=== PATIENT | female | born 1950 | race Caucasian/White ===

== ENCOUNTER 2018-12-22 15:13 | Inpatient (IN) | payer MEDICARE, SELFPAY ==
[2018-12-22] VITALS (8 sets, daily range): BP systolic 103–135; BP diastolic 40–96; PULSE 83–89; RESP 12–18; TEMP 34.6–37.1; O2SAT 95–100; BMI 24.8; BMI 24.0; BMI 24.1
--- NOTE | 2018-12-22 15:31 | EKG12_ITS ---
Test Reason : FALL Blood Pressure : / mmHG Vent. Rate : 090 BPM Atrial Rate : 104 BPM P-R Int : 000 ms QRS Dur : 152 ms QT Int : 384 ms P-R-T Axes : 000 047 113 degrees QTc Int : 469 ms Normal sinus rhythm Left bundle branch block Abnormal ECG Confirmed by PEDRO PABLO WRIGHT, AZEB ([id number]), legal editor CONNIE MENON ([id number] on 12/26/2018 8:53:29 AM Referred By: DONNY Confirmed By:AZEB CHAMORRO MD
--- NOTE | 2018-12-22 15:31 | RAD_ITS ---
STUDY: X-RAY CHEST REASON FOR EXAM: Female, 68 years old. Status post fall TECHNIQUE: Single AP portable view of the chest. COMPARISON: Prior comparison studies are not made available for review at this time. FINDINGS: Is a right-sided central line and the tip is in superior vena cava. The lungs are clear and expanded. There is no demonstrated pleural abnormality. There is mild cardiac enlargement. Normal mediastinum and clinton. Normal visualized pulmonary arteries. Normal visualized aortic arch and descending thoracic aorta. Normal visualized thoracic spine. Normal visualized ribs, clavicles, and shoulders. Postoperative changes in the right axilla. This postoperative change in the left axilla. RAD/Chest 1 View (Portable) IMPRESSION: Right internal jugular venous line. No evidence of acute focal infiltrate. No visualized fracture. Electronically Signed: Caren Noonan MD at 18:26 EST Tel , Service support ,
--- NOTE | 2018-12-22 15:32 | RAD_ITS ---
STUDY: X-RAY - RIGHT HIP and AP pelvis. REASON FOR EXAM: Female, 68 years old. Pain TECHNIQUE: 2 views of the hip. And one AP view of the pelvis. COMPARISON: None. FINDINGS: Normal bilateral femoral head, neck, intertrochanteric region and visualized proximal femur. Normal acetabulum. Normal hip joint. Normal visualized superior and inferior pubic rami and ischial tuberosities. Postoperative changes overlying the right hip joint. RAD/HIP, UNI W/ Pelvis 2-3 Views IMPRESSION: Normal x-ray examination of the pelvis and right hip. Electronically Signed: Caren Noonan MD at 18:24 EST Tel , Service support ,
--- NOTE | 2018-12-22 15:35 | ED.VISSUMM ---
- ER Visit Summary Date of Service: 12/22/18 Chief Complaint: Fall, right hip pain History of Present Illness: The patient is a 68 F patient with mechanical fall at 1210 PM today outside her driveway. Walking to get mail when she slipped. Fell directly on her hip. No head injuries. No loss of conscious. No neck or back pain. Was unable to get up, reports was laying in the driveway for 2 and half hours until neighbor drove I saw her and stopped. States she was cold however however she did have a good coat and gloves. History of right lower leg fracture with a stella placed in 2007 at [facility] by Dr. Palmer. He is since retired. History of breast cancer recurrent bilateral mastectomy currently on treatment followed by Dr. Booker. She is on warfarin for history of right DVT in 2017 requiring a thrombectomy. Physical Examination: General: Alert and oriented ?3, no acute distress HEENT: Normocephalic, atraumatic. Moist mucosa membranes Neck: supple, nontender. Cardiovascular: Regular rate and rhythm, no murmurs Respiratory: Normal breath sounds, symmetric, no distress Abdomen: Soft, nontender, nondistended Extremities: Right lower extremity: No shortening or rotation, however pain with logroll. No thigh, knee, leg ankle or foot pain. Neurovascular intact distally. Neuro: no focal neurological deficits. Skin: Cold to palpation. Test Results: White count 1.4 hemoglobin 11.7 platelets 117, creatinine 1.4 INR 3.6. Chest x-ray no acute process, central line in place. Right hip x-ray read by radiologist negative, had lucency at the greater trochanter my review. MRI right hip nondisplaced intertrochanteric fracture. Emergency Department Course and Treatment: Patient hypothermic on arrival she was outside for 2 half hours on the ground bear hugger was placed warm saline. Temperature improved. Bear hugger removed. Labs were ordered for evaluation, however with her bilateral mastectomies for cancer nursing has difficulties with distal IV placement. Consent obtained from patient for central line placement right IJ with no difficulties. Chest x-ray confirms placement no pneumothorax. Patient given morphine for pain control. X-ray obtained of the hip had radiolucency on my review of the greater trochanter read negative by radiology. Reevaluate the patient she had some pain mid femur x-ray of that was obtained shows no acute process. Patient's labs noted slight pancytopenia she is on chemotherapy for breast cancer. INR with slightly supratherapeutic at 3.6. Patient still had pain in the greater trochanteric area, she denied any groin pain. With her comorbidities with breast cancer and being on warfarin with coagulopathy, I did feel definitive imaging is required for surgical planning of the hip. MRI was obtained confirms a nondisplaced inotrope fracture. Family updated. I discussed with hospitalist Dr. Castro for admission. Discussed with orthopedist Dr. Burt reports planned surgery either Tuesday or Tuesday when cleared. Treatment Plan: [] Disposition: Admission Impression: 1. Right hip fracture 2. Coagulopathy 3. Transient hypothermia 4. Central line placement This note was generated with [employer] dictation software. It may contain incorrect words, spelling, and punctuation that were not noted in review of the chart prior to signing ED Disposition - Plan for ED Patient: Disposition: Acute Care [facility] Diagnosis: Closed right hip fracture, Transient hypothermia, Coagulopathy
--- NOTE | 2018-12-22 15:40 | ED.DCSUM_ITS ---
- ER Visit Summary Date of Service: 12/22/18 Chief Complaint: Fall, right hip pain History of Present Illness: The patient is a 68 F patient with mechanical fall at 1210 PM today outside her driveway. Walking to get mail when she slipped. Fell directly on her hip. No head injuries. No loss of conscious. No neck or back pain. Was unable to get up, reports was laying in the driveway for 2 and half hours until neighbor drove I saw her and stopped. States she was cold however however she did have a good coat and gloves. History of right lower leg fracture with a stella placed in 2007 at [facility] by Dr. Palmer. He is since retired. History of breast cancer recurrent bilateral mastectomy c urrently on treatment followed by Dr. Booker. She is on warfarin for history of right DVT in 2017 requiring a thrombectomy. Physical Examination: General: Alert and oriented ?3, no acute distress HEENT: Normocephalic, atraumatic. Moist mucosa membranes Neck: supple, nontender. Cardiovascular: Regular rate and rhythm, no murmurs Respiratory: Normal breath sounds, symmetric, no distress Abdomen: Soft, nontender, nondistended Extremities: Right lower extremity: No shortening or rotation, however pain with logroll. No thigh, knee, leg ankle or foot pain. Neurovascular intact distally. Neuro: no focal neurological deficits. Skin: Cold to palpation. Test Results: White count 1.4 hemoglobin 11.7 platelets 117, creatinine 1.4 INR 3.6. Chest x-ray no acute process, central line in place. Right hip x-ray read by radiologist negative, had lucency at the greater trochanter my review. MRI right hip nondisplaced intertrochanteric fracture. Emergency Department Course and Treatment: Patient hypothermic on arrival she was outside for 2 half hours on the ground bear hugger was placed warm saline. Temperature improved. Bear hugger removed. Labs were ordered for evaluation, however with her bilateral mastectomies for cancer nursing has difficulties with distal IV placement. Consent obtained from patient for central line placement right IJ with no difficulties. Chest x-ray confirms placement no pneumothorax. Patient given morphine for pain control. X-ray obtained of the hip had radiolucency on my review of the greater trochanter read negative by radiology. Reevaluate the patient she had some pain mid femur x-ray of that was obtained shows no acute process. Patient's labs noted slight pancytopenia she is on chemotherapy for breast cancer. INR with slightly supratherapeutic at 3.6. Patient still had pain in the greater trochanteric area, she denied any groin pain. With her comorbidities with breast cancer and being on warfarin with coagulopathy, I did feel definitive imaging is required for surgical planning of the hip. MRI was obtained confirms a nondisplaced inotrope fracture. Family updated. I discussed with hospitalist Dr. Castro for admission. Discussed with orthopedist Dr. Burt reports planned surgery either Tuesday or Tuesday when cleared. Treatment Plan: [] Disposition: Admission Impression: 1. Right hip fracture 2. Coagulopathy 3. Transient hypothermia 4. Central line placement This note was generated with [employer] dictation software. It may contain incorrect words, spelling, and punctuation that were not noted in review of the chart prior to signing ED Disposition - Plan for ED Patient: Disposition: Acute Care Hospital [facility] Diagnosis: Closed right hip fracture, Transient hypothermia, Coagulopathy
[2018-12-22] MEDS: Morphine 4 MG/ML Syringe IV (17:07)
[2018-12-22] MEDS: 0.9% Normal Saline 1,000 ML 100 ML IV (17:08)
[2018-12-22 17:25] LABS: Absolute Lymphocyte Count 0.37 X10^3/ul (0.83-4.51); Absolute Neutrophil Count 0.7 X10^3/uL (2.0-7.7); Basophil# 0.03 X10^3/uL; Basophil% 2.1 % (0-1); Hematocrit 34.8 % (37-47); Hemoglobin 11.7 g/dl (12.0-15.0); Lymphocyte # 0.37 X10^3/ul (4.0); Lymphocyte % 26.4 % (19-41); Mean Corp Hgb Conc 33.6 g/gl (32-36); Mean Corpuscular Hgb 31.2 pg (27.0-32.0); Mean Corpuscular Volume 92.8 fL (81-99); Monocyte# 0.32 X10^3/uL; Monocyte% 22.9 % (0-10); Neutrophil # 0.68 X10^3/uL (2.7-7.7); Neutrophil % 48.6 % (47-70); Platelet Count 117 K/mm3 (150-450); RBC Distribution Width CV 15.1 % (11.6-14.6); RBC Distribution Width SD 44.3 fl (35.1-43.9); Red Blood Count 3.75 M/mm3 (4.2-5.4)
[2018-12-22 17:26] LABS: Anion Gap 15 (5-15); BUN 19 mg/dL (7-18); BUN/Creat Ratio 13.6 RATIO (10-20); Calcium,Total 9.3 mg/dL (8.5-10.1); Chloride 97 mmol/L (98-107); EST Glomerular Filtration Rate 40 mL/min (>60); Est Glom Filt Rate - Afr Amer 48 mL/min (>60); Estimated Creatinine Clearance 34.81 ml/min; Glucose 114 mg/dL (74-106); Potassium 3.7 mmol/L (3.5-5.1); Sodium Level 134 mmol/L (136-145)
[2018-12-22 17:29] LABS: Differential Indicated SCAN CRITERIA MET; POSITIVE COUNT YES; POSITIVE DIFFERENTIAL YES; POSITIVE MORPHOLOGY NO
[2018-12-22 17:33] LABS: White Blood Count 1.4 K/mm3 (4.4-11.0)
[2018-12-22 17:34] LABS: Prothrombin Time (Protime)PT. 35.9 SECONDS (11.7-14.9)
--- NOTE | 2018-12-22 17:34 | ED.RN ---
LAB CALLED CRITICAL RESULT ON THIS PT, WBC 1.4, DR NOTIFIED NFO'S
[2018-12-22 17:35] LABS: Partial Thromboplast Time 43.1 Seconds (24.1-36.2)
[2018-12-22 17:42] LABS: International Normalized Ratio 3.6
--- NOTE | 2018-12-22 17:50 | ED.RN ---
notified Dr. Mendez of WBC and INR
--- NOTE | 2018-12-22 17:51 | RAD_ITS ---
STUDY: X-RAY - RIGHT FEMUR REASON FOR STUDY: Female, 68 years old. Fall. Injury. TECHNIQUE: 4 view(s) of the femur. COMPARISON: Pelvis and right hip, December 22, 2018. FINDINGS: Normal visualized femur. There is no acute fracture or dislocation. There are degenerative changes of the knee and hip. There is evidence of a medullary stella within the proximal tibia with old healed fracture of the proximal fibula. Normal visualized soft tissue structure. RAD/Femur Min 2 Views IMPRESSION: Degenerative changes of the hip and knee. There is no visualized fracture or dislocation. Electronically Signed: Michael Tam DO at 19:15 EST Tel [phone], Service support ,
[2018-12-22 17:58] LABS: Differential Comment SCANNED
[2018-12-22] MEDS: fentaNYL 100 MCG/2 ML Ampul 25 MCG IV (19:27)
--- NOTE | 2018-12-22 19:30 | MRI_ITS ---
STUDY: MR PELVIS WITHOUT CONTRAST REASON FOR EXAM: Female, 68 years old. Fall. Pain. History of breast cancer. TECHNIQUE: Standardized fat and water weighted pulse sequences were obtained in all 3 orthogonal planes. COMPARISON: Pelvis and right hip, December 22, 2018. FINDINGS: Normal urinary bladder. Normal visualized small intestine. Normal visualized colon. The uterus is anteverted and tilted to the right uterus appears atrophic. The right ovary appears grossly normal. The left ovary is not visualized. There is no pelvic fluid. There is no pelvic mass lesion or lymphadenopathy. Normal visualized pelvic arteries. Normal The visualized pelvis is unremarkable. There is marked abnormality involving the right hip suggesting nondisplaced intertrochanteric fracture with marked edematous changes of the surrounding musculature and soft tissue. Left hip is unremarkable. MRI/Pelvis (Routine) IMPRESSION: 1. Nondisplaced intratrochanteric fracture of the right hip was marked inflammatory changes in the surrounding musculature and soft tissue. 2. No other evidence of pelvic abnormality. Electronically Signed: Michael Tam DO at 21:34 EST Tel [phone], Service support ,
--- NOTE | 2018-12-22 22:10 | PCM.HP.STD ---
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 The patient is a 68 year old F with past medical history as mentioned above presented to the emergency room because of fall and right hip pain. Today, patient had mechanical fall after she went out on her driveway to get her mail, slipped on the ice and she fell on her right side. Immediately, she started having right hip pain, severe throbbing pain, 8 out of 10 in severity, not radiating, aggravated by any movement of the right leg and without relieving factors. She stated that she stayed on the ground for more than 2 hours before she got help. She denied head injury. She denied any preceding symptoms such as dizziness, lightheadedness, chest pain, shortness of breath, syncope or presyncope. Upon arrival to ER, she was hypothermic, temperature was 94.2 Fahrenheit, other vital signs were stable. Later, his temperature improved and went back to normal. Her routine blood work was remarkable for leukopenia, anemia, thrombocytopenia and neutropenia, sodium of 134 and creatinine of 1.40. Her INR was 3.6. EKG revealed sinus rhythm with left bundle branch block and that is chronic compared to EKG from July,. Chest x-ray showed no acute findings. X-ray of the hip and right pelvis showed no acute fractures. X-ray of the right femur revealed no acute fractures or dislocation. MRI of the pelvis revealed nondisplaced intertrochanteric fracture of the right hip. She is being admitted for acute traumatic nondisplaced intertrochanteric fracture of the right hip, also found to have pancytopenia attributed to both Faslodex and Ibrance. Past Medical History Past Medical History (Chronic Problems): Chronic Problems History of atrial fibrillation (Chronic) Recurrent breast cancer (Chronic) Congenital single kidney (Chronic) History of DVT (deep vein thrombosis) (Chronic) Breast cancer (Chronic) s/p bilat rad mastect on chemo Alcoholic cirrhosis of liver with ascites (Chronic) Allergies carvedilol Adverse Reaction (Verified 12/22/18 15:18) Other Home Medications: Ambulatory Orders Medication Instructions Recorded Metoprolol Tartrate [Lopressor 25 mg PO BID 08/16/17 (Beta Marizol)] Cholecalciferol (Vitamin D3) 2,000 unit PO DAILY 12/22/18 [Vitamin D3] Fulvestrant [Faslodex] 500 mg IM QMONTH 12/22/18 Furosemide [Lasix] 20 mg PO DAILY 12/22/18 Multivitamin with Minerals 1 each PO DAILY 12/22/18 [Multiple Vitamin] Palbociclib [Ibrance] 125 mg PO DAILY 12/22/18 Spironolactone [Aldactone] 50 mg PO BID 12/22/18 Warfarin Sodium 1 mg PO FR 12/22/18 Warfarin Sodium 2 mg PO SUMOTUWETHSA 12/22/18 Surgical History: - - Bilateral radical mastectomy. Psychiatric History: No pertinent psych hx PUBLIC HEALTH STAFF NURSE History: No pertinent PUBLIC HEALTH STAFF NURSE history Lives: Spouse/ Significant Other Smoking Status: Never smoker Alcohol: None Drugs: None - *Family History Maternal History Items: No pertinent history Paternal History Items: No pertinent history Review of Systems Constitutional: Denies: Anorexia, Chills, Fever, Weakness Eyes: Denies: Blurred vision, Double vision, Drainage, Redness HEENT: Denies: Difficulty Hearing, Ear Pain, Eye Pain, Nasal Congestion, Sore Throat Cardiovascular: Denies: Chest Pain, Chest Pressure, Edema, Light Headedness, Palpitations, Syncope Respiratory: Denies: Cough, Pleuritic Pain, Shortness of Breath, Sputum production, Wheezing Gastrointestinal: Denies: Abdominal Pain, Constipation, Diarrhea, Nausea, Vomiting Genitourinary: Denies: Dysuria, Frequency, Hematuria Musculoskeletal: Reports: Joint Pain. Denies: Arm Pain, Back Pain, Foot Pain Skin: Denies: Dryness, Rash Neurological: Denies: Balance problems, Double vision, Change in Speech, Slurred speech, Confusion, Headaches, Incoordination, Numbness, Tingling Psychiatric: Denies: Anxiety, Depression Endocrine: Denies: Change in Body Habitus, Polydipsia VTE Information - Inpt Only VTE Present on Admission: No VTE Mechan Device Prophylaxis: SCD's, None VTE Pharm Prophylaxis ordered?: No Patient Problems: Active and Suspected Problems Nondisplaced intertrochanteric right hip (Acute) Pancytopenia (Acute) - Physical Exam General: Alert, Oriented x3, Cooperative, No apparent distress HEENT: Atraumatic, PERRLA, EOMI, Normocephalic Oral: Moist Mucosa, No Gingival or Mucosal Lesions/ Ulcerations Neck: Supple, No JVD, Negative Carotid Bruits, Trachea Midline, Thyroid Normal Size and Texture Lungs: Clear to auscultation, No rhonchi, No wheeze, No rales, Diminished Cardiovascular: Regular rate, Regular Rhythm, Normal S1, Normal S2, PMI Normal, Murmur - Systolic murmur. Abdomen: Bowel Sounds Present, Soft, Non Tender, Non-Distended, No Hepato-splenomegaly Extremities: No clubbing, No cyanosis, No edema Skin: No rashes, No breakdown Lymphatic: No Cervical, Supraclavicular, or Inguinal Adenopathy Neurological: Cranial nerves II-XII grossly intact, Motor Exam 5/5 strength throughout Psych/Mental Status: Normal Affect, Appropriate, Alert and oriented to time, place, person, mood and affect Vital Signs Temp Pulse Resp BP Pulse Ox 98.3 F 83 18 135/76 H 97 12/22/18 21:00 12/22/18 21:00 12/22/18 21:00 12/22/18 21:00 12/22/18 21:00 Oxygen Delivery Method Room Air Weight: 123 lb Body Mass Index (BMI) 24.8 Laboratory Tests Past 24 Hrs 12/22/18 12/22/18 12/22/18 17:00 17:00 17:00 WBC 1.4 L* RBC 3.75 L Hgb 11.7 L Hct 34.8 L MCV 92.8 MCH 31.2 MCHC 33.6 RDW 15.1 H RDW Differential 44.3 H Plt Count 117 L MPV 11.0 Immature Gran % (Auto) 0.000 Neut % (Auto) 48.6 Lymph % (Auto) 26.4 [place] % (Auto) 22.9 H Eos % (Auto) 0.0 Baso % (Auto) 2.1 H Absolute Neuts (auto) 0.7 L Absolute Lymphs (auto) 0.37 L Total Counted Not Reportable Differential Comment SCANNED Diff Path Review May foll PT 35.9 H INR 3.6 H* APTT 43.1 H Sodium 134 L Potassium 3.7 Chloride 97 L Carbon Dioxide 22.0 Anion Gap 15 BUN 19 H Creatinine 1.40 H Estim Creat Clear Calc 34.81 Est GFR (MDRD) Af Amer 48 L Est GFR (MDRD) Non-Af 40 L BUN/Creatinine Ratio 13.6 Glucose 114 H Calcium 9.3 Clinical Impression(s) from Imaging Studies Chest X-Ray 12/22/18 15:31 IMPRESSION: Right internal jugular venous line. No evidence of acute focal infiltrate. No visualized fracture. Electronically Signed: Caren Noonan MD at 18:26 EST Tel , Service support , Hip/Pelvis X-Ray 12/22/18 15:32 IMPRESSION: Normal x-ray examination of the pelvis and right hip. Electronically Signed: Caren Noonan MD at 18:24 EST Tel , Service support , Femur X-Ray 12/22/18 17:51 IMPRESSION: Degenerative changes of the hip and knee. There is no visualized fracture or dislocation. Electronically Signed: Michael Tam DO at 19:15 EST Tel [phone], Service support , Pelvis MRI 12/22/18 19:30 IMPRESSION: 1. Nondisplaced intratrochanteric fracture of the right hip was marked inflammatory changes in the surrounding musculature and soft tissue. 2. No other evidence of pelvic abnormality. Electronically Signed: Michael Tam DO at 21:34 EST Tel [phone], Service support , Assessment/Plan All Active Problems Nondisplaced intertrochanteric right hip (Acute) Pancytopenia (Acute) This is a 68 years old female patient presented to the ED because of fall on the right hip pain and she was found to have acute traumatic nondisplaced intertrochanteric fracture of the right hip and also found to have pancytopenia and Coumadin induced coagulopathy. #1 mechanical fall/acute traumatic nondisplaced intertrochanteric fracture of the right hip: X-ray of the hip and pelvis reviewed as well as MRI of the pelvis. No evidence of significant head trauma. At this time, her vital signs are stable. Plan: Admit to [facility] floor, telemetry, complete bedrest, IV fluids, IV morphine as needed, OxyIR as needed for pain, laxatives as needed, repeat CBC, CMP and INR tomorrow morning, orthopedic surgery consult, PT OT evaluation and treatment when appropriate. #2 preoperative evaluation: Patient with past history of recurrent breast cancer, alcoholic liver cirrhosis, history of A. fib status post cardioversion and history of DVTs. She lives at home, active, doing her basic daily activities without limitations. Chest x-ray showed no acute findings. EKG reviewed as above, revealed left bundle branch block which is chronic. Based on her age, functional status, serum creatinine and type of surgery she is going for, her estimated risk for perioperative myocardial infarction or cardiac arrest is 0.62%. Because of her history of atrial fibrillation and LBBB on EKG and also because she had a systolic murmur, will do 2D echocardiogram. At this time, patient is at least at moderate risk for surgery and we can proceed with surgery after the 2D echocardiogram. #3 pancytopenia/neutropenia without fever: It is secondary to Faslodex and Ibrance. She is afebrile. Absolute neutrophil count of 700. Plan: Neutropenic precautions, repeat CBC tomorrow morning. #4 Coumadin induced coagulopathy: Patient has been on Coumadin for more than a year for history of DVT. INR is 2.6. Her platelet count is 117,000. No evidence of active bleeding. Plan: Vitamin K 10 mg subcu x1, repeat INR tomorrow morning. #5 congenital single kidney/probable chronic kidney disease: Serum creatinine on July, was 1.39, admission creatinine is 1.40, very close to baseline. For that, serum creatinine is normal. Patient states that she has a single kidney and she states that it is probably congenital. #6 history of recurrent breast cancer: Status post bilateral radical mastectomy, status post chemotherapy back in 2012. Recurrence of breast cancer on 2017, currently on hormonal therapy with Faslodex and Ibrance, follows up with Dr. Booker as outpatient. Plan to hold Faslodex and continue Ibrance #7 history of DVT: INR is 2.6. We will give vitamin K as above, SCDs, repeat INR tomorrow morning. #8 history of atrial fibrillation, status post cardioversion: EKG reviewed, revealed sinus rhythm with LBBB. Plan to continue metoprolol for rate control, 2D echocardiogram. #9 chronic alcoholic liver cirrhosis: Compensated, no evidence of hepatic encephalopathy, minimal ascites. Plan to do LFT tomorrow morning. #10 DVT prophylaxis: SCDs, INR is 3.6. This note was generated with [employer] dictation software. It may contain incorrect words, spelling, and punctuation that were not noted in checking the note before signing. Code Visit Inpatient E&M: 21709 Init Hosp L3
--- NOTE | 2018-12-22 22:16 | HP.PCM_ITS ---
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 The patient is a 68 year old F with past medical history as mentioned above presented to the emergency room because of fall and right hip pain. Today, patient had mechanical fall after she went out on her driveway to get her mail, slipped on the ice and she fell on her right side. Immediately, she started having right hip pain, severe throbbing pain, 8 out of 10 in severity, not radiating, aggravated by any movement of the right leg and without relieving factors. She stated that she stayed on the ground for more than 2 hours before she got help. She denied head injury. She denied any preceding symptoms such as dizziness, lightheadedness, chest pain, shortness of breath, syncope or presyncope. Upon arrival to ER, she was hypothermic, temperature was 94.2 Fahrenheit, other vital signs were stable. Later, his temperature improved and went back to normal. Her routine blood work was remarkable for leukopenia, anemia, thrombocytopenia and neutropenia, sodium of 134 and creatinine of 1.40. Her INR was 3.6. EKG revealed sinus rhythm with left bundle branch block and that is chronic compared to EKG from July,. Chest x-ray showed no acute findings. X-ray of the hip and right pelvis showed no acute fractures. X-ray of the right femur revealed no acute fractures or dislocation. MRI of the pelvis revealed nondisplaced intertrochanteric fracture of the right hip. She is being admitted for acute traumatic nondisplaced intertrochanteric fracture of the right hip, also found to have pancytopenia attributed to both Faslodex and Ibrance. Past Medical History Past Medical History (Chronic Problems): Chronic Problems History of atrial fibrillation (Chronic) Recurrent breast cancer (Chronic) Congenital single kidney (Chronic) History of DVT (deep vein thrombosis) (Chronic) Breast cancer (Chronic) s/p bilat rad mastect on chemo Alcoholic cirrhosis of liver with ascites (Chronic) Allergies carvedilol Adverse Reaction (Verified 12/22/18 15:18) Other Home Medications: Ambulatory Orders Medication Instructions Recorded Metoprolol Tartrate [Lopressor 25 mg PO BID 08/16/17 (Beta Marizol)] Cholecalciferol (Vitamin D3) 2,000 unit PO DAILY 12/22/18 [Vitamin D3] Fulvestrant [Faslodex] 500 mg IM QMONTH 12/22/18 Furosemide [Lasix] 20 mg PO DAILY 12/22/18 Multivitamin with Minerals 1 each PO DAILY 12/22/18 [Multiple Vitamin] Palbociclib [Ibrance] 125 mg PO DAILY 12/22/18 Spironolactone [Aldactone] 50 mg PO BID 12/22/18 Warfarin Sodium 1 mg PO FR 12/22/18 Warfarin Sodium 2 mg PO SUMOTUWETHSA 12/22/18 Surgical History: - - Bilateral radical mastectomy. 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 Lives: Spouse/ Significant Other Smoking Status: Never smoker Alcohol: None Drugs: None - *Family History Maternal History Items: No pertinent history Paternal History Items: No pertinent history Review of Systems Constitutional: Denies: Anorexia, Chills, Fever, Weakness Eyes: Denies: Blurred vision, Double vision, Drainage, Redness HEENT: Denies: Difficulty Hearing, Ear Pain, Eye Pain, Nasal Congestion, Sore Throat Cardiovascular: Denies: Chest Pain, Chest Pressure, Edema, Light Headedness, Palpitations, Syncope Respiratory: Denies: Cough, Pleuritic Pain, Shortness of Breath, Sputum production, Wheezing Gastrointestinal: Denies: Abdominal Pain, Constipation, Diarrhea, Nausea, Vomiting Genitourinary: Denies: Dysuria, Frequency, Hematuria Musculoskeletal: Reports: Joint Pain. Denies: Arm Pain, Back Pain, Foot Pain Skin: Denies: Dryness, Rash Neurological: Denies: Balance problems, Double vision, Change in Speech, Slurred speech, Confusion, Headaches, Incoordination, Numbness, Tingling Psychiatric: Denies: Anxiety, Depression Endocrine: Denies: Change in Body Habitus, Polydipsia VTE Information - Inpt Only VTE Present on Admission: No VTE Mechan Device Prophylaxis: SCD's, None VTE Pharm Prophylaxis ordered?: No Patient Problems: Active and Suspected Problems Nondisplaced intertrochanteric right hip (Acute) Pancytopenia (Acute) - Physical Exam General: Alert, Oriented x3, Cooperative, No apparent distress HEENT: Atraumatic, PERRLA, EOMI, Normocephalic Oral: Moist Mucosa, No Gingival or Mucosal Lesions/ Ulcerations Neck: Supple, No JVD, Negative Carotid Bruits, Trachea Midline, Thyroid Normal Size and Texture Lungs: Clear to auscultation, No rhonchi, No wheeze, No rales, Diminished Cardiovascular: Regular rate, Regular Rhythm, Normal S1, Normal S2, PMI Normal, Murmur - Systolic murmur. Abdomen: Bowel Sounds Present, Soft, Non Tender, Non-Distended, No Hepato-splenomegaly Extremities: No clubbing, No cyanosis, No edema Skin: No rashes, No breakdown Lymphatic: No Cervical, Supraclavicular, or Inguinal Adenopathy Neurological: Cranial nerves II-XII grossly intact, Motor Exam 5/5 strength throughout Psych/Mental Status: Normal Affect, Appropriate, Alert and oriented to time, place, person, mood and affect Vital Signs Temp Pulse Resp BP Pulse Ox 98.3 F 83 18 135/76 H 97 12/22/18 21:00 12/22/18 21:00 12/22/18 21:00 12/22/18 21:00 12/22/18 21:00 Oxygen Delivery Method Room Air Weight: 123 lb Body Mass Index (BMI) 24.8 Laboratory Tests Past 24 Hrs 12/22/18 12/22/18 12/22/18 17:00 17:00 17:00 WBC 1.4 L* RBC 3.75 L Hgb 11.7 L Hct 34.8 L MCV 92.8 MCH 31.2 MCHC 33.6 RDW 15.1 H RDW Differential 44.3 H Plt Count 117 L MPV 11.0 Immature Gran % (Auto) 0.000 Neut % (Auto) 48.6 Lymph % (Auto) 26.4 [place] % (Auto) 22.9 H Eos % (Auto) 0.0 Baso % (Auto) 2.1 H Absolute Neuts (auto) 0.7 L Absolute Lymphs (auto) 0.37 L Total Counted Not Reportable Differential Comment SCANNED Diff Path Review May foll PT 35.9 H INR 3.6 H* APTT 43.1 H Sodium 134 L Potassium 3.7 Chloride 97 L Carbon Dioxide 22.0 Anion Gap 15 BUN 19 H Creatinine 1.40 H Estim Creat Clear Calc 34.81 Est GFR (MDRD) Af Amer 48 L Est GFR (MDRD) Non-Af 40 L BUN/Creatinine Ratio 13.6 Glucose 114 H Calcium 9.3 Clinical Impression(s) from Imaging Studies Chest X-Ray 12/22/18 15:31 IMPRESSION: Right internal jugular venous line. No evidence of acute focal infiltrate. No visualized fracture. Electronically Signed: Caren Noonan MD at 18:26 EST Tel , Service support , Hip/Pelvis X-Ray 12/22/18 15:32 IMPRESSION: Normal x-ray examination of the pelvis and right hip. Electronically Signed: Caren Noonan MD at 18:24 EST Tel , Service support , Femur X-Ray 12/22/18 17:51 IMPRESSION: Degenerative changes of the hip and knee. There is no visualized fracture or dislocation. Electronically Signed: Michael Tam DO at 19:15 EST Tel [phone], Service support , Pelvis MRI 12/22/18 19:30 IMPRESSION: 1. Nondisplaced intratrochanteric fracture of the right hip was marked inflammatory changes in the surrounding musculature and soft tissue. 2. No other evidence of pelvic abnormality. Electronically Signed: Michael Tam DO at 21:34 EST Tel [phone], Service support , Assessment/Plan All Active Problems Nondisplaced intertrochanteric right hip (Acute) Pancytopenia (Acute) This is a 68 years old female patient presented to the ED because of fall on the right hip pain and she was found to have acute traumatic nondisplaced intertrochanteric fracture of the right hip and also found to have pancytopenia and Coumadin induced coagulopathy. #1 mechanical fall/acute traumatic nondisplaced intertrochanteric fracture of the right hip: X-ray of the hip and pelvis reviewed as well as MRI of the pelvis. No evidence of significant head trauma. At this time, her vital signs are stable. Plan: Admit to [facility] floor, telemetry, complete bedrest, IV fluids, IV morphine as needed, OxyIR as needed for pain, laxatives as needed, repeat CBC, CMP and INR tomorrow morning, orthopedic surgery consult, PT OT evaluation and treatment when appropriate. #2 preoperative evaluation: Patient with past history of recurrent breast cancer, alcoholic liver cirrhosis, history of A. fib status post cardioversion and history of DVTs. She lives at home, active, doing her basic daily activities without limitations. Chest x-ray showed no acute findings. EKG reviewed as above, revealed left bundle branch block which is chronic. Based on her age, functional status, serum creatinine and type of surgery she is going for, her estimated risk for perioperative myocardial infarction or cardiac arrest is 0.62%. Because of her history of atrial fibrillation and LBBB on EKG and also because she had a systolic murmur, will do 2D echocardiogram. At this time, patient is at least at moderate risk for surgery and we can proceed with surgery after the 2D echocardiogram. #3 pancytopenia/neutropenia without fever: It is secondary to Faslodex and Ibrance. She is afebrile. Absolute neutrophil count of 700. Plan: Neutropenic precautions, repeat CBC tomorrow morning. #4 Coumadin induced coagulopathy: Patient has been on Coumadin for more than a year for history of DVT. INR is 2.6. Her platelet count is 117,000. No evidence of active bleeding. Plan: Vitamin K 10 mg subcu x1, repeat INR tomorrow morning. #5 congenital single kidney/probable chronic kidney disease: Serum creatinine on July, was 1.39, admission creatinine is 1.40, very close to baseline. For that, serum creatinine is normal. Patient states that she has a single kidney and she states that it is probably congenital. #6 history of recurrent breast cancer: Status post bilateral radical mastectomy, status post chemotherapy back in 2012. Recurrence of breast cancer on 2017, currently on hormonal therapy with Faslodex and Ibrance, follows up with Dr. Booker as outpatient. Plan to hold Faslodex and continue Ibrance #7 history of DVT: INR is 2.6. We will give vitamin K as above, SCDs, repeat INR tomorrow morning. #8 history of atrial fibrillation, status post cardioversion: EKG reviewed, revealed sinus rhythm with LBBB. Plan to continue metoprolol for rate control, 2D echocardiogram. #9 chronic alcoholic liver cirrhosis: Compensated, no evidence of hepatic encephalopathy, minimal ascites. Plan to do LFT tomorrow morning. #10 DVT prophylaxis: SCDs, INR is 3.6. This note was generated with engage[employer] dictation software. It may contain incorrect words, spelling, and punctuation that were not noted in checking the note before signing. Code Visit Inpatient E&M: 22271 Init Hosp L3
--- NOTE | 2018-12-22 23:19 | ECHOD_ITS ---
Version 2 Reason For Study: Preop Procedure This was a 2D Doppler, Color Flow transthoracic echocardiogram. Myocardial strain analysis was performed in this exam to aid in the assessment of cardiac function. Exam performed portable in patient room. Left Ventricle Normal LV size. Left ventricular systolic function is normal. The estimated ejection fraction is 60 %. Stage 1 diastolic dysfunction. No regional wall motion abnormalities noted. Right Ventricle Normal RV size. Normal systolic function. Atria Normal left atrium. Normal right atrium. Patent foramen ovale. Mitral Valve Normal mitral valve. Tricuspid Valve Normal tricuspid valve. Mild (1+) tricuspid valve insufficiency. Pulmonary artery systolic pressure is 50 mmHg. Moderate pulmonary hypertension. Aortic Valve Normal aortic valve. Trisinus/trileaflet aortic valve. Pulmonic Valve Normal pulmonic valve. Great Vessels Normal aortic root. The pulmonary artery is normal size. Normal inferior vena cava. Pericardium/Pleural No pericardial effusion. Medication Performed a rapid injection of agitated mix of 9 cc saline and 1cc air to assess for atrial septal defect. MMode/2D Measurements & Calculations LVIDd: 3.7 cm IVSd: 0.96 cm Ao root diam: 2.5 cm LVIDs: 2.6 cm LVPWd: 0.88 cm RVDd: 3.0 cm FS: 29.5 % LAV(MOD-bp): 25.5 ml LVAd ap4: 15.9 cm2 SV(MOD-sp4): 21.1 ml LAV(MOD-bp) Indexed: 17.0 ml/m2 EDV(MOD-sp4): 34.5 ml LAV(MOD-sp2): 18.7 ml EDV(sp4-el): 35.2 ml LAV(MOD-sp4): 23.6 ml LVAs ap4: 9.1 cm2 ESV(MOD-sp4): 13.4 ml ESV(sp4-el): 13.5 ml EF(MOD-sp4): 61.2 % EF(sp4-el): 61.6 % SV(sp4-el): 21.7 ml LA A4 area: 12.3 cm2 LA dimension(2D): 3.3 cm RA A4 area: 11.4 cm2 Doppler Measurements & Calculations MV E max tod: 70.6 cm/sec Lat Peak E' Tod: 11.2 cm/sec Med Peak E' Tod: 6.0 cm/sec MV A max tod: 91.3 cm/sec E/E' lat: 6.3 E/E' med: 11.8 MV E/A: 0.77 Ao V2 max: 172.3 cm/sec LV V1 max: 149.1 cm/sec PA V2 max: 202.1 cm/sec Ao max P.9 mmHg LV V1 max P.9 mmHg PA V2 mean: 123.5 cm/sec Ao V2 mean: 111.3 cm/sec PA V2 VTI: 26.2 cm Ao mean P.6 mmHg Ao V2 VTI: 24.2 cm TR max tod: 339.6 cm/sec TR max P.1 mmHg Interpretation Summary Normal LV size. Left ventricular systolic function is normal. The estimated ejection fraction is 60 %. Stage 1 diastolic dysfunction. Pulmonary artery systolic pressure is 50 mmHg. Moderate pulmonary hypertension. Patent foramen ovale. The global longitudinal strain = -19.1 % (normal). Ordering Physician: Vinayak Castro Referring Physician: Nacho Marte Performed By: Mariely Marc RDCS, RVT
[2018-12-23] VITALS (18 sets, daily range): BP systolic 108–153; BP diastolic 55–109; PULSE 86–101; RESP 16; TEMP 36.8–37.2; O2SAT 97–100; BMI 24.1
[2018-12-23] MEDS: 0.9% Normal Saline 1,000 ML 75 ML IV ×2 (00:26→13:53)
[2018-12-23] MEDS: Phytonadione (Vit K) 10 MG/ML Ampul SC (00:26)
[2018-12-23] MEDS: 0.9% NaCl Peripheral Flush Adult/Peds IV (00:27)
[2018-12-23] MEDS: oxyCODONE 5 MG Tablet PO ×2 (01:21→18:59)
--- NOTE | 2018-12-23 07:54 | PCM.PN.HOSP ---
Patient Problems: Active and Suspected Problems Nondisplaced intertrochanteric right hip (Acute) Pancytopenia (Acute) Subjective: Patient is a 68-year-old lady who presented following a fall and subsequent right hip pain. Imaging studies obtained on admission demonstrated nondisplaced intratrochanteric fracture involving the right hip. Admitted to regular nursing floor with consultation placed to orthopedic surgery. Objective: GENERAL: Appears frail HEENT: Atraumatic; moist oral mucosa EYES; Anicteric, Normal Conjunctiva NECK; supple, normal thyroid, no distended JVD. RESPIRATORY: Diminished to auscultation bilaterally, CARDIOVASCULAR: Regular S1 S2, no audible murmurs GI: soft, non-tender, normoactive bowel sounds, : No Renal angle tenderness; EXTREMITIES: No edema, no clubbing, no cyanosis. NEURO: Awake; no lateralizing signs. SKIN: No Rash PSYCH; Normal affect Vitals/I&O's: Vital Signs Temp Pulse Resp BP Pulse Ox 99 F 101 H 16 113/55 L 100 12/23/18 05:14 12/23/18 07:26 12/23/18 05:14 12/23/18 05:14 12/23/18 05:14 Oxygen Delivery Method Room Air Weight: 54.3 kg Body Mass Index (BMI) 24.1 Intake and Output for Last 24 Hours 12/21/18 12/22/18 12/23/18 23:59 23:59 23:59 Intake Total 685 / 685 Output Total 375 / 375 Balance 310 / 310 Laboratory Results 12/22/18 17:00: WBC 1.4 L*, RBC 3.75 L, Hgb 11.7 L, Hct 34.8 L, MCV 92.8, MCH 31.2, MCHC 33.6, RDW 15.1 H, RDW Differential 44.3 H, Plt Count 117 L, MPV 11.0, Immature Gran % (Auto) 0.000, Neut % (Auto) 48.6, Lymph % (Auto) 26.4, [place] % (Auto) 22.9 H, Eos % (Auto) 0.0, Baso % (Auto) 2.1 H, Absolute Neuts (auto) 0.7 L, Absolute Lymphs (auto) 0.37 L, Total Counted Not Reportable, Differential Comment SCANNED, Diff Path Review March12/22/18 17:00: PT 35.9 H, INR 3.6 H*, APTT 43.1 H 12/22/18 17:00: Sodium 134 L, Potassium 3.7, Chloride 97 L, Carbon Dioxide 22.0, Anion Gap 15, BUN 19 H, Creatinine 1.40 H, Estim Creat Clear Calc 34.81, Est GFR (MDRD) Af Amer 48 L, Est GFR (MDRD) Non-Af 40 L, BUN/Creatinine Ratio 13.6, Glucose 114 H, Calcium 9.3 Current Medications Acetaminophen (Tylenol) 650 mg PO Q6H PRN PRN PRN Reason: Mild Pain (scale 0-3)/T>100.7 Docusate Sodium (Colace) 100 mg PO BID [facility] Sodium Chloride () 1,000 mls @ 75 mls/hr IV .[id number] [facility] Last Admin: 12/23/18 00:26 Dose: 75 mls/hr Magnesium Hydroxide (Milk Of Magnesia) 30 ml PO DAILY PRN PRN PRN Reason: Constipation Metoprolol Tartrate (Lopressor (Beta Marizol)) 25 mg PO BID [facility] Morphine Sulfate () 1 - 2 mg IV Q4H PRN PRN PRN Reason: Moderate Pain (pain scale 4-5) Non-Formulary Medication (Palbociclib) 125 mg PO DAILY [facility] Ondansetron HCl (Zofran) 4 mg IV Q8H PRN PRN PRN Reason: Nausea Oxycodone HCl (Oxyir) 5 mg PO Q4H PRN PRN PRN Reason: Moderate Pain (pain scale 4-5) Last Admin: 12/23/18 01:21 Dose: 5 mg Sodium Chloride () 10 - 40 ml IV UD PRN PRN Reason: MULTILUMEN/HICMAN CATH FLUSH Last Admin: 12/23/18 05:34 Dose: 10 ml Spironolactone (Aldactone) 50 mg PO BID [facility] Zolpidem Tartrate (Ambien (Generic)) 5 mg PO QHS PRN PRN PRN Reason: INSOMNIA Medical Necessity - Tobacco Use Smoking Status: Never smoker Assessment/Plan All Active Problems Nondisplaced intertrochanteric right hip (Acute) Pancytopenia (Acute) Patient is a 68-year-old lady who presented following a fall and subsequent right hip pain. Imaging studies obtained on admission demonstrated nondisplaced intratrochanteric fracture involving the right hip. Admitted to regular nursing floor with consultation placed to orthopedic surgery. 1. Acute non-syncopal mechanical fall with subsequent traumatic nondisplaced intratrochanteric fracture involving the right hip. This was confirmed on an MRI obtained as part of patient's evaluation. Patient has been admitted to regular nursing floor where she is currently being managed with immobilization, pain management with consultation placed to orthopedic surgery. Case was discussed with Dr. Burt. Plan is for patient to undergo surgical intervention pending correction of her coagulopathy Patient risk for perioperative cardiac mortality was estimated to be 0.62%. EKG on admission demonstrated A. fib with aberrancy (left bundle branch block) An echo was ordered for assessment of a systolic murmur prior to patient undergoing surgical intervention 2. Coagulopathy secondary to Coumadin use Coumadin was held on admission patient coagulopathy reversed with vitamin K plan is for patient undergo surgical intervention was INR falls below 1.5 this was discussed with Dr. Melton 3. Pancytopenia (neutropenia, trombocytopenia and anemia) attributed to patient chemo agents Faslodex and Ibrance 4. History of recurrent breast CA (with previous mastectomy) patient is followed by Dr. Booker 5. Congenital single kidney 6. Kidney disease stage III with kidney function at baseline 1.4 7. Paroxysmal atrial fibrillation rate controlled on systemic anticoagulation with Coumadin which has been held due to above reasons 8. History of DVT involving right lower extremity 9. Alcoholic cirrhosis of liver ;stable 10. DVT prophylaxis SCDs for now Code Visit Inpatient E&M: 59753 [facility] Hosp L3
[2018-12-23 08:12] LABS: Absolute Lymphocyte Count 0.57 X10^3/ul (0.83-4.51); Absolute Neutrophil Count 0.6 X10^3/uL (2.0-7.7); Basophil# 0.04 X10^3/uL; Basophil% 2.7 % (0-1); Eosinophil# 0.01 X10^3/uL; Eosinophils% 0.7 % (0-5); Hematocrit 31.1 % (37-47); Hemoglobin 10.3 g/dl (12.0-15.0); Lymphocyte # 0.57 X10^3/ul (4.0); Mean Corp Hgb Conc 33.1 g/gl (32-36); Mean Corpuscular Hgb 31.5 pg (27.0-32.0); Mean Corpuscular Volume 95.1 fL (81-99); Mean Platelet Vol. 10.1 fl (6.2-12.0); Neutrophil # 0.58 X10^3/uL (2.7-7.7); Neutrophil % 38.6 % (47-70); Platelet Count 92 K/mm3 (150-450); RBC Distribution Width CV 15.7 % (11.6-14.6); RBC Distribution Width SD 45.3 fl (35.1-43.9); Red Blood Count 3.27 M/mm3 (4.2-5.4); White Blood Count 1.5 K/mm3 (4.4-11.0)
[2018-12-23 08:13] LABS: Differential Indicated SCAN CRITERIA MET; POSITIVE COUNT NO; POSITIVE DIFFERENTIAL YES; POSITIVE MORPHOLOGY NO
[2018-12-23 08:17] LABS: International Normalized Ratio 3.5; Prothrombin Time (Protime)PT. 35.2 SECONDS (11.7-14.9)
[2018-12-23 08:27] LABS: ALB/GLOB Ratio 0.9 RATIO (0.9-2.4); AST(SGOT) 26 U/L (15-37); Alanine Aminotransfer ALT/SGPT 42 U/L (13-56); Alkaline Phosphatase 65 U/L (45-117); Anion Gap 14 (5-15); BUN 15 mg/dL (7-18); BUN/Creat Ratio 12.9 RATIO (10-20); Calcium,Total 8.3 mg/dL (8.5-10.1); Chloride 103 mmol/L (98-107); Creatinine, Serum 1.16 mg/dL (0.55-1.02); EST Glomerular Filtration Rate 50 mL/min (>60); Est Glom Filt Rate - Afr Amer 60 mL/min (>60); Estimated Creatinine Clearance 40.89 ml/min; Globulin 3.2 g/dL (2.2-4.2); Glucose 78 mg/dL (74-106); Potassium 4.2 mmol/L (3.5-5.1); Protein, Total 6.2 g/dL (6.4-8.2); Sodium Level 138 mmol/L (136-145)
[2018-12-23] MEDS: Metoprolol Tartrate 25 MG Tablet PO ×2 (08:43→21:55)
[2018-12-23] MEDS: Spironolactone 50 MG Tablet PO ×2 (08:44→21:55)
[2018-12-23] MEDS: Docusate Sodium 100 MG Capsule PO ×2 (08:44→21:55)
--- NOTE | 2018-12-23 08:52 | PCM.CONS.GEN ---
Reason for Consult Date of Consultation: 12/23/18 Reason for Consultation: Right hip pain History of Present Illness: The patient is a 68 year old F [community ambulator who slipped on ice in her driveway last night suffering a nondisplaced intertrochanteric fracture of her right hip.] Reports only right hip pain today. Past Medical History Past Medical History (Chronic Problems): Chronic Problems History of atrial fibrillation (Chronic) Recurrent breast cancer (Chronic) Congenital single kidney (Chronic) History of DVT (deep vein thrombosis) (Chronic) Breast cancer (Chronic) s/p bilat rad mastect on chemo Alcoholic cirrhosis of liver with ascites (Chronic) Allergies carvedilol Adverse Reaction (Verified 12/22/18 23:21) dizziness, can't function Home Medications: Ambulatory Orders Medication Instructions Recorded Metoprolol Tartrate [Lopressor 25 mg PO BID 08/16/17 (Beta Marizol)] Cholecalciferol (Vitamin D3) 2,000 unit PO DAILY 12/22/18 [Vitamin D3] Fulvestrant [Faslodex] 500 mg IM QMONTH 12/22/18 Furosemide [Lasix] 20 mg PO DAILY 12/22/18 Multivitamin with Minerals 1 each PO DAILY 12/22/18 [Multiple Vitamin] Palbociclib [Ibrance] 125 mg PO DAILY 12/22/18 Spironolactone [Aldactone] 50 mg PO BID 12/22/18 Warfarin Sodium 1 mg PO FR 12/22/18 Warfarin Sodium 2 mg PO SUMOTUWETHSA 12/22/18 Surgical History: - - Bilateral radical mastectomy. 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 leg lengths are equal Neurological: Neuro grossly intact Psych/Mental Status: Normal Affect Vital Signs Temp Pulse Resp BP Pulse Ox 98.2 F 92 16 141/96 H 98 12/23/18 08:36 12/23/18 08:43 12/23/18 08:36 12/23/18 08:43 12/23/18 08:36 Oxygen Delivery Method Room Air Weight: 119 lb 11.376 oz Body Mass Index (BMI) 24.1 Intake and Output for Last 24 Hours 12/21/18 12/22/18 12/23/18 23:59 23:59 23:59 Intake Total 685 / 685 Output Total 375 / 375 Balance 310 / 310 Laboratory Tests Past 24 Hrs 12/22/18 12/22/18 12/22/18 17:00 17:00 17:00 WBC 1.4 L* RBC 3.75 L Hgb 11.7 L Hct 34.8 L MCV 92.8 MCH 31.2 MCHC 33.6 RDW 15.1 H RDW Differential 44.3 H Plt Count 117 L MPV 11.0 Immature Gran % (Auto) 0.000 Neut % (Auto) 48.6 Lymph % (Auto) 26.4 [place] % (Auto) 22.9 H Eos % (Auto) 0.0 Baso % (Auto) 2.1 H Absolute Neuts (auto) 0.7 L Absolute Lymphs (auto) 0.37 L Total Counted Not Reportable Differential Comment SCANNED Diff Path Review March foll PT 35.9 H INR 3.6 H* APTT 43.1 H Sodium 134 L Potassium 3.7 Chloride 97 L Carbon Dioxide 22.0 Anion Gap 15 BUN 19 H Creatinine 1.40 H Estim Creat Clear Calc 34.81 Est GFR (MDRD) Af Amer 48 L Est GFR (MDRD) Non-Af 40 L BUN/Creatinine Ratio 13.6 Glucose 114 H Calcium 9.3 Total Bilirubin AST ALT Alkaline Phosphatase Total Protein Albumin Globulin Albumin/Globulin Ratio 12/23/18 12/23/18 12/23/18 07:55 07:55 07:55 WBC 1.5 L RBC 3.27 L Hgb 10.3 L Hct 31.1 L MCV 95.1 MCH 31.5 MCHC 33.1 RDW 15.7 H RDW Differential 45.3 H Plt Count 92 L MPV 10.1 Immature Gran % (Auto) 0.000 Neut % (Auto) 38.6 L Lymph % (Auto) 38.0 Kane % (Auto) 20.0 H Eos % (Auto) 0.7 Baso % (Auto) 2.7 H Absolute Neuts (auto) 0.6 L Absolute Lymphs (auto) 0.57 L Total Counted Not Reportable Differential Comment Diff Path Review PT 35.2 H INR 3.5 H* APTT Sodium 138 Potassium 4.2 Chloride 103 Carbon Dioxide 21.0 Anion Gap 14 BUN 15 Creatinine 1.16 H Estim Creat Clear Calc 40.89 Est GFR (MDRD) Af Amer 60 Est GFR (MDRD) Non-Af 50 L BUN/Creatinine Ratio 12.9 Glucose 78 Calcium 8.3 L Total Bilirubin 0.90 AST 26 ALT 42 Alkaline Phosphatase 65 Total Protein 6.2 L Albumin 3.0 L Globulin 3.2 Albumin/Globulin Ratio 0.9 Assessment/Plan All Active Problems Nondisplaced intertrochanteric right hip (Acute) Pancytopenia (Acute) Nondisplaced intertrochanteric fracture right hip -- patient will ultimately benefit from ORIF Pancytopenia Breast CA History of DVT -- currently anticoagulated with elevated INR Will discuss case with hospitalist to optimize for surgery. Hope for tomorrow AM but possibly Tuesday or transfer to tertiary care facility pending response to medical interventions and optimization.
[2018-12-23] MEDS: Phytonadione (Vit K) 10 MG/ML Ampul PO ×2 (10:24→19:07)
--- NOTE | 2018-12-23 10:24 | CASEMGMT ---
Assessment- SW met with patient. Introduced self and role at [facility]. Living situation- Patient lives alone in a home with a loft. However, patient can stay on 1 floor and have access to everything. PCP: Dr Nacho Quintero at [facility] Specialists: Oncology-Dr Booker and Nailer Operator from [place] (Patient could not remember his name) Pharmacy: [facility] DME: walker, cane, and grab bars by toilet ADL's/IADL's: Patient is normally completely independent Past SNF/rehab: None Past HH: None LW: No POA: No. She indicates her son, Beni is in charge of that stuff Plan: Patient will likely have surgery. Patient is normally independent. She said her son lives near-by (10 min away). She is not sure about d/c plan right now. She was interested in home health if that is possible. ANJEL and RN CM to follow for d/c planning. Nadira SHIRLEY COOK [employer]
[2018-12-23 16:16] LABS: International Normalized Ratio 2.8; Prothrombin Time (Protime)PT. 29.4 SECONDS (11.7-14.9)
[2018-12-24] VITALS (24 sets, daily range): BP systolic 101–146; BP diastolic 39–113; PULSE 83–95; RESP 14–20; TEMP 36.9–37.9; O2SAT 92–100; BMI 24.0
[2018-12-24 04:31] LABS: International Normalized Ratio 1.3; Prothrombin Time (Protime)PT. 16.1 SECONDS (11.7-14.9)
[2018-12-24 04:32] LABS: Partial Thromboplast Time 34.6 Seconds (24.1-36.2)
[2018-12-24 04:39] LABS: Anion Gap 8 (5-15); BUN 16 mg/dL (7-18); BUN/Creat Ratio 15.8 RATIO (10-20); Calcium,Total 8.2 mg/dL (8.5-10.1); Chloride 103 mmol/L (98-107); Creatinine, Serum 1.01 mg/dL (0.55-1.02); EST Glomerular Filtration Rate 58 mL/min (>60); Est Glom Filt Rate - Afr Amer 70 mL/min (>60); Estimated Creatinine Clearance 46.97 ml/min; Glucose 102 mg/dL (74-106); Magnesium 1.9 mg/dL (1.6-2.6); Potassium 3.9 mmol/L (3.5-5.1); Sodium Level 138 mmol/L (136-145)
[2018-12-24 04:46] LABS: Absolute Lymphocyte Count 0.33 X10^3/ul (0.83-4.51); Absolute Neutrophil Count 0.3 X10^3/uL (2.0-7.7); Basophil# 0.04 X10^3/uL; Basophil% 4.2 % (0-1); Eosinophil# 0.01 X10^3/uL; Eosinophils% 1.1 % (0-5); Hematocrit 25.5 % (37-47); Hemoglobin 8.5 g/dl (12.0-15.0); Lymphocyte # 0.33 X10^3/ul (4.0); Lymphocyte % 34.7 % (19-41); Mean Corp Hgb Conc 33.3 g/gl (32-36); Mean Corpuscular Hgb 32.2 pg (27.0-32.0); Mean Corpuscular Volume 96.6 fL (81-99); Mean Platelet Vol. 9.9 fl (6.2-12.0); Monocyte# 0.27 X10^3/uL; Monocyte% 28.4 % (0-10); Neutrophil # 0.29 X10^3/uL (2.7-7.7); Neutrophil % 30.5 % (47-70); Platelet Count 83 K/mm3 (150-450); RBC Distribution Width CV 16.1 % (11.6-14.6); RBC Distribution Width SD 47.6 fl (35.1-43.9); Red Blood Count 2.64 M/mm3 (4.2-5.4)
[2018-12-24] MEDS: oxyCODONE 5 MG Tablet PO ×2 (04:54→13:44)
[2018-12-24 05:40] LABS: Differential Indicated SCAN CRITERIA MET; POSITIVE COUNT YES; POSITIVE DIFFERENTIAL YES; POSITIVE MORPHOLOGY YES
[2018-12-24 05:41] LABS: Platelet Estimate MOD DEC (ADEQ)
[2018-12-24] MEDS: 0.9% Normal Saline 1,000 ML 75 ML IV ×3 (06:13→23:01)
--- NOTE | 2018-12-24 07:19 | RAD_ITS ---
STUDY: X-RAY - RIGHT HIP REASON FOR EXAM: Female, 68 years old. Fluoroscopic guidance for femur fracture fixation TECHNIQUE: 6 fluoroscopic images. 70.8 seconds of fluoroscopy time. COMPARISON: 12/22/2018 FINDINGS: 6 fluoroscopic images show placement of a femoral fixation stella. There is a fracture of the proximal medial femur just above the level of the distal interlocking screw. Femoral neck fixation screw identified. RAD/Hip Min 2 Views (Portable) IMPRESSION: Fluoroscopic guidance for femur fracture fixation. Proximal left diaphyseal fracture not previously evident on MRI of 12/22/2018. The IT fracture seen on prior MRI is not clearly seen. Electronically Signed: Watson Bee MD at 13:14 EST , Service support ,
--- NOTE | 2018-12-24 07:30 | BON_PTH ---
PATIENT: CLIF GOMEZ LOC: MS3 U#:[id number] AGE/SX: 68/F ROOM: DE322 RE12/22/[address]: Dr. Giorgio Kaye DO : 1950 BED: 1 DIS: 12/29/2018 SPEC #: [id number] RECD: 12/25/18 07:40 STATUS: ERNESTO REQ #: [id number] PEE: 12/24/18 07:[address]: Chai Burt DEPT: SURGICAL PATHOLOGY RECD BY: [place] ENTERED: 12/25/18 09:41 SP TYPE: Bone OTHR DR: DO Dr. Vinayak Neal MD Dr. Jordan Garrison, DO Tissues: Hip, NOS Procedures: Decalcification bone/plaque Surgery Specimen Level III Comments: @ Ordering doctor for DEC edited from to @ by KAREY at 12/25/18 0942 @ Ordering doctor for SUIV edited from to @ by KAREY at 12/25/18 0942 @ Submitting doctor edited from to @ by KAREY at 12/25/18 0942 HEADER OPERATION: ORIF right hip, gamma nail PRE-OP DIAGNOSIS: Nondisplaced intertrochanteric fracture right hip TISSUE SUBMITTED: Reamings right hip MICROSCOPIC DIAGNOSIS Reamings, right hip: Pieces of bone and soft tissue with focal area of hemorrhage, clinically nondisplaced intertrochanteric fracture right hip. MAKAYLA:jose carlos 12/27/18 MICROSCOPIC DESCRIPTION Slides are reviewed. GROSS DESCRIPTION Received is one container labeled with the patient's name and designated right hip reamings. The specimen consists of multiple irregular fragments of dark red-knight somewhat indurated tissue. The specimen is submitted in its entirety in one cassette after light decalcification. / AM:jose carlos 12/25/18 TC:5 CPT: 74436, 72530
--- NOTE | 2018-12-24 07:39 | PN_ITS ---
Patient Problems: Active and Suspected Problems Nondisplaced intertrochanteric right hip (Acute) Pancytopenia (Acute) Subjective: Patient underwent ORIF right hip on the morning of 12/24/2018. INR prior to surgery was 1.3. Objective: GENERAL: Appears frail HEENT: Atraumatic; moist oral mucosa EYES; Anicteric, Normal Conjunctiva NECK; supple, normal thyroid, no distended JVD. RESPIRATORY: Diminished to auscultation bilaterally, CARDIOVASCULAR: Regular S1 S2, no audible murmurs GI: soft, non-tender, normoactive bowel sounds, : No Renal angle tenderness; EXTREMITIES: No edema, no clubbing, no cyanosis. NEURO: Awake; no lateralizing signs. SKIN: No Rash PSYCH; Normal affect Vitals/I&O's: Vital Signs Temp Pulse Resp BP Pulse Ox 99.3 F H 87 16 129/113 H 97 12/24/18 07:10 12/24/18 07:10 12/24/18 07:10 12/24/18 07:10 12/24/18 07:10 Oxygen Delivery Method Room Air Weight: 54.3 kg Body Mass Index (BMI) 24.1 Intake and Output for Last 24 Hours 12/22/18 12/23/18 12/24/18 23:59 23:59 23:59 Intake Total 2113 / 2113 2031 / 2031 Output Total 715 / 715 275 / 275 Balance 1398 / 1398 1757 / 1757 Laboratory Results 12/23/18 07:55: WBC 1.5 L, RBC 3.27 L, Hgb 10.3 L, Hct 31.1 L, MCV 95.1, MCH 31.5, MCHC 33.1, RDW 15.7 H, RDW Differential 45.3 H, Plt Count 92 L, MPV 10.1, Immature Gran % (Auto) 0.000, Neut % (Auto) 38.6 L, Lymph % (Auto) 38.0, [place] % (Auto) 20.0 H, Eos % (Auto) 0.7, Baso % (Auto) 2.7 H, Absolute Neuts (auto) 0.6 L, Absolute Lymphs (auto) 0.57 L, Total Counted Not Reportable, Differential Comment 12/23/18 07:55: PT 35.2 H, INR 3.5 H* 12/23/18 07:55: Sodium 138, Potassium 4.2, Chloride 103, Carbon Dioxide 21.0, Anion Gap 14, BUN 15, Creatinine 1.16 H, Estim Creat Clear Calc 40.89, Est GFR (MDRD) Af Amer 60, Est GFR (MDRD) Non-Af 50 L, BUN/Creatinine Ratio 12.9, Glucose 78, Calcium 8.3 L, Total Bilirubin 0.90, AST 26, ALT 42, Alkaline Phosphatase 65, Total Protein 6.2 L, Albumin 3.0 L, Globulin 3.2, Albumin/Globulin Ratio 0.9 12/23/18 15:48: PT 29.4 H, INR 2.8 12/23/18 15:48: Blood Type A POSITIVE, Antibody Screen NEGATIVE 12/23/18 15:48: Crossmatch See Detail 12/24/18 04:00: WBC 1.0 L*, RBC 2.64 L, Hgb 8.5 L, Hct 25.5 L, MCV 96.6, MCH 32.2 H, MCHC 33.3, RDW 16.1 H, RDW Differential 47.6 H, Plt Count 83 L, MPV 9.9, Immature Gran % (Auto) 1.100 H, Neut % (Auto) 30.5 L, Lymph % (Auto) 34.7, [place] % (Auto) 28.4 H, Eos % (Auto) 1.1, Baso % (Auto) 4.2 H, Absolute Neuts (auto) 0.3 L, Absolute Lymphs (auto) 0.33 L, Total Counted Not Reportable, Differential Comment , Diff Path Review March foll, Platelet Estimate MOD 12/24/18 04:00: PT 16.1 H, INR 1.3, APTT 34.6 12/24/18 04:00: Sodium 138, Potassium 3.9, Chloride 103, Carbon Dioxide 27.0, Anion Gap 8, BUN 16, Creatinine 1.01, Estim Creat Clear Calc 46.97, Est GFR (MDRD) Af Amer 70, Est GFR (MDRD) Non-Af 58 L, BUN/Creatinine Ratio 15.8, Glucose 102, Calcium 8.2 L, Magnesium 1.9 Current Medications Acetaminophen (Tylenol) 650 mg PO Q6H PRN PRN PRN Reason: Mild Pain (scale 0-3)/T>100.7 Docusate Sodium (Colace) 100 mg PO BID [facility] Last Admin: 12/23/18 21:55 Dose: 100 mg Sodium Chloride () 1,000 mls @ 75 mls/hr IV .[id number] [facility] Last Admin: 12/24/18 06:13 Dose: 75 mls/hr Magnesium Hydroxide (Milk Of Magnesia) 30 ml PO DAILY PRN PRN PRN Reason: Constipation Metoprolol Tartrate (Lopressor (Beta Marizol)) 25 mg PO BID [facility] Last Admin: 12/23/18 21:55 Dose: 25 mg Morphine Sulfate () 1 - 2 mg IV Q4H PRN PRN PRN Reason: Moderate Pain (pain scale 4-5) Nutritional Formula (Lactose Free) (Ensure Enlive) 120 ml PO 4X/DAY [facility] Last Admin: 12/23/18 21:55 Dose: 120 ml Ondansetron HCl (Zofran) 4 mg IV Q8H PRN PRN PRN Reason: Nausea Oxycodone HCl (Oxyir) 5 mg PO Q4H PRN PRN PRN Reason: Moderate Pain (pain scale 4-5) Last Admin: 12/24/18 04:54 Dose: 5 mg Sodium Chloride () 10 - 40 ml IV UD PRN PRN Reason: MULTILUMEN/HICMAN CATH FLUSH Last Admin: 12/24/18 04:11 Dose: 30 ml Spironolactone (Aldactone) 50 mg PO BID [facility] Last Admin: 12/23/18 21:55 Dose: 50 mg Zolpidem Tartrate (Ambien (Generic)) 5 mg PO QHS PRN PRN PRN Reason: INSOMNIA Medical Necessity - Tobacco Use Smoking Status: Never smoker Assessment/Plan All Active Problems Nondisplaced intertrochanteric right hip (Acute) Pancytopenia (Acute) Patient is a 68-year-old lady who presented following a fall and subsequent right hip pain. Imaging studies obtained on admission demonstrated nondisplaced intratrochanteric fracture involving the right hip. Admitted to regular nursing floor with consultation placed to orthopedic surgery. 1. Acute non-syncopal mechanical fall with subsequent traumatic nondisplaced intratrochanteric fracture involving the right hip. This was confirmed on an MRI obtained as part of patient's evaluation. Patient has been admitted to regular nursing floor where she is currently being managed with immobilization, pain management with consultation placed to orthopedic surgery. Case was discussed with Dr. Burt. Patient underwent ORIF on the morning of 12/24/[address] Burt 2. Coagulopathy secondary to Coumadin use Coumadin was held on admission patient coagulopathy reversed with vitamin K prior to patient undergoing her ORIF. Coumadin resumed on the evening of 12/24/2018 3. Pancytopenia (neutropenia, trombocytopenia and anemia) attributed to patient chemo agents Faslodex and Ibrance patient did receive transfusion with fresh frozen plasma, platelets as well as PRBC on 12/24/2018. 4. History of recurrent breast CA (with previous mastectomy) patient is followed by Dr. Booker 5. Congenital single kidney 6. Kidney disease stage III with kidney function at baseline 1.4 7. Paroxysmal atrial fibrillation rate controlled on systemic anticoagulation with Coumadin which has been held due to above reasons 8. History of DVT involving right lower extremity 9. Alcoholic cirrhosis of liver; stable 10. DVT prophylaxis SCDs for now Code Visit Inpatient E&M: 97472 Subs Hosp L3
--- NOTE | 2018-12-24 09:03 | PCM.IMDPSTOP ---
Immediate Post-Op Note Date of Procedure: 12/24/18 Primary Surgeon/Physician: Chai Burt DO medical practitioners: Heladio Silva Pre-Operative Diagnosis: Nondisplace intertrochanteric fracture right hip Post-Operative Diagnosis: same with nonpropagating distal femur fracture Surgery/Procedure Performed:: ORIF right hip Description of Surgical Findings:: see op note Estimated Blood Loss: 100cc Specimen's removed: reamings from femur Type of Anesthesia:: General ASA Class: ASA3 Severe Disease - Admit VTE Documentation VTE Present on Admission: Yes VTE Mechan Device Prophylaxis: SCD's, Thigh High REGINALD Hose VTE Pharm Prophylaxis ordered?: Yes
--- NOTE | 2018-12-24 09:06 | OP.PN_ITS ---
Immediate Post-Op Note Date of Procedure: 12/24/18 Primary Surgeon/Physician: Chai Burt DO development officer: Heladio Silva Pre-Operative Diagnosis: Nondisplace intertrochanteric fracture right hip Post-Operative Diagnosis: same with nonpropagating distal femur fracture Surgery/Procedure Performed:: ORIF right hip Description of Surgical Findings:: see op note Estimated Blood Loss: 100cc Specimen's removed: reamings from femur Type of Anesthesia:: General ASA Class: ASA3 Severe Disease - Admit VTE Documentation VTE Present on Admission: Yes VTE Mechan Device Prophylaxis: SCD's, Thigh High REGINALD Hose VTE Pharm Prophylaxis ordered?: Yes
[2018-12-24 10:05] LABS: Hematocrit 26.7 % (37-47); Mean Corp Hgb Conc 33.7 g/gl (32-36); Mean Corpuscular Hgb 32.5 pg (27.0-32.0); Mean Corpuscular Volume 96.4 fL (81-99); Mean Platelet Vol. 9.1 fl (6.2-12.0); Platelet Count 143 K/mm3 (150-450); RBC Distribution Width CV 15.3 % (11.6-14.6); RBC Distribution Width SD 45.1 fl (35.1-43.9); Red Blood Count 2.77 M/mm3 (4.2-5.4); White Blood Count 1.4 K/mm3 (4.4-11.0)
[2018-12-24 10:07] LABS: Scan Indicated on CBC? Y/N YES- FLAGS NOTED
[2018-12-24 10:23] LABS: Anion Gap 10 (5-15); BUN 13 mg/dL (7-18); BUN/Creat Ratio 12.3 RATIO (10-20); Calcium,Total 7.9 mg/dL (8.5-10.1); Chloride 105 mmol/L (98-107); Creatinine, Serum 1.06 mg/dL (0.55-1.02); EST Glomerular Filtration Rate 55 mL/min (>60); Est Glom Filt Rate - Afr Amer 67 mL/min (>60); Estimated Creatinine Clearance 44.75 ml/min; Glucose 113 mg/dL (74-106); Sodium Level 138 mmol/L (136-145)
[2018-12-24 10:46] LABS: Magnesium 1.7 mg/dL (1.6-2.6)
[2018-12-24] MEDS: Metoprolol Tartrate 25 MG Tablet PO ×2 (13:43→23:00)
[2018-12-24] MEDS: Spironolactone 50 MG Tablet PO ×2 (13:43→23:00)
[2018-12-24] MEDS: Docusate Sodium 100 MG Capsule PO ×2 (13:44→23:00)
[2018-12-24] MEDS: Cefazolin 1 GM/50 ML BAG IV (16:07)
[2018-12-24] MEDS: Acetaminophen 325 MG Tablet 650 MG PO (23:00)
[2018-12-25] VITALS (13 sets, daily range): BP systolic 90–132; BP diastolic 47–61; PULSE 83–93; RESP 16–18; TEMP 36.6–37; O2SAT 93–100
[2018-12-25] MEDS: Cefazolin 1 GM/50 ML BAG IV (00:02)
[2018-12-25] MEDS: Acetaminophen 325 MG Tablet 650 MG PO ×2 (05:12→13:23)
[2018-12-25 05:33] LABS: International Normalized Ratio 1.2; Prothrombin Time (Protime)PT. 15.5 SECONDS (11.7-14.9)
[2018-12-25 05:41] LABS: Anion Gap 9 (5-15); BUN 12 mg/dL (7-18); BUN/Creat Ratio 12.5 RATIO (10-20); Calcium,Total 7.7 mg/dL (8.5-10.1); Chloride 105 mmol/L (98-107); Creatinine, Serum 0.96 mg/dL (0.55-1.02); EST Glomerular Filtration Rate 62 mL/min (>60); Est Glom Filt Rate - Afr Amer 75 mL/min (>60); Estimated Creatinine Clearance 49.41 ml/min; Glucose 103 mg/dL (74-106); Potassium 4.3 mmol/L (3.5-5.1); Sodium Level 137 mmol/L (136-145)
[2018-12-25 05:43] LABS: Absolute Lymphocyte Count 0.32 X10^3/ul (0.83-4.51); Absolute Neutrophil Count 0.5 X10^3/uL (2.0-7.7); Basophil# 0.05 X10^3/uL; Basophil% 3.9 % (0-1); Eosinophil# 0.01 X10^3/uL; Eosinophils% 0.8 % (0-5); Hematocrit 25.9 % (37-47); Hemoglobin 8.4 g/dl (12.0-15.0); Lymphocyte # 0.32 X10^3/ul (4.0); Lymphocyte % 24.8 % (19-41); Mean Corp Hgb Conc 32.4 g/gl (32-36); Mean Corpuscular Hgb 31.2 pg (27.0-32.0); Mean Corpuscular Volume 96.3 fL (81-99); Mean Platelet Vol. 9.4 fl (6.2-12.0); Monocyte# 0.37 X10^3/uL; Monocyte% 28.7 % (0-10); Neutrophil # 0.54 X10^3/uL (2.7-7.7); Neutrophil % 41.8 % (47-70); Platelet Count 105 K/mm3 (150-450); RBC Distribution Width CV 16.1 % (11.6-14.6); RBC Distribution Width SD 48.8 fl (35.1-43.9); Red Blood Count 2.69 M/mm3 (4.2-5.4)
[2018-12-25 06:05] LABS: Differential Indicated SCAN CRITERIA MET; POSITIVE COUNT YES; POSITIVE DIFFERENTIAL YES; POSITIVE MORPHOLOGY NO; White Blood Count 1.3 K/mm3 (4.4-11.0)
[2018-12-25] MEDS: Docusate Sodium 100 MG Capsule PO ×2 (09:02→21:52)
[2018-12-25] MEDS: Spironolactone 50 MG Tablet PO ×2 (09:02→21:53)
[2018-12-25] MEDS: Metoprolol Tartrate 25 MG Tablet PO ×2 (09:02→21:53)
--- NOTE | 2018-12-25 09:02 | PN.ORTHO_ITS ---
Patient Problems: Active and Suspected Problems Nondisplaced intertrochanteric right hip (Acute) Pancytopenia (Acute) Subjective: Patient reports pain about right hip and thigh as expected. Not tolerating Oxy IR due to increased somnolence. - Physical Exam General: Alert, Oriented x3, Cooperative, No apparent distress Extremities: No clubbing, No cyanosis, No edema, Capillary Refill Less than 3 Seconds, No Calf Tenderness Skin: Incision - stable Musculoskeletal: Tenderness - right hip and leg Neurological: Neuro grossly intact Vital Signs Temp Pulse Resp BP Pulse Ox 98.2 F 84 16 96/47 L 99 12/25/18 04:15 12/25/18 04:15 12/25/18 04:15 12/25/18 04:15 12/25/18 04:15 Oxygen Flow Rate (L/min) 2 Oxygen Delivery Method Room Air Weight: 119 lb 11.376 oz Body Mass Index (BMI) 24.1 Intake and Output for Last 24 Hours 12/23/18 12/24/18 12/25/18 23:59 23:59 23:59 Intake Total 2113 / 2113 4389 / 4389 681 / 681 Output Total 715 / 715 800 / 800 300 / 300 Balance 1398 / 1398 3589 / 3589 381 / 381 Laboratory Tests Past 24 Hrs 12/23/18 12/24/18 12/24/18 15:48 09:48 09:48 WBC 1.4 L* RBC 2.77 L Hgb 9.0 L Hct 26.7 L MCV 96.4 MCH 32.5 H MCHC 33.7 RDW 15.3 H RDW Differential 45.1 H Plt Count 143 L MPV 9.1 Immature Gran % (Auto) Neut % (Auto) Lymph % (Auto) [place] % (Auto) Eos % (Auto) Baso % (Auto) Absolute Neuts (auto) Absolute Lymphs (auto) Total Counted Differential Comment Diff Path Review PT INR Sodium 138 Potassium 4.0 Chloride 105 Carbon Dioxide 23.0 Anion Gap 10 BUN 13 Creatinine 1.06 H Estim Creat Clear Calc 44.75 Est GFR (MDRD) Af Amer 67 Est GFR (MDRD) Non-Af 55 L BUN/Creatinine Ratio 12.3 Glucose 113 H Calcium 7.9 L Magnesium Crossmatch See Detail 12/24/18 12/25/18 12/25/18 09:48 05:10 05:10 WBC 1.3 L* RBC 2.69 L Hgb 8.4 L Hct 25.9 L MCV 96.3 MCH 31.2 MCHC 32.4 RDW 16.1 H RDW Differential 48.8 H Plt Count 105 L MPV 9.4 Immature Gran % (Auto) 0.000 Neut % (Auto) 41.8 L Lymph % (Auto) 24.8 [place] % (Auto) 28.7 H Eos % (Auto) 0.8 Baso % (Auto) 3.9 H Absolute Neuts (auto) 0.5 L Absolute Lymphs (auto) 0.32 L Total Counted Not Reportable Differential Comment Diff Path Review May foll PT 15.5 H INR 1.2 Sodium Potassium Chloride Carbon Dioxide Anion Gap BUN Creatinine Estim Creat Clear Calc Est GFR (MDRD) Af Amer Est GFR (MDRD) Non-Af BUN/Creatinine Ratio Glucose Calcium Magnesium 1.7 Crossmatch 12/25/18 05:10 WBC RBC Hgb Hct MCV MCH MCHC RDW RDW Differential Plt Count MPV Immature Gran % (Auto) Neut % (Auto) Lymph % (Auto) [place] % (Auto) Eos % (Auto) Baso % (Auto) Absolute Neuts (auto) Absolute Lymphs (auto) Total Counted Differential Comment Diff Path Review PT INR Sodium 137 Potassium 4.3 Chloride 105 Carbon Dioxide 23.0 Anion Gap 9 BUN 12 Creatinine 0.96 Estim Creat Clear Calc 49.41 Est GFR (MDRD) Af Amer 75 Est GFR (MDRD) Non-Af 62 BUN/Creatinine Ratio 12.5 Glucose 103 Calcium 7.7 L Magnesium Crossmatch Medical Necessity - Tobacco Use Smoking Status: Never smoker Assessment/Plan All Active Problems Nondisplaced intertrochanteric right hip (Acute) Pancytopenia (Acute) S/p ORIF right hip with midshaft femur fracture Will begin PT at 50% WB. Will likely be 50% WB x 6 weeks D/C oxy Ultram 50 mg 1-2 po q 6 hours prn pain Will likely need ECF stay upon discharge
[2018-12-25] MEDS: traMADol 50 MG Tablet PO ×3 (09:11→21:52)
--- NOTE | 2018-12-25 09:31 | OP.PCM_ITS ---
Operative Report Date of Procedure: 12/24/18 Pre-op DX: Nondisplaced intertrochanteric fracture right hip Post-op DX: same with midshaft right femur fracture (iatrogenic vs occult/unrecognized pre-op) Surgeon Dr. Burt Coffee Weigher: JOSE Zuniga [employer] Instructor: JOSE Kenney Anesthesia: General Anesthesiologist: Dr. Godoy EBL: 250 cc Specimen: reamings Complications: Midshaft femur fracture recognized intra-operatively (iatrogenic vs occult and present prior to surgery) Procedure: With appropriate consent, the patient was taken to OR 6. After the induction of general anesthesia and then provision of pre-op antibiotics, the patient was positioned on the fracture table with all bony prominences well padded. C-arm fluoroscopic images revealed anatomic alignment of the fracture. Time out was taken and the right hip and leg were prepared and draped sterilely. A longitudinal incision was made extending proximally from the greater trochanter. Hemostasis was perfected with electrocautery and the dissection was carried down to the greater trochanter. Using c-arm fluoroscopic guidance, a starting awl was used to gain access to the femur via the greater trochanter. A guidewire was then placed across the fracture with verification of appropriate placement on orthogonal planes verified by fluoroscopy. Triple barrelled reaming was then carried out over the guidewire for the 11mm x 185 mm [place] Gamma nail. Because the patient was so small and the shaft of the femur was small distally, flexible reaming over the guidewire was carried out up to a 13 mm reamer. The Gamma nail was then advanced over the guidewire. When checking fluoroscopically for appropriated placement of the nail, it was noted that there was a non-propagating fracture of the medial cortex of the midshaft femur. The nail was noted to extend beyond this fracture. Fluoroscopy was used to assess the femur distally to the knee in orthogonal planes and the fracture did not appear to extend distally. A guidewire was placed using the Nicole guide on the Gamma nail in the center- center position in the femoral head. This was measured and reamed and an 85 mm lag screw was placed. Appropriate placement of the lag screw was verified on orthogonal planes using the C-arm. Distally, the guide was used to drill for the distal locking screw and a 40 mm distal locking screw was placed in the distal hole of the Gamma nail. The guide was then removed. All wounds were copiously irrigated and closed in the standard fashion with alisia on the skin. A sterile dressing was placed and the patient was extubated and sent to PACU in stable and satisfactory condition. Due to the midshaft femur fracture noted intra-operatively, the patient will be kept at 50% WB for 6 weeks post-op.
--- NOTE | 2018-12-25 11:21 | PCM.PN.HOSP ---
Patient Problems: Active and Suspected Problems Nondisplaced intertrochanteric right hip (Acute) Pancytopenia (Acute) Subjective: Pain in right hip, but otherwise feeling well. Vitals/I&O's: Vital Signs Temp Pulse Resp BP Pulse Ox 36.6 C 88 18 90/60 100 12/25/18 09:05 12/25/18 09:05 12/25/18 09:05 12/25/18 09:05 12/25/18 09:05 Oxygen Flow Rate (L/min) 2 Oxygen Delivery Method Room Air Weight: 54.3 kg Body Mass Index (BMI) 24.1 Intake and Output for Last 24 Hours 12/23/18 12/24/18 12/25/18 23:59 23:59 23:59 Intake Total 2113 / 2113 4389 / 4389 681 / 681 Output Total 715 / 715 800 / 800 300 / 300 Balance 1398 / 1398 3589 / 3589 381 / 381 General: Alert, No apparent distress HEENT: Atraumatic, Normocephalic Oral: Moist Mucosa, No Gingival or Mucosal Lesions/ Ulcerations Neck: No Nodes, Thyroid Normal Size and Texture Lungs: Clear to auscultation, Normal air movement, No rhonchi, No wheeze Cardiovascular: Regular rate, Regular Rhythm, Normal S1, Normal S2, No murmurs Abdomen: Bowel Sounds Present, Soft, Non Tender, Non-Distended, No Hepato-splenomegaly, Passing Flatus Extremities: No edema, No Calf Tenderness Skin: No rashes, No breakdown Musculoskeletal: No Muscle Wasting, Cachexia Psych/Mental Status: Normal Affect, Appropriate Laboratory Results 12/23/18 15:48: Crossmatch See Detail 12/25/18 05:10: WBC 1.3 L*, RBC 2.69 L, Hgb 8.4 L, Hct 25.9 L, MCV 96.3, MCH 31.2, MCHC 32.4, RDW 16.1 H, RDW Differential 48.8 H, Plt Count 105 L, MPV 9.4, Immature Gran % (Auto) 0.000, Neut % (Auto) 41.8 L, Lymph % (Auto) 24.8, [place] % (Auto) 28.7 H, Eos % (Auto) 0.8, Baso % (Auto) 3.9 H, Absolute Neuts (auto) 0.5 L, Absolute Lymphs (auto) 0.32 L, Total Counted Not Reportable, Diff Path Review March12/25/18 05:10: PT 15.5 H, INR 1.2 12/25/18 05:10: Sodium 137, Potassium 4.3, Chloride 105, Carbon Dioxide 23.0, Anion Gap 9, BUN 12, Creatinine 0.96, Estim Creat Clear Calc 49.41, Est GFR (MDRD) Af Amer 75, Est GFR (MDRD) Non-Af 62, BUN/Creatinine Ratio 12.5, Glucose 103, Calcium 7.7 L Current Medications Acetaminophen (Tylenol) 650 mg PO Q6H PRN PRN PRN Reason: Mild Pain (scale 0-3)/T>100.7 Last Admin: 12/25/18 05:12 Dose: 650 mg Docusate Sodium (Colace) 100 mg PO BID [facility] Last Admin: 12/25/18 09:02 Dose: 100 mg Sodium Chloride () 1,000 mls @ 75 mls/hr IV .[id number] [facility] Last Admin: 12/24/18 23:01 Dose: 75 mls/hr Magnesium Hydroxide (Milk Of Magnesia) 30 ml PO DAILY PRN PRN PRN Reason: Constipation Metoprolol Tartrate (Lopressor (Beta Marizol)) 25 mg PO BID [facility] Last Admin: 12/25/18 09:02 Dose: 25 mg Morphine Sulfate () 1 - 2 mg IV Q4H PRN PRN PRN Reason: Moderate Pain (pain scale 4-5) Nutritional Formula (Lactose Free) (Ensure Enlive) 120 ml PO 4X/DAY [facility] Last Admin: 12/25/18 09:02 Dose: 120 ml Ondansetron HCl (Zofran) 4 mg IV Q8H PRN PRN PRN Reason: Nausea Oxycodone HCl (Oxyir) 5 mg PO Q4H PRN PRN PRN Reason: Moderate Pain (pain scale 4-5) Last Admin: 12/24/18 13:44 Dose: 5 mg Sodium Chloride () 10 - 40 ml IV UD PRN PRN Reason: MULTILUMEN/HICMAN CATH FLUSH Last Admin: 12/25/18 05:14 Dose: 40 ml Spironolactone (Aldactone) 50 mg PO BID [facility] Last Admin: 12/25/18 09:02 Dose: 50 mg Tramadol HCl (Ultram) 50 mg PO Q6H PRN PRN PRN Reason: MODERATE PAIN (4-5/10) Last Admin: 12/25/18 09:11 Dose: 50 mg Warfarin Sodium (Coumadin (Pbkc)) 1 mg PO Fr@1700 RANDAL Warfarin Sodium (Coumadin (Pbkc)) 2 mg PO SuMoTuWeThSa@1700 RANDAL Last Admin: 12/24/18 16:07 Dose: 2 mg Zolpidem Tartrate (Ambien (Generic)) 5 mg PO QHS PRN PRN PRN Reason: INSOMNIA Medical Necessity - Tobacco Use Smoking Status: Never smoker Assessment/Plan All Active Problems Nondisplaced intertrochanteric right hip (Acute) Pancytopenia (Acute) 1. Nondisplaced intertrochanteric right hip fracture s/p ORIF on 12/24, complicated by midshaft femur fracture (iatrogenic v occult) DW Dr. Burt, patient will be 50% weight-bearing to RLE Follow up with orthopaedics in 2 weeks. Check 25 OH D level 2. pancytopenia ANC 500 monitor follow up with oncology as outpt may be due to chemotherapy 3. DVT proph: back on coumadin Lovenox until therapeutic Code Visit Inpatient E&M: 98809 Subs Hosp L2
--- NOTE | 2018-12-25 11:26 | PN_ITS ---
Patient Problems: Active and Suspected Problems Nondisplaced intertrochanteric right hip (Acute) Pancytopenia (Acute) Subjective: Pain in right hip, but otherwise feeling well. Vitals/I&O's: Vital Signs Temp Pulse Resp BP Pulse Ox 36.6 C 88 18 90/60 100 12/25/18 09:05 12/25/18 09:05 12/25/18 09:05 12/25/18 09:05 12/25/18 09:05 Oxygen Flow Rate (L/min) 2 Oxygen Delivery Method Room Air Weight: 54.3 kg Body Mass Index (BMI) 24.1 Intake and Output for Last 24 Hours 12/23/18 12/24/18 12/25/18 23:59 23:59 23:59 Intake Total 2113 / 2113 4389 / 4389 681 / 681 Output Total 715 / 715 800 / 800 300 / 300 Balance 1398 / 1398 3589 / 3589 381 / 381 General: Alert, No apparent distress HEENT: Atraumatic, Normocephalic Oral: Moist Mucosa, No Gingival or Mucosal Lesions/ Ulcerations Neck: No Nodes, Thyroid Normal Size and Texture Lungs: Clear to auscultation, Normal air movement, No rhonchi, No wheeze Cardiovascular: Regular rate, Regular Rhythm, Normal S1, Normal S2, No murmurs Abdomen: Bowel Sounds Present, Soft, Non Tender, Non-Distended, No Hepato- splenomegaly, Passing Flatus Extremities: No edema, No Calf Tenderness Skin: No rashes, No breakdown Musculoskeletal: No Muscle Wasting, Cachexia Psych/Mental Status: Normal Affect, Appropriate Laboratory Results 12/23/18 15:48: Crossmatch See Detail 12/25/18 05:10: WBC 1.3 L*, RBC 2.69 L, Hgb 8.4 L, Hct 25.9 L, MCV 96.3, MCH 31.2, MCHC 32.4, RDW 16.1 H, RDW Differential 48.8 H, Plt Count 105 L, MPV 9.4, Immature Gran % (Auto) 0.000, Neut % (Auto) 41.8 L, Lymph % (Auto) 24.8, [place] % (Auto) 28.7 H, Eos % (Auto) 0.8, Baso % (Auto) 3.9 H, Absolute Neuts (auto) 0.5 L, Absolute Lymphs (auto) 0.32 L, Total Counted Not Reportable, Diff Path Review March12/25/18 05:10: PT 15.5 H, INR 1.2 12/25/18 05:10: Sodium 137, Potassium 4.3, Chloride 105, Carbon Dioxide 23.0, Anion Gap 9, BUN 12, Creatinine 0.96, Estim Creat Clear Calc 49.41, Est GFR (MDRD) Af Amer 75, Est GFR (MDRD) Non-Af 62, BUN/Creatinine Ratio 12.5, Glucose 103, Calcium 7.7 L Current Medications Acetaminophen (Tylenol) 650 mg PO Q6H PRN PRN PRN Reason: Mild Pain (scale 0-3)/T>100.7 Last Admin: 12/25/18 05:12 Dose: 650 mg Docusate Sodium (Colace) 100 mg PO BID [facility] Last Admin: 12/25/18 09:02 Dose: 100 mg Sodium Chloride () 1,000 mls @ 75 mls/hr IV .[id number] [facility] Last Admin: 12/24/18 23:01 Dose: 75 mls/hr Magnesium Hydroxide (Milk Of Magnesia) 30 ml PO DAILY PRN PRN PRN Reason: Constipation Metoprolol Tartrate (Lopressor (Beta Marizol)) 25 mg PO BID [facility] Last Admin: 12/25/18 09:02 Dose: 25 mg Morphine Sulfate () 1 - 2 mg IV Q4H PRN PRN PRN Reason: Moderate Pain (pain scale 4-5) Nutritional Formula (Lactose Free) (Ensure Enlive) 120 ml PO 4X/DAY [facility] Last Admin: 12/25/18 09:02 Dose: 120 ml Ondansetron HCl (Zofran) 4 mg IV Q8H PRN PRN PRN Reason: Nausea Oxycodone HCl (Oxyir) 5 mg PO Q4H PRN PRN PRN Reason: Moderate Pain (pain scale 4-5) Last Admin: 12/24/18 13:44 Dose: 5 mg Sodium Chloride () 10 - 40 ml IV UD PRN PRN Reason: MULTILUMEN/HICMAN CATH FLUSH Last Admin: 12/25/18 05:14 Dose: 40 ml Spironolactone (Aldactone) 50 mg PO BID [facility] Last Admin: 12/25/18 09:02 Dose: 50 mg Tramadol HCl (Ultram) 50 mg PO Q6H PRN PRN PRN Reason: MODERATE PAIN (4-5/10) Last Admin: 12/25/18 09:11 Dose: 50 mg Warfarin Sodium (Coumadin (Pbkc)) 1 mg PO Fr@1700 RANDAL Warfarin Sodium (Coumadin (Pbkc)) 2 mg PO SuMoTuWeThSa@1700 RANDAL Last Admin: 12/24/18 16:07 Dose: 2 mg Zolpidem Tartrate (Ambien (Generic)) 5 mg PO QHS PRN PRN PRN Reason: INSOMNIA Medical Necessity - Tobacco Use Smoking Status: Never smoker Assessment/Plan All Active Problems Nondisplaced intertrochanteric right hip (Acute) Pancytopenia (Acute) 1. Nondisplaced intertrochanteric right hip fracture s/p ORIF on 12/24, complicated by midshaft femur fracture (iatrogenic v occult) DW Dr. Burt, patient will be 50% weight-bearing to RLE Follow up with orthopaedics in 2 weeks. Check 25 OH D level 2. pancytopenia ANC 500 monitor follow up with oncology as outpt may be due to chemotherapy 3. DVT proph: back on coumadin Lovenox until therapeutic Code Visit Inpatient E&M: 95034 Subs Hosp L2
--- NOTE | 2018-12-25 11:26 | CASEMGMT ---
Social Work Note PT/OT updated this worker that pt would benefit from SNF or RU at discharge. ANJEL met with pt. SW introduced self and role at [facility]. Pt is alert and orientated x4. Pt confirms that she is agreeable to SNF or RU. Pt states she would prefer to go to RU compared to SNF. SW explained referral process and pre-cert will be needed. Pt states understanding. SW placed a call to Giselle with TCU/RU. Per Giselle RU would have a bed for pt tomorrow pending pre-cert approval. Giselle states she will submit for pre-cert. Pt updated that RU is able to accept pending pre-cert. Physician updated. Plan: RU pending pre-cert Brandi Sy MATERIAL YARD CLERK, DIRECTOR MEDICAL SCIENCE
[2018-12-25] MEDS: 0.9% Normal Saline 1,000 ML 75 ML IV (13:23)
[2018-12-25 15:05] LABS: Pathologist Review Reviewed
[2018-12-25 15:08] LABS: Pathologist Review Reviewed
[2018-12-25 15:09] LABS: Pathologist Review Reviewed
[2018-12-26] VITALS (11 sets, daily range): BP systolic 99–155; BP diastolic 53–103; PULSE 72–100; RESP 18; TEMP 36.6–36.9; O2SAT 93–96
[2018-12-26] MEDS: 0.9% Normal Saline 1,000 ML 75 ML IV (02:06)
[2018-12-26] MEDS: Acetaminophen 325 MG Tablet 650 MG PO ×2 (02:50→14:02)
[2018-12-26 05:57] LABS: Absolute Lymphocyte Count 0.33 X10^3/ul (0.83-4.51); Absolute Neutrophil Count 0.9 X10^3/uL (2.0-7.7); Basophil# 0.07 X10^3/uL; Basophil% 3.7 % (0-1); Differential Indicated SCAN CRITERIA MET; Eosinophil# 0.02 X10^3/uL; Eosinophils% 1.1 % (0-5); Hematocrit 25.8 % (37-47); Hemoglobin 8.4 g/dl (12.0-15.0); Lymphocyte # 0.33 X10^3/ul (4.0); Lymphocyte % 17.6 % (19-41); Mean Corp Hgb Conc 32.6 g/gl (32-36); Mean Corpuscular Hgb 31.3 pg (27.0-32.0); Mean Corpuscular Volume 96.3 fL (81-99); Monocyte# 0.55 X10^3/uL; Monocyte% 29.3 % (0-10); Neutrophil % 47.8 % (47-70); POSITIVE COUNT NO; POSITIVE DIFFERENTIAL YES; POSITIVE MORPHOLOGY NO; Platelet Count 143 K/mm3 (150-450); RBC Distribution Width CV 16.4 % (11.6-14.6); Red Blood Count 2.68 M/mm3 (4.2-5.4); White Blood Count 1.9 K/mm3 (4.4-11.0)
[2018-12-26 06:06] LABS: International Normalized Ratio 1.3; Prothrombin Time (Protime)PT. 15.9 SECONDS (11.7-14.9)
[2018-12-26 06:13] LABS: Anion Gap 10 (5-15); BUN 15 mg/dL (7-18); BUN/Creat Ratio 19.3 RATIO (10-20); Chloride 105 mmol/L (98-107); Creatinine, Serum 0.78 mg/dL (0.55-1.02); EST Glomerular Filtration Rate 79 mL/min (>60); Est Glom Filt Rate - Afr Amer 95 mL/min (>60); Estimated Creatinine Clearance 47.44 ml/min; Glucose 102 mg/dL (74-106); Potassium 4.4 mmol/L (3.5-5.1); Sodium Level 138 mmol/L (136-145)
[2018-12-26] MEDS: Enoxaparin 40 MG/0.4 ML Syringe SC (06:20)
[2018-12-26 06:49] LABS: Anisocytosis 2+; Macrocytosis 1+; Platelet Estimate SLT DEC (ADEQ)
--- NOTE | 2018-12-26 07:13 | PCM.PN.ORT ---
Patient Problems: Active and Suspected Problems Nondisplaced intertrochanteric right hip (Acute) Pancytopenia (Acute) Subjective: Patient reports right hip and leg pain well controlled. - Physical Exam General: Alert, No apparent distress HEENT: Atraumatic Extremities: No clubbing, No cyanosis, No edema, Capillary Refill Less than 3 Seconds, No Calf Tenderness Skin: Incision - stable Neurological: Neuro grossly intact Vital Signs Temp Pulse Resp BP Pulse Ox 98.2 F 90 18 155/53 H 94 12/26/18 02:43 12/26/18 04:05 12/26/18 02:43 12/26/18 02:43 12/26/18 02:43 Oxygen Flow Rate (L/min) 2 Oxygen Delivery Method Room Air Weight: 119 lb 11.376 oz Body Mass Index (BMI) 24.1 Intake and Output for Last 24 Hours 12/24/18 12/25/18 12/26/18 23:59 23:59 23:59 Intake Total 4389 / 4389 3164 / 3164 1247 / 1247 Output Total 800 / 800 700 / 700 300 / 300 Balance 3589 / 3589 2464 / 2464 947 / 947 Laboratory Tests Past 24 Hrs 12/22/18 12/24/18 12/25/18 17:00 04:00 05:10 WBC RBC Hgb Hct MCV MCH MCHC RDW RDW Differential Plt Count MPV Immature Gran % (Auto) Neut % (Auto) Lymph % (Auto) [place] % (Auto) Eos % (Auto) Baso % (Auto) Absolute Neuts (auto) Absolute Lymphs (auto) Total Counted Differential Comment Diff Path Review Reviewed Reviewed Reviewed Platelet Estimate Anisocytosis Macrocytosis PT INR Sodium Potassium Chloride Carbon Dioxide Anion Gap BUN Creatinine Estim Creat Clear Calc Est GFR (MDRD) Af Amer Est GFR (MDRD) Non-Af BUN/Creatinine Ratio Glucose Calcium Vitamin D 25-Hydroxy 12/26/18 12/26/18 12/26/18 05:35 05:35 05:35 WBC 1.9 L RBC 2.68 L Hgb 8.4 L Hct 25.8 L MCV 96.3 MCH 31.3 MCHC 32.6 RDW 16.4 H RDW Differential 49.0 H Plt Count 143 L MPV 10.0 Immature Gran % (Auto) 0.500 Neut % (Auto) 47.8 Lymph % (Auto) 17.6 L [place] % (Auto) 29.3 H Eos % (Auto) 1.1 Baso % (Auto) 3.7 H Absolute Neuts (auto) 0.9 L Absolute Lymphs (auto) 0.33 L Total Counted Not Reportable Differential Comment Diff Path Review May foll Platelet Estimate SLT DEC Anisocytosis 2+ Macrocytosis 1+ PT 15.9 H INR 1.3 Sodium 138 Potassium 4.4 Chloride 105 Carbon Dioxide 23.0 Anion Gap 10 BUN 15 Creatinine 0.78 Estim Creat Clear Calc 47.44 Est GFR (MDRD) Af Amer 95 Est GFR (MDRD) Non-Af 79 BUN/Creatinine Ratio 19.3 Glucose 102 Calcium 8.0 L Vitamin D 25-Hydroxy 12/26/18 05:35 WBC RBC Hgb Hct MCV MCH MCHC RDW RDW Differential Plt Count MPV Immature Gran % (Auto) Neut % (Auto) Lymph % (Auto) [place] % (Auto) Eos % (Auto) Baso % (Auto) Absolute Neuts (auto) Absolute Lymphs (auto) Total Counted Differential Comment Diff Path Review Platelet Estimate Anisocytosis Macrocytosis PT INR Sodium Potassium Chloride Carbon Dioxide Anion Gap BUN Creatinine Estim Creat Clear Calc Est GFR (MDRD) Af Amer Est GFR (MDRD) Non-Af BUN/Creatinine Ratio Glucose Calcium Vitamin D 25-Hydroxy Pending Medical Necessity - Tobacco Use Smoking Status: Never smoker Assessment/Plan All Active Problems Nondisplaced intertrochanteric right hip (Acute) Pancytopenia (Acute) s/p ORIF right hip fracture with midshaft femur fracture noted at surgery Continue PWB x 6 wks. D/C al[place] 01/[address] Burt approximately 01/09 Ortho off case for now, will re-evaluate at your request.
[2018-12-26 09:34] LABS: Vitamin D,25 Hydroxy 23.8 ng/mL (29.95-100.01)
[2018-12-26] MEDS: Spironolactone 50 MG Tablet PO ×2 (09:53→22:34)
[2018-12-26] MEDS: Docusate Sodium 100 MG Capsule PO (09:53)
[2018-12-26] MEDS: Metoprolol Tartrate 25 MG Tablet PO ×2 (09:53→22:34)
--- NOTE | 2018-12-26 10:55 | CASEMGMT ---
Social Work Note ANJEL spoke with Giselle with RU stating pt's insurance asked for updated clinicals regarding pt. Giselle states she will place pt on TCU list in the event pt gets denied RU. Plan: RU pending pre-cert Brandi Sy MSW, TEACHER DANCING
--- NOTE | 2018-12-26 11:53 | PCM.PN.HOSP ---
Patient Problems: Active and Suspected Problems Nondisplaced intertrochanteric right hip (Acute) Pancytopenia (Acute) Subjective: Feels well. No complaints. Vitals/I&O's: Vital Signs Temp Pulse Resp BP Pulse Ox 36.9 C 96 18 145/103 H 96 12/26/18 08:12 12/26/18 10:00 12/26/18 08:12 12/26/18 09:53 12/26/18 08:12 Oxygen Flow Rate (L/min) 2 Oxygen Delivery Method Room Air Weight: 54.3 kg Body Mass Index (BMI) 24.1 Intake and Output for Last 24 Hours 12/24/18 12/25/18 12/26/18 23:59 23:59 23:59 Intake Total 4389 / 4389 3164 / 3164 1247 / 1247 Output Total 800 / 800 700 / 700 300 / 300 Balance 3589 / 3589 2464 / 2464 947 / 947 General: Alert, No apparent distress HEENT: Atraumatic, Normocephalic Psych/Mental Status: Normal Affect, Appropriate Laboratory Results 12/22/18 17:00: Diff Path Review Reviewed 12/24/18 04:00: Diff Path Review Reviewed 12/25/18 05:10: Diff Path Review Reviewed 12/26/18 05:35: WBC 1.9 L, RBC 2.68 L, Hgb 8.4 L, Hct 25.8 L, MCV 96.3, MCH 31.3, MCHC 32.6, RDW 16.4 H, RDW Differential 49.0 H, Plt Count 143 L, MPV 10.0, Immature Gran % (Auto) 0.500, Neut % (Auto) 47.8, Lymph % (Auto) 17.6 L, [place] % (Auto) 29.3 H, Eos % (Auto) 1.1, Baso % (Auto) 3.7 H, Absolute Neuts (auto) 0.9 L, Absolute Lymphs (auto) 0.33 L, Total Counted Not Reportable, Differential Comment , Diff Path Review March, Platelet Estimate SLT DEC, Anisocytosis 2+, Macrocytosis 1+ 12/26/18 05:35: PT 15.9 H, INR 1.3 12/26/18 05:35: Sodium 138, Potassium 4.4, Chloride 105, Carbon Dioxide 23.0, Anion Gap 10, BUN 15, Creatinine 0.78, Estim Creat Clear Calc 47.44, Est GFR (MDRD) Af Amer 95, Est GFR (MDRD) Non-Af 79, BUN/Creatinine Ratio 19.3, Glucose 102, Calcium 8.0 L 12/26/18 05:35: Vitamin D 25-Hydroxy 23.8 L Current Medications Acetaminophen (Tylenol) 650 mg PO Q6H PRN PRN PRN Reason: Mild Pain (scale 0-3)/T>100.7 Last Admin: 12/26/18 02:50 Dose: 650 mg Docusate Sodium (Colace) 100 mg PO BID [facility] Last Admin: 12/26/18 09:53 Dose: 100 mg Enoxaparin Sodium (Lovenox) 40 mg SC DAILY@0600 [facility] Last Admin: 12/26/18 06:20 Dose: 40 mg Sodium Chloride () 1,000 mls @ 75 mls/hr IV .[id number] [facility] Last Admin: 12/26/18 02:06 Dose: 75 mls/hr Magnesium Hydroxide (Milk Of Magnesia) 30 ml PO DAILY PRN PRN PRN Reason: Constipation Metoprolol Tartrate (Lopressor (Beta Marizol)) 25 mg PO BID [facility] Last Admin: 12/26/18 09:53 Dose: 25 mg Morphine Sulfate () 1 - 2 mg IV Q4H PRN PRN PRN Reason: Moderate Pain (pain scale 4-5) Nutritional Formula (Lactose Free) (Ensure Enlive) 120 ml PO 4X/DAY [facility] Last Admin: 12/26/18 08:27 Dose: 120 ml Ondansetron HCl (Zofran) 4 mg IV Q8H PRN PRN PRN Reason: Nausea Oxycodone HCl (Oxyir) 5 mg PO Q4H PRN PRN PRN Reason: Moderate Pain (pain scale 4-5) Last Admin: 12/24/18 13:44 Dose: 5 mg Sodium Chloride () 10 - 40 ml IV UD PRN PRN Reason: MULTILUMEN/HICMAN CATH FLUSH Last Admin: 12/26/18 05:38 Dose: 40 ml Spironolactone (Aldactone) 50 mg PO BID [facility] Last Admin: 12/26/18 09:53 Dose: 50 mg Tramadol HCl (Ultram) 50 mg PO Q6H PRN PRN PRN Reason: MODERATE PAIN (4-5/10) Last Admin: 12/25/18 21:52 Dose: 50 mg Warfarin Sodium (Coumadin (Pbkc)) 1 mg PO Fr@1700 RANDAL Warfarin Sodium (Coumadin (Pbkc)) 2 mg PO SuMoTuWeThSa@1700 RANDAL Last Admin: 12/25/18 17:53 Dose: 2 mg Zolpidem Tartrate (Ambien (Generic)) 5 mg PO QHS PRN PRN PRN Reason: INSOMNIA Medical Necessity - Tobacco Use Smoking Status: Never smoker Assessment/Plan All Active Problems Nondisplaced intertrochanteric right hip (Acute) Pancytopenia (Acute) 1. Nondisplaced intertrochanteric right hip fracture s/p ORIF on 12/24, complicated by midshaft femur fracture (iatrogenic v occult) DW Dr. Burt, patient will be 50% weight-bearing to RLE Follow up with orthopaedics in 2 weeks. Check 25 OH D level 2. pancytopenia ANC 500 monitor follow up with oncology as outpt may be due to chemotherapy 3. DVT proph: back on coumadin Lovenox until therapeutic 4. Dispo: to rehab, pending precertification. Code Visit Inpatient E&M: 54104 Subs Hosp L2
--- NOTE | 2018-12-26 14:41 | CASEMGMT ---
Social Work Note SW placed a call to Giselle with [facility] asking for update. Per Giselle she still hasn't heard anything from pt's insurance yet. Plan: RU pending pre-cert Brandi Sy TAB CUTTER, RESIDENTIAL FEE APPRAISER
[2018-12-26 14:51] LABS: Pathologist Review Reviewed
[2018-12-26] MEDS: traMADol 50 MG Tablet PO (22:52)
[2018-12-27] VITALS (9 sets, daily range): BP systolic 111–143; BP diastolic 64–78; PULSE 96–112; RESP 16–18; TEMP 36.4–37.1; O2SAT 93–98
[2018-12-27] MEDS: Enoxaparin 40 MG/0.4 ML Syringe SC (06:53)
[2018-12-27] MEDS: Metoprolol Tartrate 25 MG Tablet PO ×2 (08:50→21:30)
[2018-12-27] MEDS: Spironolactone 50 MG Tablet PO ×2 (08:50→21:42)
--- NOTE | 2018-12-27 09:10 | PCM.PN.HOSP ---
Patient Problems: Active and Suspected Problems Nondisplaced intertrochanteric right hip (Acute) Pancytopenia (Acute) Subjective: No new complaints. Ready to begin rehab. Vitals/I&O's: Vital Signs Temp Pulse Resp BP Pulse Ox 36.4 C L 112 H 16 111/65 95 12/27/18 08:41 12/27/18 08:58 12/27/18 08:41 12/27/18 08:41 12/27/18 08:41 Oxygen Flow Rate (L/min) 2 Oxygen Delivery Method Room Air Weight: 54.3 kg Body Mass Index (BMI) 24.1 Intake and Output for Last 24 Hours 12/25/18 12/26/18 12/27/18 23:59 23:59 23:59 Intake Total 3164 / 3164 2075 / 2075 240 / 240 Output Total 700 / 700 300 / 300 Balance 2464 / 2464 1775 / 1775 240 / 240 General: Alert, Cooperative, No apparent distress HEENT: Atraumatic, Normocephalic Oral: Moist Mucosa, No Gingival or Mucosal Lesions/ Ulcerations Neck: No Nodes, Thyroid Normal Size and Texture Lungs: Clear to auscultation, Normal air movement, No rhonchi, No wheeze Cardiovascular: Regular rate, Regular Rhythm, Normal S1, Normal S2, No murmurs Abdomen: Bowel Sounds Present, Soft, Non Tender, Non-Distended, No Hepato-splenomegaly Extremities: No edema, No Calf Tenderness Laboratory Results 12/26/18 05:35: Diff Path Review Reviewed 12/26/18 05:35: Vitamin D 25-Hydroxy 23.8 L Current Medications Acetaminophen (Tylenol) 650 mg PO Q6H PRN PRN PRN Reason: Mild Pain (scale 0-3)/T>100.7 Last Admin: 12/26/18 14:02 Dose: 650 mg Docusate Sodium (Colace) 100 mg PO BID [facility] Last Admin: 12/27/18 08:57 Dose: Not Given Enoxaparin Sodium (Lovenox) 40 mg SC DAILY@0600 [facility] Last Admin: 12/27/18 06:53 Dose: 40 mg Ergocalciferol (Vitamin D) 50,000 unit PO Q7D [facility] Stop: 02/14/19 08:01 Last Admin: 12/27/18 08:56 Dose: 50,000 unit Magnesium Hydroxide (Milk Of Magnesia) 30 ml PO DAILY PRN PRN PRN Reason: Constipation Metoprolol Tartrate (Lopressor (Beta Marizol)) 25 mg PO BID [facility] Last Admin: 12/27/18 08:50 Dose: 25 mg Morphine Sulfate () 1 - 2 mg IV Q4H PRN PRN PRN Reason: Moderate Pain (pain scale 4-5) Nutritional Formula (Lactose Free) (Ensure Enlive) 120 ml PO 4X/DAY [facility] Last Admin: 12/26/18 22:33 Dose: Not Given Ondansetron HCl (Zofran) 4 mg IV Q8H PRN PRN PRN Reason: Nausea Oxycodone HCl (Oxyir) 5 mg PO Q4H PRN PRN PRN Reason: Moderate Pain (pain scale 4-5) Last Admin: 12/24/18 13:44 Dose: 5 mg Sodium Chloride () 10 - 40 ml IV UD PRN PRN Reason: MULTILUMEN/HICMAN CATH FLUSH Last Admin: 12/26/18 12:06 Dose: 10 ml Spironolactone (Aldactone) 50 mg PO BID [facility] Last Admin: 12/27/18 08:50 Dose: 50 mg Tramadol HCl (Ultram) 50 mg PO Q6H PRN PRN PRN Reason: MODERATE PAIN (4-5/10) Last Admin: 12/26/18 22:52 Dose: 50 mg Warfarin Sodium (Coumadin (Pbkc)) 1 mg PO Fr@1700 RANDAL Warfarin Sodium (Coumadin (Pbkc)) 2 mg PO SuMoTuWeThSa@1700 [facility] Last Admin: 12/26/18 17:15 Dose: 2 mg Zolpidem Tartrate (Ambien (Generic)) 5 mg PO QHS PRN PRN PRN Reason: INSOMNIA Medical Necessity - Tobacco Use Smoking Status: Never smoker Assessment/Plan All Active Problems Nondisplaced intertrochanteric right hip (Acute) Pancytopenia (Acute) 1. Nondisplaced intertrochanteric right hip fracture s/p ORIF on 12/24, complicated by midshaft femur fracture (iatrogenic v occult) ANAID Burt, patient will be 50% weight-bearing to E Follow up with orthopaedics in 2 weeks. Check 25 OH D level 2. pancytopenia ANC 500 monitor follow up with oncology as outpt may be due to chemotherapy 3. DVT proph: back on coumadin Lovenox until therapeutic 4. Dispo: to rehab, pending precertification. Code Visit Inpatient E&M: 45677 Subs Hosp L2
--- NOTE | 2018-12-27 09:15 | CASEMGMT ---
Social Work Note SW met with pt to update pt that this worker still hasn't received pre-cert yet. SW explained that if insurance denies RU then it is likely insurance will approve for pt to go to TCU. Pt states that she would prefer to stay at [facility]. SW explained that this worker placed pt's name on the list for TCU yesterday in the event RU gets denied. Pt states understanding, thanked this worker for updating her. Plan: RU pending pre-cert Brandi Sy MECHANICAL PRODUCT DESIGN ENGINEER, BULL FLOAT FINISHER
--- NOTE | 2018-12-27 09:18 | DCINST_ITS ---
- Discharge Diagnoses Current Active Problems: Current Active and Chronic Problems Nondisplaced intertrochanteric right hip (Acute) Pancytopenia (Acute) History of atrial fibrillation (Chronic) Recurrent breast cancer (Chronic) Congenital single kidney (Chronic) History of DVT (deep vein thrombosis) (Chronic) You will use the following diet at home:: No restrictions Your food should be the consistency of: Regular Your liquids should be the consistency of: Regular/Thin Discharge Activity: Use Walker, - - 50% weight bearing RLE Call your doctor if your incision/area has: Continuous Slow Oozing, Sudden Increased Bleeding, Increased Pain/ Swelling Call your doctor if you observe: Fever of 101 or Higher Allergies/Adverse Reactions: Allergies carvedilol Adverse Reaction (Verified 12/22/18 23:21) dizziness, can't function Medications to take at Discharge Metoprolol Tartrate [Lopressor (beta kimo)] 25 mg PO BID 08/16/17 Fulvestrant [Faslodex] 500 mg IM QMONTH 12/22/18 Furosemide [Lasix] 20 mg PO DAILY 12/22/18 Multivitamin with Minerals [Multiple Vitamin] 1 each PO DAILY 12/22/18 Palbociclib [Ibrance] 125 mg PO DAILY 12/22/18 Spironolactone [Aldactone] 50 mg PO BID 12/22/18 Warfarin Sodium 1 mg PO FR 12/22/18 Warfarin Sodium 2 mg PO SUMOTUWETHSA 12/22/18 Acetaminophen [Tylenol Tablet] 650 mg PO Q6H PRN PRN tablet 12/27/18 Docusate Sodium [Colace] 100 mg PO BID capsule 12/27/18 Enoxaparin [Lovenox] 40 mg SC DAILY@0600 syringe 12/27/18 Ensure Enlive 120 ml PO 4X/DAY liquid 12/27/18 Ergocalciferol [Vitamin D] 50,000 unit PO Q7D #7 capsule 12/27/18 Magnesium Hydroxide [Milk Of Magnesia] 30 ml PO DAILY PRN PRN udc 12/27/18 traMADol [Ultram] 50 mg PO Q6H PRN PRN tablet 12/27/18 Primary Care Physician: Nacho Quintero DO [Primary Care Provider] - Within 2 Weeks Test Results: Test results from this visit will be discussed in further detail at your follow- up appointment, if applicable. Please Follow Up With: Chai Burt DO When: 2 weeks Proposed Discharge Date: 12/27/18
--- NOTE | 2018-12-27 09:19 | PCM.DC.SUM ---
Discharge Date and Diagnosis - Problem List Patient Problems: Active and Suspected Problems Closed right hip fracture (Acute) Nondisplaced intertrochanteric right hip (Acute) Pancytopenia (Acute) Date of Admission: 12/22/18 Date of Discharge: 12/27/18 - Primary Discharge Diagnosis Active and Suspected Problems Closed right hip fracture (Acute) Nondisplaced intertrochanteric right hip (Acute) Pancytopenia (Acute) - Secondary Discharge Diagnosis Chronic Problems History of atrial fibrillation (Chronic) Recurrent breast cancer (Chronic) Congenital single kidney (Chronic) History of DVT (deep vein thrombosis) (Chronic) Breast cancer (Chronic) s/p bilat rad mastect on chemo 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 No evidence of acute focal infiltrate. No visualized fracture. Electronically Signed: Caren Noonan MD at 18:26 EST Tel , Service support , Hip/Pelvis X-Ray 12/22/18 15:32 IMPRESSION: Normal x-ray examination of the pelvis and right hip. Electronically Signed: Caren Noonan MD at 18:24 EST Tel , Service support , Femur X-Ray 12/22/18 17:51 IMPRESSION: Degenerative changes of the hip and knee. There is no visualized fracture or dislocation. Electronically Signed: Michael Tam DO at 19:15 EST Tel [phone], Service support , Pelvis MRI 12/22/18 19:30 IMPRESSION: 1. Nondisplaced intratrochanteric fracture of the right hip was marked inflammatory changes in the surrounding musculature and soft tissue. 2. No other evidence of pelvic abnormality. Electronically Signed: Michael Tam DO at 21:34 EST Tel [phone], Service support , Hip X-Ray 12/24/18 07:19 IMPRESSION: Fluoroscopic guidance for femur fracture fixation. Proximal left diaphyseal fracture not previously evident on MRI of 12/22/2018. The IT fracture seen on prior MRI is not clearly seen. Electronically Signed: Watson Bee MD at 13:14 EST , Service support , Procedures: - - ORIF right hip. Summary of Care Provided: The patient is a 68 year old F presents with a fall and right hip pain. Found to have a right hip intertrochanteric fracture. 1. Nondisplaced intertrochanteric right hip fracture s/p ORIF on 12/24, complicated by midshaft femur fracture (iatrogenic v occult) DW Dr. Burt, patient will be 50% weight-bearing to RLE Follow up with orthopaedics in 2 weeks. Check 25 OH D level 2. pancytopenia ANC 500 monitor follow up with oncology as outpt may be due to chemotherapy 3. DVT proph: back on coumadin Lovenox until therapeutic 4. Breast cancer Hold faslodex and palbociclib until follow up with oncology.[] Patient Problems: Active and Suspected Problems Closed right hip fracture (Acute) Nondisplaced intertrochanteric right hip (Acute) Pancytopenia (Acute) - Physical Exam Vital Signs Temp Pulse Resp BP Pulse Ox 36.4 C L 112 H 16 111/65 95 12/27/18 08:41 12/27/18 08:58 12/27/18 08:41 12/27/18 08:41 12/27/18 08:41 Oxygen Flow Rate (L/min) 2 Oxygen Delivery Method Room Air Weight: 54.3 kg Body Mass Index (BMI) 24.1 Intake and Output for Last 24 Hours 12/25/18 12/26/18 12/27/18 23:59 23:59 23:59 Intake Total 3164 / 3164 2075 / 2075 240 / 240 Output Total 700 / 700 300 / 300 Balance 2464 / 2464 1775 / 1775 240 / 240 Laboratory Tests Past 24 Hrs 12/26/18 12/26/18 05:35 05:35 Diff Path Review Reviewed Vitamin D 25-Hydroxy 23.8 L Discharge Diet: No Restrictions Discharge Activity: Use Walker, - - 50% weight bearing RLE Call your doctor if your incision/area has: Continuous Slow Oozing, Sudden Increased Bleeding, Increased Pain/ Swelling Call your doctor if you observe: Fever of 101 or Higher Home Medications: Medications to take at Discharge Metoprolol Tartrate [Lopressor (beta kimo)] 25 mg PO BID 08/16/17 Fulvestrant [Faslodex] 500 mg IM QMONTH 12/22/18 Furosemide [Lasix] 20 mg PO DAILY 12/22/18 Multivitamin with Minerals [Multiple Vitamin] 1 each PO DAILY 12/22/18 Palbociclib [Ibrance] 125 mg PO DAILY 12/22/18 Spironolactone [Aldactone] 50 mg PO BID 12/22/18 Warfarin Sodium 1 mg PO FR 12/22/18 Warfarin Sodium 2 mg PO SUMOTUWETHSA 12/22/18 Acetaminophen [Tylenol Tablet] 650 mg PO Q6H PRN PRN tablet 12/27/18 Docusate Sodium [Colace] 100 mg PO BID capsule 12/27/18 Enoxaparin [Lovenox] 40 mg SC DAILY@0600 syringe 12/27/18 Ensure Enlive 120 ml PO 4X/DAY liquid 12/27/18 Ergocalciferol [Vitamin D] 50,000 unit PO Q7D #7 capsule 12/27/18 Magnesium Hydroxide [Milk Of Magnesia] 30 ml PO DAILY PRN PRN udc 12/27/18 traMADol [Ultram] 50 mg PO Q6H PRN PRN tablet 12/27/18 Primary Care Physician: Nacho Quintero DO [Primary Care Provider] - Within 2 Weeks Please Follow Up With: Chai Burt DO When: 2 weeks Please Follow Up With: Gokul Booker DO When: 2-4 weeks Minutes spent on discharge:: 32 Patient Condition:: Good Medical Necessity - Tobacco Use Smoking Status: Never smoker Meaningful Use Info Meaningful Use Diagnoses (Choose all that apply): None applicable Code Visit Inpatient E&M: 07745 Disch Hosp
--- NOTE | 2018-12-27 09:23 | DS.PCM_ITS ---
Discharge Date and Diagnosis - Problem List Patient Problems: Active and Suspected Problems Closed right hip fracture (Acute) Nondisplaced intertrochanteric right hip (Acute) Pancytopenia (Acute) Date of Admission: 12/22/18 Date of Discharge: 12/27/18 - Primary Discharge Diagnosis Active and Suspected Problems Closed right hip fracture (Acute) Nondisplaced intertrochanteric right hip (Acute) Pancytopenia (Acute) - Secondary Discharge Diagnosis Chronic Problems History of atrial fibrillation (Chronic) Recurrent breast cancer (Chronic) Congenital single kidney (Chronic) History of DVT (deep vein thrombosis) (Chronic) Breast cancer (Chronic) s/p bilat rad mastect on chemo 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 No evidence of acute focal infiltrate. No visualized fracture. Electronically Signed: Caren Noonan MD at 18:26 EST Tel , Service support , Hip/Pelvis X-Ray 12/22/18 15:32 IMPRESSION: Normal x-ray examination of the pelvis and right hip. Electronically Signed: Caren Noonan MD at 18:24 EST Tel , Service support , Femur X-Ray 12/22/18 17:51 IMPRESSION: Degenerative changes of the hip and knee. There is no visualized fracture or dislocation. Electronically Signed: Michael Tam DO at 19:15 EST Tel [phone], Service support , Pelvis MRI 12/22/18 19:30 IMPRESSION: 1. Nondisplaced intratrochanteric fracture of the right hip was marked inflammatory changes in the surrounding musculature and soft tissue. 2. No other evidence of pelvic abnormality. Electronically Signed: Michael Tam DO at 21:34 EST Tel [phone], Service support , Hip X-Ray 12/24/18 07:19 IMPRESSION: Fluoroscopic guidance for femur fracture fixation. Proximal left diaphyseal fracture not previously evident on MRI of 12/22/2018. The IT fracture seen on prior MRI is not clearly seen. Electronically Signed: Watson Bee MD at 13:14 EST , Service support , Procedures: - - ORIF right hip. Summary of Care Provided: The patient is a 68 year old F presents with a fall and right hip pain. Found to have a right hip intertrochanteric fracture. 1. Nondisplaced intertrochanteric right hip fracture s/p ORIF on 12/24, complicated by midshaft femur fracture (iatrogenic v occult) DW Dr. Burt, patient will be 50% weight-bearing to RLE Follow up with orthopaedics in 2 weeks. Check 25 OH D level 2. pancytopenia ANC 500 monitor follow up with oncology as outpt may be due to chemotherapy 3. DVT proph: back on coumadin Lovenox until therapeutic 4. Breast cancer Hold faslodex and palbociclib until follow up with oncology.[] Patient Problems: Active and Suspected Problems Closed right hip fracture (Acute) Nondisplaced intertrochanteric right hip (Acute) Pancytopenia (Acute) - Physical Exam Vital Signs Temp Pulse Resp BP Pulse Ox 36.4 C L 112 H 16 111/65 95 12/27/18 08:41 12/27/18 08:58 12/27/18 08:41 12/27/18 08:41 12/27/18 08:41 Oxygen Flow Rate (L/min) 2 Oxygen Delivery Method Room Air Weight: 54.3 kg Body Mass Index (BMI) 24.1 Intake and Output for Last 24 Hours 12/25/18 12/26/18 12/27/18 23:59 23:59 23:59 Intake Total 3164 / 3164 2075 / 2075 240 / 240 Output Total 700 / 700 300 / 300 Balance 2464 / 2464 1775 / 1775 240 / 240 Laboratory Tests Past 24 Hrs 12/26/18 12/26/18 05:35 05:35 Diff Path Review Reviewed Vitamin D 25-Hydroxy 23.8 L Discharge Diet: No Restrictions Discharge Activity: Use Walker, - - 50% weight bearing RLE Call your doctor if your incision/area has: Continuous Slow Oozing, Sudden Increased Bleeding, Increased Pain/ Swelling Call your doctor if you observe: Fever of 101 or Higher Home Medications: Medications to take at Discharge Metoprolol Tartrate [Lopressor (beta kimo)] 25 mg PO BID 08/16/17 Fulvestrant [Faslodex] 500 mg IM QMONTH 12/22/18 Furosemide [Lasix] 20 mg PO DAILY 12/22/18 Multivitamin with Minerals [Multiple Vitamin] 1 each PO DAILY 12/22/18 Palbociclib [Ibrance] 125 mg PO DAILY 12/22/18 Spironolactone [Aldactone] 50 mg PO BID 12/22/18 Warfarin Sodium 1 mg PO FR 12/22/18 Warfarin Sodium 2 mg PO SUMOTUWETHSA 12/22/18 Acetaminophen [Tylenol Tablet] 650 mg PO Q6H PRN PRN tablet 12/27/18 Docusate Sodium [Colace] 100 mg PO BID capsule 12/27/18 Enoxaparin [Lovenox] 40 mg SC DAILY@0600 syringe 12/27/18 Ensure Enlive 120 ml PO 4X/DAY liquid 12/27/18 Ergocalciferol [Vitamin D] 50,000 unit PO Q7D #7 capsule 12/27/18 Magnesium Hydroxide [Milk Of Magnesia] 30 ml PO DAILY PRN PRN udc 12/27/18 traMADol [Ultram] 50 mg PO Q6H PRN PRN tablet 12/27/18 Primary Care Physician: Nacho Quintero DO [Primary Care Provider] - Within 2 Weeks Please Follow Up With: Chai Burt DO When: 2 weeks Please Follow Up With: Gokul Booker DO When: 2-4 weeks Minutes spent on discharge:: 32 Patient Condition:: Good Medical Necessity - Tobacco Use Smoking Status: Never smoker Meaningful Use Info Meaningful Use Diagnoses (Choose all that apply): None applicable Code Visit Inpatient E&M: 89655 Disch Hosp
--- NOTE | 2018-12-27 13:44 | CASEMGMT ---
Addendum entered by Brandi Sy 12/27/18 14:06: Physician updated and pt updated. Original Note: Social Work Note SW received message from Giselle with RU stating pt was denied RU but Lizzy in TCU is submitting for pt to go to TCU. ANJEL placed a call to Lizzy in TCU. Lizzy confirms that she is going to submit for pre-cert for TCU. ANJEL informed Lizzy that pt is ready for discharge once pre-cert is obtained. Plan: TCU pending pre-cert Brandi Sy CLIENT SERVICE CONSULTANT, APPLIANCE LINE ASSEMBLER
--- NOTE | 2018-12-27 13:47 | PCM.TXEXTCAR ---
- Diet 12/23/18 08:57 Diet: Regular Diet Is pt able to select menu?: Yes - Routine Orders/Code Status Routine Lab Work: CBC Code Status: Full Code - Wound(s) CHRISTOPHER Wound Type: Abrasion RIGHT LATERAL UPPER LEG Wound Type: Surgical Incision Dressing Change: Wet to Dry Dressing - Therapies Weight Bearing: Partial weight bearing Extremity Affected:: Right Lower Physical Therapy: Eval and Treat Occupational Therapy: Eval and Treat - Allergies/Procedures Done in Hospital Allergies/Adverse Reactions: Allergies carvedilol Adverse Reaction (Verified 12/22/18 23:21) dizziness, can't function Procedures: - - right hip ORIF - Type of Care/Length of Stay Estimated LOS: Convalescent Care Less Than 30 days Type of Care Needed: Skilled Rehab Potential: Fair Prognosis: Fair - Additional Orders/Day of Discharge Day of Discharge: 12/27/18 - Dietary and Speech Recommendations Dietitian Recommendations/Changes: Will provide 120 mL 4x/day Ensure Enlive - Follow Up Care Primary Care Physician: Nacho Quintero DO [Primary Care Provider] - Within 2 Weeks Please Follow Up With: Chai Burt DO When: 2 weeks Please Follow Up With: Gokul Booker DO When: 2-4 weeks
[2018-12-27] MEDS: traMADol 50 MG Tablet PO ×2 (13:53→21:42)
[2018-12-28] VITALS (7 sets, daily range): BP systolic 96–117; BP diastolic 52–73; PULSE 97–100; RESP 16–18; TEMP 36.3–37.1; O2SAT 94–97
[2018-12-28] MEDS: Enoxaparin 40 MG/0.4 ML Syringe SC (06:30)
[2018-12-28] MEDS: Docusate Sodium 100 MG Capsule PO ×2 (09:42→21:27)
[2018-12-28] MEDS: Spironolactone 50 MG Tablet PO ×2 (09:42→21:27)
[2018-12-28] MEDS: Metoprolol Tartrate 25 MG Tablet PO ×2 (09:42→21:27)
--- NOTE | 2018-12-28 10:56 | PCM.PN.HOSP ---
Patient Problems: Active and Suspected Problems Closed right hip fracture (Acute) Nondisplaced intertrochanteric right hip (Acute) Pancytopenia (Acute) Subjective: No new complaints. Vitals/I&O's: Vital Signs Temp Pulse Resp BP Pulse Ox 36.4 C L 100 18 110/73 96 12/28/18 09:28 12/28/18 09:42 12/28/18 09:28 12/28/18 09:42 12/28/18 09:28 Oxygen Flow Rate (L/min) 2 Oxygen Delivery Method Room Air Weight: 54.3 kg Body Mass Index (BMI) 24.1 Intake and Output for Last 24 Hours 12/26/18 12/27/18 12/28/18 23:59 23:59 23:59 Intake Total 2075 / 2075 240 / 240 700 / 700 Output Total 300 / 300 250 / 250 Balance 1775 / 1775 240 / 240 450 / 450 General: Alert, No apparent distress HEENT: Atraumatic, Normocephalic Neck: - - ecchymosis right neck at former TLC site. Psych/Mental Status: Normal Affect, Appropriate Current Medications Acetaminophen (Tylenol) 650 mg PO Q6H PRN PRN PRN Reason: Mild Pain (scale 0-3)/T>100.7 Last Admin: 12/26/18 14:02 Dose: 650 mg Docusate Sodium (Colace) 100 mg PO BID [facility] Last Admin: 12/28/18 09:42 Dose: 100 mg Enoxaparin Sodium (Lovenox) 40 mg SC DAILY@0600 [facility] Last Admin: 12/28/18 06:30 Dose: 40 mg Ergocalciferol (Vitamin D) 50,000 unit PO Q7D [facility] Stop: 02/14/19 08:01 Last Admin: 12/27/18 08:56 Dose: 50,000 unit Magnesium Hydroxide (Milk Of Magnesia) 30 ml PO DAILY PRN PRN PRN Reason: Constipation Metoprolol Tartrate (Lopressor (Beta Marizol)) 25 mg PO BID [facility] Last Admin: 12/28/18 09:42 Dose: 25 mg Morphine Sulfate () 1 - 2 mg IV Q4H PRN PRN PRN Reason: Moderate Pain (pain scale 4-5) Nutritional Formula (Lactose Free) (Ensure Enlive) 120 ml PO 4X/DAY [facility] Last Admin: 12/28/18 09:46 Dose: 120 ml Ondansetron HCl (Zofran) 4 mg IV Q8H PRN PRN PRN Reason: Nausea Oxycodone HCl (Oxyir) 5 mg PO Q4H PRN PRN PRN Reason: Moderate Pain (pain scale 4-5) Last Admin: 12/24/18 13:44 Dose: 5 mg Sodium Chloride () 10 - 40 ml IV UD PRN PRN Reason: MULTILUMEN/HICMAN CATH FLUSH Last Admin: 12/26/18 12:06 Dose: 10 ml Spironolactone (Aldactone) 50 mg PO BID [facility] Last Admin: 12/28/18 09:42 Dose: 50 mg Tramadol HCl (Ultram) 50 mg PO Q6H PRN PRN PRN Reason: MODERATE PAIN (4-5/10) Last Admin: 12/27/18 21:42 Dose: 50 mg Warfarin Sodium (Coumadin (Pbkc)) 1 mg PO Fr@1700 [facility] Warfarin Sodium (Coumadin (Pbkc)) 2 mg PO SuMoTuWeThSa@1700 [facility] Last Admin: 12/27/18 17:17 Dose: 2 mg Zolpidem Tartrate (Ambien (Generic)) 5 mg PO QHS PRN PRN PRN Reason: INSOMNIA Medical Necessity - Tobacco Use Smoking Status: Never smoker Assessment/Plan All Active Problems Closed right hip fracture (Acute) Nondisplaced intertrochanteric right hip (Acute) Pancytopenia (Acute) 1. Nondisplaced intertrochanteric right hip fracture s/p ORIF on 12/24, complicated by midshaft femur fracture (iatrogenic v occult) DW Dr. Burt, patient will be 50% weight-bearing to E Follow up with orthopaedics in 2 weeks. Check 25 OH D level 2. pancytopenia ANC 500 monitor follow up with oncology as outpt may be due to chemotherapy 3. DVT proph: back on coumadin Lovenox until therapeutic 4. Dispo: to rehab, pending precertification. Avoidable day #3 given precertification and denials. Code Visit Inpatient E&M: 07066 Subs Hosp L2
--- NOTE | 2018-12-28 10:59 | PN_ITS ---
Patient Problems: Active and Suspected Problems Closed right hip fracture (Acute) Nondisplaced intertrochanteric right hip (Acute) Pancytopenia (Acute) Subjective: No new complaints. Vitals/I&O's: Vital Signs Temp Pulse Resp BP Pulse Ox 36.4 C L 100 18 110/73 96 12/28/18 09:28 12/28/18 09:42 12/28/18 09:28 12/28/18 09:42 12/28/18 09:28 Oxygen Flow Rate (L/min) 2 Oxygen Delivery Method Room Air Weight: 54.3 kg Body Mass Index (BMI) 24.1 Intake and Output for Last 24 Hours 12/26/18 12/27/18 12/28/18 23:59 23:59 23:59 Intake Total 2075 / 2075 240 / 240 700 / 700 Output Total 300 / 300 250 / 250 Balance 1775 / 1775 240 / 240 450 / 450 General: Alert, No apparent distress HEENT: Atraumatic, Normocephalic Neck: - - ecchymosis right neck at former TLC site. Psych/Mental Status: Normal Affect, Appropriate Current Medications Acetaminophen (Tylenol) 650 mg PO Q6H PRN PRN PRN Reason: Mild Pain (scale 0-3)/T>100.7 Last Admin: 12/26/18 14:02 Dose: 650 mg Docusate Sodium (Colace) 100 mg PO BID [facility] Last Admin: 12/28/18 09:42 Dose: 100 mg Enoxaparin Sodium (Lovenox) 40 mg SC DAILY@0600 [facility] Last Admin: 12/28/18 06:30 Dose: 40 mg Ergocalciferol (Vitamin D) 50,000 unit PO Q7D [facility] Stop: 02/14/19 08:01 Last Admin: 12/27/18 08:56 Dose: 50,000 unit Magnesium Hydroxide (Milk Of Magnesia) 30 ml PO DAILY PRN PRN PRN Reason: Constipation Metoprolol Tartrate (Lopressor (Beta Marizol)) 25 mg PO BID [facility] Last Admin: 12/28/18 09:42 Dose: 25 mg Morphine Sulfate () 1 - 2 mg IV Q4H PRN PRN PRN Reason: Moderate Pain (pain scale 4-5) Nutritional Formula (Lactose Free) (Ensure Enlive) 120 ml PO 4X/DAY [facility] Last Admin: 12/28/18 09:46 Dose: 120 ml Ondansetron HCl (Zofran) 4 mg IV Q8H PRN PRN PRN Reason: Nausea Oxycodone HCl (Oxyir) 5 mg PO Q4H PRN PRN PRN Reason: Moderate Pain (pain scale 4-5) Last Admin: 12/24/18 13:44 Dose: 5 mg Sodium Chloride () 10 - 40 ml IV UD PRN PRN Reason: MULTILUMEN/HICMAN CATH FLUSH Last Admin: 12/26/18 12:06 Dose: 10 ml Spironolactone (Aldactone) 50 mg PO BID [facility] Last Admin: 12/28/18 09:42 Dose: 50 mg Tramadol HCl (Ultram) 50 mg PO Q6H PRN PRN PRN Reason: MODERATE PAIN (4-5/10) Last Admin: 12/27/18 21:42 Dose: 50 mg Warfarin Sodium (Coumadin (Pbkc)) 1 mg PO Fr@1700 [facility] Warfarin Sodium (Coumadin (Pbkc)) 2 mg PO SuMoTuWeThSa@1700 [facility] Last Admin: 12/27/18 17:17 Dose: 2 mg Zolpidem Tartrate (Ambien (Generic)) 5 mg PO QHS PRN PRN PRN Reason: INSOMNIA Medical Necessity - Tobacco Use Smoking Status: Never smoker Assessment/Plan All Active Problems Closed right hip fracture (Acute) Nondisplaced intertrochanteric right hip (Acute) Pancytopenia (Acute) 1. Nondisplaced intertrochanteric right hip fracture s/p ORIF on 12/24, complicated by midshaft femur fracture (iatrogenic v occult) DW Dr. Burt, patient will be 50% weight-bearing to E Follow up with orthopaedics in 2 weeks. Check 25 OH D level 2. pancytopenia ANC 500 monitor follow up with oncology as outpt may be due to chemotherapy 3. DVT proph: back on coumadin Lovenox until therapeutic 4. Dispo: to rehab, pending precertification. Avoidable day #3 given precertification and denials. Code Visit Inpatient E&M: 37010 Subs Hosp L2
[2018-12-28 11:48] LABS: International Normalized Ratio 1.6; Prothrombin Time (Protime)PT. 18.7 SECONDS (11.7-14.9)
--- NOTE | 2018-12-28 12:45 | CASEMGMT ---
Social Work Note SW received message from Lizzy in TCU stating pt's insurance has asked for updated clinicals again. Lizzy states she submitted updated clinicals. Plan: TCU pending pre-cert Brandi Sy MSW, REPOSSESSION AGENT
--- NOTE | 2018-12-28 16:13 | CASEMGMT ---
Social Work Note ANJEL placed a call to Lizzy in TCU stating this worker is getting ready to leave for the day and if she receives pre-cert to call the floor directly. ANJEL met with pt and updated pt that this worker is still waiting for pre-cert. Pt states understanding. Plan: TCU pending pre-cert Brandi Sy PAINTER AIRCRAFT, GEODUCK DIVER
[2018-12-29 02:10] VITALS: BP 105/66; PULSE 96; RESP 14; TEMP 37.1; O2SAT 98
[2018-12-29] MEDS: Enoxaparin 40 MG/0.4 ML Syringe SC (06:13)
[2018-12-29] MEDS: traMADol 50 MG Tablet PO (06:13)
[2018-12-29 06:30] LABS: International Normalized Ratio 1.7; Prothrombin Time (Protime)PT. 20.4 SECONDS (11.7-14.9)
[2018-12-29 08:38] VITALS: BP 120/73; PULSE 101; RESP 16; TEMP 36.4; O2SAT 96
[2018-12-29 08:52] VITALS: BP 120/73; PULSE 101
[2018-12-29] MEDS: Spironolactone 50 MG Tablet PO (08:52)
[2018-12-29] MEDS: Metoprolol Tartrate 25 MG Tablet PO (08:52)
--- NOTE | 2018-12-29 09:34 | PCM.PN.HOSP ---
Patient Problems: Active and Suspected Problems Nondisplaced intertrochanteric right hip (Acute) Pancytopenia (Acute) Subjective: no new complaints. Vitals/I&O's: Vital Signs Temp Pulse Resp BP Pulse Ox 36.4 C L 101 H 16 120/73 96 12/29/18 08:38 12/29/18 08:52 12/29/18 08:38 12/29/18 08:52 12/29/18 08:38 Oxygen Flow Rate (L/min) 2 Oxygen Delivery Method Room Air Weight: 54.3 kg Body Mass Index (BMI) 24.1 Intake and Output for Last 24 Hours 12/27/18 12/28/18 12/29/18 23:59 23:59 23:59 Intake Total 240 / 240 1300 / 1300 500 / 500 Output Total 1000 / 1000 Balance 240 / 240 300 / 300 500 / 500 General: Alert, No apparent distress HEENT: Atraumatic, Normocephalic Psych/Mental Status: Normal Affect, Appropriate Laboratory Results 12/28/18 11:18: PT 18.7 H, INR 1.6 12/29/18 06:00: PT 20.4 H, INR 1.7 Current Medications Acetaminophen (Tylenol) 650 mg PO Q6H PRN PRN PRN Reason: Mild Pain (scale 0-3)/T>100.7 Last Admin: 12/26/18 14:02 Dose: 650 mg Docusate Sodium (Colace) 100 mg PO BID [facility] Last Admin: 12/29/18 08:36 Dose: Not Given Enoxaparin Sodium (Lovenox) 40 mg SC DAILY@0600 [facility] Last Admin: 12/29/18 06:13 Dose: 40 mg Ergocalciferol (Vitamin D) 50,000 unit PO Q7D [facility] Stop: 02/14/19 08:01 Last Admin: 12/27/18 08:56 Dose: 50,000 unit Magnesium Hydroxide (Milk Of Magnesia) 30 ml PO DAILY PRN PRN PRN Reason: Constipation Metoprolol Tartrate (Lopressor (Beta Marizol)) 25 mg PO BID [facility] Last Admin: 12/29/18 08:52 Dose: 25 mg Morphine Sulfate () 1 - 2 mg IV Q4H PRN PRN PRN Reason: Moderate Pain (pain scale 4-5) Nutritional Formula (Lactose Free) (Ensure Enlive) 120 ml PO 4X/DAY [facility] Last Admin: 12/29/18 08:53 Dose: 120 ml Ondansetron HCl (Zofran) 4 mg IV Q8H PRN PRN PRN Reason: Nausea Oxycodone HCl (Oxyir) 5 mg PO Q4H PRN PRN PRN Reason: Moderate Pain (pain scale 4-5) Last Admin: 12/24/18 13:44 Dose: 5 mg Sodium Chloride () 10 - 40 ml IV UD PRN PRN Reason: MULTILUMEN/HICMAN CATH FLUSH Last Admin: 12/26/18 12:06 Dose: 10 ml Spironolactone (Aldactone) 50 mg PO BID [facility] Last Admin: 12/29/18 08:52 Dose: 50 mg Tramadol HCl (Ultram) 50 mg PO Q6H PRN PRN PRN Reason: MODERATE PAIN (4-5/10) Last Admin: 12/29/18 06:13 Dose: 50 mg Warfarin Sodium (Coumadin (Pbkc)) 1 mg PO Fr@1700 [facility] Warfarin Sodium (Coumadin (Pbkc)) 2 mg PO SuMoTuWeThSa@1700 [facility] Last Admin: 12/28/18 18:24 Dose: 2 mg Zolpidem Tartrate (Ambien (Generic)) 5 mg PO QHS PRN PRN PRN Reason: INSOMNIA Medical Necessity - Tobacco Use Smoking Status: Never smoker Assessment/Plan All Active Problems Closed right hip fracture (Acute) Nondisplaced intertrochanteric right hip (Acute) Pancytopenia (Acute) 1. Nondisplaced intertrochanteric right hip fracture s/p ORIF on 12/24, complicated by midshaft femur fracture (iatrogenic v occult) DW Dr. Burt, patient will be 50% weight-bearing to [facility] Follow up with orthopaedics in 2 weeks. 2. pancytopenia ANC 500 monitor follow up with oncology as outpt may be due to chemotherapy 3. DVT proph: back on coumadin Lovenox until therapeutic 4. Dispo: to rehab, pending precertification. 5. Vitamin D deficiency: ergocalciferol 50,000 units weekly for 8 weeks. Avoidable day #4 given precertification and denials. Code Visit Inpatient E&M: 74528 [facility] Hosp L2
--- NOTE | 2018-12-29 11:02 | CASEMGMT ---
Social Work NOte ANJEL received call from Lizzy in TCU stating she received pre-cert and pt is able to discharge to TCU today. SW informed Lizzy that pt is medically ready for discharge and will be discharged today. SW updated pt on approval to go to TCU today. Plan: TCU today Brandi Sy PROVER, PRODUCTION BOW MAKER
[2018-12-29 12:06] VITALS: BP 124/74; PULSE 98; RESP 16; TEMP 36.5; O2SAT 98
== END 2018-12-29 14:09 | disposition skilled nursing facility (03) | DRG 480 ==
LOC: ED 15:44 → MS3 22:02
PROVIDERS: Anesthesiology; Internal Medicine; Orthopaedic Surgery; Admitting Provider Hospitalist; Emergency Provider Emergency Medicine; Family Provider Student in an Organized Health Care Education/Training Program; PCP Student in an Organized Health Care Education/Training Program
PROC: 0QH636Z Insertion of Intramedullary Internal Fixation Device into Right Upper Femur, Percutaneous Approach (ICD-10-PCS; CPT 27245; principal; 2018-12-24 07:30)
DX: S72.144A Nondisplaced intertrochanteric fracture of right femur, initial encounter for closed fracture (principal); D61.810 Antineoplastic chemotherapy induced pancytopenia; Q60.0 Renal agenesis, unilateral; S72.301A Unspecified fracture of shaft of right femur, initial encounter for closed fracture; W00.0XXA Fall on same level due to ice and snow, initial encounter; Y92.014 Private driveway to single-family (private) house as the place of occurrence of the external cause; C50.919 Malignant neoplasm of unspecified site of unspecified female breast; T45.1X5A Adverse effect of antineoplastic and immunosuppressive drugs, initial encounter; I48.0 Paroxysmal atrial fibrillation; N18.3 Chronic kidney disease, stage 3 (moderate); E55.9 Vitamin D deficiency, unspecified; K70.31 Alcoholic cirrhosis of liver with ascites; Z79.01 Long term (current) use of anticoagulants; Z90.13 Acquired absence of bilateral breasts and nipples; Z86.718 Personal history of other venous thrombosis and embolism
CPT/HCPCS: 36415; 36556; 71045; 72195; 73502; 73552; 76000; 80048; 80053; 82306; 83735; 85025; 85027; 85610; 85730; 86850; 86900; 86920; 86965; 88304; 88305; 88311; 93005; 93306; 97162; 97166; 97530; 97535; 97802; 99284; C1713; C1776; J7030; J7040; P9016; P9017; P9035; A4216; C1751; J2405

== ENCOUNTER 2018-12-29 14:29 | Inpatient (IN) | payer MEDICARE, SELFPAY ==
[2018-12-23 23:25] VITALS: BMI 24.1
--- NOTE | 2018-12-29 15:56 | PCM.HP.STD ---
Problem List (1) Fall Status: Acute (2) Atrial fibrillation Status: Chronic (3) Nondisplaced intertrochanteric right hip Status: Acute (4) Pancytopenia Status: Acute (5) Recurrent breast cancer Status: Chronic (6) Congenital single kidney Status: Chronic (7) History of DVT (deep vein thrombosis) Status: Chronic (8) Breast cancer Status: Chronic Comment: s/p bilat rad mastect on chemo (9) Alcoholic cirrhosis of liver with ascites Status: Chronic History of Present Illness Date of Admission: 12/29/18 Chief Complaint: Here for rehabilitation, strengthening, prior to discharge home with spouse. The patient is a 68 year old Female with below past medical history presented to [facility] Emergency Department 12/22/2018 with fall, right hip pain. 12/22/2018 Chest X-ray right IJ line. 12/22/2018 EKG normal sinus rhythm, left bundle branch block. 12/22/2018 X-ray right hip, pelvis negative for fracture. 12/22/2018 X-ray right femur, arthritis right hip, right knee. 12/22/2018 MRI pelvis right hip, nondisplaced intertrochanteric fracture. Slipped, fell on walkway. Fell on right hip. Laid in driveway for 2.5 hours. 2007 right lower extremity fractured fixated with stella. WBC 1.4, Hemoglobin 11.7, Platelet 117, Cr 1.4, INR 3.6. 12/22/2018 Admit to Hospital. Pain management. PT/OT. Consult Orthopedics for right hip fracture. Vitamin K to reverse anticoagulation. Hold Faslodex, Ibrance. 12/23/2018 Echo Normal LV size. LVSF normal. EF 60%. Stage 1 diastolic dysfunction. PASP 50mm HG. Moderate pulmonary hypertension. 12/24/2018 Dr. Burt performed ORIF right hip fracture with midshaft femur fracture noted at surgery (iatrogenic versus occult) 50% right lower extremity weight bearing. Pancytopenia, follow up with oncology outpatient. Faslodex, Ibrance held until oncology follow up 12/29/2018 Admit to TCU with debility, here for rehabilitation, strengthening, prior to discharge home alone. Past Medical History Past Medical History (Chronic Problems): Chronic Problems Atrial fibrillation (Chronic) History of atrial fibrillation (Chronic) Recurrent breast cancer (Chronic) Congenital single kidney (Chronic) History of DVT (deep vein thrombosis) (Chronic) Breast cancer (Chronic) s/p bilat rad mastect on chemo Alcoholic cirrhosis of liver with ascites (Chronic) Allergies carvedilol Adverse Reaction (Verified 12/22/18 23:21) dizziness, can't function Home Medications: Ambulatory Orders Medication Instructions Recorded Metoprolol Tartrate [Lopressor 25 mg PO BID 08/16/17 (beta kimo)] Furosemide [Lasix] 20 mg PO DAILY 12/22/18 Multivitamin with Minerals 1 each PO DAILY 12/22/18 [Multiple Vitamin] Spironolactone [Aldactone] 50 mg PO BID 12/22/18 Warfarin Sodium 1 mg PO FR 12/22/18 Warfarin Sodium 2 mg PO SUMOTUWETHSA 12/22/18 Acetaminophen [Tylenol Tablet] 650 mg PO Q6H PRN PRN tablet 12/27/18 Magnesium Hydroxide [Milk Of 30 ml PO DAILY PRN PRN udc 12/27/18 Magnesia] traMADol [Ultram] 50 mg PO Q6H PRN PRN tablet 12/27/18 Docusate Sodium [Colace] 100 mg PO BID 12/29/18 Enoxaparin [Lovenox] 40 mg SC DAILY@0600 12/29/18 Ensure Enlive 120 ml PO 4X/DAY 12/29/18 Ergocalciferol [Vitamin D] 50,000 unit PO Q7D 12/29/18 Surgical History: mastectomy - Bilateral radical., - - Right lower extremity ORIF, Thrombectomy. Psychiatric History: No pertinent psych hx [employer] History: No pertinent [employer] history Lives: Alone Smoking Status: Never smoker Tobacco Use: Non-smoker Alcohol: None Drugs: None - *Family History Maternal History Items: No pertinent history Paternal History Items: No pertinent history Review of Systems Constitutional: Denies: Chills, Fever, Weight Change HEENT: Denies: Head Aches, Sinus Congestion, Sinus Drainage Cardiovascular: Denies: Chest Pain, Palpitations Respiratory: Denies: Cough, Shortness of breath at rest, Sputum production Gastrointestinal: Denies: Abdominal Pain, Nausea, Vomiting Genitourinary: Denies: Dysuria Musculoskeletal: Denies: Joint Pain, Joint Tenderness Skin: Denies: Rash, Wounds Neurological: Denies: Numbness, Tingling, Focal weakness Psychiatric: Denies: Anxiety, Depression, Homicidal Ideations, Suicidal Ideations Hematologic/ Lymphatic: Denies: Easy Bruising, Easy Bleeding VTE Information - Inpt Only VTE Present on Admission: No VTE Mechan Device Prophylaxis: Knee High REGINALD Hose VTE Pharm Prophylaxis ordered?: Yes Patient Problems: Active and Suspected Problems Fall (Acute) - Physical Exam General: Alert, Oriented x3, Cooperative HEENT: Atraumatic, PERRLA, EOMI, Normocephalic Neck: Supple, No JVD, Negative Carotid Bruits Lungs: Clear to auscultation, Normal air movement Cardiovascular: Regular rate, No murmurs Abdomen: Bowel Sounds Present, Soft, Non Tender Extremities: No edema, Capillary Refill Less than 3 Seconds Skin: No rashes, No breakdown Musculoskeletal: No Tenderness to Palpation of Joints or Extremities Neurological: Cranial nerves II-XII grossly intact Psych/Mental Status: Normal Affect, Appropriate Body Mass Index (BMI) 24.1 Assessment/Plan All Active Problems Fall (Acute) Closed right hip fracture (Acute) Nondisplaced intertrochanteric right hip (Acute) Pancytopenia (Acute) 68 year old female with below past medical history significant for recurrent breast cancer, hospitalized for right hip fracture, underwent ORIF 12/24/[address] Burt, right midshaft femur fracture noted, admitted to TCU with debility, here for rehabilitation, strengthening, prior to discharge home with spouse. Debility - PT/OT. Pain - Tylenol 650MG Q6H PRN mild pain, Tramadol 50MG Q6H PRN moderate pain. Bowel - Miralax 17GM daily, Senna/colace 1 tablet BID, Dulcolax 10MG daily. Pneumonia vaccination - Administer Prevnar 13 and/or Pneumovax 23 as necessary. DVT prophylaxis - Lovenox 40MG SC daily until warfarin therapeutic. Nutrition - Ensure Enlive 120ML 4x/day, MVI daily. Vitamin D deficiency - D2 50,000 units per week. Alcoholic cirrhosis with ascites - Lasix 20MG daily, Spironolactone 50MG twice daily. Atrial Fibrillation - Metoprolol 25MG BID, Warfarin 2MG 6 days/week, 1MG 1 day/week, follow INR, when therapeutic, stop Lovenox. Recurrent Breast cancer - Follow up with Dr. Booker, to restart Faslodex, Ibrance.
[2018-12-29 15:57] VITALS: BP 165/115; PULSE 98; RESP 18; TEMP 36.8; O2SAT 98
--- NOTE | 2018-12-29 16:04 | HP.PCM_ITS ---
Problem List (1) Fall Status: Acute (2) Atrial fibrillation Status: Chronic (3) Nondisplaced intertrochanteric right hip Status: Acute (4) Pancytopenia Status: Acute (5) Recurrent breast cancer Status: Chronic (6) Congenital single kidney Status: Chronic (7) History of DVT (deep vein thrombosis) Status: Chronic (8) Breast cancer Status: Chronic Comment: s/p bilat rad mastect on chemo (9) Alcoholic cirrhosis of liver with ascites Status: Chronic History of Present Illness Date of Admission: 12/29/18 Chief Complaint: Here for rehabilitation, strengthening, prior to discharge home with spouse. The patient is a 68 year old Female with below past medical history presented to [facility] Emergency Department 12/22/2018 with fall, right hip pain. 12/22/2018 Chest X-ray right IJ line. 12/22/2018 EKG normal sinus rhythm, left bundle branch block. 12/22/2018 X-ray right hip, pelvis negative for fracture. 12/22/2018 X-ray right femur, arthritis right hip, right knee. 12/22/2018 MRI pelvis right hip, nondisplaced intertrochanteric fracture. Slipped, fell on walkway. Fell on right hip. Laid in driveway for 2.5 hours. 2007 right lower extremity fractured fixated with stella. WBC 1.4, Hemoglobin 11.7, Platelet 117, Cr 1.4, INR 3.6. 12/22/2018 Admit to Hospital. Pain management. PT/OT. Consult Orthopedics for right hip fracture. Vitamin K to reverse anticoagulation. Hold Faslodex, Ibrance. 12/23/2018 Echo Normal LV size. LVSF normal. EF 60%. Stage 1 diastolic dysfunction. PASP 50mm HG. Moderate pulmonary hypertension. 12/24/2018 Dr. Burt performed ORIF right hip fracture with midshaft femur fracture noted at surgery (iatrogenic versus occult) 50% right lower extremity weight bearing. Pancytopenia, follow up with oncology outpatient. Faslodex, Ibrance held until oncology follow up 12/29/2018 Admit to TCU with debility, here for rehabilitation, strengthening, prior to discharge home alone. Past Medical History Past Medical History (Chronic Problems): Chronic Problems Atrial fibrillation (Chronic) History of atrial fibrillation (Chronic) Recurrent breast cancer (Chronic) Congenital single kidney (Chronic) History of DVT (deep vein thrombosis) (Chronic) Breast cancer (Chronic) s/p bilat rad mastect on chemo Alcoholic cirrhosis of liver with ascites (Chronic) Allergies carvedilol Adverse Reaction (Verified 12/22/18 23:21) dizziness, can't function Home Medications: Ambulatory Orders Medication Instructions Recorded Metoprolol Tartrate [Lopressor 25 mg PO BID 08/16/17 (beta kimo)] Furosemide [Lasix] 20 mg PO DAILY 12/22/18 Multivitamin with Minerals 1 each PO DAILY 12/22/18 [Multiple Vitamin] Spironolactone [Aldactone] 50 mg PO BID 12/22/18 Warfarin Sodium 1 mg PO FR 12/22/18 Warfarin Sodium 2 mg PO SUMOTUWETHSA 12/22/18 Acetaminophen [Tylenol Tablet] 650 mg PO Q6H PRN PRN tablet 12/27/18 Magnesium Hydroxide [Milk Of 30 ml PO DAILY PRN PRN udc 12/27/18 Magnesia] traMADol [Ultram] 50 mg PO Q6H PRN PRN tablet 12/27/18 Docusate Sodium [Colace] 100 mg PO BID 12/29/18 Enoxaparin [Lovenox] 40 mg SC DAILY@0600 12/29/18 Ensure Enlive 120 ml PO 4X/DAY 12/29/18 Ergocalciferol [Vitamin D] 50,000 unit PO Q7D 12/29/18 Surgical History: mastectomy - Bilateral radical., - - Right lower extremity ORIF, Thrombectomy. Psychiatric History: No pertinent psych hx HOT MAN History: No pertinent HOT MAN history Lives: Alone Smoking Status: Never smoker Tobacco Use: Non-smoker Alcohol: None Drugs: None - *Family History Maternal History Items: No pertinent history Paternal History Items: No pertinent history Review of Systems Constitutional: Denies: Chills, Fever, Weight Change HEENT: Denies: Head Aches, Sinus Congestion, Sinus Drainage Cardiovascular: Denies: Chest Pain, Palpitations Respiratory: Denies: Cough, Shortness of breath at rest, Sputum production Gastrointestinal: Denies: Abdominal Pain, Nausea, Vomiting Genitourinary: Denies: Dysuria Musculoskeletal: Denies: Joint Pain, Joint Tenderness Skin: Denies: Rash, Wounds Neurological: Denies: Numbness, Tingling, Focal weakness Psychiatric: Denies: Anxiety, Depression, Homicidal Ideations, Suicidal Ideations Hematologic/ Lymphatic: Denies: Easy Bruising, Easy Bleeding VTE Information - Inpt Only VTE Present on Admission: No VTE Mechan Device Prophylaxis: Knee High REGINALD Hose VTE Pharm Prophylaxis ordered?: Yes Patient Problems: Active and Suspected Problems Fall (Acute) - Physical Exam General: Alert, Oriented x3, Cooperative HEENT: Atraumatic, PERRLA, EOMI, Normocephalic Neck: Supple, No JVD, Negative Carotid Bruits Lungs: Clear to auscultation, Normal air movement Cardiovascular: Regular rate, No murmurs Abdomen: Bowel Sounds Present, Soft, Non Tender Extremities: No edema, Capillary Refill Less than 3 Seconds Skin: No rashes, No breakdown Musculoskeletal: No Tenderness to Palpation of Joints or Extremities Neurological: Cranial nerves II-XII grossly intact Psych/Mental Status: Normal Affect, Appropriate Body Mass Index (BMI) 24.1 Assessment/Plan All Active Problems Fall (Acute) Closed right hip fracture (Acute) Nondisplaced intertrochanteric right hip (Acute) Pancytopenia (Acute) 68 year old female with below past medical history significant for recurrent breast cancer, hospitalized for right hip fracture, underwent ORIF 12/24/[address] Burt, right midshaft femur fracture noted, admitted to TCU with debility, here for rehabilitation, strengthening, prior to discharge home with spouse. * Debility - PT/OT. * Pain - Tylenol 650MG Q6H PRN mild pain, Tramadol 50MG Q6H PRN moderate pain. * Bowel - Miralax 17GM daily, Senna/colace 1 tablet BID, Dulcolax 10MG daily. * Pneumonia vaccination - Administer Prevnar 13 and/or Pneumovax 23 as necessary. * DVT prophylaxis - Lovenox 40MG SC daily until warfarin therapeutic. * Nutrition - Ensure Enlive 120ML 4x/day, MVI daily. * Vitamin D deficiency - D2 50,000 units per week. * Alcoholic cirrhosis with ascites - Lasix 20MG daily, Spironolactone 50MG twice daily. * Atrial Fibrillation - Metoprolol 25MG BID, Warfarin 2MG 6 days/week, 1MG 1 day/week, follow INR, when therapeutic, stop Lovenox. * Recurrent Breast cancer - Follow up with Dr. Booker, to restart Faslodex, Ibrance.
[2018-12-29 16:32] VITALS: BMI 26.4
[2018-12-29 16:45] VITALS: BMI 26.4
[2018-12-29 17:14] VITALS: BP 165/115; PULSE 98
[2018-12-29] MEDS: Metoprolol Tartrate 25 MG Tablet PO (17:14)
[2018-12-29] MEDS: Spironolactone 50 MG Tablet PO (17:15)
[2018-12-30] MEDS: Senna/Docusate Sodium 1 Tablet PO (05:53)
[2018-12-30] MEDS: Enoxaparin 40 MG/0.4 ML Syringe SC (05:53)
[2018-12-30 07:31] LABS: Anion Gap 13 (5-15); BUN 13 mg/dL (7-18); BUN/Creat Ratio 17.5 RATIO (10-20); Calcium,Total 8.8 mg/dL (8.5-10.1); Chloride 102 mmol/L (98-107); Creatinine, Serum 0.74 mg/dL (0.55-1.02); EST Glomerular Filtration Rate 83 mL/min (>60); Est Glom Filt Rate - Afr Amer 100 mL/min (>60); Estimated Creatinine Clearance 51.89 ml/min; Glucose 90 mg/dL (74-106); Potassium 4.4 mmol/L (3.5-5.1); Sodium Level 138 mmol/L (136-145)
[2018-12-30 07:33] LABS: Absolute Lymphocyte Count 0.55 X10^3/ul (0.83-4.51); Absolute Neutrophil Count 1.6 X10^3/uL (2.0-7.7); Basophil% 3.1 % (0-1); Eosinophil# 0.06 X10^3/uL; Eosinophils% 1.8 % (0-5); Hematocrit 31.6 % (37-47); Hemoglobin 10.1 g/dl (12.0-15.0); Lymphocyte # 0.55 X10^3/ul (4.0); Lymphocyte % 16.9 % (19-41); Mean Platelet Vol. 10.3 fl (6.2-12.0); Monocyte% 27.7 % (0-10); Neutrophil # 1.59 X10^3/uL (2.7-7.7); Platelet Count 228 K/mm3 (150-450); RBC Distribution Width CV 18.8 % (11.6-14.6); RBC Distribution Width SD 58.7 fl (35.1-43.9); Red Blood Count 3.16 M/mm3 (4.2-5.4); White Blood Count 3.3 K/mm3 (4.4-11.0)
[2018-12-30 07:34] LABS: Differential Indicated SCAN CRITERIA MET; POSITIVE COUNT NO; POSITIVE DIFFERENTIAL YES; POSITIVE MORPHOLOGY NO
[2018-12-30 08:05] LABS: Anisocytosis 2+; Platelet Estimate ADEQUATE (ADEQ); Red Cell Morphology N CHROM NORMAL (NORM C&C)
[2018-12-30] MEDS: Spironolactone 50 MG Tablet PO ×2 (08:30→16:56)
[2018-12-30] MEDS: Multivitamins,Ther W-Minerals Tablet 1 TABLET PO (08:30)
[2018-12-30] MEDS: traMADol 50 MG Tablet PO (09:25)
[2018-12-30] MEDS: Tuberculin,Purif.prot.deriv. 50 TU/ML Vial 5 ML ID (14:37)
[2018-12-30 15:16] VITALS: BP 142/75; PULSE 100; RESP 18; TEMP 36.4; O2SAT 92
[2018-12-30 16:55] VITALS: BP 142/75; PULSE 100
[2018-12-30 22:09] VITALS: RESP 15
[2018-12-31 05:09] VITALS: BP 126/56; PULSE 95
[2018-12-31] MEDS: Furosemide 20 MG Tablet PO (05:09)
[2018-12-31] MEDS: Metoprolol Tartrate 25 MG Tablet PO ×2 (05:09→17:20)
[2018-12-31] MEDS: Enoxaparin 40 MG/0.4 ML Syringe SC (05:09)
[2018-12-31] MEDS: Multivitamins,Ther W-Minerals Tablet 1 TABLET PO (08:00)
[2018-12-31] MEDS: Spironolactone 50 MG Tablet PO ×2 (08:00→17:24)
[2018-12-31] MEDS: Iron Polysaccharide Complex 150 MG CAPSULE PO (08:01)
[2018-12-31 09:36] VITALS: PULSE 98; RESP 16
[2018-12-31 16:00] VITALS: BP 119/67; PULSE 96; RESP 18; TEMP 36.8; O2SAT 95
[2018-12-31 17:20] VITALS: BP 119/67; PULSE 96
[2019-01-01] MEDS: traMADol 50 MG Tablet PO (00:19)
[2019-01-01 05:36] VITALS: BP 103/53; PULSE 93
[2019-01-01] MEDS: Furosemide 20 MG Tablet PO (05:36)
[2019-01-01] MEDS: Metoprolol Tartrate 25 MG Tablet PO ×2 (05:36→18:25)
[2019-01-01] MEDS: Enoxaparin 40 MG/0.4 ML Syringe SC (05:36)
[2019-01-01 06:08] LABS: Prothrombin Time (Protime)PT. 22.3 SECONDS (11.7-14.9)
[2019-01-01] MEDS: Spironolactone 50 MG Tablet PO ×2 (08:11→18:26)
[2019-01-01] MEDS: Multivitamins,Ther W-Minerals Tablet 1 TABLET PO (08:11)
[2019-01-01] MEDS: Iron Polysaccharide Complex 150 MG CAPSULE PO (08:12)
[2019-01-01 08:13] VITALS: BP 116/61; PULSE 95
--- NOTE | 2019-01-01 11:35 | NURSING ---
Dr. Booker to come see patient on unit sometime this week regarding pancytopenia per MYLENE Ferguson at Dr. Booker's office.
--- NOTE | 2019-01-01 12:36 | PCM.PN.RX ---
<Pedro Lee D - Last Filed: 01/01/19 12:36> Progress Note - Pharmacy Subjective: TCU Admission Objective: Allergies carvedilol Adverse Reaction (Verified 12/22/18 23:21) dizziness, can't function Current Medications Generic Name Dose Route Start Last Admin Trade Name Freq PRN Reason Stop Dose Admin Bisacodyl 10 mg 12/29/18 16:27 Dulcolax PO DAILY PRN Constipation Enoxaparin Sodium 40 mg 12/30/18 06:00 01/01/19 05:36 Lovenox SC 40 mg DAILY@0600 [facility] Administration Ergocalciferol 50,000 unit 01/03/19 10:00 Vitamin D PO Q7D [facility] Furosemide 20 mg 12/30/18 06:00 01/01/19 05:36 Lasix PO 20 mg DAILY [facility] Administration Metoprolol Tartrate 25 mg 12/29/18 18:00 01/01/19 05:36 Lopressor (Beta Marizol) PO 25 mg BID [facility] Administration Multivitamins/Minerals 1 tablet 12/30/18 08:00 01/01/19 08:11 Multivitamin With Minerals PO 1 tablet DAILY@0800 [facility] Administration Nutritional Formula (Lactose Free) 120 ml 12/29/18 17:00 01/01/19 11:08 Ensure Enlive PO 120 ml 4X/DAY [facility] Administration Polyethylene Glycol 17 gm 12/30/18 06:00 01/01/19 05:58 Miralax PO Not Given DAILY [facility] Polysaccharide Iron Complex 150 mg 12/31/18 08:00 01/01/19 08:12 Ferrex 150 PO 150 mg DAILYCM [facility] Administration Senna/Docusate Sodium 1 tablet 12/29/18 18:00 01/01/19 05:58 Senokot-S, Jerri-Colace PO Not Given BID [facility] Spironolactone 50 mg 12/29/18 17:00 01/01/19 08:11 Aldactone PO 50 mg BIDCM [facility] Administration Tramadol HCl 50 mg 12/29/18 15:09 01/01/19 00:19 Ultram PO 50 mg Q6H PRN PRN Administration MODERATE PAIN (4-5/10) Tuberculin PPD 5 tu 01/06/19 10:00 Tubersol, Aplisol, Ppd ID 01/06/19 10:01 X1 ONE Warfarin Sodium 2 mg 12/30/18 17:00 12/31/18 17:23 Coumadin (Pbkc) PO 2 mg [id number]@1700 [facility] Administration Warfarin Sodium 1 mg 12/29/18 17:00 12/29/18 17:15 Coumadin (Pbkc) PO 1 mg Fr@1700 RANDAL Administration Problem List Fall (Acute) Atrial fibrillation (Chronic) Vital Signs Temp Pulse Resp BP Pulse Ox 98.2 F 95 18 116/61 95 12/31/18 16:00 01/01/19 08:13 12/31/18 16:00 01/01/19 08:13 12/31/18 16:00 Oxygen Delivery Method Room Air Weight: 59.4 kg Body Mass Index (BMI) 26.4 Sodium 138 mmol/L (136-145) 12/30/18 06:10 Potassium 4.4 mmol/L (3.5-5.1) 12/30/18 06:10 Chloride 102 mmol/L (98-107) 12/30/18 06:10 Carbon Dioxide 23.0 mmol/L (21.0-32.0) 12/30/18 06:10 Anion Gap 13 (5-15) 12/30/18 06:10 BUN 13 mg/dL (7-18) 12/30/18 06:10 Creatinine 0.74 mg/dL (0.55-1.02) 12/30/18 06:10 Est GFR (MDRD) Af Amer 100 mL/min (>60) 12/30/18 06:10 Est GFR (MDRD) Non-Af 83 mL/min (>60) 12/30/18 06:10 BUN/Creatinine Ratio 17.5 RATIO (10-20) 12/30/18 06:10 Glucose 90 mg/dL (74-106) 12/30/18 06:10 Assessment/Plan: 1) Pain Tramadol for moderate pain. Continue to monitor prn medication use, daily pain scores. 2) Cirrhosis with Ascites Spironolactone, furosemide. Continue to monitor swelling, BP/HR, electrolytes. 3) AFib Metoprolol, warfarin for goal INR 2-3. Continue to monitor BP/HR, PT/INR, for bleeding/clot. 4) Nutrition Ensure, D, Fe, multivitamin. Continue to monitor clinically. 5) DVT PPx Enoxaparin daily. Continue to monitor for bleeding/clot. Psychotropic Medications: None Unnecessary Medications: None Bowel Regimen: 6) Senna/s, PEG, prn bisacodyl. Continue to monitor prn medication use, for constipation/diarrhea. Date of Note:: 01/01/19 - Provider Comments Provider responsibility: Provider responsible to enter orders to implement recommendations <Adams Rockwell Chi - Last Filed: 01/01/19 13:42> Progress Note - Pharmacy Subjective: [] Objective: Allergies carvedilol Adverse Reaction (Verified 12/22/18 23:21) dizziness, can't function Current Medications Generic Name Dose Route Start Last Admin Trade Name Freq PRN Reason Stop Dose Admin Bisacodyl 10 mg 12/29/18 16:27 Dulcolax PO DAILY PRN Constipation Enoxaparin Sodium 40 mg 12/30/18 06:00 01/01/19 05:36 Lovenox SC 40 mg DAILY@0600 [facility] Administration Ergocalciferol 50,000 unit 01/03/19 10:00 Vitamin D PO Q7D [facility] Furosemide 20 mg 12/30/18 06:00 01/01/19 05:36 Lasix PO 20 mg DAILY [facility] Administration Metoprolol Tartrate 25 mg 12/29/18 18:00 01/01/19 05:36 Lopressor (Beta Marizol) PO 25 mg BID [facility] Administration Multivitamins/Minerals 1 tablet 12/30/18 08:00 01/01/19 08:11 Multivitamin With Minerals PO 1 tablet DAILY@0800 [facility] Administration Nutritional Formula (Lactose Free) 120 ml 12/29/18 17:00 01/01/19 11:08 Ensure Enlive PO 120 ml 4X/DAY [facility] Administration Polyethylene Glycol 17 gm 12/30/18 06:00 01/01/19 05:58 Miralax PO Not Given DAILY [facility] Polysaccharide Iron Complex 150 mg 12/31/18 08:00 01/01/19 08:12 Ferrex 150 PO 150 mg DAILYCM [facility] Administration Senna/Docusate Sodium 1 tablet 12/29/18 18:00 01/01/19 05:58 Senokot-S, Jerri-Colace PO Not Given BID [facility] Spironolactone 50 mg 12/29/18 17:00 01/01/19 08:11 Aldactone PO 50 mg BIDCM [facility] Administration Tramadol HCl 50 mg 12/29/18 15:09 02/11/19 00:19 Ultram PO 50 mg Q6H PRN PRN Administration MODERATE PAIN (4-5/10) Tuberculin PPD 5 tu 01/06/19 10:00 Tubersol, Aplisol, Ppd ID 01/06/19 10:01 X1 ONE Warfarin Sodium 2 mg 12/30/18 17:00 12/31/18 17:23 Coumadin (Pbkc) PO 2 mg [id number]@1700 RANDAL Administration Warfarin Sodium 1 mg 12/29/18 17:00 12/29/18 17:15 Coumadin (Pbkc) PO 1 mg Fr@1700 RANDAL Administration Problem List Fall (Acute) Atrial fibrillation (Chronic) Vital Signs Temp Pulse Resp BP Pulse Ox 98.2 F 95 18 116/61 95 12/31/18 16:00 01/01/19 08:13 12/31/18 16:00 01/01/19 08:13 12/31/18 16:00 Oxygen Delivery Method Room Air Weight: 59.4 kg Body Mass Index (BMI) 26.4 Sodium 138 mmol/L (136-145) 12/30/18 06:10 Potassium 4.4 mmol/L (3.5-5.1) 12/30/18 06:10 Chloride 102 mmol/L (98-107) 12/30/18 06:10 Carbon Dioxide 23.0 mmol/L (21.0-32.0) 12/30/18 06:10 Anion Gap 13 (5-15) 12/30/18 06:10 BUN 13 mg/dL (7-18) 12/30/18 06:10 Creatinine 0.74 mg/dL (0.55-1.02) 12/30/18 06:10 Est GFR (MDRD) Af Amer 100 mL/min (>60) 12/30/18 06:10 Est GFR (MDRD) Non-Af 83 mL/min (>60) 12/30/18 06:10 BUN/Creatinine Ratio 17.5 RATIO (10-20) 12/30/18 06:10 Glucose 90 mg/dL (74-106) 12/30/18 06:10 Assessment/Plan: Psychotropic Medications: Unnecessary Medications: Bowel Regimen: - Provider Comments Provider responsibility: Provider responsible to enter orders to implement recommendations Provider Comments to Recommendations by Pharmacy: Agree
--- NOTE | 2019-01-01 12:41 | PHA.CONS_ITS ---
<Pedro Lee D - Last Filed: 01/01/19 12:36> Progress Note - Pharmacy Subjective: TCU Admission Objective: Allergies carvedilol Adverse Reaction (Verified 12/22/18 23:21) dizziness, can't function Current Medications Generic Name Dose Route Start Last Admin Trade Name Freq PRN Reason Stop Dose Admin Bisacodyl 10 mg 12/29/18 16:27 Dulcolax PO DAILY PRN Constipation Enoxaparin Sodium 40 mg 12/30/18 06:00 01/01/19 05:36 Lovenox SC 40 mg DAILY@0600 PENDING SALE TO [facility] Administration Ergocalciferol 50,000 unit 01/03/19 10:00 Vitamin D PO Q7D PENDING SALE TO [facility] Furosemide 20 mg 12/30/18 06:00 01/01/19 05:36 Lasix PO 20 mg DAILY PENDING SALE TO [facility] Administration Metoprolol Tartrate 25 mg 12/29/18 18:00 01/01/19 05:36 Lopressor (Beta Marizol) PO 25 mg BID PENDING SALE TO [facility] Administration Multivitamins/Minerals 1 tablet 12/30/18 08:00 01/01/19 08:11 Multivitamin With Minerals PO 1 tablet DAILY@0800 PENDING SALE TO [facility] Administration Nutritional Formula (Lactose Free) 120 ml 12/29/18 17:00 01/01/19 11:08 Ensure Enlive PO 120 ml 4X/DAY PENDING SALE TO [facility] Administration Polyethylene Glycol 17 gm 12/30/18 06:00 01/01/19 05:58 Miralax PO Not Given DAILY PENDING SALE TO [facility] Polysaccharide Iron Complex 150 mg 12/31/18 08:00 01/01/19 08:12 Ferrex 150 PO 150 mg DAILYCM PENDING SALE TO [facility] Administration Senna/Docusate Sodium 1 tablet 12/29/18 18:00 01/01/19 05:58 Senokot-S, Jerri-Colace PO Not Given BID PENDING SALE TO [facility] Spironolactone 50 mg 12/29/18 17:00 01/01/19 08:11 Aldactone PO 50 mg BIDCM PENDING SALE TO [facility] Administration Tramadol HCl 50 mg 12/29/18 15:09 01/01/19 00:19 Ultram PO 50 mg Q6H PRN PRN Administration MODERATE PAIN (4-5/10) Tuberculin PPD 5 tu 01/06/19 10:00 Tubersol, Aplisol, Ppd ID 01/06/19 10:01 X1 ONE Warfarin Sodium 2 mg 12/30/18 17:00 12/31/18 17:23 Coumadin (Pbkc) PO 2 mg SuMoTuWeThSa@1700 PENDING SALE TO [facility] Administration Warfarin Sodium 1 mg 12/29/18 17:00 12/29/18 17:15 Coumadin (Pbkc) PO 1 mg Fr@1700 RANDAL Administration Problem List Fall (Acute) Atrial fibrillation (Chronic) Vital Signs Temp Pulse Resp BP Pulse Ox 98.2 F 95 18 116/61 95 12/31/18 16:00 01/01/19 08:13 12/31/18 16:00 01/01/19 08:13 12/31/18 16:00 Oxygen Delivery Method Room Air Weight: 59.4 kg Body Mass Index (BMI) 26.4 Sodium 138 mmol/L (136-145) 12/30/18 06:10 Potassium 4.4 mmol/L (3.5-5.1) 12/30/18 06:10 Chloride 102 mmol/L (98-107) 12/30/18 06:10 Carbon Dioxide 23.0 mmol/L (21.0-32.0) 12/30/18 06:10 Anion Gap 13 (5-15) 12/30/18 06:10 BUN 13 mg/dL (7-18) 12/30/18 06:10 Creatinine 0.74 mg/dL (0.55-1.02) 12/30/18 06:10 Est GFR (MDRD) Af Amer 100 mL/min (>60) 12/30/18 06:10 Est GFR (MDRD) Non-Af 83 mL/min (>60) 12/30/18 06:10 BUN/Creatinine Ratio 17.5 RATIO (10-20) 12/30/18 06:10 Glucose 90 mg/dL (74-106) 12/30/18 06:10 Assessment/Plan: 1) Pain Tramadol for moderate pain. Continue to monitor prn medication use, daily pain scores. 2) Cirrhosis with Ascites Spironolactone, furosemide. Continue to monitor swelling, BP/HR, electrolytes . 3) AFib Metoprolol, warfarin for goal INR 2-3. Continue to monitor BP/HR, PT/INR, for bleeding/clot. 4) Nutrition Ensure, D, Fe, multivitamin. Continue to monitor clinically. 5) DVT PPx Enoxaparin daily. Continue to monitor for bleeding/clot. Psychotropic Medications: None Unnecessary Medications: None Bowel Regimen: 6) Senna/s, PEG, prn bisacodyl. Continue to monitor prn medication use, for constipation/diarrhea. Date of Note:: 01/01/19 - Provider Comments Provider responsibility: Provider responsible to enter orders to implement recommendations <Adams Rockwell Chi - Last Filed: 01/01/19 13:42> Progress Note - Pharmacy Subjective: [] Objective: Allergies carvedilol Adverse Reaction (Verified 12/22/18 23:21) dizziness, can't function Current Medications Generic Name Dose Route Start Last Admin Trade Name Freq PRN Reason Stop Dose Admin Bisacodyl 10 mg 12/29/18 16:27 Dulcolax PO DAILY PRN Constipation Enoxaparin Sodium 40 mg 12/30/18 06:00 01/01/19 05:36 Lovenox SC 40 mg DAILY@0600 PENDING SALE TO [facility] Administration Ergocalciferol 50,000 unit 01/03/19 10:00 Vitamin D PO Q7D PENDING SALE TO [facility] Furosemide 20 mg 12/30/18 06:00 01/01/19 05:36 Lasix PO 20 mg DAILY PENDING SALE TO [facility] Administration Metoprolol Tartrate 25 mg 12/29/18 18:00 01/01/19 05:36 Lopressor (Beta Marizol) PO 25 mg BID PENDING SALE TO [facility] Administration Multivitamins/Minerals 1 tablet 12/30/18 08:00 01/01/19 08:11 Multivitamin With Minerals PO 1 tablet DAILY@0800 PENDING SALE TO [facility] Administration Nutritional Formula (Lactose Free) 120 ml 12/29/18 17:00 01/01/19 11:08 Ensure Enlive PO 120 ml 4X/DAY PENDING SALE TO [facility] Administration Polyethylene Glycol 17 gm 12/30/18 06:00 01/01/19 05:58 Miralax PO Not Given DAILY PENDING SALE TO [facility] Polysaccharide Iron Complex 150 mg 12/31/18 08:00 01/01/19 08:12 Ferrex 150 PO 150 mg DAILYCM PENDING SALE TO [facility] Administration Senna/Docusate Sodium 1 tablet 12/29/18 18:00 01/01/19 05:58 Senokot-S, Jerri-Colace PO Not Given BID PENDING SALE TO [facility] Spironolactone 50 mg 12/29/18 17:00 01/01/19 08:11 Aldactone PO 50 mg BIDCM PENDING SALE TO [facility] Administration Tramadol HCl 50 mg 12/29/18 15:09 02/11/19 00:19 Ultram PO 50 mg Q6H PRN PRN Administration MODERATE PAIN (4-5/10) Tuberculin PPD 5 tu 01/06/19 10:00 Tubersol, Aplisol, Ppd ID 01/06/19 10:01 X1 ONE Warfarin Sodium 2 mg 12/30/18 17:00 12/31/18 17:23 Coumadin (Pbkc) PO 2 mg SuMoTuWeThSa@1700 RANDAL Administration Warfarin Sodium 1 mg 12/29/18 17:00 12/29/18 17:15 Coumadin (Pbkc) PO 1 mg Fr@1700 RANDAL Administration Problem List Fall (Acute) Atrial fibrillation (Chronic) Vital Signs Temp Pulse Resp BP Pulse Ox 98.2 F 95 18 116/61 95 12/31/18 16:00 01/01/19 08:13 12/31/18 16:00 01/01/19 08:13 12/31/18 16:00 Oxygen Delivery Method Room Air Weight: 59.4 kg Body Mass Index (BMI) 26.4 Sodium 138 mmol/L (136-145) 12/30/18 06:10 Potassium 4.4 mmol/L (3.5-5.1) 12/30/18 06:10 Chloride 102 mmol/L (98-107) 12/30/18 06:10 Carbon Dioxide 23.0 mmol/L (21.0-32.0) 12/30/18 06:10 Anion Gap 13 (5-15) 12/30/18 06:10 BUN 13 mg/dL (7-18) 12/30/18 06:10 Creatinine 0.74 mg/dL (0.55-1.02) 12/30/18 06:10 Est GFR (MDRD) Af Amer 100 mL/min (>60) 12/30/18 06:10 Est GFR (MDRD) Non-Af 83 mL/min (>60) 12/30/18 06:10 BUN/Creatinine Ratio 17.5 RATIO (10-20) 12/30/18 06:10 Glucose 90 mg/dL (74-106) 12/30/18 06:10 Assessment/Plan: Psychotropic Medications: Unnecessary Medications: Bowel Regimen: - Provider Comments Provider responsibility: Provider responsible to enter orders to implement recommendations Provider Comments to Recommendations by Pharmacy: Agree
[2019-01-01 13:52] LABS: Pathologist Review Reviewed
--- NOTE | 2019-01-01 14:36 | NURSING ---
Pt has appt with Dr. Burt on 01/09/19 at 1000, alisia may be d/c'd by nursing staff on 01/05/19.
[2019-01-01 15:30] VITALS: BP 136/85; PULSE 100; RESP 18; TEMP 36.4; O2SAT 96
[2019-01-01 18:25] VITALS: BP 136/85; PULSE 100
[2019-01-01 20:15] VITALS: PULSE 93; O2SAT 98
[2019-01-02 04:46] VITALS: BP 123/95; PULSE 97
[2019-01-02] MEDS: Metoprolol Tartrate 25 MG Tablet PO ×2 (04:46→17:58)
[2019-01-02] MEDS: Enoxaparin 40 MG/0.4 ML Syringe SC (04:49)
[2019-01-02] MEDS: Furosemide 20 MG Tablet PO (04:49)
[2019-01-02 07:23] VITALS: BP 124/68; PULSE 95
[2019-01-02] MEDS: Multivitamins,Ther W-Minerals Tablet 1 TABLET PO (07:24)
[2019-01-02] MEDS: Iron Polysaccharide Complex 150 MG CAPSULE PO (07:24)
[2019-01-02] MEDS: Spironolactone 50 MG Tablet PO ×2 (07:24→17:58)
--- NOTE | 2019-01-02 08:35 | NURSING ---
NO to D/C Lovenox.
--- NOTE | 2019-01-02 11:33 | CASEMGMT ---
Insurance Clinical information faxed. Pending continued stay approval. Auth#[id number] Patrizia ZULETA, FERN
[2019-01-02] MEDS: traMADol 50 MG Tablet PO (11:49)
[2019-01-02 16:00] VITALS: BP 115/68; PULSE 93; RESP 18; TEMP 37.3; O2SAT 95
[2019-01-02 17:58] VITALS: BP 115/68; PULSE 93
[2019-01-03 04:44] VITALS: BP 115/59; PULSE 91
[2019-01-03] MEDS: Metoprolol Tartrate 25 MG Tablet PO ×2 (04:44→18:22)
[2019-01-03] MEDS: Furosemide 20 MG Tablet PO (04:44)
[2019-01-03] MEDS: Multivitamins,Ther W-Minerals Tablet 1 TABLET PO (08:29)
[2019-01-03] MEDS: Iron Polysaccharide Complex 150 MG CAPSULE PO (08:29)
[2019-01-03] MEDS: Spironolactone 50 MG Tablet PO ×2 (08:29→18:22)
--- NOTE | 2019-01-03 09:08 | CASEMGMT ---
Plan of care meeting. Resident present as well as resident sonBeni. No discharge date set at this time. Resident is pending continued stay approval by insurance. Resident plans to discharge to home alone with resident son to stay with resident as needed. Resident agreeable to home health care at time of discharge. Resident to continue with further care and treatment on the Transitional Care Unit. Support given. Will continue to follow. Patrizia ZULETA, FERN
[2019-01-03] MEDS: traMADol 50 MG Tablet PO (09:30)
[2019-01-03 15:40] VITALS: BP 121/60; PULSE 91; RESP 18; TEMP 36.8; O2SAT 96
[2019-01-03 18:22] VITALS: BP 121/60; PULSE 91
[2019-01-04 06:09] LABS: Prothrombin Time (Protime)PT. 22.3 SECONDS (11.7-14.9)
[2019-01-04 06:36] VITALS: BP 115/71; PULSE 93
[2019-01-04] MEDS: Metoprolol Tartrate 25 MG Tablet PO ×2 (06:36→17:13)
[2019-01-04] MEDS: Furosemide 20 MG Tablet PO (06:36)
[2019-01-04] MEDS: Multivitamins,Ther W-Minerals Tablet 1 TABLET PO (08:07)
[2019-01-04] MEDS: Spironolactone 50 MG Tablet PO ×2 (08:07→17:13)
[2019-01-04] MEDS: Iron Polysaccharide Complex 150 MG CAPSULE PO (08:07)
--- NOTE | 2019-01-04 10:41 | CASEMGMT ---
Addendum entered by Mouna Perez 01/04/19 14:47: Reviewed and approved social work student MDS documentation. Patrizia Perez FIRE WATCHMAN, COMPUTER SYSTEMS TECHNOLOGY INSTRUCTOR Original Note: Brief interview for mental status (BIMS) and mood (PHQ-9) completed on this day. BIMS score . PHQ-9 score . Jerzy Martini social work student
--- NOTE | 2019-01-04 13:50 | MDS.RN ---
Pain interview for yoni 01/05/19 completed.
[2019-01-04 15:37] VITALS: BP 151/107; PULSE 94; RESP 16; TEMP 37.2; O2SAT 97
[2019-01-04 17:13] VITALS: BP 151/107; PULSE 94
[2019-01-04 20:39] VITALS: PULSE 86; O2SAT 98
[2019-01-05] MEDS: Furosemide 20 MG Tablet PO (06:33)
[2019-01-05 06:37] VITALS: BP 128/95; PULSE 88
[2019-01-05] MEDS: Metoprolol Tartrate 25 MG Tablet PO ×2 (06:37→16:53)
[2019-01-05] MEDS: Spironolactone 50 MG Tablet PO ×2 (08:03→16:54)
[2019-01-05] MEDS: Multivitamins,Ther W-Minerals Tablet 1 TABLET PO (08:03)
[2019-01-05] MEDS: Iron Polysaccharide Complex 150 MG CAPSULE PO (08:03)
[2019-01-05 10:00] VITALS: PULSE 90; RESP 16; O2SAT 98
[2019-01-05 15:06] VITALS: BP 122/62; PULSE 86; RESP 16; TEMP 36.4; O2SAT 97
[2019-01-05] MEDS: traMADol 50 MG Tablet PO (15:10)
[2019-01-05 16:53] VITALS: BP 122/62; PULSE 86
--- NOTE | 2019-01-05 18:48 | NURSING ---
Pt alisia removed per docter order Pt tolerated well, 6 steri strips placed on wound.
[2019-01-06 05:44] VITALS: BP 132/59; PULSE 95
[2019-01-06] MEDS: Metoprolol Tartrate 25 MG Tablet PO ×2 (05:44→17:35)
[2019-01-06] MEDS: Furosemide 20 MG Tablet PO (05:44)
[2019-01-06] MEDS: Iron Polysaccharide Complex 150 MG CAPSULE PO (07:47)
[2019-01-06] MEDS: Multivitamins,Ther W-Minerals Tablet 1 TABLET PO (07:47)
[2019-01-06 09:00] VITALS: BP 122/58; PULSE 92
[2019-01-06] MEDS: Spironolactone 50 MG Tablet PO ×2 (09:07→17:35)
[2019-01-06 09:15] LABS: Absolute Lymphocyte Count 1.07 X10^3/ul (0.83-4.51); Basophil# 0.18 X10^3/uL; Basophil% 2.6 % (0-1); Eosinophil# 0.16 X10^3/uL; Eosinophils% 2.3 % (0-5); Hematocrit 35.4 % (37-47); Hemoglobin 11.4 g/dl (12.0-15.0); Lymphocyte # 1.07 X10^3/ul (4.0); Lymphocyte % 15.6 % (19-41); Mean Corp Hgb Conc 32.2 g/gl (32-36); Mean Corpuscular Hgb 31.9 pg (27.0-32.0); Mean Corpuscular Volume 99.2 fL (81-99); Mean Platelet Vol. 10.1 fl (6.2-12.0); Monocyte# 0.41 X10^3/uL; Neutrophil # 4.98 X10^3/uL (2.7-7.7); Neutrophil % 72.6 % (47-70); Platelet Count 365 K/mm3 (150-450); RBC Distribution Width CV 19.9 % (11.6-14.6); RBC Distribution Width SD 70.2 fl (35.1-43.9); Red Blood Count 3.57 M/mm3 (4.2-5.4); White Blood Count 6.9 K/mm3 (4.4-11.0)
[2019-01-06 09:17] LABS: Differential Indicated SCAN CRITERIA MET; POSITIVE COUNT NO; POSITIVE DIFFERENTIAL NO; POSITIVE MORPHOLOGY YES
[2019-01-06 09:38] LABS: Anion Gap 11 (5-15); BUN 18 mg/dL (7-18); BUN/Creat Ratio 14.8 RATIO (10-20); Calcium,Total 9.1 mg/dL (8.5-10.1); Chloride 100 mmol/L (98-107); Creatinine, Serum 1.22 mg/dL (0.55-1.02); EST Glomerular Filtration Rate 47 mL/min (>60); Est Glom Filt Rate - Afr Amer 57 mL/min (>60); Estimated Creatinine Clearance 40.38 ml/min; Glucose 120 mg/dL (74-106); Potassium 4.4 mmol/L (3.5-5.1); Sodium Level 133 mmol/L (136-145)
[2019-01-06 09:45] LABS: Anisocytosis 1+
[2019-01-06] MEDS: Tuberculin,Purif.prot.deriv. 50 TU/ML Vial 5 ML ID (10:54)
[2019-01-06 16:00] VITALS: BP 118/59; PULSE 90; RESP 14; TEMP 36.7; O2SAT 96
[2019-01-06 16:20] VITALS: PULSE 91; RESP 18; O2SAT 94
--- NOTE | 2019-01-06 17:29 | NURSING ---
Addendum entered by Carlin Solorio 01/06/19 17:30: WRONG PT. Original Note: THIS NURSE TRYED TO GET PT TO DRINK WATER,PT REFUSED STATED SHE HATES IT. OFFERED JUICES,TEA ETC. PT REFUSED. REPORTED TO MYLENE LANDA
[2019-01-06 17:35] VITALS: BP 118/59; PULSE 91
[2019-01-07 06:52] VITALS: BP 132/66; PULSE 92
[2019-01-07] MEDS: Metoprolol Tartrate 25 MG Tablet PO ×2 (06:52→17:05)
[2019-01-07] MEDS: Multivitamins,Ther W-Minerals Tablet 1 TABLET PO (08:06)
[2019-01-07] MEDS: Iron Polysaccharide Complex 150 MG CAPSULE PO (08:06)
[2019-01-07] MEDS: Spironolactone 50 MG Tablet PO ×2 (08:06→17:05)
[2019-01-07 08:07] VITALS: BP 105/69; PULSE 89
[2019-01-07 14:41] VITALS: PULSE 88; RESP 18; O2SAT 96
[2019-01-07 15:13] VITALS: BP 118/84; PULSE 91; RESP 16; TEMP 36.7; O2SAT 96
[2019-01-07 17:05] VITALS: BP 118/84; PULSE 91
[2019-01-08 05:47] VITALS: BP 110/57; PULSE 92
[2019-01-08] MEDS: Metoprolol Tartrate 25 MG Tablet PO ×2 (05:47→18:02)
[2019-01-08 06:04] LABS: International Normalized Ratio 1.9
[2019-01-08] MEDS: Spironolactone 50 MG Tablet PO ×2 (07:57→18:02)
[2019-01-08] MEDS: Iron Polysaccharide Complex 150 MG CAPSULE PO (07:57)
[2019-01-08] MEDS: Multivitamins,Ther W-Minerals Tablet 1 TABLET PO (07:57)
--- NOTE | 2019-01-08 15:58 | CASEMGMT ---
Insurance Continued stay denied with last cover day being 01/10/19 and resident to discharge or financial responsibility to begin on 01/11/19. Auth#[id number] Patrizia ZULETA, FERN
--- NOTE | 2019-01-08 15:58 | CASEMGMT ---
Social Work Spoke with resident and resident family in room. This social work faculty member communicating to resident that continued stay approval has been denied by insurance with last cover day being 01/10/19 and resident to discharge or financial responsibility to begin on 01/11/19. Resident choosing to discharge on 01/11/19 to home where resident son plans to be staying with resident. This social work faculty member communicating that physical and occupational therapy are recommending for resident to have continued services within the home as well as a home health aide. Resident is agreeable to recommendation and requesting for home health care to be set up through [facility] ([facility] Resident reporting to have all needed durable medical equipment including a walker and a shower bench. Resident son plans to provide transportation home for resident at time of discharge. Resident voicing no further needs. Support provided. Telephone call to [facility], [place]. This social work faculty member making referral for physical and occupational therapy as well as a home health aide. Order to be completed. Proposed discharge date: 01/11/19 PLAN: Discharge to home where resident son plans to stay with resident to assist with transition. Resident to also have home health care. Patrizia Perez MSW, FERN
[2019-01-08 16:00] VITALS: BP 121/64; PULSE 90; RESP 18; TEMP 36.4; O2SAT 95
[2019-01-08 18:02] VITALS: BP 122/55; PULSE 101
--- NOTE | 2019-01-08 20:14 | DCINST_ITS ---
- Discharge Diagnoses Current Active Problems: Current Active and Chronic Problems Fall (Acute) Atrial fibrillation (Chronic) You will use the following diet at home:: No restrictions, Regular Your food should be the consistency of: Regular Your liquids should be the consistency of: Regular/Thin Discharge Activity: Return to Normal Activity, May Shower, Use Walker Weight Bearing Status: Weight bearing as tolerated Call your doctor if you observe: Fever of 101 or Higher, Inability to urinate, Inability to have a bowel movement, Shortness of breath, Chest pain, Uncontrolled pain Allergies/Adverse Reactions: Allergies carvedilol Adverse Reaction (Verified 12/22/18 23:21) dizziness, can't function Medications to take at Discharge Metoprolol Tartrate [Lopressor (beta kimo)] 25 mg PO BID 08/16/17 Furosemide [Lasix] 20 mg PO DAILY 12/22/18 Multivitamin with Minerals [Multiple Vitamin] 1 each PO DAILY 12/22/18 Spironolactone [Aldactone] 50 mg PO BID 12/22/18 Warfarin Sodium 1 mg PO FR 12/22/18 Warfarin Sodium 2 mg PO SUMOTUWETHSA 12/22/18 Acetaminophen [Tylenol Tablet] 650 mg PO Q6H PRN PRN tablet 12/27/18 Ergocalciferol [Vitamin D] 50,000 unit PO Q7D #4 capsule 01/08/19 Iron Polysaccharide Complex [Ferrex 150] 150 mg PO DAILYCM #30 capsule 01/08/19 Polyethylene Glycol 3350 [Miralax] 17 gm PO DAILY #30 packet 01/08/19 traMADol [Ultram] 50 mg PO Q6H PRN PRN #28 tab 01/08/19 The following prescriptions were given: traMADol [Ultram] 50 mg PO Q6H PRN PRN #28 tab PRN Reason: Moderate Pain (4-5/10) Ergocalciferol [Vitamin D] 50,000 unit PO Q7D #4 capsule Iron Polysaccharide Complex [Ferrex 150] 150 mg PO DAILYCM #30 capsule Polyethylene Glycol 3350 [Miralax] 17 gm PO DAILY #30 packet Orders to be completed after discharge: CBC W/Diff, Automated Time Frame: 2 Days, Location: Laboratory Prothrombin Time w/INR Time Frame: 2 Days, Location: Laboratory Primary Care Physician: Nacho Quintero DO [Primary Care Provider] - Please follow up with your Primary Care Physician in: 1 week. Test Results: Test results from this visit will be discussed in further detail at your follow- up appointment, if applicable. Please Follow Up With: Madhav Warner MD When: discharge Please Follow Up With: Shanna Posey When: 2 weeks. Proposed Discharge Date: 01/11/19
--- NOTE | 2019-01-08 20:14 | PCM.DC.SUM ---
Discharge Date and Diagnosis - Problem List Patient Problems: Active and Suspected Problems Fall (Acute) Date of Admission: 12/29/18 Date of Discharge: 01/11/19 - Primary Discharge Diagnosis Active and Suspected Problems Fall (Acute) - Secondary Discharge Diagnosis Chronic Problems Atrial fibrillation (Chronic) History of atrial fibrillation (Chronic) Recurrent breast cancer (Chronic) Congenital single kidney (Chronic) History of DVT (deep vein thrombosis) (Chronic) Breast cancer (Chronic) s/p bilat rad mastect on chemo Alcoholic cirrhosis of liver with ascites (Chronic) Hospital Course and Treatment Imaging Results: 12/29/18 15:00 Diet: Regular Diet Labs (Last 48 Hours) 01/08/19 05:05 PT 22.0 H INR 1.9 Operations: None, - Procedures: None Summary of Care Provided: The patient is a 68 year old Female with below past medical history significant for recurrent breast cancer, hospitalized for right hip fracture, underwent ORIF 12/24/[address] Burt, right midshaft femur fracture noted, admitted to TCU with debility, here for rehabilitation, strengthening, prior to discharge home. Discharge home where resident son plans to stay with resident to assist transition, along with home health care. Patient Problems: Active and Suspected Problems Fall (Acute) - Physical Exam Vital Signs Temp Pulse Resp BP Pulse Ox 97.5 F L 101 H 18 122/55 H 95 01/08/19 16:00 01/08/19 18:02 01/08/19 16:00 01/08/19 18:02 01/08/19 16:00 Oxygen Delivery Method Room Air Weight: 56.387 kg Body Mass Index (BMI) 26.4 Intake and Output for Last 24 Hours 01/06/19 01/07/19 01/08/19 23:59 23:59 23:59 Intake Total 420 / 420 1320 / 1320 620 / 620 Balance 420 / 420 1320 / 1320 620 / 620 Laboratory Tests Past 24 Hrs 01/08/19 05:05 PT 22.0 H INR 1.9 Discharge Diet: No Restrictions Discharge Activity: Return to Normal Activity, May Shower, Use Walker Weight Bearing Status: Weight bearing as tolerated Call your doctor if you observe: Fever of 101 or Higher, Inability to urinate, Inability to have a bowel movement, Shortness of breath, Chest pain, Uncontrolled pain Home Medications: Medications to take at Discharge Metoprolol Tartrate [Lopressor (beta kimo)] 25 mg PO BID 08/16/17 Furosemide [Lasix] 20 mg PO DAILY 12/22/18 Multivitamin with Minerals [Multiple Vitamin] 1 each PO DAILY 12/22/18 Spironolactone [Aldactone] 50 mg PO BID 12/22/18 Warfarin Sodium 1 mg PO FR 12/22/18 Warfarin Sodium 2 mg PO SUMOTUWETHSA 12/22/18 Acetaminophen [Tylenol Tablet] 650 mg PO Q6H PRN PRN tablet 12/27/18 Ergocalciferol [Vitamin D] 50,000 unit PO Q7D #4 capsule 01/08/19 Iron Polysaccharide Complex [Ferrex 150] 150 mg PO DAILYCM #30 capsule 01/08/19 Polyethylene Glycol 3350 [Miralax] 17 gm PO DAILY #30 packet 01/08/19 traMADol [Ultram] 50 mg PO Q6H PRN PRN #28 tab 01/08/19 Following Prescrptions Were Given to Patient: traMADol [Ultram] 50 mg PO Q6H PRN PRN #28 tab PRN Reason: Moderate Pain (4-5/10) Ergocalciferol [Vitamin D] 50,000 unit PO Q7D #4 capsule Iron Polysaccharide Complex [Ferrex 150] 150 mg PO DAILYCM #30 capsule Polyethylene Glycol 3350 [Miralax] 17 gm PO DAILY #30 packet Other Amb Orders: CBC W/Diff, Automated Time Frame: 2 Days, Location: Laboratory Prothrombin Time w/INR Time Frame: 2 Days, Location: Laboratory Primary Care Physician: Nacho Quintero DO [Primary Care Provider] - Please follow up with your Primary Care Physician in: 1 week. Please Follow Up With: Madhav Warner MD When: discharge Please Follow Up With: Shanna Posey When: 2 weeks. Disposition: Home with Home Health Minutes spent on discharge:: 35 Patient Condition:: Stable Medical Necessity - Tobacco Use Smoking Status: Never smoker Tobacco Use: Non-smoker Meaningful Use Info Meaningful Use Diagnoses (Choose all that apply): None applicable
--- NOTE | 2019-01-08 20:15 | PCM.PN.HH ---
Home Health Note - Plan Overview of reason of hospitalization: The patient is a 68 year old Female with below past medical history significant for recurrent breast cancer, hospitalized for right hip fracture, underwent ORIF 12/24/[address] Burt, right midshaft femur fracture noted, admitted to TCU with debility, here for rehabilitation, strengthening, prior to discharge home. Discharge home where resident son plans to stay with resident to assist transition, along with home health care. 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
[2019-01-08 21:44] VITALS: PULSE 88; RESP 16; O2SAT 96
[2019-01-09 05:11] VITALS: BP 115/56; PULSE 90
[2019-01-09] MEDS: Metoprolol Tartrate 25 MG Tablet PO ×2 (05:11→16:54)
[2019-01-09] MEDS: Furosemide 20 MG Tablet PO (05:18)
[2019-01-09 06:28] LABS: Anion Gap 11 (5-15); BUN 19 mg/dL (7-18); BUN/Creat Ratio 20.2 RATIO (10-20); Calcium,Total 8.9 mg/dL (8.5-10.1); Chloride 106 mmol/L (98-107); Creatinine, Serum 0.94 mg/dL (0.55-1.02); EST Glomerular Filtration Rate 63 mL/min (>60); Est Glom Filt Rate - Afr Amer 77 mL/min (>60); Glucose 88 mg/dL (74-106); Potassium 4.5 mmol/L (3.5-5.1); Sodium Level 138 mmol/L (136-145)
[2019-01-09] MEDS: Iron Polysaccharide Complex 150 MG CAPSULE PO (07:51)
[2019-01-09] MEDS: Multivitamins,Ther W-Minerals Tablet 1 TABLET PO (07:51)
[2019-01-09] MEDS: Spironolactone 50 MG Tablet PO ×2 (07:51→16:54)
[2019-01-09 10:45] VITALS: PULSE 93; RESP 18; O2SAT 99
--- NOTE | 2019-01-09 14:08 | MDS.RN ---
Information for the mds was obtained from review of the clinical record, interview of resident, staff, and direct observation of resident's care.
[2019-01-09] MEDS: traMADol 50 MG Tablet PO (14:10)
[2019-01-09 14:58] VITALS: BP 105/68; PULSE 100; RESP 16; TEMP 37; O2SAT 97
[2019-01-09 16:54] VITALS: BP 105/68; PULSE 100
[2019-01-10] MEDS: Furosemide 20 MG Tablet PO (05:48)
[2019-01-10 05:49] VITALS: BP 106/40; PULSE 90
[2019-01-10] MEDS: Metoprolol Tartrate 25 MG Tablet PO ×2 (05:49→16:55)
[2019-01-10] MEDS: Iron Polysaccharide Complex 150 MG CAPSULE PO (08:24)
[2019-01-10] MEDS: Multivitamins,Ther W-Minerals Tablet 1 TABLET PO (08:24)
[2019-01-10] MEDS: Spironolactone 50 MG Tablet PO ×2 (09:28→16:56)
[2019-01-10 15:23] VITALS: BP 115/67; PULSE 91; RESP 18; TEMP 36.4; O2SAT 98
[2019-01-10 16:55] VITALS: BP 115/67; PULSE 91
[2019-01-11] MEDS: Furosemide 20 MG Tablet PO (05:21)
[2019-01-11 05:23] VITALS: BP 126/51; PULSE 91
[2019-01-11] MEDS: Metoprolol Tartrate 25 MG Tablet PO (05:23)
[2019-01-11 05:53] LABS: International Normalized Ratio 2.1; Prothrombin Time (Protime)PT. 23.9 SECONDS (11.7-14.9)
[2019-01-11] MEDS: Multivitamins,Ther W-Minerals Tablet 1 TABLET PO (07:58)
[2019-01-11] MEDS: Iron Polysaccharide Complex 150 MG CAPSULE PO (07:58)
[2019-01-11] MEDS: Spironolactone 50 MG Tablet PO (07:58)
--- NOTE | 2019-01-11 14:37 | CASEMGMT ---
Insurance Notified insurance of resident discharge on 01/11/19 to home alone with family for support and home health care. Auth#[id number] Patrizia ZULETA, FERN
[2019-01-11 15:42] VITALS: BP 131/72; PULSE 70; RESP 16; TEMP 36.9; O2SAT 97
== END 2019-01-11 14:10 | disposition home health service (06) | DRG 560 ==
PROVIDERS: Admitting Provider Family Medicine Geriatric Medicine; Family Provider Student in an Organized Health Care Education/Training Program; PCP Student in an Organized Health Care Education/Training Program; Referring Provider Family Medicine Geriatric Medicine; Visit Provider Family Medicine Geriatric Medicine
DX: S72.144D Nondisplaced intertrochanteric fracture of right femur, subsequent encounter for closed fracture with routine healing (principal); D61.818 Other pancytopenia; Q60.0 Renal agenesis, unilateral; W01.0XXD Fall on same level from slipping, tripping and stumbling without subsequent striking against object, subsequent encounter; I48.2 Chronic atrial fibrillation; Z86.718 Personal history of other venous thrombosis and embolism; E55.9 Vitamin D deficiency, unspecified; C50.919 Malignant neoplasm of unspecified site of unspecified female breast; S72.301D Unspecified fracture of shaft of right femur, subsequent encounter for closed fracture with routine healing
CPT/HCPCS: 36415; 80048; 85025; 85610; 97110; 97116; 97163; 97166; 97530; 97535; 97802

== ENCOUNTER → 2019-02-28 15:35 | Outpatient (CLI) | payer MEDICARE, SELFPAY ==
[2019-02-28 16:00] LABS: International Normalized Ratio 1.4
== END ==
PROVIDERS: Family Provider Student in an Organized Health Care Education/Training Program; PCP Student in an Organized Health Care Education/Training Program; Referring Provider Student in an Organized Health Care Education/Training Program; Visit Provider Student in an Organized Health Care Education/Training Program
DX: Z86.718 Personal history of other venous thrombosis and embolism (principal)
CPT/HCPCS: 85610

== ENCOUNTER → 2019-03-05 16:23 | Outpatient (CLI) | payer MEDICARE, SELFPAY ==
[2019-03-05 16:53] LABS: International Normalized Ratio 1.3; Prothrombin Time (Protime)PT. 16.2 SECONDS (11.7-14.9)
== END ==
PROVIDERS: Family Provider Student in an Organized Health Care Education/Training Program; PCP Student in an Organized Health Care Education/Training Program; Referring Provider Student in an Organized Health Care Education/Training Program; Visit Provider Student in an Organized Health Care Education/Training Program
DX: Z86.718 Personal history of other venous thrombosis and embolism (principal)
CPT/HCPCS: 85610

== ENCOUNTER → 2019-03-12 16:25 | Outpatient (CLI) | payer MEDICARE, SELFPAY ==
[2019-03-12 16:54] LABS: International Normalized Ratio 1.6; Prothrombin Time (Protime)PT. 19.3 SECONDS (11.7-14.9)
== END ==
PROVIDERS: Family Provider Student in an Organized Health Care Education/Training Program; PCP Student in an Organized Health Care Education/Training Program; Referring Provider Student in an Organized Health Care Education/Training Program; Visit Provider Student in an Organized Health Care Education/Training Program
DX: Z86.718 Personal history of other venous thrombosis and embolism (principal)
CPT/HCPCS: 85610

== ENCOUNTER → 2019-04-17 12:58 | Outpatient (CLI) | payer MEDICARE, SELFPAY ==
[2019-04-17 13:28] LABS: International Normalized Ratio 2.6; Prothrombin Time (Protime)PT. 28.1 SECONDS (11.7-14.9)
== END ==
PROVIDERS: Family Provider Student in an Organized Health Care Education/Training Program; PCP Student in an Organized Health Care Education/Training Program; Referring Provider Student in an Organized Health Care Education/Training Program; Visit Provider Student in an Organized Health Care Education/Training Program
DX: Z86.718 Personal history of other venous thrombosis and embolism (principal)
CPT/HCPCS: 85610

== ENCOUNTER → 2019-06-11 15:26 | Outpatient (CLI) | payer MEDICARE, SELFPAY ==
[2019-06-11 16:02] LABS: Prothrombin Time (Protime)PT. 31.3 SECONDS (11.7-14.9)
== END ==
PROVIDERS: Family Provider Student in an Organized Health Care Education/Training Program; PCP Student in an Organized Health Care Education/Training Program; Referring Provider Student in an Organized Health Care Education/Training Program; Visit Provider Student in an Organized Health Care Education/Training Program
DX: Z86.718 Personal history of other venous thrombosis and embolism (principal)
CPT/HCPCS: 85610

== ENCOUNTER → 2020-01-10 | Outpatient (CLI) | payer MEDICARE, SELFPAY ==
[2020-01-10 14:01] LABS: Prothrombin Time (Protime)PT. 31.1 SECONDS (11.7-14.9)
== END | disposition home or self-care (01) ==
LOC: LABSPEC 13:42
PROVIDERS: PCP Student in an Organized Health Care Education/Training Program; Referring Provider Family Medicine; Visit Provider Family Medicine
DX: Z86.718 Personal history of other venous thrombosis and embolism (principal)
CPT/HCPCS: 85610

== ENCOUNTER → 2020-11-04 | Outpatient (CLI) | payer MEDICARE, SELFPAY ==
[2020-11-04 16:01] LABS: International Normalized Ratio 7.2; Prothrombin Time (Protime)PT. 62.2 SECONDS (11.7-14.9)
== END | disposition home or self-care (01) ==
LOC: LABSPEC 15:15
PROVIDERS: PCP Student in an Organized Health Care Education/Training Program; Visit Provider Student in an Organized Health Care Education/Training Program
DX: Z86.718 Personal history of other venous thrombosis and embolism (principal)
CPT/HCPCS: 85610

== ENCOUNTER → 2021-06-24 | Outpatient (CLI) | payer MEDICARE, SELFPAY ==
[2021-06-24 15:57] LABS: International Normalized Ratio 2.8; Prothrombin Time (Protime)PT. 28.8 SECONDS (11.7-14.9)
== END | disposition home or self-care (01) ==
LOC: LABSPEC 15:11
PROVIDERS: PCP Student in an Organized Health Care Education/Training Program; Visit Provider Student in an Organized Health Care Education/Training Program
DX: Z86.718 Personal history of other venous thrombosis and embolism (principal)
CPT/HCPCS: 85610

== ENCOUNTER 2022-02-11 12:55 | Emergency (ER) | payer MEDICARE, SELFPAY ==
[2022-02-11 12:56] VITALS: PULSE 74; RESP 17; TEMP 36.8; O2SAT 98; BMI 22.8
--- NOTE | 2022-02-11 14:17 | CT_ITS ---
STUDY: CT BRAIN WITHOUT CONTRAST REASON FOR EXAM: Female, 71 years old. Head injury. On anticoagulants. RADIATION DOSAGE (If Supplied By Facility): CTDIvol = ( 44.99 ) mGy, DLP = ( 796.11 ) mGycm TECHNIQUE: Transaxial CT imaging of the brain was performed without administration of intravenous contrast material. Individualized dose optimization techniques were used for this CT. COMPARISON: No relevant priors. FINDINGS: Normal soft tissue structures. Normal calvarium. There is moderate cerebral atrophy with widening of the extra-axial spaces and ventricular dilatation. Normal white matter tracts of the cerebral hemispheres. Normal basal ganglia and thalami. Normal brainstem. There is mild cerebellar atrophy. There is no intracranial hemorrhage. There are no findings of an acute ischemic infarction. Atherosclerotic calcification of the cavernous portions of the internal carotid arteries bilaterally. Mucosal thickening of the sphenoid sinus. CT/Brain/Head without Contrast IMPRESSION: Chronic involutional changes of the brain. Electronically Signed: Navid Portillo MD at 15:15 EDT ,
--- NOTE | 2022-02-11 14:18 | ED.VIS.FALL ---
HPI HPI - Fall History of Present Illness Chief Complaint: Fall Narrative Narrative: Patient presenting with mild head injury. She is on Coumadin for history of DVT and atrial fibrillation. Patient states she was supposed to have it checked today. She relates that she injured her back a few weeks ago and has been having back pain. She had an x-ray this week which just showed osteopenia. She is on Ultram at home which have been helping a little bit. Today she was cleaning up her cat vomit and when she bent over to clean this she lost her balance and rolled backwards onto her back. She hit her head mildly. No LOC. No neck pain. She states her back is now hurting a little bit worse. PFSH PFSH Home Medications metoprolol tartrate 25 mg PO BID 08/16/17 [History Last Taken 12/22/18] furosemide 20 mg PO DAILY 12/22/18 [History Last Taken 12/22/18] spironolactone 50 mg PO BID 12/22/18 [History Last Taken 12/22/18] warfarin 1 mg PO MO 12/22/18 [History Last Taken 12/15/18] warfarin 2 mg PO SUTUWETHFRSA 12/22/18 [History Last Taken 12/21/18] acetaminophen [Tylenol] 650 mg PO Q6H PRN PRN tablet 12/27/18 [Rx Last Taken Unknown] polyethylene glycol 3350 17 g PO DAILY #30 packet 01/08/19 [Rx Last Taken Unknown] polysaccharide iron complex [Ferrex 150] 150 mg PO DAILYCM #30 capsule 01/08/19 [Rx Last Taken Unknown] tramadol 50 mg PO Q6H PRN PRN #28 tab 01/08/19 [Rx Last Taken Unknown] fulvestrant [Faslodex] 500 mg IM QMONTH 02/11/22 [History Last Taken Unknown] hydrocodone-acetaminophen 1 tab PO Q6H PRN 3 Days #10 tab 02/11/22 [Rx Last Taken Unknown] Allergy/AdvReac Type Severity Reaction Status Date / Time carvedilol AdvReac dizziness, Verified 02/11/22 12:56 can't function Social History Smoking Status: Never smoker ROS ROS ED Constitutional Constitutional ED: Denies fever(s) or sweats Eyes Eyes: Denies blurry vision or change in vision ENT ENT ED: Denies rhinorrhea or sore throat Cardiovascular Cardiovascular: Denies chest pain or palpitations Respiratory/Chest Respiratory/Chest: Denies cough or dyspnea Gastrointestinal Gastrointestinal: Denies abdominal pain or nausea Genitourinary Genitourinary ED: Denies dysuria or hematuria Musculoskeletal Musculoskeletal: Reports back pain Integumentary Denies rash Neurologic Neurologic: Denies headache(s) or paresthesias EXAM Physical Exam Const Vital Signs: 02/11/22 12:56 02/11/22 16:16 Temperature 98.2 F Temperature Source Temporal Pulse Rate 74 87 Respiratory Rate 17 18 Blood Pressure 128/74 H Blood Pressure Mean 92 Pulse Ox 98 98 Oxygen Delivery Method Room Air General Appearance ED: Negative for pallor HEENT Reports normocephalic, head/scalp atraumatic and moist mucous membranes atraumatic Eyes PERRL and EOMs intact bilaterally Neck no lymphadenopathy and supple Chest Wall inspection of chest normal and palpation of chest normal Resp normal respiratory effort and clear to auscultation bilaterally Auscultation: Negative for rales, rhonchi or wheezes Cardio regular rate and regular rhythm GI normal to inspection, nondistended, normoactive bowel sounds and non-distended Auscultation: normoactive bowel sounds Palpation: soft Narrative: Deferred Back/Spine Back/Spine Narrative: No midline spinal tenderness, deformity, step-off Lumbar Spine / Lower Back: paraspinal muscle tenderness right and left Extremity normal to inspection General Extremety ED: Yes edema and tenderness General Extremity: edema Neuro oriented x3 and CN's II-XII intact bilaterally Sensorium / Orientation: alert Motor Exam: strength 5/5 throughout Psych mental status grossly normal Attitude: No agitated Skin no rashes or lesions noted and no wounds General Skin Exam: Negative for jaundice or pallor Lesions: no lesions Rashes: no rashes MDM MDM MDM Narrative Medical decision making narrative: Patient with head injury on Coumadin. She has no focal neurologic deficits or lateralizing signs or symptoms. She is increasing her back pain since she fell. She was given a [place] for pain which did improve her symptoms. CT of the brain was negative for acute intracranial process. INR slightly subtherapeutic at 1.8. She states that she had been off of that for a bit because she was supratherapeutic previously this is coming. Patient will follow up with the Coumadin clinic. She stable for discharge at this time. Impression: 1. Fall 2. Lumbar strain 3. Closed head injury 4. Subtherapeutic INR Lab Data Labs: Laboratory Results - last 24 hr 02/11/22 02/11/22 14:55 15:50 PT Cancelled 19.9 H INR Cancelled 1.8 Radiography Diagnostic Testing: Clinical Impression(s) from Imaging Studies Brain CT 02/11/22 14:17 IMPRESSION: Chronic involutional changes of the brain. Electronically Signed: Navid Portillo MD at 15:15 EDT , Discharge Plan Triage Chief Complaint: Fall ED Provider: Mark Anthony Garcia Dx/Rx/DC Orders Instructions: ED Closed Hand Fracture (Adult), ED Fall Prevention Prescriptions: New hydrocodone-acetaminophen 5-325 mg tablet 1 tab PO Q6H PRN (Reason: pain) 3 Days Qty: 10 RF: 0 No Action metoprolol tartrate 25 MG tablet 25 mg PO BID RF: 0 furosemide 20 MG tablet 20 mg PO DAILY RF: 0 warfarin 1 MG tablet 2 mg PO SUTUWETHFRSA RF: 0 warfarin 1 MG tablet 1 mg PO MO RF: 0 spironolactone 50 MG tablet 50 mg PO BID RF: 0 acetaminophen [Tylenol] 325 MG tablet 650 mg PO Q6H PRN PRN (Reason: Mild Pain (scale 0-3)/T>100.7) RF: 0 polyethylene glycol 3350 17 GM powder in packet 17 g PO DAILY Qty: 30 RF: 0 polysaccharide iron complex [Ferrex 150] 150 MG capsule 150 mg PO DAILYCM Qty: 30 RF: 0 tramadol 50 MG tablet 50 mg PO Q6H PRN PRN (Reason: Moderate Pain (4-5/10)) Qty: 28 RF: 0 Faslodex 125 mg/2.5 Syringe 500 mg IM QMONTH RF: 0 Primary Care Provider: Nacho Quintero Referrals: Nacho Quintero DO [Primary Care Provider] - Disposition Disposition: Home, Self Care
[2022-02-11] MEDS: HYDROcodone Bitartrate/Apap 5/325 Tablet PO (14:59)
[2022-02-11 16:11] LABS: International Normalized Ratio 1.8; Prothrombin Time (Protime)PT. 19.9 SECONDS (11.7-14.9)
[2022-02-11 16:16] VITALS: BP 128/74; PULSE 87; RESP 18; O2SAT 98
== END 2022-02-11 16:57 | disposition home or self-care (01) ==
PROVIDERS: Emergency Provider Student in an Organized Health Care Education/Training Program; PCP Student in an Organized Health Care Education/Training Program; Visit Provider Student in an Organized Health Care Education/Training Program
DX: S09.90XA Unspecified injury of head, initial encounter (principal); I48.91 Unspecified atrial fibrillation; S39.012A Strain of muscle, fascia and tendon of lower back, initial encounter; W01.0XXA Fall on same level from slipping, tripping and stumbling without subsequent striking against object, initial encounter; Z79.01 Long term (current) use of anticoagulants; Z86.718 Personal history of other venous thrombosis and embolism; Y93.89 Activity, other specified; Y99.8 Other external cause status
CPT/HCPCS: 99281; 36415; 70450; 85610

== ENCOUNTER 2022-02-12 11:19 | Inpatient (IN) | payer MEDICARE, SELFPAY ==
[2022-02-12] VITALS (9 sets, daily range): BP systolic 90–113; BP diastolic 51–88; PULSE 82–95; RESP 16–18; TEMP 36.6–37; O2SAT 97–100; BMI 22.8; BMI 21.4
--- NOTE | 2022-02-12 13:01 | CT_ITS ---
STUDY: CT BRAIN WITHOUT CONTRAST REASON FOR EXAM: Female, 71 years old. Recurrent falls. Dizziness. RADIATION DOSAGE (If Supplied By Facility): CTDIvol = ( 44.99 ) mGy, DLP = ( 812.98 ) mGycm TECHNIQUE: Transaxial CT imaging of the brain was performed without administration of intravenous contrast material. Individualized dose optimization techniques were used for this CT. COMPARISON: Comparison is made with prior study 02/11/2022. FINDINGS: Normal soft tissue structures. Normal calvarium. There is moderate cerebral atrophy with widening of the extra-axial spaces and ventricular dilatation. Normal white matter tracts of the cerebral hemispheres. Normal basal ganglia and thalami. Normal brainstem. There is mild cerebellar atrophy. There is no intracranial hemorrhage. There are no findings of an acute ischemic infarction. Normal visualized paranasal sinuses. CT/Brain/Head without Contrast IMPRESSION: Chronic involutional changes of the brain. Electronically Signed: Navid Portillo MD at 13:42 EDT ,
--- NOTE | 2022-02-12 13:02 | EKG12_ITS ---
Test Reason : FALL Blood Pressure : / mmHG Vent. Rate : 087 BPM Atrial Rate : 054 BPM P-R Int : 000 ms QRS Dur : 148 ms QT Int : 390 ms P-R-T Axes : 000 065 247 degrees QTc Int : 469 ms Atrial fibrillation Left bundle branch block Abnormal ECG Confirmed by PEDRO PABLO WRIGHT, AZEB ([id number]), editor trade journal ALPA NOBLE ([id number]) on 02/16/2022 11:03:13 AM Referred By: YARELI/TYRONE Confirmed By:AZEB CHAMORRO MD
--- NOTE | 2022-02-12 13:08 | EDS_ITS ---
HPI History of Present Illness Chief Complaint: Fall Narrative Narrative: 71-year-old female on Coumadin for history of atrial fibrillation, blood clots who was seen here yesterday for a mechanical fall presents the emergency department after syncopal episode, fall which occurred last evening. Patient states that around 10:30 PM last evening, she was getting ready for bed, became dizzy, and fell backwards. Patient is unsure if she hit her head, patient does have back pain however this has been a chronic problem over the last 3 weeks that has been ongoing. She was scheduled for an MRI today for her back pain. Patient at this time only complains of back pain, patient denies any fevers chills nausea vomiting. Patient states that she was helped up by her grandson when they came to visit her today around 10 in the morning. Tetanus Immunization: <5 years PFSH PFSH Home Medications metoprolol tartrate 25 mg PO BID 08/16/17 [History Last Taken 02/11/22] furosemide 20 mg PO DAILY 12/22/18 [History Last Taken 02/11/22] spironolactone 50 mg PO BID 12/22/18 [History Last Taken 02/11/22] warfarin 1 mg PO MO 12/22/18 [History Last Taken 3 Weeks Ago ~01/22/22] warfarin 2 mg PO SUTUWETHFRSA 12/22/18 [History Last Taken 3 Weeks Ago ~01/22/22] acetaminophen [Tylenol] 650 mg PO Q6H PRN PRN tablet 12/27/18 [Rx Last Taken Unknown] polysaccharide iron complex [Ferrex 150] 150 mg PO DAILYCM #30 capsule 01/08/19 [Rx Last Taken 02/11/22] tramadol 50 mg PO Q6H PRN PRN #28 tab 01/08/19 [Rx Last Taken 02/10/22] hydrocodone-acetaminophen 1 tab PO Q6H PRN 3 Days #10 tab 02/11/22 [Rx Last Taken Unknown] fulvestrant 500 mg IM QMONTH 02/12/22 [History Last Taken 01/07/22] palbociclib [Ibrance] 75 mg PO DAILY 02/12/22 [History Last Taken 02/11/22] Allergy/AdvReac Type Severity Reaction Status Date / Time carvedilol AdvReac dizziness, Verified 02/11/22 12:56 can't function Social History Smoking Status: Never smoker ROS ROS ED ROS Narrative Constitutional: Negative for fever, chills, weight loss or gain. Positive generalized weakness Eyes: Negative for vision loss, vision change, double vision ENT: Negative for any hearing changes, ringing in the ears, dizziness, discharge, pain Nose: Negative for any congestion, runny nose, sinus pain, allergies Throat: Negative for any sore throat hoarseness, voice changes, Cardiovascular: Negative for any chest pain, tightness, palpitations, racing heartbeat Respiratory: Negative for any coughs, sputum production, coughing, hemoptysis, shortness of breath, shortness of breath on exertion, Gastrointestinal: Negative for any abdominal pain, nausea, vomiting, diarrhea, constipation, blood in stool, blood in vomit : Negative for any urinary frequency, incontinence, dysuria, retention, blood in urine Muscle skeletal: Negative for any muscle joint pain, stiffness, myalgias, arthralgias, neck pain, back pain Neurological: Negative for any headache, head injury, numbness or tingling. Positive for dizziness, syncope Skin: Negative for any rashes, lumps, itching, abrasions, lacerations Psychiatric: Negative for any depression, anxiety, stress, suicidal ideation, homicidal ideation Hematologic: Negative for any easy bruising, excessive bruising, easy bleeding Allergies: Negative for any eczema, hives, rash EXAM Physical Exam Const Vital Signs: 02/12/22 11:20 02/12/22 14:15 02/12/22 14:16 Temperature 98.0 F Temperature Source Temporal Pulse Rate 95 84 Respiratory Rate 17 16 Respiratory Effort Normal Non-Labored Respiratory Depth Normal Respiratory Pattern Normal Blood Pressure 113/88 H 103/56 L Blood Pressure Mean 96 71 Pulse Ox 99 99 Oxygen Delivery Method Room Air Room Air Room Air Positive cachectic General Appearance ED: active, cooperative, comfortable and cachectic Nutritional Appearance: cachectic HEENT Reports normocephalic normocephalic and normal to inspection Eyes Eyes Narrative: 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, this is chronic General Eye ED: Yes normal appearance of both eyes Lymph Lymphatic: no lymphadenopathy noted Chest Wall inspection of chest normal Chest: symmetrical chest wall rise Resp normal respiratory effort and normal air movement Effort and Inspection: able to speak in complete sentences Cardio regular rate GI GI Narrative: Patient's abdomen does appear to be distended however per the patient this is chronic Palpation: soft Back/Spine General Back: tenderness Lumbar Spine / Lower Back: lumbar spinal tenderness Extremity normal to inspection Extremity Narrative: Patient has a skin tear to left elbow that is superficial. Normal range of motion Skin Skin Narrative: Small skin tear left elbow General Skin Exam: no breakdown MDM MDM MDM Narrative Medical decision making narrative: Patient appears to be in no distress, patient does have pain with any movement. Patient presents the emerge department with 2 falls in the last 2 days, last evening she had a syncopal episode and was unable to get up. Patient did receive a full work-up, patient CT the brain was unremarkable, patient's x-ray of the lumbar sacral spine shows degeneration as well as multiple compression fractures. This could be acute on chronic, due to the worst the pain. Patient was given [place] here for pain. Patient's BMP showed a low sodium at 129, creatinine is 1.96 GFR of 27, this is worse than prior blood work. Patient has poor mobility is unable to move around. Patient does live alone. Patient is a hard person to get in IV access, the PICC team was called, the patient will need to be administered fluids, possibly other medication. Patient will need to be admitted to the hospital. Hospitalist accepts the patient. Patient will be admitted for frequent falls, weakness, compression fractures of the LS spine, dehydration, Acute kidney injury. Lab Data Labs: Laboratory Results - last 24 hr 02/12/22 02/12/22 02/12/22 14:20 14:20 14:20 WBC Cancelled Corrected WBC Cancelled RBC Cancelled Hgb Cancelled Hct Cancelled MCV Cancelled MCH Cancelled MCHC Cancelled RDW Std Deviation Cancelled RDW Coeff of Nigel Cancelled Plt Count Cancelled MPV Cancelled Immature Gran % (Auto) Cancelled Neut % (Auto) Cancelled Lymph % (Auto) Cancelled [place] % (Auto) Cancelled Eos % (Auto) Cancelled Baso % (Auto) Cancelled Absolute Neuts (auto) Cancelled Absolute Lymphs (auto) Cancelled Total Counted Cancelled Neutrophils % (Manual) Cancelled Band Neutrophils % Cancelled Lymphocytes % (Manual) Cancelled Monocytes % (Manual) Cancelled Eosinophils % (Manual) Cancelled Basophils % (Manual) Cancelled Metamyelocytes % Cancelled Myelocytes % Cancelled Promyelocytes % Cancelled Blast Cells % Cancelled Plasma Cell % (Manual) Cancelled Other Cells % Cancelled Nucleated RBC % Cancelled Nucleated RBCs/100 WBC Cancelled Differential Comment Cancelled Diff Path Review Cancelled Hypersegmented Neuts Cancelled Atypical Lymphocytes Cancelled Reactive Lymphocytes Cancelled Smudge Cells Cancelled Toxic Granulation Cancelled Toxic Vacuolation Cancelled Dohle Bodies Cancelled Dwain Rods Cancelled Platelet Estimate Cancelled Plt Morphology Comment Cancelled RBC Morphology Cancelled Polychromasia Cancelled Hypochromasia Cancelled Poikilocytosis Cancelled Basophilic Stippling Cancelled Anisocytosis Cancelled Microcytosis Cancelled Macrocytosis Cancelled Spherocytes Cancelled Sickle Cells Cancelled Target Cells Cancelled Tear Drop Cells Cancelled Ovalocytes Cancelled Stomatocytes Cancelled [place] Bodies Cancelled [place] Cells Cancelled Bite Cells Cancelled Crenated Cell Cancelled Acanthocytes (Spur) Cancelled Rouleaux Cancelled Schistocytes Cancelled Sodium 129 L Potassium 4.2 Chloride 94 L Carbon Dioxide 25.0 Anion Gap 10 BUN 40 H Creatinine 1.96 H Estim Creat Clear Calc 21.92 Est GFR (MDRD) Af Amer 32 L Est GFR (MDRD) Non-Af 27 L BUN/Creatinine Ratio 20.4 H Glucose 113 H Calcium 9.8 Total Creatine Kinase 103 Troponin I High Sens 18 Radiography Diagnostic Testing: Clinical Impression(s) from Imaging Studies Brain CT 02/12/22 13:01 IMPRESSION: Chronic involutional changes of the brain. Electronically Signed: Navid Portillo MD at 13:42 EDT , Lumbar Spine X-Ray 02/12/22 13:15 IMPRESSION: Degenerative changes of the spine, as detailed above. Almost complete collapse of the T12 vertebrae. Cholelithiasis. Electronically Signed: Navid Portillo MD at 13:52 EDT , EKG Left bundle branch block: Interpretation: Sinus Rhythm Comments: Left bundle branch block, rate of 87 bpm, QRS duration 148 ms, no acute ST elevation. Treatment and Re-Evaluation Narrative: PICC team was called in to obtain IV access. Discharge Plan Triage Chief Complaint: Fall ED Midlevel Provider: Gokul Hess ED Provider: Mark Anthony Garcia Dx/Rx/DC Orders Prescriptions: No Action metoprolol tartrate 25 MG tablet 25 mg PO BID RF: 0 furosemide 20 MG tablet 20 mg PO DAILY RF: 0 warfarin 1 MG tablet 2 mg PO SUTUWETHFRSA RF: 0 warfarin 1 MG tablet 1 mg PO MO RF: 0 spironolactone 50 MG tablet 50 mg PO BID RF: 0 acetaminophen [Tylenol] 325 MG tablet 650 mg PO Q6H PRN PRN (Reason: Mild Pain (scale 0-3)/T>100.7) RF: 0 polysaccharide iron complex [Ferrex 150] 150 MG capsule 150 mg PO DAILYCM Qty: 30 RF: 0 tramadol 50 MG tablet 50 mg PO Q6H PRN PRN (Reason: Moderate Pain (4-5/10)) Qty: 28 RF: 0 hydrocodone-acetaminophen 5-325 mg tablet 1 tab PO Q6H PRN (Reason: pain) 3 Days Qty: 10 RF: 0 fulvestrant 250 mg/5 mL Syringe 500 mg IM QMONTH RF: 0 Ibrance 75 mg Capsule 75 mg PO DAILY RF: 0 Primary Care Provider: Nacho Quintero
--- NOTE | 2022-02-12 13:15 | RAD_ITS ---
STUDY: X-RAY - LUMBAR SPINE REASON FOR EXAM: Female, 71 years old. Back pain following a fall. TECHNIQUE: 5 view(s) of the lumbar spine were obtained. COMPARISON: None FINDINGS: Normal lumbar lordosis. Mild dextroscoliosis. There is a normal alignment of the vertebrae. There is diffuse demineralization with multi-level endplate spondylosis. Almost complete collapse of the T12 vertebrae. There is multi-level degenerative disc disease with multi-level disc space narrowing. Gallstones. RAD/L/S Spine Min 4 Views IMPRESSION: Degenerative changes of the spine, as detailed above. Almost complete collapse of the T12 vertebrae. Cholelithiasis. Electronically Signed: Navid Portillo MD at 13:52 EDT ,
[2022-02-12 14:46] LABS: Anion Gap 10 (5-15); BUN 40 mg/dL (7-18); BUN/Creat Ratio 20.4 RATIO (10-20); Calcium,Total 9.8 mg/dL (8.5-10.1); Chloride 94 mmol/L (98-107); Creatinine, Serum 1.96 mg/dL (0.55-1.02); EST Glomerular Filtration Rate 27 mL/min (>60); Est Glom Filt Rate - Afr Amer 32 mL/min (>60); Estimated Creatinine Clearance 21.92 ml/min; Glucose 113 mg/dL (74-106); Potassium 4.2 mmol/L (3.5-5.1); Sodium Level 129 mmol/L (136-145); Troponin-I HS 18 pg/mL (3.0-54.0)
[2022-02-12 14:50] LABS: CPK Total, Creatine Kinase 103 U/L (26-192)
--- NOTE | 2022-02-12 15:28 | ED.RN ---
called and notified assess rn to establish a picc line. awaiting their call back
--- NOTE | 2022-02-12 15:49 | HP.PCM.HOS_ITS ---
HPI - General General Date of Admission: 02/12/22 HPI Narrative CLIF GOMEZ, is a 71 F with a PMh as outlined who presents via the ED on 02/12/2022 with a complaint of mechanical fall and syncope. She fell the night before admission also and was found this morning. She couldnt say if she hit he head, and doesnt think she hit her head. She also complained of chronic back pain for which she had been scheduled to have MRI of her back. Vitals were BP of 103/56, TN of 84, RR of 16 and she was saturating at 99% on room air. Chemistry showed sodium of 129 and chlorid eof 94. Cr was 1.96, with baseline of ~ 0.94. She had been off her coumadin for several days o/a of elevated INR of 7.8. Lumbar spine xray showed almost complete collapse of T12 vertebrae due to compression fracture as well as cholelithiasis. CT of the brain showed no acute intracranial pathology. SHe is being admitted to be managed for debility and GARIMA as well as mechanical falls and compression fractures. [facility] Medical History DVT (deep venous thrombosis) Heart murmur Hip fracture Kidney anomaly, congenital Migraines Home Medications metoprolol tartrate 25 mg PO BID 08/16/17 [History Last Taken 02/11/22] furosemide 20 mg PO DAILY 12/22/18 [History Last Taken 02/11/22] spironolactone 50 mg PO BID 12/22/18 [History Last Taken 02/11/22] warfarin 1 mg PO MO 12/22/18 [History Last Taken 3 Weeks Ago ~01/22/22] warfarin 2 mg PO SUTUWETHFRSA 12/22/18 [History Last Taken 3 Weeks Ago ~01/22/22] acetaminophen [Tylenol] 650 mg PO Q6H PRN PRN tablet 12/27/18 [Rx Last Taken Unknown] polysaccharide iron complex [Ferrex 150] 150 mg PO DAILYCM #30 capsule 01/08/19 [Rx Last Taken 02/11/22] tramadol 50 mg PO Q6H PRN PRN #28 tab 01/08/19 [Rx Last Taken 02/10/22] hydrocodone-acetaminophen 1 tab PO Q6H PRN 3 Days #10 tab 02/11/22 [Rx Last Taken Unknown] fulvestrant 500 mg IM QMONTH 02/12/22 [History Last Taken 01/07/22] palbociclib [Ibrance] 75 mg PO DAILY 02/12/22 [History Last Taken 02/11/22] Allergy/AdvReac Type Severity Reaction Status Date / Time carvedilol AdvReac dizziness, Verified 02/11/22 12:56 can't function Social History Smoking Status: Never smoker ROS Constitutional Constitutional: Reports fatigue, malaise and weakness; Denies anorexia or chills Eyes Eyes: Denies change in vision ENT HEENT: Denies dysphagia Cardiovascular Cardiovascular: Denies chest pain, dyspnea on exertion, edema, lightheadedness, orthopnea, palpitations, paroxysmal nocturnal dyspnea or rapid heart rate Respiratory/Chest Respiratory/Chest: Denies cough, dyspnea, shortness of breath at rest or shortness of breath with exertion Gastrointestinal Gastrointestinal: Denies abdominal pain, constipation, diarrhea, nausea or vomiting Genitourinary Genitourinary: Denies burning urination or dysuria Musculoskeletal Musculoskeletal: Reports back pain; Denies arthralgias, joint stiffness or joint swelling Neurologic Neurologic: Denies confusion, disequilibrium, dizziness, focal weakness, headache(s), numbness, seizure-like activity or seizures Psychiatric Psychiatric: Denies anxiety or depression Endocrine Endocrinology: Denies change in body appearance Hematologic/Lymphatic Hematologic/Lymphatic: Denies anemia Vital Signs Vital Signs Vital Signs: 02/12/22 11:20 02/12/22 14:15 02/12/22 14:16 Temperature 98.0 F Temperature Source Temporal Pulse Rate 95 84 Respiratory Rate 17 16 Respiratory Effort Normal Non-Labored Respiratory Depth Normal Respiratory Pattern Normal Blood Pressure 113/88 H 103/56 L Blood Pressure Mean 96 71 Pulse Ox 99 99 Oxygen Delivery Method Room Air Room Air Room Air Weight Weight: 113 lb Body Mass Index (BMI) 22.8 Physical Exam Const alert, oriented x3 and no apparent distress Constitutional Narrative: frail and thin General Appearance: cooperative HEENT normocephalic, head/scalp atraumatic and hearing grossly normal bilaterally HEENT Narrative: dry oral mucosa Eyes PERRL, EOMs intact bilaterally and conjunctivae normal Neck no lymphadenopathy, supple and no JVD Resp normal respiratory effort, no retractions, no use of accessory muscles and clear to auscultation bilaterally Cardio regular rate, regular rhythm, S1 normal heart sound, S2 normal heart sound and no murmurs GI normal to inspection, nondistended, normoactive bowel sounds, soft to palpation, non-tender and non-distended Extremity normal to inspection, full ROM and no clubbing, cyanosis or edema Peripheral Pulses: Yes pulses 2+ throughout Skin no rashes or lesions noted Neuro oriented x3 and CN's II-XII intact bilaterally Sensorium / Orientation: awake and alert Psych affect normal Results Lab / Micro Data Result Diagrams: 02/13/22 05:32 02/13/22 05:32 Labs: Laboratory Results - last 24 hr 02/12/22 14:20: WBC Cancelled, Corrected WBC Cancelled, RBC Cancelled, Hgb Cancelled, Hct Cancelled, MCV Cancelled, MCH Cancelled, MCHC Cancelled, RDW Std Deviation Cancelled, RDW Coeff of Nigel Cancelled, Plt Count Cancelled, MPV Cancelled, Immature Gran % (Auto) Cancelled, Neut % (Auto) Cancelled, Lymph % (Auto) Cancelled, [place] % (Auto) Cancelled, Eos % (Auto) Cancelled, Baso % (Auto) Cancelled, Absolute Neuts (auto) Cancelled, Absolute Lymphs (auto) Cancelled, Total Counted Cancelled, Neutrophils % (Manual) Cancelled, Band Neutrophils % Cancelled, Lymphocytes % (Manual) Cancelled, Monocytes % (Manual) Cancelled, Eosinophils % (Manual) Cancelled, Basophils % (Manual) Cancelled, Metamyelocytes % Cancelled, Myelocytes % Cancelled, Promyelocytes % Cancelled, Blast Cells % Cancelled, Plasma Cell % (Manual) Cancelled, Other Cells % Cancelled, Nucleated RBC % Cancelled, Nucleated RBCs/100 WBC Cancelled, Differential Comment Cancelled, Diff Path Review Cancelled, Hypersegmented Neuts Cancelled, Atypical Lymphocytes Cancelled, Reactive Lymphocytes Cancelled, Smudge Cells Cancelled, Toxic Granulation Cancelled, Toxic Vacuolation Cancelled, Dohle Bodies Cancelled, Dwain Rods Cancelled, Platelet Estimate Cancelled, Plt Morphology Comment Cancelled, RBC Morphology Cancelled, Polychromasia Cancelled, Hypo chromasia Cancelled, Poikilocytosis Cancelled, Basophilic Stippling Cancelled, Anisocytosis Cancelled, Microcytosis Cancelled, Macrocytosis Cancelled, Spherocytes Cancelled, Sickle Cells Cancelled, Target Cells Cancelled, Tear Drop Cells Cancelled, Ovalocytes Cancelled, Stomatocytes Cancelled, [place] Bodies Cancelled, [place] Cells Cancelled, Bite Cells Cancelled, Crenated Cell Cancelled, Acanthocytes (Spur) Cancelled, Rouleaux Cancelled, Schistocytes Cancelled 02/12/22 14:20: Sodium 129 L, Potassium 4.2, Chloride 94 L, Carbon Dioxide 25.0, Anion Gap 10, BUN 40 H, Creatinine 1.96 H, Estim Creat Clear Calc 21.92, Est GFR (MDRD) Af Amer 32 L, Est GFR (MDRD) Non-Af 27 L, BUN/Creatinine Ratio 20.4 H, Glucose 113 H, Calcium 9.8, Troponin I High Sens 18 02/12/22 14:20: Total Creatine Kinase [address] 02/12/22 13:01 IMPRESSION: Chronic involutional changes of the brain. Electronically Signed: Navid Portillo MD at 13:42 EDT , Lumbar Spine X-Ray 02/12/22 13:15 IMPRESSION: Degenerative changes of the spine, as detailed above. Almost complete collapse of the T12 vertebrae. Cholelithiasis. Electronically Signed: Navid Portillo MD at 13:52 EDT , Assessment & Plan Assessment/Plan (1) Lumbar contusion: (2) Fall: PLAN: #Debility due to mechanical fall and compression fracture * admit to med surg * PT/OT consult * imaging showed T12 compression fracture * fall precautions * CT of the brain showed chronic involutional changes and no acute intracranial pathology * Po tylenol, PO oxycodone and IV morphine prn * #GARIMA * Cr is 1.94, with baseline <1 * hydrate gently with IVF * trend Cr * has a single kidney * #Pancytopenia * WBC was low at 1 and platelets was also low. This appears to be chronic for patient. * Will reach out to her oncologist. * #Hyponatremia * likely due to decreased intake. Na is 129 * hydrate gently with VF and trend. * #History of afib: Hold Coumadin on account of low platelets. #Compression fracture * has T12 compression fracture. * PT/OT on board * If pain persists, consult pain management to see if she will benefit from kyphoplasty * #History of breast cancer * on fulvestrant and palbociclib * DVT prophylaxis; SCDs o/a of thrombocytopenia DVT prophylaxis: DNR CCA no intubation * Patient and her son counseled extensively about different types of CODE STATUS including full code, DNR CCA and DNR CCA. Patient elects to be DNRCCA no intubation * . Total [id number]-[id number] time 18 minutes. * Charges/Coding Visit Charges Inpatient E&M: 51955 Init Hosp L3 Procedures Hospitalists Procedures: 29782 Advncd Care Plan 30 Min
[2022-02-12] MEDS: HYDROcodone Bitartrate/Apap 5/325 Tablet PO (16:05)
--- NOTE | 2022-02-12 18:30 | CASEMGMT ---
RN BRENDA CARTON STAMPER CM to room to meet with patient for initial transition planning/care coordination assessment. MYLENE GUTIERREZ introduced self and role at [facility]. Pt voices understanding and consents to assessment at this time. Pt resting in bed in no distress at this time. Pt is A/O at this time and answers all questions appropriately. Care providers, pharmacy, and demographics verified/updated at this time. PCP: Dr Quintero Specialists: Dr Booker and JOSE Canales--oncology. Sees Purnima [facility] Preferred [facility]: [facility] [place] [facility] Pres[facility] Benefit: Yes Living Will/HPOA: Pt states she thinks she has done HPOA, but does not think she has done LW. She states would like to talk w/SW to complete AD. Pt made aware, if SW unable to meet w/her while she @ [facility], that she can complete these as an OP. Pt given info on AD and [place] card w/contact info to schedule an appt, if she chooses. LNOK: One son, Beni Sarmiento Living Arrangements: Lives alone in one-story apt w/no steps to enter. States has been sponge-bathing recently d/t increase weakness and decline @ home. Son has been helping w/home mgmt tasks. Pt states she has not been eating well d/t difficulty w/cooking. Transportation: Pt was driving until about 3 weeks ago since this all started. Son takes her to appts. Friends help getting groceries. DME: has the following DME: walker. Pt interested in getting medical alert button. Information provided HHC/SNF: Hx of TCU in 2019 after hip fx and then had HHC following. Pt interested in SNF @ d/c and states TCU is 1st choice. Wiil notify SW. PLAN: SNF [facility] MYLENE GUTIERREZ
[2022-02-12] MEDS: 0.9% Normal Saline 1,000 ML 125 ML IV (20:52)
[2022-02-13] VITALS (10 sets, daily range): BP systolic 82–132; BP diastolic 54–77; PULSE 78–96; RESP 16; TEMP 36.3–37.6; O2SAT 92–100
[2022-02-13 00:38] LABS: Absolute Lymphocyte Count 0.08 X10^3/uL (0.83-4.51); Absolute Neutrophil Count 0.8 X10^3/uL (2.0-7.7); Basophil# 0.01 X10^3/uL; Eosinophil# 0.01 X10^3/uL; Hematocrit 31.6 % (37-47); Hemoglobin 11.7 g/dL (12.0-15.0); Lymphocyte # 0.08 X10^3/ul (0.83-4.51); Lymphocyte % 8.3 % (19-41); Mean Corpuscular Hgb 42.2 pg (27.0-32.0); Mean Corpuscular Volume 114.1 fL (81-99); Mean Platelet Vol. 12.3 fl (6.2-12.0); Monocyte# 0.04 X10^3/uL; Monocyte% 4.2 % (0-10); NRBC Flagged by Analyzer 0 % (0-5); Neutrophil % 83.4 % (47-70); POSITIVE COUNT YES; POSITIVE DIFFERENTIAL YES; POSITIVE MORPHOLOGY YES; RBC Distribution Width CV 16.9 % (11.6-14.6); RBC Distribution Width SD 70.1 fl (35.1-43.9); Red Blood Count 2.77 M/mm3 (4.2-5.4)
[2022-02-13 00:50] LABS: Prothrombin Time (Protime)PT. 21.6 SECONDS (11.7-14.9)
[2022-02-13 00:51] LABS: Differential Indicated SCAN CRITERIA MET; Platelet Count 44 K/mm3 (150-450)
[2022-02-13 01:04] LABS: Differential Comment SCANNED
[2022-02-13 01:07] LABS: Polychromasia 1+
[2022-02-13] MEDS: 0.9% Normal Saline 1,000 ML 125 ML IV (03:56)
[2022-02-13 06:35] LABS: Absolute Lymphocyte Count 0.07 X10^3/uL (0.83-4.51); Absolute Neutrophil Count 0.7 X10^3/uL (2.0-7.7); Basophil# 0.01 X10^3/uL; Basophil% 1.2 % (0-1); Eosinophil# 0.01 X10^3/uL; Eosinophils% 1.2 % (0-5); Hematocrit 31.4 % (37-47); Hemoglobin 11.3 g/dL (12.0-15.0); Lymphocyte # 0.07 X10^3/ul (0.83-4.51); Lymphocyte % 8.3 % (19-41); Mean Corpuscular Hgb 41.4 pg (27.0-32.0); Mean Platelet Vol. 12.7 fl (6.2-12.0); Monocyte# 0.04 X10^3/uL; Monocyte% 4.8 % (0-10); NRBC Flagged by Analyzer 0 % (0-5); Neutrophil # 0.67 X10^3/uL (2.7-7.7); Neutrophil % 79.7 % (47-70); POSITIVE COUNT YES; POSITIVE DIFFERENTIAL YES; POSITIVE MORPHOLOGY YES; Platelet Count 37 K/mm3 (150-450); RBC Distribution Width CV 17.2 % (11.6-14.6); RBC Distribution Width SD 73.7 fl (35.1-43.9); Red Blood Count 2.73 M/mm3 (4.2-5.4)
[2022-02-13 07:02] LABS: Differential Indicated SCAN CRITERIA MET; White Blood Count 0.8 K/mm3 (4.4-11.0)
[2022-02-13 07:15] LABS: Anion Gap 8 (5-15); BUN 35 mg/dL (7-18); BUN/Creat Ratio 24.1 RATIO (10-20); Calcium,Total 8.2 mg/dL (8.5-10.1); Chloride 99 mmol/L (98-107); Creatinine, Serum 1.45 mg/dL (0.55-1.02); EST Glomerular Filtration Rate 38 mL/min (>60); Est Glom Filt Rate - Afr Amer 46 mL/min (>60); Estimated Creatinine Clearance 27.93 ml/min; Glucose 104 mg/dL (74-106); Potassium 3.5 mmol/L (3.5-5.1); Sodium Level 132 mmol/L (136-145)
[2022-02-13 07:27] LABS: Differential Comment SCANNED
[2022-02-13] MEDS: Iron Polysaccharide Complex 150 MG CAPSULE PO (09:02)
[2022-02-13] MEDS: Metoprolol Tartrate 25 MG Tablet PO (09:02)
[2022-02-13] MEDS: Acetaminophen 325 MG Tablet 650 MG PO (12:01)
--- NOTE | 2022-02-13 12:20 | PN.HOSP_ITS ---
Subjective Subjective Patient seen and examined today. She has no active complaints and is feeling better. She denies any fever, chills, nausea, vomiting or diarrhea. Review of systems otherwise negative. Her pain control has also improved. Her WBC is low today at 0.8 her platelets are 37. Hemoglobin is 11.3. Objective Data Objective Data Vital Signs: Vital Signs Temp Pulse Resp BP Pulse Ox 99.6 F H 84 16 132/77 H 99 02/13/22 08:56 02/13/22 11:00 02/13/22 08:56 02/13/22 08:56 02/13/22 08:56 Oxygen Delivery Method Room Air Weight: 106 lb 8 oz Body Mass Index (BMI) 21.4 Intake & Output: Intake and Output for Last 24 Hours 02/11/22 02/12/22 02/13/22 23:59 23:59 23:59 Intake Total 500 / 500 2283.33 / 2283.33 Balance 500 / 500 2283.33 / 2283.33 Lab / Micro Data Result Diagrams: 02/13/22 05:32 02/13/22 05:32 Labs: Laboratory Results - last 24 hr 02/12/22 14:20: WBC Cancelled, Corrected WBC Cancelled, RBC Cancelled, Hgb Cancelled, Hct Cancelled, MCV Cancelled, MCH Cancelled, MCHC Cancelled, RDW Std Deviation Cancelled, RDW Coeff of Nigel Cancelled, Plt Count Cancelled, MPV Cancelled, Immature Gran % (Auto) Cancelled, Neut % (Auto) Cancelled, Lymph % (Auto) Cancelled, [place] % (Auto) Cancelled, Eos % (Auto) Cancelled, Baso % (Auto) Cancelled, Absolute Neuts (auto) Cancelled, Absolute Lymphs (auto) Cancelled, Total Counted Cancelled, Neutrophils % (Manual) Cancelled, Band Neutrophils % Cancelled, Lymphocytes % (Manual) Cancelled, Monocytes % (Manual) Cancelled, Eosinophils % (Manual) Cancelled, Basophils % (Manual) Cancelled, Metamyelocytes % Cancelled, Myelocytes % Cancelled, Promyelocytes % Cancelled, Blast Cells % Cancelled, Plasma Cell % (Manual) Cancelled, Other Cells % Cancelled, Nucleated RBC % Cancelled, Nucleated RBCs/100 WBC Cancelled, Differential Comment Cancelled, Diff Path Review Cancelled, Hypersegmented Neuts Cancelled, Atypical Lymphocytes Cancelled, Reactive Lymphocytes Cancelled, Smudge Cells Cancelled, Toxic Granulation Cancelled, Toxic Vacuolation Cancelled, Dohle Bodies Cancelled, Dwain Rods Cancelled, Platelet Estimate Cancelled, Plt Morphology Comment Cancelled, RBC Morphology Cancelled, Polychromasia Cancelled, Hypochromasia Cancelled, Poikilocytosis Cancelled, Basophilic Stippling Cancell ed, Anisocytosis Cancelled, Microcytosis Cancelled, Macrocytosis Cancelled, Spherocytes Cancelled, Sickle Cells Cancelled, Target Cells Cancelled, Tear Drop Cells Cancelled, Ovalocytes Cancelled, Stomatocytes Cancelled, Guerrero-[place] Bodies Cancelled, [place] Cells Cancelled, Bite Cells Cancelled, Crenated Cell Cancelled, Acanthocytes (Spur) Cancelled, Rouleaux Cancelled, Schistocytes Cancelled 02/12/22 14:20: Sodium 129 L, Potassium 4.2, Chloride 94 L, Carbon Dioxide 25.0, Anion Gap 10, BUN 40 H, Creatinine 1.96 H, Estim Creat Clear Calc 21.92, Est GFR (MDRD) Af Amer 32 L, Est GFR (MDRD) Non-Af 27 L, BUN/Creatinine Ratio 20.4 H, Glucose 113 H, Calcium 9.8, Troponin I High Sens 18 02/12/22 14:20: Total Creatine Kinase 103 02/13/22 00:28: WBC 1.0 L*, RBC 2.77 L, Hgb 11.7 L, Hct 31.6 L, MCV 114.1 H, MCH 42.2 H, MCHC 37.0 H, RDW Std Deviation 70.1 H, RDW Coeff of Nigel 16.9 H, Plt Count 44 L*, MPV 12.3 H, Immature Gran % (Auto) 2.100 H, Neut % (Auto) 83.4 H, Lymph % (Auto) 8.3 L, [place] % (Auto) 4.2, Eos % (Auto) 1.0, Baso % (Auto) 1.0, Absolute Neuts (auto) 0.8 L, Absolute Lymphs (auto) 0.08 L, Nucleated RBC % 0, Differential Comment SCANNED, Diff Path Review March kirsten Polychromasia 1+ 02/13/22 00:28: PT 21.6 H, INR 2.0 03/26/22 05:32: WBC 0.8 L*, RBC 2.73 L, Hgb 11.3 L, Hct 31.4 L, MCV 115.0 H, MCH 41.4 H, MCHC 36.0, RDW Std Deviation 73.7 H, RDW Coeff of Nigel 17.2 H, Plt Count 37 L*, MPV 12.7 H, Immature Gran % (Auto) 4.800 H, Neut % (Auto) 79.7 H, Lymph % (Auto) 8.3 L, [place] % (Auto) 4.8, Eos % (Auto) 1.2, Baso % (Auto) 1.2 H, Absolute Neuts (auto) 0.7 L, Absolute Lymphs (auto) 0.07 L, Nucleated RBC % 0, Differential Comment SCANNED, Diff Path Review March02/13/22 05:32: Sodium 132 L, Potassium 3.5, Chloride 99, Carbon Dioxide 25.0, Anion Gap 8, BUN 35 H, Creatinine 1.45 H, Estim Creat Clear Calc 27.93, Est GFR (MDRD) Af Amer 46 L, Est GFR (MDRD) Non-Af 38 L, BUN/Creatinine Ratio 24.1 H, Glucose 104, Calcium 8.2 L Radiography Diagnostic Testing: Radiology Impression Brain CT 02/12/22 13:01 IMPRESSION: Chronic involutional changes of the brain. Electronically Signed: Navid Portillo MD at 13:42 EDT , Lumbar Spine X-Ray 02/12/22 13:15 IMPRESSION: Degenerative changes of the spine, as detailed above. Almost complete collapse of the T12 vertebrae. Cholelithiasis. Electronically Signed: Navid Portillo MD at 13:52 EDT , Physical Exam Const alert, oriented x3 and no apparent distress Constitutional Narrative: frail and thin General Appearance: cooperative Exam Limitations: no limitations HEENT normocephalic, head/scalp atraumatic, hearing grossly normal bilaterally and moist oral mucous membranes Head and Scalp: normocephalic Eyes PERRL, EOMs intact bilaterally and conjunctivae normal Neck no lymphadenopathy, supple and no JVD Resp normal respiratory effort, no retractions, no use of accessory muscles and clear to auscultation bilaterally Cardio regular rate, regular rhythm, S1 normal heart sound, S2 normal heart sound and no murmurs GI soft to palpation and non-tender GI Narrative: Abdomen full, mildly distended, nontender. Tympanic to percussion. No organomegaly. Extremity normal to inspection, full ROM and no clubbing, cyanosis or edema Peripheral Pulses: Yes pulses 2+ throughout Skin no rashes or lesions noted Neuro oriented x3 and CN's II-XII intact bilaterally Sensorium / Orientation: awake and alert Psych affect normal Assessment & Plan Assessment/Plan (1) Lumbar contusion: (2) Fall: PLAN: #Debility due to mechanical fall and compression fracture * PT/OT on board * fall precautions * PT/OT consult * imaging showed T12 compression fracture * CT of the brain showed chronic involutional changes and no acute intracranial pathology * Po tylenol, PO oxycodone and IV morphine prn * #GARIMA * Cr is down to 1.45, from 1.96 * continue gentle hydration * has a single kidney * #Hyponatremia * likely due to decreased intake. Na is up to 132 today * hydrate gently with IVF and trend. #Pancytopenia * wbc is low at 0.8 and platelets are 37 today. * her previous records in the system from 2019 were WNL * I spoke to her oncologist Dr Booker today who stated that patient has chronic thrombocytopenia and leucopenia due to her history of alcohol abuse and cirrhosis. * She is also on Ibrance which can cause leukopenia and neutropenia. * Will hold Ibrance and monitor platelets and WBC count * #History of afib: * on coumadin. * We will discontinue Coumadin in light of her history of frequent falls as well as have marked thrombocytopenia. #Compression fracture * has T12 compression fracture. * PT/OT on board * pain better controlled today * If pain persists, consult pain management to see if she will benefit from kyphoplasty * #History of breast cancer * on fulvestrant and palbociclib. Hold palbociclib due to leucopenia * DVT prophylaxis: SCDs. Charges/Coding Visit Charges Inpatient E&M: 54924 Subs Hosp L2
--- NOTE | 2022-02-13 14:13 | CASEMGMT ---
Social Work Referral: Advanced directives/residential placement. Referral source: RN BRENDA Met with patient in room. Introduced self and foster care social worker role. Patient agreeable to speak with this foster care social worker. This foster care social worker broached topic of advanced care planning. Patient interested in information on advanced care planning and is not wanting to complete documents right now. This foster care social worker provided patient with information on advanced care planning as well as encouraged patient to ask for foster care social worker when patient is wanting to complete documents. Patient state that patient would nominate son, Beni Sarmiento as Health Care Power of Loss Prevention Associate. This foster care social worker then broaching topic of residential placement. Patient reports I am not going to be able to go home. Patient request for referral to be made to TCU. This foster care social worker inquired if patient would have a second option in the event that TCU does not have an opening. Patient stated I am not sure. This foster care social worker provided patient with list of in-network nursing facilities that are local to patient geographical region. This foster care social worker encouraged patient to look over list of nursing homes this weekend and choose a second option. Patient voiced understanding. This foster care social worker communicating that patient name will be added to referral list for TCU. Active support and listening provided. Patient confirms that Beni is main person to contact in regards to patient discharge planning/health information and is agreeable to Beni being contacted. Telephone call to [facility] Donna ZUÑIGA. Confidential voicemail left with patient information and request to add patient to referral list for TCU. PLAN: SNF, location [place]. Patrizia ZULETA, LAUREN
[2022-02-13] MEDS: 0.9% Normal Saline 1,000 ML 999 ML IV (18:11)
[2022-02-13] MEDS: 0.9% Saline Lock 10 ML Syringe IV (18:11)
[2022-02-14] VITALS (10 sets, daily range): BP systolic 101–125; BP diastolic 69–84; PULSE 84–124; RESP 16–18; TEMP 36–36.6; O2SAT 96–100
[2022-02-14 06:38] LABS: Absolute Lymphocyte Count 0.11 X10^3/uL (0.83-4.51); Absolute Neutrophil Count 0.4 X10^3/uL (2.0-7.7); Basophil# 0.01 X10^3/uL; Basophil% 1.7 % (0-1); Eosinophil# 0.01 X10^3/uL; Eosinophils% 1.7 % (0-5); Hematocrit 31.5 % (37-47); Hemoglobin 11.7 g/dL (12.0-15.0); Lymphocyte # 0.11 X10^3/ul (0.83-4.51); Lymphocyte % 18.3 % (19-41); Mean Corp Hgb Conc 37.1 g/dL (32-36); Mean Corpuscular Hgb 42.7 pg (27.0-32.0); Mean Platelet Vol. 11.9 fl (6.2-12.0); Monocyte# 0.05 X10^3/uL; Monocyte% 8.3 % (0-10); NRBC Flagged by Analyzer 0 % (0-5); Neutrophil # 0.41 X10^3/uL (2.7-7.7); Neutrophil % 68.3 % (47-70); POSITIVE COUNT YES; POSITIVE DIFFERENTIAL YES; POSITIVE MORPHOLOGY YES; Platelet Count 40 K/mm3 (150-450); RBC Distribution Width CV 17.4 % (11.6-14.6); RBC Distribution Width SD 74.3 fl (35.1-43.9); Red Blood Count 2.74 M/mm3 (4.2-5.4); White Blood Count 0.6 K/mm3 (4.4-11.0)
[2022-02-14 06:57] LABS: Anion Gap 8 (5-15); BUN 28 mg/dL (7-18); BUN/Creat Ratio 22.8 RATIO (10-20); Calcium,Total 8.5 mg/dL (8.5-10.1); Chloride 103 mmol/L (98-107); Creatinine, Serum 1.23 mg/dL (0.55-1.02); Differential Indicated SCAN CRITERIA MET; EST Glomerular Filtration Rate 46 mL/min (>60); Est Glom Filt Rate - Afr Amer 56 mL/min (>60); Estimated Creatinine Clearance 32.92 ml/min; Glucose 94 mg/dL (74-106); Potassium 3.8 mmol/L (3.5-5.1); Sodium Level 134 mmol/L (136-145)
[2022-02-14 07:02] LABS: Platelet Estimate MKD DEC (ADEQ)
[2022-02-14] MEDS: TBO-FILGRASTIM 300 MCG/0.5 ML ML SC (09:34)
[2022-02-14] MEDS: Iron Polysaccharide Complex 150 MG CAPSULE PO (09:34)
--- NOTE | 2022-02-14 10:34 | PN.HOSP_ITS ---
Subjective Subjective Patient seen and examined. She complains of constipation, but otherwise feels well. Review of systems otherwise negative. She has remained hemodynamically stable. Her wbc is down to 0.6, and platelets are 40 today. Objective Data Objective Data Vital Signs: Vital Signs Temp Pulse Resp BP Pulse Ox 97.9 F 98 18 125/76 H 100 02/14/22 08:13 02/14/22 08:13 02/14/22 08:13 02/14/22 08:13 02/14/22 08:13 Oxygen Delivery Method Room Air Weight: 106 lb 8 oz Body Mass Index (BMI) 21.4 Intake & Output: Intake and Output for Last 24 Hours 02/12/22 02/13/22 02/14/22 23:59 23:59 23:59 Intake Total 500 / 500 3683.33 / 3683.33 Balance 500 / 500 3683.33 / 3683.33 Medical Nutrition Assessment Dietitian: Malnutrition Criteria Met Start: 02/13/22 16:49 Freq: Status: Active Protocol: Document 02/13/22 16:49 TAN (Rec: 02/13/22 16:49 [facility] [id number]) Nutrition Malnutrition Evidence of Malnutrition Exists Yes Malnutrition (severe): Acute Illness/Injury Evidenced By Suboptimal Energy Intake ( Severe),Weight Loss (Severe) Clinical Problem Acute Disease or Injury Related Malnutrition Etiology related to physiological causes resulting in anorexia or diminished intake Signs/Symptoms as evidenced by significant weight loss of 11% in ~3 weeks per pt reported UBW of 119lb and CBW of 106lb, and prolonged poor oral intakes of less than 50% of estimated nutrient needs for greater than 5 days. Status Active Problem Recommendation Dietitian Recommendations/Changes Continue Cardiac diet 2/2 hyponatremia. Recommend change to Regular if oral intakes remain poor. Ensure Enlive 120mL 4x/day. Lab / Micro Data Result Diagrams: 02/14/22 06:26 02/14/22 06:26 Labs: Laboratory Results - last 24 hr 02/14/22 06:26: WBC 0.6 L*, RBC 2.74 L, Hgb 11.7 L, Hct 31.5 L, MCV 115.0 H, MCH 42.7 H, MCHC 37.1 H, RDW Std Deviation 74.3 H, RDW Coeff of Nigel 17.4 H, Plt Count 40 L*, MPV 11.9, Immature Gran % (Auto) 1.700 H, Neut % (Auto) 68.3, Lymph % (Auto) 18.3 L, [place] % (Auto) 8.3, Eos % (Auto) 1.7, Baso % (Auto) 1.7 H, Absolute Neuts (auto) 0.4 L, Absolute Lymphs (auto) 0.11 L, Nucleated RBC % 0, Diff Path Review March, Platelet Estimate MKD 02/14/22 06:26: Sodium 134 L, Potassium 3.8, Chloride 103, Carbon Dioxide 23.0, Anion Gap 8, BUN 28 H, Creatinine 1.23 H, Estim Creat Clear Calc 32.92, Est GFR (MDRD) Af Amer 56 L, Est GFR (MDRD) Non-Af 46 L, BUN/Creatinine Ratio 22.8 H, Glucose 94, Calcium 8.5 Physical Exam Const alert, oriented x3 and no apparent distress Constitutional Narrative: frail and thin General Appearance: cooperative Exam Limitations: no limitations Nutritional Appearance: cachectic HEENT normocephalic, head/scalp atraumatic, hearing grossly normal bilaterally and moist oral mucous membranes Head and Scalp: normocephalic Eyes PERRL, EOMs intact bilaterally and conjunctivae normal Neck no lymphadenopathy, supple and no JVD Resp normal respiratory effort, no retractions, no use of accessory muscles and clear to auscultation bilaterally Cardio regular rate, regular rhythm, S1 normal heart sound, S2 normal heart sound and no murmurs GI soft to palpation and non-tender GI Narrative: Abdomen full, mildly distended, nontender. Tympanic to percussion. No organomegaly. Extremity normal to inspection, full ROM and no clubbing, cyanosis or edema Peripheral Pulses: Yes pulses 2+ throughout Skin no rashes or lesions noted Neuro oriented x3 and CN's II-XII intact bilaterally Sensorium / Orientation: awake and alert Psych affect normal Assessment & Plan Assessment/Plan (1) Lumbar contusion: (2) Fall: PLAN: #Debility due to mechanical fall and compression fracture * imaging showed T12 compression fracture * per her oncologist, the compression fracture is chronic. * fall precautions * CT of the brain showed chronic involutional changes and no acute intracranial pathology * Po tylenol, PO oxycodone and IV morphine prn * #GARIMA * Cr is down to 1.23, baseline is <1 * Cr has improved significantly * hydrate gently with IVF * trend Cr * has a single kidney * #Pancytopenia * wbc is down to 0.8 today and platelets are 40 * per her oncologist, she has a history of cirrhosis, and so the low platelets are chronic, though she was apparently in the 170s * will start on granix today * oncology consulted today. Dr Fuchs verbally informed * #History of cirrhosis * patient apparently has a history of alcoholic cirrhosis * get CT of the abdomen and pelvis to evaluate. * #Hyponatremia * is up to 134. Will monitor. * #History of afib: Hold Coumadin on account of low platelets. #Compression fracture * has T12 compression fracture. * PT/OT on board * fall precautions. on PO oxycodone and PO tylenol * #History of breast cancer * on fulvestrant and palbociclib * DVT prophylaxis; SCDs o/a of thrombocytopenia DVT prophylaxis: DNR CCA no intubation * Disposition: awaiting placement * Charges/Coding Visit Charges Inpatient E&M: 35216 Subs Hosp L2
--- NOTE | 2022-02-14 12:53 | ONC.CONSULT ---
Assessment & Plan Assessment/Plan (1) Lumbar contusion: Status: Acute Code(s): S30.0XXA - Contusion of lower back and pelvis, initial encounter (2) Fall: Status: Acute Code(s): W19.XXXA - Unspecified fall, initial encounter (3) Vertebral fracture: Status: Acute (4) Alcoholic cirrhosis of liver with ascites: Status: Chronic Code(s): K70.31 - Alcoholic cirrhosis of liver with ascites (5) Breast cancer: Status: Chronic Code(s): C50.919 - Malignant neoplasm of unspecified site of unspecified female breast (6) Breast carcinoma metastatic, skin: Status: Acute Code(s): C50.919 - Malignant neoplasm of unspecified site of unspecified female breast; C79.2 - Secondary malignant neoplasm of skin (7) History of DVT (deep vein thrombosis): Status: Chronic Code(s): Z86.718 - Personal history of other venous thrombosis and embolism (8) Pancytopenia: Status: Acute Code(s): D61.818 - Other pancytopenia Plan: The patient is a 71-year-old female who had an ER/WV positive, HER-2 negative local regional recurrence of breast cancer resected from the left chest wall in 2019. Since that time she has been on Faslodex and Ibrance. Initial staging work-up at that time revealed no evidence of disease elsewhere. Her past medical history is complicated by osteoporosis and cirrhosis.She has a known T12 compression fracture which appears worse on current imaging. Her pain at this time is under better control. She has profound neutropenia and thrombocytopenia. Neutropenia likely secondary to Ibrance which has been placed on hold.Several weeks ago her outpatient platelet count was 107,000. It has fluctuated in the past. 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 Plan: -Recommend MRI of the thoracic spine with attention to T12. -CT chest, abdomen and pelvis without IV contrast. -Consult palliative care for outpatient pain management. -Consider chronic pain management consultation for assessment for potential kyphoplasty if MRI does not suggest metastatic disease. -Continue Granix. -Check PTT and fibrinogen level. Suspect she may have worsening cirrhosis which is contributed to her high INRs lately. -Monitor counts on a daily basis. -Pneumatic compression stockings. HPI Consult Data Date of Service:: 02/14/22 PCP / Referring Provider: Dr. Nacho Quintero DO Attending: Dr. Elisabeth Lara MD Chief Complaint Chief Complaint: Breast cancer History of Present Illness History of Present Illness: pt. noted inversion of left nipple and underlying breast lump. ?? Diagnostic imaging: RESULT: There is an irregular area of increased density in the inner to upper inner portion of the left breast. This has striated margins. This is reportedly the area of the probable nodule. There is an irregular rounded area of increased density in the upper outer portion of the right breast. The breasts are heterogeneously dense. There are vascular calcifications in each breast. There are some other benign appearing calcifications. No suspicious cluster of microcalcifications is seen. TECHNIQUE: Ultrasound was performed in the upper inner portion of the left breast in the area of the palpable lesion and in the upper outer portion of the right breast in the area of the asymmetric density noted on the mammogram. RESULT: On the right, there is an irregular rounded hypoechoic area with spiculated margins at 10:00, 6 cm from the nipple. That measures 9 x 12 x 14 mm. There appears to be some mild posterior acoustic shadowing. There was some color flow within this lesion. On the left, there is a large irregular rounded hypoechoic area at about 10:00, 2 cm from the nipple. It has some color flow at the margin. This has dense posterior acoustic shadowing. This lesion appears to measure about 2.8 cm in transverse dimension and 3.9 cm in craniocaudal extent. This has spiculated margins. This is the area of the palpable lesion. IMPRESSION: 1. There is a large irregular hypoechoic area with shadowing at 10:00, 2 cm from the nipple in the left breast. This corresponds to the area of the palpable finding and the mammographic finding. This is worrisome in appearance and is suggestive of malignancy. 2. There is an irregular rounded hypoechoic nodule in the upper outer portion of the right breast at about 10:00, 6 cm from the nipple. This corresponds to the mammographic finding. This is also worrisome in appearance. Surgical consultation is recommended for bilateral breast biopsies.? MRI:? Incidental findings: There is ascites around the liver and a small left pleural effusion. There is cardiomegaly without pericardial effusion. Right breast: There is a significant amount of scattered fibroglandular tissue and background enhancement. There is a dominant mass deep in the upper outer quadrant measuring 14 x 13 x 15 mm. The mass has irregular spiculated margins and demonstrates plateau and washout enhancement kinetics. This corresponds to the lesion seen on recent mammography and ultrasound and is highly suspicious for neoplasm. There are multiple additional nodular areas of enhancement, for instance just anterior and inferior to the dominant mass there is a 9 mm enhancing nodule showing mostly progressive with some plateau kinetics and in the upper inner quadrant there are 2 oblong areas of enhancement, the more posterior measuring 1.4 cm in length and the more anterior 1.1 cm in length. Multiple additional 5 mm or less in size foci of enhancement are scattered throughout the breast. No abnormal lymph nodes are evident on the right. Left breast: There is a significant amount of scattered fibroglandular tissue and background enhancement. There is a dominant, irregularly marginated mass in the anterior central breast measuring 3.7 x 2.9 x 3.2 cm. This results in skin and nipple retraction and is highly suspicious for neoplasm. There is plateau and washout kinetics in portions of this mass. In the deep upper inner quadrant there is a 15 mm nodular, slightly irregular area of enhancement and in the deep upper-outer quadrant there is a 6 mm nodular area of enhancement. Multiple additional scattered foci of enhancement measuring 5 mm in size or less are noted. There are noted to be slightly prominent lower left axillary lymph nodes and a suspected abnormal lymph node beneath the left pectoralis major muscle. IMPRESSION: 1. Dominant masses bilaterally, highly suspicious for malignancy. Multiple additional nodular areas of enhancement as described are noted bilaterally with additional areas of neoplasm not excluded. There is concern for left axillary and subpectoralis metastatic lymphadenopathy. 2. Ascites and small left pleural effusion. CT of the chest, abdomen and pelvis is recommended. Inadvertently omitted from the original report is an area of clumped enhancement measuring approximately 1.5 cm in maximal diameter anteriorly in the 6:00 region of the right breast. Malignancy in this location cannot be excluded. ?? Underwent biospy b/l. ?? LEFT--invasive lobular; ER 98% WV 78% HER2 3+ RIGHT--Fibrocystic changes. ?? CTs RESULTS: Chest: heterogeneous breast tissue is seen bilaterally with a nodular like density in the upper outer right breast and mid left breast. By size criteria there is no axillary, mediastinal, or hilar adenopathy. The aortic arch and great vessels are normal caliber. The heart is mildly enlarged with no pericardial effusion. There is a small retrocardiac hiatal hernia. Abdomen: Ascites is seen in all quadrants. Multiple gallstones are seen in the gallbladder. There is no focal liver lesion or ductal dilatation. The spleen is enlarged measuring 14 cm in length. The pancreas and adrenals are normal. There is no periportal or retroperitoneal adenopathy. Small amount of atherosclerotic calcification is seen in the lumbar aorta with no aneurysmal dilatation. The inferior vena cava is patent. There is a solitary right kidney which shows compensatory hypertrophy. There is no renal mass, calculus, or hydronephrosis. Visualized portions of the bowel shows no wall thickening or obstruction. Pelvis: The uterus is positioned to the right of midline within the pelvis. There is no adnexal mass. There is no bladder wall thickening. There is no iliac or inguinal adenopathy. There are some degenerative changes of the mid and lower lumbar spine with no blastic or lytic vertebral lesions seen. IMPRESSION: Splenomegaly with ascites. No focal intrahepatic lesion. Cholelithiasis. Solitary right kidney. No significant adenopathy. Breast lesions as seen previously. ? Underwent biopsy of the?right?sided rest tumor. The pathology revealed an?invasive ductal carcinoma. ER positive HER-2 negative. ?? Underwent b/l mastectomy with right sided SLN biopsy and ALND along with left mastectomy, SLN biopsy and ALND 09/05/13. ?? Final pathology: Right:? 1.5 cm invasive ductal carcinoma. DCIS 10% tumor volume. Grade 2. Margin 1 cm closest. No LV invasion. 5 nodes total all negative. pT1c N0 ER/WV positive (>95%/81%) HER2 amplified by FISH. Left:? Multifocal invasive lobular with largest 4.5 cm Multifocal LCIS. Grade 2. No LV invasion. 6 nodes total. 1 of the 2 SLNs had a 0.35 mm focus of cancer. pT2m N1 shila. ER/WV positive (98%/78%) HER2 3+. ?? Received cycle #2 AC 11/08/13. Was seen 2 weeks later. ANC good. Had infected finger. Given antibiotics. Cycle #3 held a week later due to thrombocytopenia. Then developed MSSA infection of right mastectomy site. At that time, abdominal girth noted to have increased. Admitted for IV antibiotics. Diagnostic paracentesis. Started arimidex:12/2013 Started Herceptin:01/16/14 on hold d/t low EF. ? EGD by Dr. Cordoba fall 2014. ?? Had R leg embolectomy 08/16/17 at [facility] in [place]. Recovered well. On coumadin. ?? Previous?therapy: 1) Anastrozole. ? Dr. Peace performed biopsy 08/2018: Left breast, ultrasound-guided biopsy - Invasive lobular carcinoma, nuclear grade 1, with skeletal muscle invasion. - See comment. ? Estrogen Receptor (ER) ? ?Positive (80%) ? ?Stain intensity: ?moderate to strong ? ?Internal controls: absent ? ?External controls: appropriately stained Progesterone Receptor (PgR) ? ?Negative (<1%) ? ?Stain intensity: weak ? HER-2 nonamplified by FISH testing. ? ? Current therapy:faslodex/ibrance Ibrance began ?,?2019. ? ? Pt. was admitted to?[facility]?Hospital following?a fall on?12/22/18. Underwent a ORIF of?R?hip on 12/24/[address] Burt, was d/c'd?from hospital and admitted to TCU for rehab on 12/29/18. Discharged from TCU 01/11/19?to home. Had f/u appt with Dr. Nam office 01/16/19. ? ? Ibrance dose reduced to 100mg in February 2019. ? ? Ibrance?reduced?75mg d/t neutropenia?2018. Around the end of December her back pain became much worse. She has a known compression fracture of T12. She was seen by her PCP and was scheduled for outpatient MRI imaging yesterday. However night in her bedroom she fell backward getting into bed because she felt dizzy. She was unable to get up because the pain was so excruciating. She laid there all night until her son found her the next day and got her to the emergency room. On presentation she was found to have a severely low platelet count in the 40,000 range. Total white blood cell count very low as well. Ibrance was stopped. She was started on Granix today. Coumadin was discontinued. She is not had any unusual bleeding. Bruises very easily however. At home she does not use any NSAIDs and rarely takes Tylenol. She has not had any alcohol in about 3 years. Recent outpatient INRs have been ranging 5-7. CT brain showed age-related involutional changes with no evidence of metastatic disease. Advanced Directives Power of Complaint Adjuster: No Living Will: [facility] Medical History (Updated 02/14/22 @ 14:[address] Gokul Booker DO) DVT (deep venous thrombosis) Heart murmur Hip fracture Kidney anomaly, congenital Migraines Home Medications metoprolol tartrate 25 mg PO BID 08/16/17 [History Last Taken 02/11/22] furosemide 20 mg PO DAILY 12/22/18 [History Last Taken 02/11/22] spironolactone 50 mg PO BID 12/22/18 [History Last Taken 02/11/22] warfarin 1 mg PO MO 12/22/18 [History Last Taken 3 Weeks Ago ~01/22/22] warfarin 2 mg PO SUTUWETHFRSA 12/22/18 [History Last Taken 3 Weeks Ago ~01/22/22] acetaminophen [Tylenol] 650 mg PO Q6H PRN PRN tablet 12/27/18 [Rx Last Taken Unknown] polysaccharide iron complex [Ferrex 150] 150 mg PO DAILYCM #30 capsule 01/08/19 [Rx Last Taken 02/11/22] tramadol 50 mg PO Q6H PRN PRN #28 tab 01/08/19 [Rx Last Taken 02/10/22] hydrocodone-acetaminophen 1 tab PO Q6H PRN 3 Days #10 tab 02/11/22 [Rx Last Taken Unknown] fulvestrant 500 mg IM QMONTH 02/12/22 [History Last Taken 01/07/22] palbociclib [Ibrance] 75 mg PO DAILY 02/12/22 [History Last Taken 02/11/22] Allergy/AdvReac Type Severity Reaction Status Date / Time carvedilol AdvReac dizziness, Verified 02/11/22 12:56 can't function Social History Smoking Status: Never smoker Physical Exam Const alert and oriented x3 Neck no lymphadenopathy Chest Chest Narrative: There are no chest wall masses or nodules with careful palpation along previous mastectomy sites.No chest wall recurrence of the resected disease at the left chest wall site. Resp normal respiratory effort Cardio regular rhythm GI GI Narrative: The abdomen is distended and tympanic. There is diffuse tenderness. Not able to palpate deeply enough to appreciate for underlying splenomegaly due to patient discomfort. Extremity no clubbing, cyanosis or edema Skin Skin Narrative: She has scattered small petechiae and ecchymoses on the lower extremities. Neuro Neuro Narrative: Patellar DTRs normal. She has Diminished leg strength bilaterally and symmetrically. Vital Signs Temperature 97.9 F 02/14/22 08:13 Temperature Source Temporal 02/14/22 08:13 Pulse Rate 97 02/14/22 10:59 Pulse Strength Normal (2+) 02/14/22 12:36 Respiratory Rate 18 02/14/22 08:13 Respiratory Effort Non-Labored 02/14/22 08:15 Respiratory Depth Normal 02/14/22 08:15 Respiratory Pattern Normal 02/14/22 08:15 Blood Pressure 125/76 H 02/14/22 08:13 Blood Pressure Mean 92 02/14/22 08:13 Blood Pressure Source Monitor 02/14/22 08:13 Blood Pressure Position Semi-Fowlers 02/14/22 08:13 Blood Pressure Location Right Leg 02/14/22 08:13 Pulse Ox 100 02/14/22 08:13 Oxygen Delivery Method Room Air 02/14/22 08:15 Laboratory Results - last 24 hr 02/14/22 06:26: WBC 0.6 L*, RBC 2.74 L, Hgb 11.7 L, Hct 31.5 L, MCV 115.0 H, MCH 42.7 H, MCHC 37.1 H, RDW Std Deviation 74.3 H, RDW Coeff of Nigel 17.4 H, Plt Count 40 L*, MPV 11.9, Immature Gran % (Auto) 1.700 H, Neut % (Auto) 68.3, Lymph % (Auto) 18.3 L, [place] % (Auto) 8.3, Eos % (Auto) 1.7, Baso % (Auto) 1.7 H, Absolute Neuts (auto) 0.4 L, Absolute Lymphs (auto) 0.11 L, Nucleated RBC % 0, Diff Path Review March, Platelet Estimate MKD 02/14/22 06:26: Sodium 134 L, Potassium 3.8, Chloride 103, Carbon Dioxide 23.0, Anion Gap 8, BUN 28 H, Creatinine 1.23 H, Estim Creat Clear Calc 32.92, Est GFR (MDRD) Af Amer 56 L, Est GFR (MDRD) Non-Af 46 L, BUN/Creatinine Ratio 22.8 H, Glucose 94, Calcium 8.[address] 02/12/22 13:01 IMPRESSION: Chronic involutional changes of the brain. Electronically Signed: Navid Portillo MD at 13:42 EDT , Lumbar Spine X-Ray 02/12/22 13:15 IMPRESSION: Degenerative changes of the spine, as detailed above. Almost complete collapse of the T12 vertebrae. Cholelithiasis. Electronically Signed: Navid Portillo MD at 13:52 EDT ,
[2022-02-14] MEDS: HYDROcodone Bitartrate/Apap 5/325 Tablet PO (13:42)
--- NOTE | 2022-02-14 14:24 | CT_ITS ---
STUDY: CT CHEST, ABDOMEN T PELVIS WITHOUT CONTRAST REASON FOR EXAM: Female, 71 years old. metastatic breast cancer RADIATION DOSAGE (If Supplied By Facility): CTDIvol = ( 10.24 ) mGy, DLP = ( 807.75 ) mGycm TECHNIQUE: Transaxial imaging was performed without the administration of intravenous contrast material. Individualized dose optimization techniques were used for this CT. COMPARISON: 11/27/2013 FINDINGS: The study is limited due to lack of intravenous contrast. CHEST: Atherosclerosis of the thoracic aorta and coronary arteries noted. Trace layering pleural effusions bilaterally. No pericardial effusion. Mild cardiomegaly. No adenopathy. No pneumothorax. Subsegmental consolidations in the bilateral lower lobes, likely compressive atelectasis. Aspiration or pneumonia not excluded. No definite pulmonary nodule or mass diffuse osteopenia mass. Abdomen and pelvis: Cirrhotic morphology of the liver with multiple lobulated nodular density throughout the liver, which may represent regenerative or dysplastic nodules. Metastasis cannot be excluded. Unremarkable spleen, pancreas, adrenals, and right kidney on this unenhanced study. The left kidney absent. Moderate ascites. No free air. Multiple stones in the gallbladder measuring up to 2.2 cm. Normal appendix. Bowel loops nonobstructed. No bulky adenopathy. Sections through the pelvis demonstrate an incompletely distended urinary bladder. Fluid-containing left inguinal hernia. Bones: Diffuse osteopenia. Multilevel thoracolumbar spondylosis. Old compression fractures of T4, T6, T8, L1 and L2 vertebral bodies. Right intramedullary hip screw partially included. CT/CT Chest, Abd, Pelvis WO Cont IMPRESSION: Limited study due to lack of intravenous contrast. Trace layering pleural effusions bilaterally. Mild cardiomegaly. Subsegmental consolidations in the bilateral lower lobes, likely compressive atelectasis. Aspiration or pneumonia cannot be excluded. Cirrhotic morphology of the liver. The possibility of multifocal HCC or metastasis cannot be excluded. Moderate ascites. Cholelithiasis. Left kidney is absent. Electronically Signed: Randy Steve MD at 15:56 EDT ,
[2022-02-14 15:07] LABS: AST(SGOT) 33 U/L (15-37); Alanine Aminotransfer ALT/SGPT 20 U/L (13-56); Albumin, Serum 2.6 g/dL (3.2-5.0); Alkaline Phosphatase 114 U/L (45-117); Bilirubin, Direct 0.62 mg/dL (0.00-0.30); Globulin 3.5 g/dL (2.2-4.2); Protein, Total 6.1 g/dL (6.4-8.2)
[2022-02-14 15:09] LABS: LDH 285 U/L (84-246)
[2022-02-14 16:22] LABS: Partial Thromboplast Time 34.9 Seconds (24.1-36.2)
[2022-02-14 16:23] LABS: Fibrinogen 408 mg/dl (203-444)
[2022-02-14] MEDS: Metoprolol Tartrate 25 MG Tablet PO (17:49)
[2022-02-15] VITALS (12 sets, daily range): BP systolic 103–130; BP diastolic 58–90; PULSE 86–95; RESP 18; TEMP 36.4–36.8; O2SAT 94–99
--- NOTE | 2022-02-15 05:55 | MRI_ITS ---
STUDY: MRI THORACIC SPINE WITH AND WITHOUT CONTRAST REASON FOR EXAM: Female, 71 years old. breast cancer, T12 compression fracture CT ABD/PELVIS DONE 02/14/22; LUMBAR XR DONE 02/12/22. INCREASED PAIN IN BACK X 3.5 WEEKS. TECHNIQUE: IV 9mL DOTAREM was administered for the contrast portion of the examination. COMPARISON: CT of the chest abdomen and pelvis dated January 20172021. X-ray of the lumbar spine dated February 12, 2022 FINDINGS: Acute on chronic compression fracture of T12 with diffuse marrow edema and greater than 50% loss of height with minimal retropulsion. Low signal areas in the superior endplate either represent sclerosis or prior intervention. There is such a history at this level. Mild superior endplate edema is present in the L1 vertebral body likely due to an acute on chronic process as well or insufficiency stress edema. Mild enhancement is present in the posterior aspects of the T11 vertebral body. Diffuse enhancement is present throughout the compression fracture of the T12 vertebral body extending to the pedicle junctions bilaterally. Mild enhancement is also seen in the superior endplate of the L1 vertebral body. This pattern is consistent with reactive hyperemic changes related to the compression fractures and does not have the appearance of underlying metastatic disease or pathologic fractures. However correlation with PET CT is recommended. Mild diffuse enhancement is also seen in the T2, T3, T4, and T5 vertebral bodies Chronic high-grade T8 vertebral body compression deformity with a vertebral plana appearance due to significant loss of height. Mild chronic compression deformities of T9, T10, and T11 with minimal loss of height. Similar findings are present at L1. Normal kyphosis of the thoracic spine. There is no substantial scoliosis. T1-2, T2-3, T3-4, T4-5, T5-6, T6-7, T7-8, T8-9, T9-10, T10-11, T11-12: Diffuse disc desiccation and mild endplate spondylosis noted at all levels. No significant posterior disc space narrowing or extrusions or herniations. No demonstrated cord compression. Normal central canal and intervertebral neural foramina at the corresponding levels. Normal visualized thoracic cord. Normal conus medullaris that terminates at the T12-L1 level.. The soft tissue structures are unremarkable. The included portions of the upper abdomen reveal a diffusely cirrhotic nodular heterogeneous appearing liver. MRI/Spine Thoracic W/WO Contrast IMPRESSION: 1. Acute on chronic compression fracture of T12 with diffuse marrow edema and greater than 50% loss of height with minimal retropulsion. Low signal areas in the superior endplate either represent sclerosis or prior intervention. There is such a history at this level. Mild superior endplate edema is present in the L1 vertebral body likely due to an acute on chronic process as well or insufficiency stress edema. 2. Mild enhancement is present in the posterior aspects of the T11 vertebral body. Diffuse enhancement is present throughout the compression fracture of the T12 vertebral body extending to the pedicle junctions bilaterally. Mild enhancement is also seen in the superior endplate of the L1 vertebral body. 3. This pattern is consistent with reactive hyperemic changes related to the compression fractures and does not have the appearance of underlying metastatic disease or pathologic fractures. However correlation with PET CT is recommended. Electronically Signed: Flo Noriega MD at 13:52 EDT ,
[2022-02-15 06:28] LABS: Hemoglobin 12.1 g/dL (12.0-15.0); Mean Corp Hgb Conc 35.6 g/dL (32-36); Mean Corpuscular Hgb 42.3 pg (27.0-32.0); Mean Corpuscular Volume 118.9 fL (81-99); Mean Platelet Vol. 11.6 fl (6.2-12.0); POSITIVE COUNT YES; POSITIVE DIFFERENTIAL YES; POSITIVE MORPHOLOGY YES; Platelet Count 46 K/mm3 (150-450); RBC Distribution Width CV 17.3 % (11.6-14.6); RBC Distribution Width SD 76.2 fl (35.1-43.9); Red Blood Count 2.86 M/mm3 (4.2-5.4); White Blood Count 1.1 K/mm3 (4.4-11.0)
[2022-02-15 06:32] LABS: Differential Indicated MANUAL DIFF
[2022-02-15 06:54] LABS: Anion Gap 9 (5-15); BUN 28 mg/dL (7-18); BUN/Creat Ratio 23.9 RATIO (10-20); Calcium,Total 8.5 mg/dL (8.5-10.1); Chloride 101 mmol/L (98-107); Creatinine, Serum 1.17 mg/dL (0.55-1.02); EST Glomerular Filtration Rate 49 mL/min (>60); Est Glom Filt Rate - Afr Amer 59 mL/min (>60); Estimated Creatinine Clearance 34.61 ml/min; Glucose 100 mg/dL (74-106); Sodium Level 132 mmol/L (136-145)
[2022-02-15 07:00] LABS: Basophil 1 % (0-1); Eosinophil 2 % (0-5); Lymphocyte 14 % (19-41); Metamyelocyte 2 % (0-1); Monocyte 8 % (0-10); Neutrophil-Band 4 % (0-5); Neutrophil-Segmented 69 % (47-70); Total Cells Counted 100 (MANUAL DIFF)
[2022-02-15 07:03] LABS: Platelet Estimate MKD DEC (ADEQ)
[2022-02-15 07:04] LABS: Polychromasia 1+
[2022-02-15 07:05] LABS: Anisocytosis 2+
[2022-02-15 07:06] LABS: Microcytosis 1+
[2022-02-15 07:52] LABS: Absolute Lymphocyte Count 0.15 X10^3/uL (0.83-4.51); Absolute Neutrophil Count 0.8 X10^3/uL (2.0-7.7)
[2022-02-15] MEDS: Iron Polysaccharide Complex 150 MG CAPSULE PO (08:47)
[2022-02-15] MEDS: Metoprolol Tartrate 25 MG Tablet PO ×2 (09:00→22:33)
[2022-02-15] MEDS: TBO-FILGRASTIM 300 MCG/0.5 ML ML SC (09:00)
--- NOTE | 2022-02-15 11:39 | CASEMGMT ---
Social Work Note ANJEL reviewed chart. Pt is interested in [facility] TCU, referral was made. SW received call from Donna with TCU. TCU is able to accept pt and will submit for pre-cert. SW updated that pt's platelets are low and if pt needs continued transfusions for platelets, TCU is not able to accept pt. ANJEL spoke with distribution operations supervisor, no plans for pt to get transfusions for platelets at this time. Pt will get Granix. ANJEL placed a call to Donna with TCU and updated her. TCU to submit for pre-cert. Plan: TCU pending pre-cert Brandi Sy HOT AIR FURNACE INSTALLER AND REPAIRER, THERAPIST SPEECH
--- NOTE | 2022-02-15 12:27 | CASEMGMT ---
Addendum entered by Brandi Sy 02/15/22 15:06: SW received email from Donna with TCU. Pt will not be able to be on Faslodex IM injection while at TCU and pt's family will need to bring in Ibrance while pt is on TCU. SW in to speak with pt. SW introduced self and role at [facility]. SW informed pt that pt will not be able to receive Faslodex and pt's family will need to bring in Ibrance for pt to receive while on TCU. Pt states that is ok, my oncologist is adjusting my medications. SW informed pt that TCU is able to accept pt pending pre-cert. Pt states understanding. Plan: TCU pending pre-cert Original Note: Social Work Note SW attempted to meet with pt. Pt currently off floor. Plan: TCU pending pre-cert Brandi Sy INDUSTRIAL REAL ESTATE AGENT, CAR SUPERVISOR
--- NOTE | 2022-02-15 14:08 | PN.HOSP_ITS ---
Subjective Subjective abdominal distention. +flatus. Objective Data Objective Data Vital Signs: Vital Signs Temp Pulse Resp BP Pulse Ox 36.6 C 95 18 103/63 96 02/15/22 10:00 02/15/22 10:01 02/15/22 10:00 02/15/22 10:00 02/15/22 10:13 Oxygen Flow Rate (L/min) 96 Oxygen Delivery Method Room Air Weight: 48.308 kg Body Mass Index (BMI) 21.4 Intake & Output: Intake and Output for Last 24 Hours 02/13/22 02/14/22 02/15/22 23:59 23:59 23:59 Intake Total 3683.33 / 3683.33 610 / 610 Output Total 200 / 200 Balance 3683.33 / 3683.33 410 / 410 Medical Nutrition Assessment Dietitian: Malnutrition Criteria Met Start: 02/13/22 16:49 Freq: Status: Active Protocol: Document 02/13/22 16:49 UMESH (Rec: 02/13/22 16:49 UMESH [id number]) Nutrition Malnutrition Evidence of Malnutrition Exists Yes Malnutrition (severe): Acute Illness/Injury Evidenced By Suboptimal Energy Intake ( Severe),Weight Loss (Severe) Clinical Problem Acute Disease or Injury Related Malnutrition Etiology related to physiological causes resulting in anorexia or diminished intake Signs/Symptoms as evidenced by significant weight loss of 11% in ~3 weeks per pt reported UBW of 119lb and CBW of 106lb, and prolonged poor oral intakes of less than 50% of estimated nutrient needs for greater than 5 days. Status Active Problem Recommendation Dietitian Recommendations/Changes Continue Cardiac diet 2/2 hyponatremia. Recommend change to Regular if oral intakes remain poor. Ensure Enlive 120mL 4x/day. Lab / Micro Data Result Diagrams: 02/15/22 05:35 02/15/22 05:35 Labs: Laboratory Results - last 24 hr 02/14/22 14:38: APTT 34.9, Fibrinogen 408 02/14/22 14:38: Lactate Dehydrogenase 285 H 02/14/22 14:38: Total Bilirubin 1.40 H, Direct Bilirubin 0.62 H, AST 33, ALT 20, Alkaline Phosphatase 114, Total Protein 6.1 L, Albumin 2.6 L, Globulin 3.5 02/15/22 05:35: WBC 1.1 L*, RBC 2.86 L, Hgb 12.1, Hct 34.0 L, MCV 118.9 H, MCH 42.3 H, MCHC 35.6, RDW Std Deviation 76.2 H, RDW Coeff of Nigel 17.3 H, Plt Count 46 L*, MPV 11.6, Neut % (Auto) Not Reportable, Absolute Neuts (auto) 0.8 L, Absolute Lymphs (auto) 0.15 L, Total Counted 100, Neutrophils % (Manual) 69, Band Neutrophils % 4, Lymphocytes % (Manual) 14 L, Monocytes % (Manual) 8, Eosinophils % (Manual) 2, Basophils % (Manual) 1, Metamyelocytes % 2 H, Diff Path Review March, Platelet Estimate MKD DEC, Polychromasia 1+, Anisocytosis 2+, Microcytosis 1+ 02/15/22 05:35: Sodium 132 L, Potassium 4.0, Chloride 101, Carbon Dioxide 22.0, Anion Gap 9, BUN 28 H, Creatinine 1.17 H, Estim Creat Clear Calc 34.61, Est GFR (MDRD) Af Amer 59 L, Est GFR (MDRD) Non-Af 49 L, BUN/Creatinine Ratio 23.9 H, Glucose 100, Calcium 8.5 Radiography Diagnostic Testing: Radiology Impression Chest/Abdomen/Pelvis CT 02/14/22 14:24 IMPRESSION: Limited study due to lack of intravenous contrast. Trace layering pleural effusions bilaterally. Mild cardiomegaly. Subsegmental consolidations in the bilateral lower lobes, likely compressive atelectasis. Aspiration or pneumonia cannot be excluded. Cirrhotic morphology of the liver. The possibility of multifocal HCC or metastasis cannot be excluded. Moderate ascites. Cholelithiasis. Left kidney is absent. Electronically Signed: Randy Steve MD at 15:56 EDT , Thoracic Spine MRI 02/15/22 05:55 IMPRESSION: 1. Acute on chronic compression fracture of T12 with diffuse marrow edema and greater than 50% loss of height with minimal retropulsion. Low signal areas in the superior endplate either represent sclerosis or prior intervention. There is such a history at this level. Mild superior endplate edema is present in the L1 vertebral body likely due to an acute on chronic process as well or insufficiency stress edema. 2. Mild enhancement is present in the posterior aspects of the T11 vertebral body. Diffuse enhancement is present throughout the compression fracture of the T12 vertebral body extending to the pedicle junctions bilaterally. Mild enhancement is also seen in the superior endplate of the L1 vertebral body. 3. This pattern is consistent with reactive hyperemic changes related to the compression fractures and does not have the appearance of underlying metastatic disease or pathologic fractures. However correlation with PET CT is recommended. Electronically Signed: Flo Noriega MD at 13:52 EDT Reading Location ID and State: [facility] / [place] , Service support , Physical Exam Const alert and no apparent distress HEENT head/scalp atraumatic, moist oral mucous membranes and oropharynx normal Head and Scalp: normocephalic Eyes PERRL and EOMs intact bilaterally Neck no lymphadenopathy Resp normal respiratory effort, no retractions, no use of accessory muscles and clear to auscultation bilaterally Cardio regular rate, regular rhythm, S1 normal heart sound and S2 normal heart sound GI GI Narrative: distended. high-pitched BS. Neuro Sensorium / Orientation: awake and alert Assessment & Plan Assessment/Plan (1) Lumbar contusion: QUALIFIERS: Encounter type: initial encounter Qualified Code(s): S30.0XXA - Contusion of lower back and pelvis, initial encounter (2) Fall: QUALIFIERS: Encounter type: sequela Qualified Code(s): W19.XXXS - Unspecified fall, sequela (3) Ileus: (4) Vertebral fracture: QUALIFIERS: Encounter type: initial encounter Fracture of vertebra location: thoracic Thoracic vertebra fracture level: T12 Fracture type: closed Fracture morphology: unspecified fracture morphology Qualified Code(s): S22.089A - Unspecified fracture of T11-T12 vertebra, initial encounter for closed fracture PLAN: 1. Debility due to mechanical fall and compression fracture * imaging showed T12 compression fracture * per her oncologist, the compression fracture is chronic. * fall precautions * CT of the brain showed chronic involutional changes and no acute intracranial pathology * Po tylenol, PO oxycodone and IV morphine prn 2. GARIMA * resolved * Cr has improved significantly * hydrate gently with IVF * trend Cr * has a single kidney 3. Pancytopenia * wbc is down to 0.8 today and platelets are 40 * per her oncologist, she has a history of cirrhosis, and so the low platelets are chronic, though she was apparently in the 170s * will start on granix today * oncology consulted 4. History of cirrhosis * patient apparently has a history of alcoholic cirrhosis * get CT of the abdomen and pelvis to evaluate. 5. Hyponatremia * is up to 134. Will monitor. 6. History of afib: Hold Coumadin on account of low platelets. 7. Compression fracture * acute on chronic on MRI * 50% loss of height at T12 compression fracture. * PT/OT on board * fall precautions. on PO oxycodone and PO tylenol * not a candidate for kyphoplasty given thrombocytopenia * check 25 OH d 8. Ileus * +flatus * doubt SBO * check AXR 9. History of breast cancer * on fulvestrant and palbociclib 10. DVT prophylaxis; SCDs o/a of thrombocytopenia 11. Code status: DNR CCA no intubation * Disposition: TBD Charges/Coding Visit Charges Inpatient E&M: 67453 Subs Hosp L2
--- NOTE | 2022-02-15 14:11 | RAD_ITS ---
EXAM: XR ABDOMEN, 1 VIEW CLINICAL INDICATION: abdominal distention TECHNIQUE: Frontal supine view of the abdomen/pelvis. This report was created using [employer]~Flow™ report generation technology. COMPARISON: CT done yesterday FINDINGS: LOWER THORAX: Bilateral pleural effusions. Left lower lobe infiltrate. INTRAPERITONEAL SPACE: Centrally located bowel loops suggests ascites. GASTROINTESTINAL TRACT: Bowel gas pattern may suggest an ileus. Obstruction is not excluded. ORGANS: Gallstones in the gallbladder. No organomegaly. BONES/JOINTS: Degenerative findings in the lumbar spine. There is metallic hardware noted in the right hip. SOFT TISSUES: No acute pathology. RAD/Abdomen Single View (Portable) IMPRESSION: 1. Centrally located bowel loops suggests ascites. 2. Gallstones in the gallbladder. 3. Bowel gas pattern may suggest an ileus. Obstruction is not excluded. 4. Bilateral pleural effusions. Left lower lobe infiltrate. Electronically Signed: Lopez Mendoza MD at 16:19 EDT ,
[2022-02-15] MEDS: HYDROcodone Bitartrate/Apap 5/325 Tablet PO (14:16)
[2022-02-15] MEDS: Acetaminophen 325 MG Tablet 650 MG PO (22:32)
[2022-02-16] VITALS (8 sets, daily range): BP systolic 101–133; BP diastolic 65–92; PULSE 80–88; RESP 16; TEMP 36.4–36.6; O2SAT 96–98
[2022-02-16 07:18] LABS: Hematocrit 32.8 % (37-47); Mean Corp Hgb Conc 36.6 g/dL (32-36); Mean Corpuscular Hgb 42.6 pg (27.0-32.0); Mean Corpuscular Volume 116.3 fL (81-99); Mean Platelet Vol. 13.7 fl (6.2-12.0); POSITIVE COUNT YES; POSITIVE DIFFERENTIAL YES; POSITIVE MORPHOLOGY YES; Platelet Count 35 K/mm3 (150-450); RBC Distribution Width CV 17.3 % (11.6-14.6); RBC Distribution Width SD 74.2 fl (35.1-43.9); Red Blood Count 2.82 M/mm3 (4.2-5.4); White Blood Count 1.4 K/mm3 (4.4-11.0)
[2022-02-16 07:20] LABS: Differential Indicated MANUAL DIFF
[2022-02-16 07:42] LABS: Anion Gap 6 (5-15); BUN 29 mg/dL (7-18); BUN/Creat Ratio 22.8 RATIO (10-20); Calcium,Total 8.6 mg/dL (8.5-10.1); Chloride 102 mmol/L (98-107); Creatinine, Serum 1.27 mg/dL (0.55-1.02); EST Glomerular Filtration Rate 44 mL/min (>60); Est Glom Filt Rate - Afr Amer 54 mL/min (>60); Estimated Creatinine Clearance 31.88 ml/min; Glucose 91 mg/dL (74-106); Potassium 4.5 mmol/L (3.5-5.1); Sodium Level 131 mmol/L (136-145)
[2022-02-16 07:57] LABS: Lymphocyte 11 % (19-41); Metamyelocyte 2 % (0-1); Monocyte 1 % (0-10); Neutrophil-Segmented 86 % (47-70); Total Cells Counted 100 (MANUAL DIFF)
[2022-02-16 07:58] LABS: Anisocytosis 1+; Platelet Estimate MKD DEC (ADEQ); Red Cell Morphology N CHROM NORMAL (NORM C&C)
[2022-02-16 07:59] LABS: Absolute Lymphocyte Count 0.15 X10^3/uL (0.83-4.51); Absolute Neutrophil Count 1.2 X10^3/uL (2.0-7.7); Lymphocyte # 0.15 X10^3/ul (0.83-4.51)
[2022-02-16 08:26] LABS: Vitamin D,25 Hydroxy 59.6 ng/mL
--- NOTE | 2022-02-16 08:33 | CASEMGMT ---
Social Work Note SW received update from Donna with TCU stating pt was denied. Peer to peer information is available. SW to check with physician. Brandi Sy DESIGN/ANIMATION INSTRUCTOR, SOCK AND STOCKING IRONER
[2022-02-16] MEDS: Iron Polysaccharide Complex 150 MG CAPSULE PO (09:37)
[2022-02-16] MEDS: Spironolactone 25 MG Tablet PO (09:37)
[2022-02-16] MEDS: Lidocaine 5% Patch 1 PATCH TOPICAL (09:38)
[2022-02-16] MEDS: Metoprolol Tartrate 25 MG Tablet PO (09:40)
--- NOTE | 2022-02-16 10:18 | CASEMGMT ---
RN CM in to pt room to make aware that she has been denied to go to TCU. Provided pt with option of paying privately or HHC. Discussed HHC and expectations. Patient was provided a list of HHC providers including quality and resource use data and consistent with the patient?s preferred geographic region, medical needs, and insurance network. Patient states she needs to contact her family and discuss this when CM leaves room. CM to follow.
--- NOTE | 2022-02-16 10:21 | NURSING ---
This nurse is aware of Vital Signs taken by Emi Schofield nursing director at 0804 this morning. Will continue to monitor.
--- NOTE | 2022-02-16 12:40 | PCM.TXEXTCAR ---
Diet 02/16/22 12:02 Diet: Regular - No Added Salt Food consistency:: Regular Liquid Consistency:: Regular/Thin Routine Orders/Code Status Routine Lab Work: CBC and BMP Code Status: DNRCC-A (no intubation) Wound(s) left elbow: Wound Type: Abrasion lt ankle: Wound Type: Abrasion Therapies Physical Therapy: Eval and Treat Occupational Therapy: Eval and Treat Problem/Diagnosis (1) Lumbar contusion: Status: Acute (2) Fall: Status: Acute (3) Ileus: Status: Acute (4) Vertebral fracture: Status: Acute Allergies/Procedures Done in Hospital Allergies carvedilol Adverse Reaction (Verified 02/11/22 12:56) dizziness, can't function Type of Care/Length of Stay Estimated LOS: Convalescent Care Less Than 30 days Type of Care Needed: Skilled Rehab Potential: Fair Prognosis: Fair Additional Orders/Day of Discharge Day of Discharge: 02/16/22 Dietary and Speech Recommendations Dietitian Recommendations/Changes: Given signs/symptoms of malnutrition, will liberalize diet to Regular/no added salt in an effort to improve oral intake at meals. Will continue Ensure Enlive 120mL 4x/day with medpass. Additional ONS as patient willing to take. Discharge Plan Admission Admit Date/Time: 02/12/22 16:02 Primary Reason for Your Visit: debility, GARIMA, pancytopenia Attending Provider: Giorgio Kaye Primary Care Provider: Nacho Quintero Consulting Providers: Leonel Boggs ; Deb Tijerina ; Madhav Warner ; Simon Merida ; Gokul Booker Discharge Orders/Prescriptions Prescriptions: New oxycodone 5 mg Tablet 5 mg PO Q6H PRN (Reason: pain) 3 Days Qty: 12 RF: 0 lidocaine 5 % Adhesive Patch,Medicated 1 patch topical DAILY Qty: 0 RF: 0 Ensure Enlive 0.08 gram-1.5 kcal/mL Liquid 120 ml PO 4X/DAY Qty: 0 RF: 0 Continued metoprolol tartrate 25 MG tablet 25 mg PO BID RF: 0 furosemide 20 MG tablet 20 mg PO DAILY RF: 0 polysaccharide iron complex [Ferrex 150] 150 MG capsule 150 mg PO DAILYCM Qty: 30 RF: 0 fulvestrant 250 mg/5 mL Syringe 500 mg IM QMONTH RF: 0 Discontinued warfarin 1 MG tablet 2 mg PO SUTUWETHFRSA RF: 0 warfarin 1 MG tablet 1 mg PO MO RF: 0 spironolactone 50 MG tablet 50 mg PO BID RF: 0 acetaminophen [Tylenol] 325 MG tablet 650 mg PO Q6H PRN PRN (Reason: Mild Pain (scale 0-3)/T>100.7) RF: 0 tramadol 50 MG tablet 50 mg PO Q6H PRN PRN (Reason: Moderate Pain (4-5/10)) Qty: 28 RF: 0 hydrocodone-acetaminophen 5-325 mg tablet 1 tab PO Q6H PRN (Reason: pain) 3 Days Qty: 10 RF: 0 Ibrance 75 mg Capsule 75 mg PO DAILY RF: 0 Referrals / Follow Up: Nacho Quintero DO [Primary Care Provider] - Within 2 Weeks Gokul Booker DO [STAFF PHYSICIAN] - In 1 Week Disposition Disposition (needs filled in before D/C Order can be placed): Custodial Facility
--- NOTE | 2022-02-16 12:49 | DS.PCM_ITS ---
Providers Date of Admission: 02/12/22 Primary Care Physician: Dr. Nacho Quintero, DO Consultations 02/14/22 10:33 Consult: Oncology/Hematology Routine Consulting Provider: AMY Hem/Onc Shanna Reason for Consult: pancytopenia EMERGENT Consult: No MD Notified: Yes Date Notified: 02/14/22 Time Notified: 10:33 Method of Notification: Verbal Reason For Visit: DEBILITY, MECHANICAL FALL, HYPOATREMIA Diagnosis Discharge Diagnosis (1) Lumbar contusion: Status: Acute Code(s): S30.0XXA - Contusion of lower back and pelvis, initial encounter Qualifiers: Encounter type: initial encounter Qualified Code(s): S30.0XXA - Contusion of lower back and pelvis, initial encounter (2) Fall: Status: Acute Code(s): W19.XXXA - Unspecified fall, initial encounter Qualifiers: Encounter type: sequela Qualified Code(s): W19.XXXS - Unspecified fall, sequela (3) Ileus: Status: Acute Code(s): K56.7 - Ileus, unspecified (4) Vertebral fracture: Status: Acute Qualifiers: Encounter type: initial encounter Fracture of vertebra location: thoracic Thoracic vertebra fracture level: T12 Fracture type: closed Fracture morphology: unspecified fracture morphology Qualified Code(s): S22.089A - Unspecified fracture of T11-T12 vertebra, initial encounter for closed fracture Medications at Discharge Home Medications metoprolol tartrate 25 mg PO BID 08/16/17 furosemide 20 mg PO DAILY 12/22/18 polysaccharide iron complex [Ferrex 150] 150 mg PO DAILYCM #30 capsule 01/08/19 fulvestrant 500 mg IM QMONTH 02/12/22 Remove Patch 1 patch TOPICAL DAILY@2200 #0 02/16/22 food supplemt, lactose-reduced [Ensure Enlive] 120 ml PO 4X/DAY #0 ml 02/16/22 lidocaine 1 patch TOPICAL DAILY #0 ea 02/16/22 oxycodone 5 mg PO Q6H PRN 3 Days #12 tab 02/16/22 spironolactone 25 mg PO DAILY #0 tab 02/16/22 Hospital Course Operations None Procedures None Summary of Care Provided Minutes Spent on Discharge: 32 Hospital Course: 1. Debility declined by insurance for TCU. Pt willing to pay out of pocket. 2. GARIMA resolved 3. Pancytopenia improved. DC warfarin due to thrombocytopenia DC Granix as WBCs have improved (DW Dr. Booker, who recommends) 4. History of cirrhosis patient apparently has a history of alcoholic cirrhosis get CT of the abdomen and pelvis to evaluate. 5. Hyponatremia is up to 134. Will monitor. 6. History of afib: Hold Coumadin on account of low platelets. 7. Compression fracture acute on chronic on MRI 50% loss of height at T12 compression fracture. PT/OT on board fall precautions. on PO oxycodone. DC acetaminophen give cirrhosis. add lidoderm. not a candidate for kyphoplasty given thrombocytopenia 25 OH d 59.9. Would not add vitamin D replacement at this time. 8. Ileus +flatus doubt SBO 9. History of breast cancer continue fulvestrant Hold palbociclib due to neutropenia. 10. Cirrhosis: ascites continue furosemide and spironolactone. Physical Exam Const alert and no apparent distress Resp normal respiratory effort, no retractions, no use of accessory muscles and clear to auscultation bilaterally Cardio regular rate, regular rhythm, S1 normal heart sound and S2 normal heart sound GI normal to inspection, nondistended, normoactive bowel sounds Psych affect normal Medical Records Data Medical Nutrition Assessment Dietitian: Malnutrition Criteria Met Start: 02/13/22 16:49 Freq: Status: Active Protocol: Document 02/16/22 12:03 RMA (Rec: 02/16/22 12:03 RMA [id number]) Nutrition Malnutrition Evidence of Malnutrition Exists Yes Malnutrition (severe): Chronic Evidenced By Suboptimal Energy Intake ( Severe),Weight Loss (Severe) Clinical Problem Acute Disease or Injury Related Malnutrition Etiology related to physiological causes resulting in anorexia or diminished intake/ inadequate oral intake and increased energy expenditure due to metastatic disease Signs/Symptoms as evidenced by significant weight loss of 11% in ~3-4 weeks and prolonged poor oral intakes of less than 50% of estimated nutrient needs x past 1-2 weeks. Status Active Problem Recommendation Dietitian Recommendations/Changes Given signs/symptoms of malnutrition, will liberalize diet to Regular/no added salt in an effort to improve oral intake at meals. Will continue Ensure Enlive 120mL 4x/day with medpass. Additional ONS as patient willing to take. Weight / BMI Weight Weight: 48.308 kg Body Mass Index (BMI) 21.4 ABG / Lab / Microbiology Data Result Diagrams: 02/16/22 06:43 02/16/22 06:43 Laboratory: Laboratory Results - last 24 hr 02/16/22 06:43: WBC 1.4 L*, RBC 2.82 L, Hgb 12.0, Hct 32.8 L, MCV 116.3 H, MCH 42.6 H, MCHC 36.6 H, RDW Std Deviation 74.2 H, RDW Coeff of Nigel 17.3 H, Plt Count 35 L*, MPV 13.7 H, Neut % (Auto) Not Reportable, Absolute Neuts (auto) 1.2 L, Absolute Lymphs (auto) 0.15 L, Total Counted 100, Neutrophils % (Manual) 86 H , Lymphocytes % (Manual) 11 L, Monocytes % (Manual) 1, Metamyelocytes % 2 H, Diff Path Review May foll, Platelet Estimate MKD DEC, RBC Morphology N CHROM, Anisocytosis 1+ 02/16/22 06:43: Sodium 131 L, Potassium 4.5, Chloride 102, Carbon Dioxide 23.0, Anion Gap 6, BUN 29 H, Creatinine 1.27 H, Estim Creat Clear Calc 31.88, Est GFR (MDRD) Af Amer 54 L, Est GFR (MDRD) Non-Af 44 L, BUN/Creatinine Ratio 22.8 H, Glucose 91, Calcium 8.6 02/16/22 06:43: Vitamin D 25-Hydroxy 59.6 Radiography Diagnostic Testing: Radiology Impression Thoracic Spine MRI 02/15/22 05:55 IMPRESSION: 1. Acute on chronic compression fracture of T12 with diffuse marrow edema and greater than 50% loss of height with minimal retropulsion. Low signal areas in the superior endplate either represent sclerosis or prior intervention. There is such a history at this level. Mild superior endplate edema is present in the L1 vertebral body likely due to an acute on chronic process as well or insufficiency stress edema. 2. Mild enhancement is present in the posterior aspects of the T11 vertebral body. Diffuse enhancement is present throughout the compression fracture of the T12 vertebral body extending to the pedicle junctions bilaterally. Mild enhancement is also seen in the superior endplate of the L1 vertebral body. 3. This pattern is consistent with reactive hyperemic changes related to the compression fractures and does not have the appearance of underlying metastatic disease or pathologic fractures. However correlation with PET CT is recommended. Electronically Signed: Flo Noriega MD at 13:52 EDT , KUB X-Ray 02/15/22 14:11 IMPRESSION: 1. Centrally located bowel loops suggests ascites. 2. Gallstones in the gallbladder. 3. Bowel gas pattern may suggest an ileus. Obstruction is not excluded. 4. Bilateral pleural effusions. Left lower lobe infiltrate. Electronically Signed: Lopez Mendoza MD at 16:19 EDT , Meaningful Use Info Meaningful Use Diagnoses (Choose all that apply): None applicable Discharge Plan Admission Admit Date/Time: 02/12/22 16:02 Primary Reason for Your Visit: debility, GARIMA, pancytopenia Attending Provider: Giorgio Kaye Primary Care Provider: Nacho Quintero Consulting Providers: Leonel Boggs ; Deb Tijerina ; Madhav Warner ; Simon Merida ; Gokul Booker Discharge Orders/Prescriptions Prescriptions: New oxycodone 5 mg Tablet 5 mg PO Q6H PRN (Reason: pain) 3 Days Qty: 12 RF: 0 lidocaine 5 % Adhesive Patch,Medicated 1 patch topical DAILY Qty: 0 RF: 0 Ensure Enlive 0.08 gram-1.5 kcal/mL Liquid 120 ml PO 4X/DAY Qty: 0 RF: 0 spironolactone 25 mg Tablet 25 mg PO DAILY Qty: 0 RF: 0 Remove Patch 1 patch topical DAILY@2200 Qty: 0 RF: 0 Continued metoprolol tartrate 25 MG tablet 25 mg PO BID RF: 0 furosemide 20 MG tablet 20 mg PO DAILY RF: 0 polysaccharide iron complex [Ferrex 150] 150 MG capsule 150 mg PO DAILYCM Qty: 30 RF: 0 fulvestrant 250 mg/5 mL Syringe 500 mg IM QMONTH RF: 0 Discontinued warfarin 1 MG tablet 2 mg PO SUTUWETHFRSA RF: 0 warfarin 1 MG tablet 1 mg PO MO RF: 0 spironolactone 50 MG tablet 50 mg PO BID RF: 0 acetaminophen [Tylenol] 325 MG tablet 650 mg PO Q6H PRN PRN (Reason: Mild Pain (scale 0-3)/T>100.7) RF: 0 tramadol 50 MG tablet 50 mg PO Q6H PRN PRN (Reason: Moderate Pain (4-5/10)) Qty: 28 RF: 0 hydrocodone-acetaminophen 5-325 mg tablet 1 tab PO Q6H PRN (Reason: pain) 3 Days Qty: 10 RF: 0 Ibrance 75 mg Capsule 75 mg PO DAILY RF: 0 Referrals / Follow Up: Nacho Quintero DO [Primary Care Provider] - Within 2 Weeks Gokul Booker DO [STAFF PHYSICIAN] - In 1 Week Disposition Disposition (needs filled in before D/C Order can be placed): Senior Living Facility Charges/Coding Visit Charges Inpatient E&M: 59409 Disch Hosp
--- NOTE | 2022-02-16 12:53 | CASEMGMT ---
Social Work Note ANJEL updated that peer to peer will not be completed. ANJEL updated that pt is inquiring about private pay costs for TCU. ANJEL placed a call to Donna with TCU. Pt will need to pay 21 days up front private pay which will cost $13,860. SW in to speak with pt. Pt aware she was informed she was denied TCU. Pt inquiring about private pay costs for TCU. ANJEL informed pt that private pay for TCU will be $13,860 for 21 days. Pt states she will need to call her dad to see if he can pay for TCU. Pt also asked about going to [facility] under insurance. SW explained that pt's insurance denied SNF level of care so they will deny SNF for any facility. ANJEL informed pt that this worker can call [facility] to determine their private pay rate. Pt states understanding. ANJEL placed a call to Rj at [facility]. Private Room rate is $280 a day, semi-private is $245 a day and they require a month up front. Rj states that as of today, they have no private rooms available. ANJEL back in to speak with pt. Pt states that she got a hold of her father and states her father will be paying private pay costs for TCU. SW informed pt that her father will need to go to the cashier gambling's office once pt is over at [facility]. Pt states understanding. ANJEL updated physician pt can discharge to TCU private pay. ANJEL updated Donna with TCU, pt to pay privately. TCU can accept pt today. Plan: TCU today Brandi Sy [employer], [employer]
[2022-02-16 13:40] LABS: Pathologist Review Reviewed
[2022-02-16 13:41] LABS: Pathologist Review Reviewed
[2022-02-16 13:41] LABS: Pathologist Review Reviewed
[2022-02-16 13:41] LABS: Pathologist Review Reviewed
[2022-02-16] MEDS: oxyCODONE 5 MG Tablet PO (13:57)
--- NOTE | 2022-02-16 14:03 | NURSING ---
Pt only wanted one oxyir 5mg po. This nurse pulled out 10mg. This nurse watched Kezia lee of [facility] director scan pt and give narcotic to pt. The other 5mg of oxyir was returned by this nurse to the accudose.
[2022-02-16 14:26] LABS: Pathologist Review Reviewed
[2022-02-16] MEDS: TBO-FILGRASTIM 300 MCG/0.5 ML ML SC (14:42)
== END 2022-02-16 16:45 | DRG 947 ==
LOC: ED 13:21 → MS3 17:04
PROVIDERS: Internal Medicine Hematology & Oncology; Nurse Practitioner; Admitting Provider Student in an Organized Health Care Education/Training Program; Emergency Provider Student in an Organized Health Care Education/Training Program; PCP Student in an Organized Health Care Education/Training Program
DX: R53.81 Other malaise (principal); E43 Unspecified severe protein-calorie malnutrition; D61.818 Other pancytopenia; C79.2 Secondary malignant neoplasm of skin; J90 Pleural effusion, not elsewhere classified; K56.7 Ileus, unspecified; E87.1 Hypo-osmolality and hyponatremia; N17.9 Acute kidney failure, unspecified; M80.08XA Age-related osteoporosis with current pathological fracture, vertebra(e), initial encounter for fracture; K70.31 Alcoholic cirrhosis of liver with ascites; I48.91 Unspecified atrial fibrillation; C50.919 Malignant neoplasm of unspecified site of unspecified female breast; S30.0XXA Contusion of lower back and pelvis, initial encounter; W01.0XXA Fall on same level from slipping, tripping and stumbling without subsequent striking against object, initial encounter; E86.0 Dehydration; S09.90XA Unspecified injury of head, initial encounter; S39.012A Strain of muscle, fascia and tendon of lower back, initial encounter; Z17.0 Estrogen receptor positive status [ER+]; G89.29 Other chronic pain; R55 Syncope and collapse; R29.6 Repeated falls; Z66 Do not resuscitate; Z90.5 Acquired absence of kidney; Z68.22 Body mass index [BMI] 22.0-22.9, adult; Z79.01 Long term (current) use of anticoagulants; Z79.818 Long term (current) use of other agents affecting estrogen receptors and estrogen levels; Z79.899 Other long term (current) drug therapy; Z86.718 Personal history of other venous thrombosis and embolism; Z86.59 Personal history of other mental and behavioral disorders
CPT/HCPCS: 36415; 70450; 71250; 72110; 72157; 74018; 74176; 80048; 80076; 82306; 82550; 83615; 84484; 85025; 85384; 85610; 85730; 87426; 93005; 97110; 97161; 97166; 97530; 97535; 97802; 99281; 99285; A9575; J7030; J7040; A4216; J1447

== ENCOUNTER 2022-02-16 16:51 | Inpatient (IN) | payer SELFPAY ==
[2022-02-16 17:06] VITALS: BP 139/56; PULSE 82; RESP 16; TEMP 36.4; O2SAT 100; BMI 23.1
[2022-02-16 18:10] VITALS: PULSE 82
[2022-02-16] MEDS: Metoprolol Tartrate 25 MG Tablet PO (18:10)
[2022-02-16] MEDS: Magnesium Citrate 300 ML PO (18:10)
--- NOTE | 2022-02-16 19:30 | HP.PCM_ITS ---
HPI - General General Date of Admission: 02/16/22 HPI Narrative 02/12/2022 CLIF GOMEZ, is a 71 Female who presents to [facility] Emergency Department with fall. 02/12/2022 EKG atrial fibrillation, left bundle branch block, abnormal EKG. Syncope, fall, dizzy, fell backwards. Low back pain x [address] head negative, X-ray LS spine showed multiple compression fractures. Sodium 129, Creatinine 1.96. 02/12/2022 Admit to Hospital. PT/OT for debility. Tylenol, oxycodone, morphine for pain management. IV fluids for acute kidney injury, hyponatremia. Consider kyphoplasty for T12 compression fracture. 02/13/2022 Feels better. Creatinine improved fro 1.96 to 1.45. Sodium improved to 132. Stop coumadin due to falls, thrombocytopenia. Hold Ibrance due to leukopenia. 02/14/2022 Constipation. Creatinine improved to 1.23. Sodium improved to 134. 02/14/2022 Dr. Booker recommended MRI thoracic spine, CT abdomen/pelvis, consult palliative care, suspect worsening cirrhosis of liver. 02/15/2022 Abdomen distended, passing gas. T12 compression fracture chronic per Dr. Booker. Acute kidney injury improved. Start granix for leukopenia. 02/16/2022 Stop warfarin, stop granix. CT abdomen/pelvis showed trace bilateral pleural effusions, mild cardiomegaly, liver cirrhosis, moderate ascites, cholelithiasis. 02/16/2022 Admit to TCU with debility, here for rehabilitation, strengthening, prior to discharge home alone. [facility] Medical History (Updated 02/16/22 @ 19:[address] Adams Rockwell MD) DVT (deep venous thrombosis) Heart murmur Hip fracture Kidney anomaly, congenital Migraines Home Medications metoprolol tartrate 25 mg PO BID 08/16/17 [History Last Taken 02/16/22 0940] furosemide 20 mg PO DAILY 12/22/18 [History Last Taken 02/11/22] fulvestrant 500 mg IM QMONTH 02/12/22 [History Last Taken 01/07/22] Remove Patch 1 patch TOPICAL DAILY@2200 02/16/22 [History Last Taken Unknown] food supplemt, lactose-reduced [Ensure Enlive] 120 ml PO 4X/DAY 02/16/22 [History Last Taken 02/16/22 0938] lidocaine 1 patch TOPICAL DAILY 02/16/22 [History Last Taken 02/16/22 0939] oxycodone 5 mg PO Q6H PRN 3 Days #12 tab 02/16/22 [Rx Last Taken Unknown] polysaccharide iron complex [Ferrex 150] 150 mg PO DAILYCM 02/16/22 [History Last Taken 02/16/22 0939] spironolactone 25 mg PO DAILY 02/16/22 [History Last Taken Unknown] Allergy/AdvReac Type Severity Reaction Status Date / Time carvedilol AdvReac dizziness, Verified 02/11/22 12:56 can't function Surgical History (Updated 02/16/22 @ 19:[address] Adams Rockwell MD) History of bilateral mastectomy History of open reduction and internal fixation (ORIF) procedure Social History (Updated 02/16/22 @ 19:[address] Adams Rockwell MD) household members: none Smoking Status: Never smoker alcohol intake: former substance use type: does not use ROS Constitutional Constitutional: Denies chills, fever(s) or weight gain ENT HEENT: Denies headache(s), nasal congestion or nasal discharge Cardiovascular Cardiovascular: Denies chest pain or palpitations Respiratory/Chest Respiratory/Chest: Denies cough, excessive phlegm production or shortness of breath with exertion Gastrointestinal Gastrointestinal: Denies abdominal pain, nausea or vomiting Genitourinary Genitourinary: Denies dysuria Musculoskeletal Musculoskeletal: Denies joint pain or joint swelling Integumentary Integumentary: Denies rash or wounds Neurologic Neurologic: Denies focal weakness, numbness or tingling Psychiatric Psychiatric: Denies anxiety, auditory hallucinations, depression, homicidal ideation or suicidal ideation Vital Signs Vital Signs Vital Signs: 02/16/22 17:06 02/16/22 18:10 02/16/22 18:20 Temperature 97.5 F L Temperature Source Temporal Pulse Rate 82 82 Pulse Rhythm Regular Respiratory Rate 16 Respiratory Effort Normal Respiratory Depth Normal Respiratory Pattern Normal Blood Pressure 139/56 H Blood Pressure Mean 83 Blood Pressure Source Monitor Blood Pressure Position Sitting Blood Pressure Location Right Leg Pulse Ox 100 Oxygen Delivery Method Room Air Room Air Weight Weight: 51.908 kg Body Mass Index (BMI) 23.1 Physical Exam Const alert General Appearance: cooperative HEENT normocephalic Eyes PERRL and EOMs intact bilaterally Neck supple, no JVD and no carotid bruits Resp normal respiratory effort, normal air movement and clear to auscultation johnnie aterally Cardio regular rate and regular rhythm GI non-tender GI Narrative: Distended. Extremity normal capillary refill General Extremity: Negative for edema Skin no rashes or lesions noted General Skin Exam: no breakdown Psych affect normal Appearance: appropriate Assessment & Plan Assessment/Plan (1) Debility: (2) Syncope: (3) Compression fracture of T12 vertebra: (4) Acute kidney injury: (5) Hyponatremia: (6) Pancytopenia: (7) Atrial fibrillation: (8) Iron deficiency anemia: (9) Breast carcinoma metastatic, skin: (10) Alcoholic cirrhosis of liver with ascites: PLAN: 71 year old female with below past medical history hospitalized for fall, intractable back pain, complicated by chronic T12 compression fracture, acute kidney injury, hyponatremia, pancytopenia, admitted to TCU with debility, here for rehabilitation, strengthening, prior to discharge home alone. * Debility - PT/OT. * Pain - Tylenol 1000mg q6h prn pain (1-3), Tramadol 50mg q6h prn pain (4-5), Oxycodone 5mg q4h prn pain (6-10). * Bowel - Miralax 17gm bid, senna/colace 2 tablets twice daily, Dulcolax 10mg daily prn, Magnesium citrate 300ml po x 1 bottle for cleanout. * Adult immunization - Administer pneumonia vaccine, flu vaccine, covid19 vaccine as appropriate. * DVT prophylaxis - HAS-BLED score 4 high risk of bleeding, Jamilah score 13 high risk of thromboembolism, hold chemoprophylaxis due to panctyopenia. * Nutrition - Ensure Enlive 120ml 4x/day. * Metastatic breast cancer - Faslodex 500mg im qmonth. * Edema - Furosemide 20mg daily. * Back pain - Lidoderm patch 1 patch topical daily. * Atrial fibrillation - Metoprolol 25mg twice daily, off warfarin due to risk of falls, thrombocytopenia. * Alcohol cirrhosis with ascites - consider therapeutic paracentesis as necessary.
[2022-02-16] MEDS: Polyethylene Glycol 3350 17 GM PACKET PO (20:15)
[2022-02-16] MEDS: Senna/Docusate Sodium 1 Tablet 2 TABLET PO (20:15)
[2022-02-17 05:58] LABS: Absolute Lymphocyte Count 0.16 X10^3/uL (0.83-4.51); Absolute Neutrophil Count 1.4 X10^3/uL (2.0-7.7); Basophil# 0.03 X10^3/uL; Basophil% 1.7 % (0-1); Eosinophil# 0.01 X10^3/uL; Eosinophils% 0.6 % (0-5); Hematocrit 32.7 % (37-47); Hemoglobin 11.7 g/dL (12.0-15.0); Lymphocyte # 0.16 X10^3/ul (0.83-4.51); Lymphocyte % 8.9 % (19-41); Mean Corp Hgb Conc 35.8 g/dL (32-36); Mean Corpuscular Hgb 41.2 pg (27.0-32.0); Mean Corpuscular Volume 115.1 fL (81-99); Mean Platelet Vol. 13.4 fl (6.2-12.0); Monocyte# 0.16 X10^3/uL; Monocyte% 8.9 % (0-10); NRBC Flagged by Analyzer 0 % (0-5); Neutrophil # 1.41 X10^3/uL (2.7-7.7); Neutrophil % 78.2 % (47-70); POSITIVE COUNT YES; POSITIVE DIFFERENTIAL YES; POSITIVE MORPHOLOGY YES; RBC Distribution Width CV 17.4 % (11.6-14.6); Red Blood Count 2.84 M/mm3 (4.2-5.4); White Blood Count 1.8 K/mm3 (4.4-11.0)
[2022-02-17 06:02] LABS: Differential Indicated SCAN CRITERIA MET; Platelet Count 33 K/mm3 (150-450)
--- NOTE | 2022-02-17 06:14 | NURSING ---
Lab ([facility]) calls with critical lab result: platelet count 33. Dx: Pancytopenia. Last platelet count 35 on 02/16/22. Written communication left for review this AM.
[2022-02-17 06:18] LABS: Anisocytosis 2+; Differential Comment SCANNED; Macrocytosis 2+
[2022-02-17 06:19] LABS: Platelet Estimate MKD DEC (ADEQ)
[2022-02-17] MEDS: Lidocaine 5% Patch 1 PATCH TOPICAL (06:25)
[2022-02-17 06:26] VITALS: BP 121/45; PULSE 85
[2022-02-17] MEDS: Metoprolol Tartrate 25 MG Tablet PO (06:26)
[2022-02-17] MEDS: Furosemide 20 MG Tablet PO (06:26)
[2022-02-17 06:27] LABS: Anion Gap 6 (5-15); BUN 28 mg/dL (7-18); BUN/Creat Ratio 21.1 RATIO (10-20); Calcium,Total 9.2 mg/dL (8.5-10.1); Chloride 101 mmol/L (98-107); Creatinine, Serum 1.33 mg/dL (0.55-1.02); EST Glomerular Filtration Rate 42 mL/min (>60); Est Glom Filt Rate - Afr Amer 51 mL/min (>60); Estimated Creatinine Clearance 32.71 ml/min; Glucose 116 mg/dL (74-106); Potassium 4.9 mmol/L (3.5-5.1); Sodium Level 131 mmol/L (136-145)
[2022-02-17] MEDS: Polyethylene Glycol 3350 17 GM PACKET PO (06:27)
[2022-02-17] MEDS: Senna/Docusate Sodium 1 Tablet 2 TABLET PO (06:27)
[2022-02-17] MEDS: Iron Polysaccharide Complex 150 MG CAPSULE PO (08:56)
--- NOTE | 2022-02-17 09:26 | NURSING ---
DR VIEYRA CALLED. ORDER TO DC FASLODEX INJECTION. WILL NOT ABLE TO OBTAIN WHILE HERE.
[2022-02-17] MEDS: Tuberculin,Purif.prot.deriv. 50 TU/ML Vial 0.1 ML ID (10:28)
[2022-02-17] MEDS: Ciprofloxacin 0.3% 2.5ml Bottle 1 DRP RIGHT EYE ×4 (10:29→21:49)
--- NOTE | 2022-02-17 11:19 | PCM.PN.RX ---
Progress Note - Pharmacy Subjective: [71yof admitted to TCU for debility and strength/conditioning s/p inpatient stay for fall with compression fracture, pancytopenia, GARIMA.] Objective: Allergies carvedilol Adverse Reaction (Verified 02/11/22 12:56) dizziness, can't function Current Medications Generic Name Dose Route Start Last Admin Trade Name Freq PRN Reason Stop Dose Admin Acetaminophen 1,000 mg 02/16/22 19:53 Acetaminophen 500 Mg Tablet PO Q6H PRN PRN Pain Score 1-3 Bisacodyl 10 mg 02/16/22 19:53 Bisacodyl 5 Mg Tablet PO DAILY PRN CONSTIPATION Ciprofloxacin HCl 1 drp 02/17/22 10:00 02/17/22 10:29 Ciprofloxacin 0.3% 2.5ml Bottle RIGHT EYE 02/27/22 10:01 1 drp Q4 RANDAL Administration Furosemide 20 mg 02/17/22 06:00 02/17/22 06:26 Furosemide 20 Mg Tablet PO 20 mg DAILY RANDAL Administration Lidocaine 1 patch 02/17/22 06:00 02/17/22 06:25 Lidocaine 5% Patch TOPICAL 1 patch DAILY RANDAL Administration Protocol Metoprolol Tartrate 25 mg 02/16/22 18:00 02/17/22 06:26 Metoprolol Tartrate 25 Mg Tablet PO 25 mg BID RANDAL Administration Nutritional Formula (Lactose Free) 120 ml 02/16/22 22:00 02/17/22 06:22 Ensure Enlive 120 Ml Liquid PO Not Given 4X/DAY RANDAL Oxycodone HCl 5 mg 02/16/22 19:56 Oxycodone 5 Mg Tablet PO Q4H PRN PRN Pain Score 6-10 Polyethylene Glycol 17 gm 02/16/22 20:00 02/17/22 06:27 Polyethylene Glycol 3350 17 Gm Packet PO 17 gm BID RANDAL Administration Polysaccharide Iron Complex 150 mg 02/17/22 08:00 02/17/22 08:56 Iron Polysaccharide Complex 150 Mg Capsule PO 150 mg DAILYCM RANDAL Administration Senna/Docusate Sodium 2 tablet 02/16/22 20:00 02/17/22 06:27 Senna/Docusate Sodium 1 Tablet PO 2 tablet BID RANDAL Administration Tramadol HCl 50 mg 02/16/22 19:53 Tramadol 50 Mg Tablet PO Q6H PRN PRN Pain Score 4-5 Tuberculin PPD 0.1 ml 02/24/22 10:00 Tuberculin,Purif.Prot.Deriv. 50 Tu/Ml Vial ID 02/24/22 10:01 X1 ONE Problem List (Last Reviewed 02/16/22 @ 19:[address] Adams Rockwell MD) Iron deficiency anemia (Acute) Atrial fibrillation (Acute) Pancytopenia (Acute) Hyponatremia (Acute) Acute kidney injury (Acute) Compression fracture of T12 vertebra (Acute) Syncope (Acute) Debility (Acute) Breast carcinoma metastatic, skin (Acute) Alcoholic cirrhosis of liver with ascites (Chronic) Vital Signs Temp Pulse Resp BP Pulse Ox 97.5 F L 85 16 121/45 H 100 02/16/22 17:06 02/17/22 06:26 02/16/22 17:06 02/17/22 06:26 02/16/22 17:06 Oxygen Delivery Method Room Air Weight: 51.908 kg Body Mass Index (BMI) 23.1 Sodium 131 mmol/L (136-145) L 02/17/22 05:13 Potassium 4.9 mmol/L (3.5-5.1) 02/17/22 05:13 Chloride 101 mmol/L (98-107) 02/17/22 05:13 Carbon Dioxide 24.0 mmol/L (21.0-32.0) 02/17/22 05:13 Anion Gap 6 (5-15) 02/17/22 05:13 BUN 28 mg/dL (7-18) H 02/17/22 05:13 Creatinine 1.33 mg/dL (0.55-1.02) H 02/17/22 05:13 Est GFR (MDRD) Af Amer 51 mL/min (>60) L 02/17/22 05:13 Est GFR (MDRD) Non-Af 42 mL/min (>60) L 02/17/22 05:13 BUN/Creatinine Ratio 21.1 RATIO (10-20) H 02/17/22 05:13 Glucose 116 mg/dL (74-106) H 02/17/22 05:13 Assessment/Plan: 1. Pain secondary to compression fracture- on acetaminophen 1gm po q6h prn pain score 1-3, tramadol 50mg po q6h prn pain score 4-5 and oxycodone 5mg po q4h prn pain score 6-10. Also on lidocaine patch daily x 12 hrs as adjunctive therapy. Pt has used 1 dose of oxycodone 5mg on 02/16 since admission thus far. Of note, review of inpatient records shows that patient was using hydrocodone/acetaminophen ~1 tablet/day. CrCl ~30ml/min currently (Scr 1.33 on 02/17) - see problem #2. Pt is on bowel regimen. Monitor pain scores and function, prn medication use, mental status/sedation, bowel movements. 2. GARIMA - Scr 1.33 on 02/17, trending down, Scr was 1.96 upon inpatient admission on 02/12, baseline appears to be ~1. CrCl currently ~30ml/min. Tramadol is renally dosed - for a CrCl < 30 ml/min - consider decreasing the interval to q12h, max dose per 24 hours for this level of renal function is 200mg/day (current order is up to 200mg/day). Monitor trend in renal function, if Scr increases, please consider decreasing tramadol to q12h dosing. 3. H/O atrial fibrillation - on metoprolol 25mg po bid. Pt was on warfarin prior to recent inpatient admission but stopped secondary to pancytopenia and falls. BP 121/45-139/56, HR 80s. Monitor HR and rhythm, blood pressure and for dizziness/lightheadedness, symptoms of orthostasis. 4. H/O alcoholic cirrhosis - on furosemide 20mg po daily. Note that pt was discharged from inpatient side on spironolactone 25mg po daily and on current home medication list. Unclear why medication stopped. Scr 1.33, K 4.9, Na 131 (has been stable). Monitor for ascites, peripheral edema, Scr, potassium and sodium. 5. Bacterial conjunctivitis - on ciprofloxacin ophthalmic 1 drop to R eye q4 hours (stop date 02/27), Monitor symptoms of infection in R eye. 6. H/O metastatic breast carcinoma - Ibrance stopped during inpatient admission due to pancytopenia, Faslodex currently on hold. Following with oncology. 7. Nutrition - on Ensure Enlive 4 times daily and polysaccharide iron complex 150mg po daily. Albumin 2.6 on 02/14/22. Note that pt has been refusing Ensure. Continue to monitor nutritional intake, albumin/prealbumin if clinically indicated. 8. Recent fall leading to admission - per inpatient records, fall was secondary to syncope. Current medications that could potentially be associated with falls in this age group include furosemide, metoprolol and oxycodone/tramadol. All of these medications have a current indication and appears that benefit likely outweighs risk. Monitor for falls. Psychotropic Medications: None Unnecessary Medications: None. - Please note that CrCl currently ~ 30ml/min, however Scr has been trending down from recent GARIMA. If Scr worsens, consider decreasing tramadol to q12h dosing (recommended interval for CrCl < 30ml/min). - Please note that patient was discharged from inpatient side on spironolactone 25mg po daily and is on home medication list currently. However, appears that medication was not reconciled on home med list upon admission to TCU. Please evaluate if spironolactone should be continued for h/o cirrhosis. Bowel Regimen: On bisacodyl 10mg po daily prn, PEG 17gm po daily and Senna-S 2 tabs po bid. Received magnesium citrate x 1 on 02/16/22. Has not used any prn doses of bisacodyl thus far. Monitor bowel movements, symptoms of constipation. Date of Note:: 02/17/22
--- NOTE | 2022-02-17 12:30 | NURSING ---
Pt having liquid stools and abdomen distended BS Hyperactive x 4 quadrants. Pt states she has not had a good bowel movement since last Tuesday. Dr. Rockwell updated new order for CT with contrast.
[2022-02-17 12:55] LABS: Pathologist Review Reviewed
--- NOTE | 2022-02-17 14:15 | CASEMGMT ---
Social Work SW met with pt and completed initial assessment. SW reviewed code status and MOLST form with pt and assisted pt in completing MOLST. Pt wishes are DNRCCA, no intubation. MOLST communicated to physician and placed on pt chart. Pt is private paying for stay in TCU and is aware of payment system. Pt plans to return to her home alone at time of discharge. Pt was independent in all areas prior to backpain and decline 3 weeks ago. Pt is hopeful to regain her independence during TCU stay and return home alone. SW will continue to follow. CHACHA Rose
[2022-02-17] MEDS: oxyCODONE 5 MG Tablet PO (14:53)
[2022-02-17 14:55] VITALS: BP 98/70; PULSE 78; RESP 16; TEMP 36.1; O2SAT 97
[2022-02-17 18:48] VITALS: BP 91/72; PULSE 86
[2022-02-18] MEDS: Ciprofloxacin 0.3% 2.5ml Bottle 1 DRP RIGHT EYE ×6 (01:22→21:25)
[2022-02-18 06:17] VITALS: BP 108/87; PULSE 97
[2022-02-18] MEDS: Metoprolol Tartrate 25 MG Tablet PO ×2 (06:17→17:24)
[2022-02-18] MEDS: Furosemide 20 MG Tablet PO (06:17)
[2022-02-18] MEDS: Lidocaine 5% Patch 1 PATCH TOPICAL (06:23)
[2022-02-18] MEDS: Iron Polysaccharide Complex 150 MG CAPSULE PO (08:20)
--- NOTE | 2022-02-18 13:53 | NURSING ---
Addendum entered by Lois Werner 02/18/22 17:31: new order for paracentesis tomorrow, pt updated. Addendum entered by Lois Werner 02/18/22 15:43: abdomen firm and large, pt states this is not her normal. will update dr harper. Original Note: pt assisted to BR, incont xlg dark liquid stool on way. good skin care provided. noted to LT foot pt has closed raised blister below toes. los wraps applied, drsg over blister to prevent friction. pt states that blister is new. feet elevated in recliner chair & up on pillow. educated on importance of elevating legs above heart in bed. pt verbalized understanding.
[2022-02-18 16:00] VITALS: BP 106/49; PULSE 76; RESP 16; TEMP 36.2; O2SAT 100
[2022-02-18 17:24] VITALS: BP 137/89; PULSE 81
[2022-02-18] MEDS: Polyethylene Glycol 3350 17 GM PACKET PO (17:24)
[2022-02-18] MEDS: Senna/Docusate Sodium 1 Tablet 2 TABLET PO (17:27)
[2022-02-18] MEDS: oxyCODONE 5 MG Tablet PO (17:30)
[2022-02-18 21:21] VITALS: PULSE 80; RESP 16; O2SAT 96
[2022-02-19] MEDS: Ciprofloxacin 0.3% 2.5ml Bottle 1 DRP RIGHT EYE ×6 (02:17→20:30)
[2022-02-19 06:16] VITALS: BP 113/57; PULSE 79
[2022-02-19] MEDS: Furosemide 20 MG Tablet PO (06:16)
[2022-02-19] MEDS: Metoprolol Tartrate 25 MG Tablet PO ×2 (06:16→16:45)
[2022-02-19] MEDS: Lidocaine 5% Patch 1 PATCH TOPICAL (06:17)
--- NOTE | 2022-02-19 06:31 | NURSING ---
Patient refused to have acewraps removed last night at . This morning while doing morning med-pass patient asked to have los wraps removed. Blister noted to top of right foot now.
--- NOTE | 2022-02-19 08:33 | NURSING ---
radiology called and pt will be getting paracentesis today approx 2pm. radiology dept will call if anything changes
[2022-02-19] MEDS: Iron Polysaccharide Complex 150 MG CAPSULE PO (08:41)
[2022-02-19 09:45] VITALS: PULSE 78; RESP 18; O2SAT 93
--- NOTE | 2022-02-19 11:42 | NURSING ---
PT BACK FROM PARACENTESIS PROCEDURE. FLUID OF 1700 TAKEN OUT.. RN AWARE.
[2022-02-19 14:35] VITALS: BP 107/45; PULSE 78; RESP 14; TEMP 37; O2SAT 97
[2022-02-19 16:45] VITALS: PULSE 78
[2022-02-19] MEDS: Senna/Docusate Sodium 1 Tablet 2 TABLET PO (16:46)
[2022-02-20] MEDS: Ciprofloxacin 0.3% 2.5ml Bottle 1 DRP RIGHT EYE ×6 (01:59→20:17)
[2022-02-20] MEDS: Senna/Docusate Sodium 1 Tablet 2 TABLET PO ×2 (05:37→18:00)
[2022-02-20] MEDS: Furosemide 20 MG Tablet PO (05:38)
[2022-02-20 05:43] VITALS: BP 100/50; PULSE 80
[2022-02-20 09:07] VITALS: BP 140/88; PULSE 93
[2022-02-20] MEDS: Metoprolol Tartrate 25 MG Tablet PO ×2 (09:07→17:59)
[2022-02-20] MEDS: Iron Polysaccharide Complex 150 MG CAPSULE PO (09:08)
[2022-02-20] MEDS: Lidocaine 5% Patch 1 PATCH TOPICAL (09:09)
[2022-02-20 10:00] VITALS: PULSE 70; RESP 18; O2SAT 99
[2022-02-20 14:20] VITALS: BP 116/61; PULSE 77; RESP 20; TEMP 36.8
[2022-02-20] MEDS: Polyethylene Glycol 3350 17 GM PACKET PO (17:56)
[2022-02-20 17:59] VITALS: PULSE 86
[2022-02-20] MEDS: oxyCODONE 5 MG Tablet PO (18:03)
[2022-02-21] MEDS: Ciprofloxacin 0.3% 2.5ml Bottle 1 DRP RIGHT EYE ×6 (02:24→22:41)
[2022-02-21] MEDS: Polyethylene Glycol 3350 17 GM PACKET PO (06:01)
[2022-02-21 06:02] VITALS: PULSE 66
[2022-02-21] MEDS: Senna/Docusate Sodium 1 Tablet 2 TABLET PO ×2 (06:02→17:26)
[2022-02-21] MEDS: Furosemide 20 MG Tablet PO (06:02)
[2022-02-21] MEDS: Metoprolol Tartrate 25 MG Tablet PO ×2 (06:02→17:27)
[2022-02-21] MEDS: Lidocaine 5% Patch 1 PATCH TOPICAL (06:07)
[2022-02-21] MEDS: Iron Polysaccharide Complex 150 MG CAPSULE PO (08:27)
[2022-02-21 14:29] VITALS: BP 114/82; PULSE 84; RESP 16; TEMP 36.1; O2SAT 97
[2022-02-21] MEDS: oxyCODONE 5 MG Tablet PO (17:25)
[2022-02-21 17:27] VITALS: BP 114/73; PULSE 87
[2022-02-22] MEDS: oxyCODONE 5 MG Tablet PO ×2 (01:48→20:13)
[2022-02-22] MEDS: Ciprofloxacin 0.3% 2.5ml Bottle 1 DRP RIGHT EYE ×6 (01:49→20:15)
[2022-02-22] MEDS: Lidocaine 5% Patch 1 PATCH TOPICAL (05:17)
[2022-02-22 05:21] VITALS: BP 105/62; PULSE 81
[2022-02-22] MEDS: Senna/Docusate Sodium 1 Tablet 2 TABLET PO ×2 (05:21→17:46)
[2022-02-22] MEDS: Metoprolol Tartrate 25 MG Tablet PO ×2 (05:21→17:46)
[2022-02-22] MEDS: Polyethylene Glycol 3350 17 GM PACKET PO (05:22)
[2022-02-22] MEDS: Furosemide 20 MG Tablet PO (05:22)
[2022-02-22] MEDS: Iron Polysaccharide Complex 150 MG CAPSULE PO (08:52)
[2022-02-22 15:08] VITALS: BP 125/63; PULSE 85; RESP 16; TEMP 36.1; O2SAT 96
--- NOTE | 2022-02-22 15:46 | PCM.CONS.P ---
Assessment & Plan Assessment/Plan (1) Compression fracture of T12 vertebra: QUALIFIERS: Encounter type: subsequent encounter (2) Acute mid back pain: (3) History of bilateral mastectomy: (4) Debility: PLAN: 71-year-old female being seen today for palliative consultation secondary to weakness, debility, uncontrolled back pain secondary to acute on chronic T12 compression fracture, alcoholic liver cirrhosis, and history of breast cancer following with Dr. Booker. 1. Back pain: Seems to be controlled with taking only 1 oxycodone on average per day. I will DC the acetaminophen due to the liver failure and we will continue with oxycodone as needed. Would likely be able to discontinue tramadol as well. She is on a bowel regimen. We will make adjustments as indicated. If patient is agreeable to palliative services, we can manage her pain as an outpatient. She may also need pain management referral for kyphoplasty/injections. 2. Debility: Receiving rehab and doing well. We will continue to follow 3. History of bilateral mastectomy/breast cancer/alcoholic liver cirrhosis with ascites/A. fib/congenital single kidney/DVT/migraines: Complicates overall care, management, recovery, and prognosis. Patient reports symptoms of her liver failure are fairly recent in the last month or 2. She is not really having any significant symptoms associated with ascites such as shortness of breath, nausea, vomiting. She required paracentesis with 1700 mL fluid removal, pending repeat paracentesis. If patient requires frequent procedures, may benefit from Pleurx cath placement. Defer management to oncology. Thank you for the opportunity to participate in this patient's care, please do not hesitate to contact [facility] with any further questions or concerns, direct line is [phone]. Liaison will follow up and discuss palliative services further at that time. Contact information left with the patient. She is unsure if she is interested in services but will talk with liaison at a later date. Patient does have a son who is supportive. Greater than 50% of F2F visit dedicated to education and counseling of palliative care services, medications, comorbid conditions and potential assistance with management, and plan of care moving forward. Start time: 1540 End time: 1633 HPI Consult Data Date of Consult: 02/22/22 HPI Narrative HPI Narrative: CLIF GOMEZ, is a 71 F who presented to [facility] 02/12/2022 after mechanical fall in her bedroom, fell backward getting into bed due to dizziness. Patient laid on the floor overnight due to severe pain until family member found her the next morning. Patient has a history of A. fib, blood clots, alcoholic liver cirrhosis. Had no symptoms of liver failure until about a month ago per patient report. She does follow with Dr. Booker for recurrent breast cancer status post resection left chest wall 2019. Patient also has chronic pain related to known T12 compression fracture that appears worse on recent imaging, pain noted to get worse around December 2021. Patient was quite weak and had profound neutropenia and thrombocytopenia, treated with Granix. Oncology recommended MRI thoracic spine with attention to T12, CT abdomen/pelvis/chest, consider chronic pain management consult for assessment of potential kyphoplasty if MRI does not suggest metastatic disease, and palliative care consultation for outpatient pain management. Patient was eventually stabilized and transferred to TCU for further rehabilitation. Patient ordered oxycodone 5 mg q4 hours PRN, it appears she gets maybe 1 dose a day. She has Ultram 50 mg every 6 hours as needed ordered, however does not take. Also has acetaminophen 1 g every 6 hours as needed, however we will discontinue this secondary to the liver cirrhosis. Reports her pain is under much better control. She is able to ambulate with minimal pain. Working with therapy and doing fairly well. She does not have an appetite but denies any nausea, vomiting, or diarrhea. No constipation. Urinating okay. She has significant lower extremity edema, 2-3+ pitting and significant abdominal distention/ascites. There is a wound on each foot from fluid blisters, apparently were drained. They are doing dressing changes to the area. Very tender to touch but otherwise, no significant pain. She has simethicone 80 mg 3 times a day scheduled for abdominal bloating, MiraLAX twice daily, and Jerri-Colace 2 tabs twice daily for bowel regimen. Patient is also taking Lasix 20 mg daily. She had a paracentesis 02/19/2022 with approximately 1700 mL of fluid removal. Patient reports there are tentative plans for repeat paracentesis in the near future. MRI of the thoracic spine did not show any evidence of metastatic disease or pathological fractures. It was recommended she had correlation with PET CT once discharged from TCU. [facility] Medical History Alcoholic cirrhosis of liver with ascites Atrial fibrillation Breast cancer Breast carcinoma metastatic, skin Congenital single kidney DVT (deep venous thrombosis) Fall Heart murmur Hip fracture History of atrial fibrillation History of DVT (deep vein thrombosis) Kidney anomaly, congenital Lumbar contusion Migraines Pancytopenia Recurrent breast cancer Vertebral fracture Home Medications metoprolol tartrate 25 mg PO BID 08/16/17 [History Last Taken 02/16/22 0940] furosemide 20 mg PO DAILY 12/22/18 [History Last Taken 02/11/22] fulvestrant 500 mg IM QMONTH 02/12/22 [History Last Taken 01/07/22] Remove Patch 1 patch TOPICAL DAILY@2200 02/16/22 [History Last Taken Unknown] food supplemt, lactose-reduced [Ensure Enlive] 120 ml PO 4X/DAY 02/16/22 [History Last Taken 02/16/22 0938] lidocaine 1 patch TOPICAL DAILY 02/16/22 [History Last Taken 02/16/22 0939] oxycodone 5 mg PO Q6H PRN 3 Days #12 tab 02/16/22 [Rx Last Taken Unknown] polysaccharide iron complex [Ferrex 150] 150 mg PO DAILYCM 02/16/22 [History Last Taken 02/16/22 0939] spironolactone 25 mg PO DAILY 02/16/22 [History Last Taken Unknown] Allergy/AdvReac Type Severity Reaction Status Date / Time carvedilol AdvReac dizziness, Verified 02/11/22 12:56 can't function Surgical History History of bilateral mastectomy History of open reduction and internal fixation (ORIF) procedure Social History household members: none Smoking Status: Never smoker alcohol intake: former substance use type: does not use ROS ROS Narrative Review of systems otherwise negative from a constitutional, HEENT, respiratory, cardiovascular, GI, genitourinary, musculoskeletal, skin, neurologic, psychiatric and hematologic system unless stated above. Physical Exam Const alert, oriented x3 and no apparent distress General Appearance: cooperative Nutritional Appearance: cachectic HEENT normocephalic and head/scalp atraumatic HEENT Narrative: Alopecia Neck supple General: trachea midline Resp normal respiratory effort, normal air movement and no use of accessory muscles Auscultation: diminished lung sounds Cardio regular rate, S1 normal heart sound and S2 normal heart sound Rhythm: abnormal rhythm Heart Sounds: murmur GI Inspection: edema findings and abdominal distention Auscultation: hyperactive bowel sounds Palpation: tense ascites; Negative for tender Extremity General Extremity: edema bilateral lower extremity; Negative for clubbing or cyanosis Skin Skin Narrative: Wounds to bilateral feet not observed, wrapped Neuro CN's II-XII intact bilaterally and no focal motor deficits Psych mental status grossly normal, thought process normal and cooperative Attitude: calm and engaged Activity / Motor Behavior: appropriate eye contact Speech: normal speech Attention / Concentration: attention grossly intact Memory / Cognition: memory grossly intact Insight: insight good Judgement: judgement good
[2022-02-22 17:46] VITALS: BP 131/77; PULSE 88
[2022-02-23] MEDS: Ciprofloxacin 0.3% 2.5ml Bottle 1 DRP RIGHT EYE ×5 (05:53→21:48)
[2022-02-23] MEDS: Furosemide 20 MG Tablet PO (05:55)
[2022-02-23 06:02] VITALS: BP 91/70; PULSE 70
[2022-02-23 08:25] VITALS: BP 126/87; PULSE 103
[2022-02-23] MEDS: Metoprolol Tartrate 25 MG Tablet PO (08:25)
[2022-02-23] MEDS: Iron Polysaccharide Complex 150 MG CAPSULE PO (08:25)
[2022-02-23 16:00] VITALS: BP 92/67; PULSE 79; RESP 16; TEMP 36.6; O2SAT 97
[2022-02-23 17:05] VITALS: BP 99/62; PULSE 83
[2022-02-23 23:21] VITALS: PULSE 90; RESP 14; O2SAT 94
[2022-02-24] MEDS: Ciprofloxacin 0.3% 2.5ml Bottle 1 DRP RIGHT EYE ×6 (02:08→21:04)
[2022-02-24 05:59] LABS: Absolute Lymphocyte Count 0.21 X10^3/uL (0.83-4.51); Absolute Neutrophil Count 2.4 X10^3/uL (2.0-7.7); Basophil# 0.06 X10^3/uL; Basophil% 1.9 % (0-1); Eosinophil# 0.03 X10^3/uL; Eosinophils% 0.9 % (0-5); Hematocrit 31.5 % (37-47); Hemoglobin 11.6 g/dL (12.0-15.0); Lymphocyte # 0.21 X10^3/ul (0.83-4.51); Lymphocyte % 6.5 % (19-41); Mean Corp Hgb Conc 36.8 g/dL (32-36); Mean Corpuscular Hgb 41.7 pg (27.0-32.0); Mean Corpuscular Volume 113.3 fL (81-99); Mean Platelet Vol. 12.7 fl (6.2-12.0); Monocyte# 0.49 X10^3/uL; Monocyte% 15.2 % (0-10); NRBC Flagged by Analyzer 0 % (0-5); Neutrophil # 2.39 X10^3/uL (2.7-7.7); Neutrophil % 74.3 % (47-70); POSITIVE COUNT YES; POSITIVE DIFFERENTIAL YES; POSITIVE MORPHOLOGY YES; Platelet Count 45 K/mm3 (150-450); RBC Distribution Width CV 17.4 % (11.6-14.6); RBC Distribution Width SD 72.8 fl (35.1-43.9); Red Blood Count 2.78 M/mm3 (4.2-5.4); White Blood Count 3.2 K/mm3 (4.4-11.0)
[2022-02-24 06:05] LABS: Differential Indicated SCAN CRITERIA MET
[2022-02-24 06:15] LABS: Anisocytosis 1+; Macrocytosis 2+; Platelet Estimate MKD DEC (ADEQ)
[2022-02-24 06:21] LABS: Anion Gap 8 (5-15); BUN 31 mg/dL (7-18); BUN/Creat Ratio 22.1 RATIO (10-20); Calcium,Total 8.8 mg/dL (8.5-10.1); Chloride 93 mmol/L (98-107); EST Glomerular Filtration Rate 40 mL/min (>60); Est Glom Filt Rate - Afr Amer 48 mL/min (>60); Estimated Creatinine Clearance 30.17 ml/min; Glucose 86 mg/dL (74-106); Potassium 4.1 mmol/L (3.5-5.1); Sodium Level 125 mmol/L (136-145)
[2022-02-24] MEDS: Furosemide 20 MG Tablet PO (07:01)
[2022-02-24 07:12] VITALS: BP 82/58; PULSE 90
--- NOTE | 2022-02-24 07:14 | NURSING ---
Written communication left for Dr. Rockwell review this AM when arrives to unit, notifying of critical platelet level 45 compared to 33 on 02/17/22, also notified of current lopressor dose and bp 82/58, requesting parameters.
[2022-02-24] MEDS: Tuberculin,Purif.prot.deriv. 50 TU/ML Vial 0.1 ML ID (08:57)
[2022-02-24] MEDS: Iron Polysaccharide Complex 150 MG CAPSULE PO (08:57)
[2022-02-24 09:01] VITALS: BP 92/66; PULSE 95
[2022-02-24 10:57] VITALS: PULSE 82; RESP 16; O2SAT 98
[2022-02-24] MEDS: Senna/Docusate Sodium 1 Tablet 2 TABLET PO (11:18)
[2022-02-24 12:33] LABS: Pathologist Review Reviewed
--- NOTE | 2022-02-24 13:48 | CASEMGMT ---
Social Work IDT met with patient and son for care plan meeting. Discussed patient's progress in PT/OT and nursing. Pt making progress. Explained pt is self-pay for 21 days and to notify SW when ready to DC. Pt would like to continue with therapy. Pt requesting information on community resources. Provided packet of information that includes but not limited to: [facility], [facility], skilled HHC with Medicare data, adult day services, etc. Pt [place] [facility] [place]. to order with [facility] at [place]. to continue to follow. MERLYN ParrishW
[2022-02-24 14:58] VITALS: BP 110/67; PULSE 86; RESP 18; TEMP 36.5; O2SAT 95
--- NOTE | 2022-02-24 15:49 | NURSING ---
dr harper updated, pt abdomen firm, rounded and distended. pitting edema ble's and pedals. new order for another paracentesis tomorrow.
[2022-02-25] MEDS: Ciprofloxacin 0.3% 2.5ml Bottle 1 DRP RIGHT EYE ×6 (01:51→21:40)
[2022-02-25] MEDS: Furosemide 20 MG Tablet PO (05:53)
[2022-02-25 06:02] LABS: Anion Gap 9 (5-15); BUN 31 mg/dL (7-18); BUN/Creat Ratio 24.6 RATIO (10-20); Calcium,Total 8.3 mg/dL (8.5-10.1); Chloride 91 mmol/L (98-107); Creatinine, Serum 1.26 mg/dL (0.55-1.02); EST Glomerular Filtration Rate 45 mL/min (>60); Est Glom Filt Rate - Afr Amer 54 mL/min (>60); Estimated Creatinine Clearance 33.52 ml/min; Glucose 92 mg/dL (74-106); Potassium 3.8 mmol/L (3.5-5.1); Sodium Level 125 mmol/L (136-145)
[2022-02-25] MEDS: Iron Polysaccharide Complex 150 MG CAPSULE PO (08:56)
[2022-02-25] MEDS: Sodium Chloride 1 GM Tablet PO ×2 (09:59→17:30)
[2022-02-25] MEDS: oxyCODONE 5 MG Tablet PO (11:03)
[2022-02-25 12:13] VITALS: BP 114/68; PULSE 102; RESP 16; TEMP 37.1; O2SAT 97
--- NOTE | 2022-02-25 13:15 | NURSING ---
Addendum entered by Khloe Lazcano 02/25/22 14:47: back on floor from paracentesis Original Note: Pt left floor for paracentesis
--- NOTE | 2022-02-25 14:05 | NURSING ---
Yefri From Radiology called and stated they removed 2.4 L of Clear yellow fluid. Pt was slightly tachy felt it was d/t being nervous will continue to monitor. Pt in chair at this time call light within reach.
[2022-02-26] MEDS: Ciprofloxacin 0.3% 2.5ml Bottle 1 DRP RIGHT EYE ×6 (02:05→20:02)
[2022-02-26] MEDS: Sodium Chloride 1 GM Tablet PO ×2 (06:09→17:08)
[2022-02-26] MEDS: Furosemide 20 MG Tablet PO (06:09)
[2022-02-26 06:22] LABS: Anion Gap 7 (5-15); BUN 30 mg/dL (7-18); BUN/Creat Ratio 24.8 RATIO (10-20); Calcium,Total 8.4 mg/dL (8.5-10.1); Chloride 92 mmol/L (98-107); Creatinine, Serum 1.21 mg/dL (0.55-1.02); EST Glomerular Filtration Rate 47 mL/min (>60); Est Glom Filt Rate - Afr Amer 57 mL/min (>60); Estimated Creatinine Clearance 34.91 ml/min; Glucose 99 mg/dL (74-106); Potassium 3.7 mmol/L (3.5-5.1); Sodium Level 125 mmol/L (136-145)
[2022-02-26] MEDS: Iron Polysaccharide Complex 150 MG CAPSULE PO (08:43)
[2022-02-26] MEDS: oxyCODONE 5 MG Tablet PO (13:08)
[2022-02-26 15:55] VITALS: BP 115/84; PULSE 96; RESP 16; TEMP 36.8; O2SAT 95
[2022-02-27] MEDS: Ciprofloxacin 0.3% 2.5ml Bottle 1 DRP RIGHT EYE ×3 (01:49→09:52)
[2022-02-27] MEDS: Furosemide 20 MG Tablet PO (05:59)
[2022-02-27] MEDS: Sodium Chloride 1 GM Tablet PO (05:59)
[2022-02-27 06:01] VITALS: BP 98/60; PULSE 100
[2022-02-27 08:21] LABS: Anion Gap 7 (5-15); BUN 29 mg/dL (7-18); BUN/Creat Ratio 23.6 RATIO (10-20); Calcium,Total 8.8 mg/dL (8.5-10.1); Chloride 93 mmol/L (98-107); Creatinine, Serum 1.23 mg/dL (0.55-1.02); EST Glomerular Filtration Rate 46 mL/min (>60); Est Glom Filt Rate - Afr Amer 56 mL/min (>60); Estimated Creatinine Clearance 34.34 ml/min; Glucose 102 mg/dL (74-106); Potassium 3.9 mmol/L (3.5-5.1); Sodium Level 125 mmol/L (136-145)
[2022-02-27] MEDS: Iron Polysaccharide Complex 150 MG CAPSULE PO (08:31)
[2022-02-27 13:53] VITALS: BP 114/63; PULSE 80; RESP 16; TEMP 36.2; O2SAT 93
[2022-02-27] MEDS: Spironolactone 25 MG Tablet PO (15:42)
[2022-02-27 19:35] VITALS: O2SAT 96
[2022-02-28 06:01] VITALS: BP 124/66; PULSE 103
[2022-02-28] MEDS: Spironolactone 25 MG Tablet PO (06:02)
[2022-02-28] MEDS: Furosemide 20 MG Tablet PO (06:02)
[2022-02-28 07:09] LABS: Anion Gap 11 (5-15); BUN 31 mg/dL (7-18); BUN/Creat Ratio 25.8 RATIO (10-20); Calcium,Total 8.6 mg/dL (8.5-10.1); Chloride 90 mmol/L (98-107); EST Glomerular Filtration Rate 47 mL/min (>60); Est Glom Filt Rate - Afr Amer 57 mL/min (>60); Glucose 94 mg/dL (74-106); Potassium 3.6 mmol/L (3.5-5.1); Sodium Level 123 mmol/L (136-145)
[2022-02-28] MEDS: Iron Polysaccharide Complex 150 MG CAPSULE PO (08:05)
[2022-02-28 09:00] VITALS: PULSE 100; RESP 18; O2SAT 96
[2022-02-28 10:45] LABS: Osmolality, Serum 268 mOsm/KG (280-301)
[2022-02-28 15:06] LABS: Urine Sodium 16 mmol/L (Not Establ.)
[2022-02-28 15:54] LABS: Osmolality, Urine 371 mOsm/KG
[2022-02-28 16:00] VITALS: BP 127/72; PULSE 101; RESP 16; TEMP 36.4; O2SAT 97
[2022-02-28 20:01] VITALS: BP 111/76; PULSE 95
[2022-02-28] MEDS: traMADol 50 MG Tablet PO (20:06)
[2022-02-28] MEDS: Furosemide 40 MG Tablet PO (20:06)
[2022-02-28] MEDS: Spironolactone 50 MG Tablet PO (20:10)
[2022-02-28] MEDS: Menthol/Lanolin/Calamine/Znox 113 GM Tube 1 APPLIC TOPICAL (20:12)
[2022-03-01 05:46] VITALS: BP 120/74; PULSE 105
[2022-03-01] MEDS: Spironolactone 50 MG Tablet PO (05:50)
[2022-03-01] MEDS: Furosemide 40 MG Tablet PO (05:50)
[2022-03-01] MEDS: Menthol/Lanolin/Calamine/Znox 113 GM Tube 1 APPLIC TOPICAL ×2 (05:50→19:57)
[2022-03-01 06:29] LABS: Anion Gap 12 (5-15); BUN 33 mg/dL (7-18); BUN/Creat Ratio 25.4 RATIO (10-20); Calcium,Total 8.5 mg/dL (8.5-10.1); Chloride 90 mmol/L (98-107); EST Glomerular Filtration Rate 43 mL/min (>60); Est Glom Filt Rate - Afr Amer 52 mL/min (>60); Estimated Creatinine Clearance 32.49 ml/min; Glucose 115 mg/dL (74-106); Potassium 3.5 mmol/L (3.5-5.1); Sodium Level 124 mmol/L (136-145)
[2022-03-01] MEDS: Iron Polysaccharide Complex 150 MG CAPSULE PO (08:31)
--- NOTE | 2022-03-01 09:38 | NURSING ---
Threading Machine Feeder Automatic Note: Interview and MDS section F complete.
--- NOTE | 2022-03-01 13:14 | MDS.RN ---
Information for the mds was obtained from review of the clinical record, interview of resident, staff, and direct observation of resident's care.
[2022-03-01 15:02] VITALS: BP 127/90; PULSE 88; RESP 12; TEMP 36.2; O2SAT 97
[2022-03-01] MEDS: oxyCODONE 5 MG Tablet PO (17:05)
[2022-03-01 22:00] VITALS: PULSE 93; O2SAT 97
[2022-03-02] MEDS: Furosemide 40 MG Tablet PO (05:24)
[2022-03-02] MEDS: Menthol/Lanolin/Calamine/Znox 113 GM Tube 1 APPLIC TOPICAL ×2 (05:24→19:57)
[2022-03-02] MEDS: Spironolactone 50 MG Tablet PO (05:24)
[2022-03-02 06:27] LABS: Anion Gap 9 (5-15); BUN 35 mg/dL (7-18); BUN/Creat Ratio 25.9 RATIO (10-20); Calcium,Total 8.6 mg/dL (8.5-10.1); Chloride 90 mmol/L (98-107); Creatinine, Serum 1.35 mg/dL (0.55-1.02); EST Glomerular Filtration Rate 41 mL/min (>60); Est Glom Filt Rate - Afr Amer 50 mL/min (>60); Estimated Creatinine Clearance 31.29 ml/min; Glucose 98 mg/dL (74-106); Potassium 3.4 mmol/L (3.5-5.1); Sodium Level 124 mmol/L (136-145)
[2022-03-02] MEDS: Iron Polysaccharide Complex 150 MG CAPSULE PO (08:49)
[2022-03-02] MEDS: Potassium Chloride Oral Tablet 20 MEQ 40 MEQ PO (08:55)
[2022-03-02 11:00] VITALS: PULSE 95; RESP 18; O2SAT 92
--- NOTE | 2022-03-02 13:20 | NURSING ---
MODERNA BOOSTER GIVEN IN RIGHT DELT. PT TOLERATED WELL BUT DID STATE THAT SHE HAD FLU LIKE SYSTEMS AFTER RECEIVING THE OTHER COVID SHOTS. RN AWARE,WILL CONTINUE TO MONITOR.
[2022-03-02 14:03] VITALS: BP 112/56; PULSE 88; RESP 16; TEMP 36.8; O2SAT 98
--- NOTE | 2022-03-02 14:38 | NURSING ---
PALLIATIVE IN TO SEE PT TODAY. PT REFUSING IT AT THIS TIME AND IS FEELING OVER WHELMED WITH EVERY THING AND WILL LET US KNOW IF SHE CHANGES HER MIND. RN AND LOGISTICS ANALYTICS MANAGER AWARE.
--- NOTE | 2022-03-02 16:01 | CASEMGMT ---
Social Work Met with pt to follow up on DC plans. Pt requesting to remain through her 21 prepaid days, with DC 03/08. Pt requesting HHC. Provided skilled HHC list with quality and resource data. [facility] Referral made for PT/OT/SN. Pt requesting 3-in-1 commode. Referral made to [facility]. Updated [facility] on DC date. Family to transport. Plan: DC home alone 03/08, [facility] PT/OT/SN, BSValerio Menjivar, HEAVY EQUIPMENT TECHNICIAN GUTTER HANGER
[2022-03-02] MEDS: Bisacodyl 5 MG Tablet 10 MG PO (17:51)
--- NOTE | 2022-03-02 19:58 | PCM.DC.SUM ---
Providers Date of Admission: 02/16/22 Primary Care Physician: Dr. Nacho Quintero, DO Reason For Visit: DEBILITY, MECHANICAL FALL,HYPOATRIMIA Diagnosis Discharge Diagnosis (1) Compression fracture of T12 vertebra: Status: Acute Code(s): S22.080A - Wedge compression fracture of T11-T12 vertebra, initial encounter for closed fracture Qualifiers: Encounter type: subsequent encounter (2) Acute mid back pain: Status: Acute Code(s): M54.9 - Dorsalgia, unspecified (3) History of bilateral mastectomy: Status: Acute Code(s): Z90.13 - Acquired absence of bilateral breasts and nipples (4) Debility: Status: Acute Code(s): R53.81 - Other malaise Medications at Discharge Home Medications metoprolol tartrate 25 mg PO BID 08/16/17 fulvestrant 500 mg IM QMONTH 02/12/22 polysaccharide iron complex [Ferrex 150] 150 mg PO DAILYCM 02/16/22 furosemide 40 mg PO DAILY 30 Days #30 tab 03/02/22 lidocaine 1 patch TOPICAL DAILY 30 Days #30 ea 03/02/22 oxycodone 5 mg PO Q4H PRN PRN 7 Days #28 tab 03/02/22 spironolactone 50 mg PO DAILY 30 Days #30 tab 03/02/22 tramadol 50 mg PO Q6H PRN PRN 7 Days #28 tab 03/02/22 Hospital Course Operations None Procedures - (Ultrasound guided paracentesis.) Summary of Care Provided Minutes Spent on Discharge: 35 Hospital Course: 71 year old female with below past medical history hospitalized for fall, intractable back pain, complicated by chronic T12 compression fracture, acute kidney injury, hyponatremia, pancytopenia, admitted to TCU with debility, here for rehabilitation, strengthening, prior to discharge home alone. Discharge home alone 03/08/2022, [facility] PT/OT/SN, Bedside commode. Physical Exam Const alert General Appearance: cooperative HEENT normocephalic Eyes PERRL and EOMs intact bilaterally Neck supple, no JVD and no carotid bruits Resp normal respiratory effort, normal air movement and clear to auscultation bilaterally Cardio regular rate and regular rhythm GI normal to inspection, nondistended, normoactive bowel sounds, non-tender and non-distended Extremity normal capillary refill General Extremity: Negative for edema Skin no rashes or lesions noted General Skin Exam: no breakdown Psych affect normal Appearance: appropriate Medical Records Data Medical Nutrition Assessment Dietitian: Malnutrition Criteria Met Start: 02/17/22 12:57 Freq: Status: Active Protocol: Document 02/17/22 12:58 LOREE (Rec: 02/17/22 12:58 [facility] [id number]) Nutrition Malnutrition Evidence of Malnutrition Exists Yes Malnutrition (moderate): Acute Illness/Injury Evidenced By Suboptimal Energy Intake ( Severe),Weight Loss (Severe) Clinical Problem Acute Disease or Injury Related Malnutrition Etiology related to increased pain and issues w/ constipation making it difficult to consume adequate nutrition to meet est nutritional needs Signs/Symptoms as evidenced by <50% po intake of most meals and 4.9% wt loss x 3 wks precinct police captain. (PO intake appears to be improving since adm and starting to have bowel movements more regularly). Status Active Problem Recommendation Dietitian Recommendations/Changes Continue Regular No Added Salt diet, but with small portions . Change ONS from 4 oz 4x/day w/ medpass to 8 oz john ensure enlive w/ breakfast only per res request Weight / BMI Weight Weight: 49.487 kg Body Mass Index (BMI) 23.1 ABG / Lab / Microbiology Data Result Diagrams: 02/24/22 05:17 03/02/22 05:12 Laboratory: Laboratory Results - last 24 hr 03/02/22 05:12: Sodium 124 L, Potassium 3.4 L, Chloride 90 L, Carbon Dioxide 25.0, Anion Gap 9, BUN 35 H, Creatinine 1.35 H, Estim Creat Clear Calc 31.29, Est GFR (MDRD) Af Amer 50 L, Est GFR (MDRD) Non-Af 41 L, BUN/Creatinine Ratio 25.9 H, Glucose 98, Calcium 8.6 Microbiology: Microbiology 02/21/22 12:45 Nasal Secretion SARS-CoV-2 Antigen (Rapid) - Final D/C Instructions Discharge Diet: No restrictions Discharge Activity: Return to Normal Activity, May Shower and Use Walker Weight Bearing Status: Weight bearing as tolerated Call your doctor if you observe: Fever of 101 or Higher, Inability to urinate, Inability to have a bowel movement, Shortness of breath, Dizziness, Fainting spells, Swelling in the ankles, Chest pain and Uncontrolled pain Additional Instructions: Discharge home alone 03/08/2022, [facility] PT/OT/SN, Bedside commode. Meaningful Use Info Meaningful Use Diagnoses (Choose all that apply): None applicable Discharge Plan Admission Admit Date/Time: 02/16/22 16:51 Primary Reason for Your Visit: Debility. Attending Provider: Adams Rockwell Chi Primary Care Provider: Nacho Quintero Instructions Additional Instructions / Restrictions: Discharge home alone 03/08/2022, [facility] PT/OT/SN, Bedside commode. Discharge Orders/Prescriptions Prescriptions: New furosemide 40 mg Tablet 40 mg PO DAILY 30 Days Qty: 30 RF: 0 tramadol 50 mg Tablet 50 mg PO Q6H PRN PRN (Reason: Pain Score 4-5) 7 Days Qty: 28 RF: 0 spironolactone 50 mg Tablet 50 mg PO DAILY 30 Days Qty: 30 RF: 0 oxycodone 5 mg Tablet 5 mg PO Q4H PRN PRN (Reason: Pain Score 6-10) 7 Days Qty: 28 RF: 0 Continued metoprolol tartrate 25 MG tablet 25 mg PO BID RF: 0 fulvestrant 250 mg/5 mL Syringe 500 mg IM QMONTH RF: 0 polysaccharide iron complex [Ferrex 150] 150 MG capsule 150 mg PO DAILYCM RF: 0 lidocaine 5 % adhesive patch,medicated 1 patch topical DAILY 30 Days Qty: 30 RF: 0 Discontinued furosemide 20 MG tablet 20 mg PO DAILY RF: 0 oxycodone 5 mg Tablet 5 mg PO Q6H PRN (Reason: pain) 3 Days Qty: 12 RF: 0 spironolactone 25 mg tablet 25 mg PO DAILY RF: 0 Ensure Enlive 0.08 gram-1.5 kcal/mL liquid 120 ml PO 4X/DAY RF: 0 Remove Patch 1 patch topical DAILY@2200 RF: 0 Referrals / Follow Up: Nacho Quintero DO [Primary Care Provider] - Disposition Disposition (needs filled in before D/C Order can be placed): Home Health Service
[2022-03-03] MEDS: Spironolactone 50 MG Tablet PO (05:24)
[2022-03-03] MEDS: Furosemide 40 MG Tablet PO (05:24)
[2022-03-03] MEDS: Menthol/Lanolin/Calamine/Znox 113 GM Tube 1 APPLIC TOPICAL ×2 (05:24→20:17)
[2022-03-03 06:07] LABS: Absolute Lymphocyte Count 0.28 X10^3/uL (0.83-4.51); Absolute Neutrophil Count 3.5 X10^3/uL (2.0-7.7); Basophil# 0.03 X10^3/uL; Basophil% 0.6 % (0-1); Eosinophil# 0.08 X10^3/uL; Eosinophils% 1.6 % (0-5); Hematocrit 31.1 % (37-47); Hemoglobin 11.6 g/dL (12.0-15.0); Lymphocyte # 0.28 X10^3/ul (0.83-4.51); Lymphocyte % 5.7 % (19-41); Mean Corp Hgb Conc 37.3 g/dL (32-36); Mean Corpuscular Hgb 41.3 pg (27.0-32.0); Mean Corpuscular Volume 110.7 fL (81-99); Mean Platelet Vol. 11.9 fl (6.2-12.0); Monocyte# 0.84 X10^3/uL; Monocyte% 17.2 % (0-10); NRBC Flagged by Analyzer 0 % (0-5); Neutrophil # 3.52 X10^3/uL (2.7-7.7); Neutrophil % 72.2 % (47-70); POSITIVE DIFFERENTIAL YES; POSITIVE MORPHOLOGY YES; Platelet Count 105 K/mm3 (150-450); RBC Distribution Width CV 16.3 % (11.6-14.6); RBC Distribution Width SD 67.4 fl (35.1-43.9); Red Blood Count 2.81 M/mm3 (4.2-5.4); White Blood Count 4.9 K/mm3 (4.4-11.0)
[2022-03-03 06:12] LABS: Differential Indicated SCAN CRITERIA MET
[2022-03-03 06:35] LABS: Anisocytosis 3+; Differential Comment SCANNED; Macrocytosis 3+
[2022-03-03 06:39] LABS: Anion Gap 10 (5-15); BUN 40 mg/dL (7-18); BUN/Creat Ratio 27.2 RATIO (10-20); Calcium,Total 8.2 mg/dL (8.5-10.1); Chloride 89 mmol/L (98-107); Creatinine, Serum 1.47 mg/dL (0.55-1.02); EST Glomerular Filtration Rate 37 mL/min (>60); Est Glom Filt Rate - Afr Amer 45 mL/min (>60); Estimated Creatinine Clearance 28.22 ml/min; Glucose 105 mg/dL (74-106); Potassium 4.2 mmol/L (3.5-5.1); Sodium Level 124 mmol/L (136-145)
[2022-03-03] MEDS: Iron Polysaccharide Complex 150 MG CAPSULE PO (07:39)
[2022-03-03 12:55] VITALS: BP 130/62; PULSE 98; RESP 16; TEMP 36.7; O2SAT 100
--- NOTE | 2022-03-03 13:31 | NURSING ---
COMMUNITY AMBASSADOR reported to this nurse that pt got dizzy and nauseous while walking to the bathroom and just feels a little off today. This nurse immediately assessed pt and noted VS to WNL and pt had labs done this morning. Pt assisted from the restroom to her recliner by this nurse. Pt states she is not dizzy or nauseas currently and says she feels like it is related to the booster vaccine she received yesterday. Pt reported to retail shift supervisor that she has flu like symptoms and does not always feel up to far after getting vaccines.
[2022-03-03 22:51] VITALS: PULSE 95; RESP 18; O2SAT 92
[2022-03-04] MEDS: Furosemide 40 MG Tablet PO (05:56)
[2022-03-04] MEDS: Menthol/Lanolin/Calamine/Znox 113 GM Tube 1 APPLIC TOPICAL ×2 (05:56→20:55)
[2022-03-04] MEDS: Spironolactone 50 MG Tablet PO (05:56)
[2022-03-04 06:01] LABS: Anion Gap 11 (5-15); BUN 42 mg/dL (7-18); BUN/Creat Ratio 26.4 RATIO (10-20); Calcium,Total 8.3 mg/dL (8.5-10.1); Chloride 88 mmol/L (98-107); Creatinine, Serum 1.59 mg/dL (0.55-1.02); EST Glomerular Filtration Rate 34 mL/min (>60); Est Glom Filt Rate - Afr Amer 41 mL/min (>60); Estimated Creatinine Clearance 26.09 ml/min; Glucose 96 mg/dL (74-106); Potassium 3.8 mmol/L (3.5-5.1); Sodium Level 123 mmol/L (136-145)
[2022-03-04 07:10] VITALS: BP 148/107; PULSE 109; RESP 22; TEMP 36.7; O2SAT 97
--- NOTE | 2022-03-04 07:27 | NURSING ---
Addendum entered by Erin Rodriguez 03/04/22 07:33: Into pt bathroom by RESTAURANT BARTENDER calling for help, pt slumped over not responding, lowered to chair by RESTAURANT BARTENDER and Yefri BEAL. Rapid response called, pt slowly responded, very pale, oriented to person, place and time. Vitals obtained, BP 148/107. P 120. POX 95%. Pt sat for awhile then stated she felt better and no longer dizzy, less pale. Assisted to toilet, voided then assisted to chair per pt request. Pt stated she is feeling better, denies dizziness, nausea, N/T. Pt stated she just got her Covid booster yesterday and she often reacts this way to vaccines. Original Note: This nurse responded to DUMPING MACHINE OPERATOR calling for help at 0710. Assisted patient to chair with DUMPING MACHINE OPERATOR. Patient pale, eyes open but not responding. Rapid response called. Vitals and blood sugar obtained. Rapid Response team in room directed by physician.
--- NOTE | 2022-03-04 07:33 | NURSING ---
Beni Sarmiento, son updated of rapid response this morning. He did have questions regarding extending her stay and is requesting someone reach out to him regarding this.
[2022-03-04 08:06] LABS: Bedside Glucose 113 mg/dL (74-106)
[2022-03-04] MEDS: Iron Polysaccharide Complex 150 MG CAPSULE PO (08:20)
--- NOTE | 2022-03-04 08:48 | CASEMGMT ---
Addendum entered by Anastasiia Menjivar 03/05/22 14:36: Son presented to office and stated pt no longer wants to transfer to [facility]. She would to remain in TCU, pay privately for another week. Pt will pay a week at a time to determine progress. SW updated CC and IDT. DC for 03/08 canceled. Addendum entered by Anastasiia Menjivar 03/05/22 14:14: Spoke with [facility] and they can accept and will start precert. Updated pt and son. Cancelled [facility] and [facility]. Addendum entered by Anastasiia Menjivar 03/05/22 13:41: F/U with [facility] on acceptance - their business office is reviewing her insurance then will notify this worker of outcome. Addendum entered by Anastasiia Menjivar 03/04/22 15:22: Spoke with pt about alternative DC plans. Explained and provided packet of resources for SNF, AL, etc. Received call from son and requested referral to [facility] for a stay prior to DC home. Referral made. Original Note: Social Work Notified by nursing pt had RN FORENSIC this AM and son requested to speak with this worker about extending patient's stay. Contacted son - his answered the phone and SW requested return phone call to discuss further. stated he also had questions about what caused the RN FORENSIC. Directed him to contact nurse's station to get further details. appreciative MERLYN Parrish
[2022-03-04 11:00] VITALS: PULSE 102; RESP 18; O2SAT 92
[2022-03-04] MEDS: traMADol 50 MG Tablet PO (13:31)
[2022-03-04 13:58] VITALS: BP 105/51; PULSE 98; RESP 21; TEMP 36.4; O2SAT 94
[2022-03-04] MEDS: oxyCODONE 5 MG Tablet PO (18:03)
[2022-03-05] MEDS: Spironolactone 50 MG Tablet PO ×2 (05:54→06:05)
[2022-03-05] MEDS: Menthol/Lanolin/Calamine/Znox 113 GM Tube 1 APPLIC TOPICAL ×2 (06:05→19:41)
[2022-03-05] MEDS: Iron Polysaccharide Complex 150 MG CAPSULE PO (08:45)
[2022-03-05 16:00] VITALS: BP 111/70; PULSE 93; RESP 16; TEMP 36.6; O2SAT 97
[2022-03-06] MEDS: Iron Polysaccharide Complex 150 MG CAPSULE PO (08:08)
[2022-03-06] MEDS: Menthol/Lanolin/Calamine/Znox 113 GM Tube 1 APPLIC TOPICAL ×2 (08:21→21:17)
[2022-03-06 16:00] VITALS: BP 115/48; PULSE 100; RESP 20; TEMP 36.9; O2SAT 94
--- NOTE | 2022-03-06 21:20 | NURSING ---
Dressing to b/l feet soiled. Moderate amount of serous drainage noted. Affected areas cleansed w/ NS and pat dry, Adaptic applied to open blister to left dorsal aspect of foot superior to the base of the toes and intact blister to dorsal aspect of foot superior to the base of the toes. ABD cut in half placed over adaptic, wrapped w/ kerlix, and secured w/ paper tape. Pt tolerated well. Will continue to monitor.
[2022-03-07] MEDS: oxyCODONE 5 MG Tablet PO ×2 (03:28→17:33)
[2022-03-07] MEDS: Menthol/Lanolin/Calamine/Znox 113 GM Tube 1 APPLIC TOPICAL ×2 (06:30→20:35)
[2022-03-07 06:32] VITALS: BP 94/46; PULSE 87
[2022-03-07] MEDS: Iron Polysaccharide Complex 150 MG CAPSULE PO (08:35)
[2022-03-07 16:00] VITALS: BP 101/84; PULSE 96; RESP 19; TEMP 36.3; O2SAT 100
[2022-03-08] MEDS: Menthol/Lanolin/Calamine/Znox 113 GM Tube 1 APPLIC TOPICAL ×2 (05:21→20:47)
[2022-03-08 05:23] VITALS: BP 83/48; PULSE 91
[2022-03-08] MEDS: Iron Polysaccharide Complex 150 MG CAPSULE PO (08:17)
[2022-03-08 14:04] VITALS: BP 115/35; PULSE 93; RESP 17; TEMP 36.6; O2SAT 100
[2022-03-08 17:49] VITALS: BP 135/55; PULSE 81
[2022-03-08 20:00] VITALS: PULSE 71
[2022-03-09] MEDS: Menthol/Lanolin/Calamine/Znox 113 GM Tube 1 APPLIC TOPICAL ×2 (06:43→21:10)
[2022-03-09] MEDS: Spironolactone 50 MG Tablet PO (06:43)
[2022-03-09] MEDS: Furosemide 40 MG Tablet PO (06:43)
[2022-03-09] MEDS: Iron Polysaccharide Complex 150 MG CAPSULE PO (08:27)
[2022-03-09 09:10] VITALS: PULSE 95; RESP 18; O2SAT 92
[2022-03-09 13:54] VITALS: BP 99/58; PULSE 85; RESP 16; TEMP 36.3; O2SAT 97
[2022-03-09] MEDS: oxyCODONE 5 MG Tablet PO (14:34)
[2022-03-10] MEDS: Menthol/Lanolin/Calamine/Znox 113 GM Tube 1 APPLIC TOPICAL ×2 (04:37→20:09)
[2022-03-10 04:38] VITALS: BP 82/44; PULSE 99
[2022-03-10 05:32] LABS: Absolute Lymphocyte Count 0.26 X10^3/uL (0.83-4.51); Absolute Neutrophil Count 5.8 X10^3/uL (2.0-7.7); Basophil# 0.02 X10^3/uL; Basophil% 0.3 % (0-1); Eosinophil# 0.07 X10^3/uL; Eosinophils% 0.9 % (0-5); Hematocrit 33.8 % (37-47); Hemoglobin 12.4 g/dL (12.0-15.0); Lymphocyte # 0.26 X10^3/ul (0.83-4.51); Lymphocyte % 3.5 % (19-41); Mean Corp Hgb Conc 36.7 g/dL (32-36); Mean Corpuscular Hgb 40.3 pg (27.0-32.0); Mean Corpuscular Volume 109.7 fL (81-99); Monocyte# 1.03 X10^3/uL; Monocyte% 13.9 % (0-10); NRBC Flagged by Analyzer 0 % (0-5); Neutrophil # 5.81 X10^3/uL (2.7-7.7); Neutrophil % 78.7 % (47-70); POSITIVE DIFFERENTIAL YES; POSITIVE MORPHOLOGY YES; Platelet Count 165 K/mm3 (150-450); RBC Distribution Width CV 16.6 % (11.6-14.6); RBC Distribution Width SD 67.6 fl (35.1-43.9); Red Blood Count 3.08 M/mm3 (4.2-5.4); White Blood Count 7.4 K/mm3 (4.4-11.0)
[2022-03-10 05:33] LABS: Differential Indicated SCAN CRITERIA MET
[2022-03-10 06:04] LABS: Anion Gap 12 (5-15); BUN 61 mg/dL (7-18); BUN/Creat Ratio 33.7 RATIO (10-20); Calcium,Total 8.9 mg/dL (8.5-10.1); Chloride 83 mmol/L (98-107); Creatinine, Serum 1.81 mg/dL (0.55-1.02); EST Glomerular Filtration Rate 29 mL/min (>60); Est Glom Filt Rate - Afr Amer 36 mL/min (>60); Estimated Creatinine Clearance 23.15 ml/min; Glucose 81 mg/dL (74-106); Potassium 4.9 mmol/L (3.5-5.1); Sodium Level 118 mmol/L (136-145)
[2022-03-10 06:15] LABS: Anisocytosis 2+; Differential Comment SCANNED; Macrocytosis 2+
[2022-03-10 06:32] VITALS: BP 102/66; PULSE 97
--- NOTE | 2022-03-10 06:37 | NURSING ---
Updated Dr. Rockwell of low sodium, patient asymptomatic, verbal order for NS@60cc/hr and BMP tomorrow AM.
[2022-03-10] MEDS: Iron Polysaccharide Complex 150 MG CAPSULE PO (08:23)
[2022-03-10] MEDS: Sodium Chloride 1 GM Tablet PO ×2 (09:25→18:25)
[2022-03-10] MEDS: 0.9% Normal Saline 1,000 ML 60 ML IV (12:41)
[2022-03-10] MEDS: Ondansetron ODT 4 MG Tablet PO (12:47)
--- NOTE | 2022-03-10 13:10 | NURSING ---
Pt with history bilateral Mastectomies with LN involvement. Only able to use hands. Attempted one vessel in left hand without success. Veins too tiny and rt hand bruised. Peripheral vascular access in hands exhausted. Recommended external jugular or may need to re visit med port. BD PIV 22g 1 lot #[id number], [employer] IV Start kit lot# [id number]
[2022-03-10 13:35] VITALS: BP 124/58; PULSE 90; RESP 14; TEMP 36.2; O2SAT 96
[2022-03-10] MEDS: oxyCODONE 5 MG Tablet PO ×2 (14:42→19:03)
--- NOTE | 2022-03-10 16:21 | NURSING ---
Lab called with critical sodium level of 119, Dr. Rockwell updated, N.N.O
[2022-03-10 16:24] LABS: Anion Gap 12 (5-15); BUN 63 mg/dL (7-18); BUN/Creat Ratio 31.2 RATIO (10-20); Chloride 85 mmol/L (98-107); Creatinine, Serum 2.02 mg/dL (0.55-1.02); EST Glomerular Filtration Rate 26 mL/min (>60); Est Glom Filt Rate - Afr Amer 31 mL/min (>60); Estimated Creatinine Clearance 20.74 ml/min; Glucose 82 mg/dL (74-106); Potassium 5.3 mmol/L (3.5-5.1); Sodium Level 119 mmol/L (136-145)
--- NOTE | 2022-03-10 16:50 | NURSING ---
K+ was 5.3, BUN 63, creatinine 2.02. Dr. Rockwell updated and N.O. Kayexolate 30gm x1 dose.
[2022-03-10] MEDS: Sodium Polystyrene Sulfonate 15 GM/60 ML UDC 30 GM PO (18:23)
[2022-03-10] MEDS: Acetaminophen 500 MG Tablet 1000 MG PO (19:03)
[2022-03-10 20:45] VITALS: PULSE 130; O2SAT 92
--- NOTE | 2022-03-10 20:50 | NURSING ---
Staff reports increased weakness with transfers requiring verbal cues, EAx2, also reporting strong/foul smelling urine, cloudy in color with new onset urine incontinence. contacted regarding above information, new order received for straight cath UA C&S
[2022-03-10 22:03] LABS: Bacteria 0 SEEN /hpf (None Seen); Mucous, Urine 0 SEEN /hpf (<or=2+); Red Blood Cells-Urine 0 SEEN /hpf (0-5); Squamous Epithelial Cells - UA 0 SEEN /hpf (5-10)
[2022-03-10 22:07] LABS: Color, Urine Yellow (Yellow); Glucose, Dipstick Normal (Normal); Ketone-Dipstick 5 mg/dl (Negative); Leukocyte Esterase-Dipstick 500 /ul (Negative); Nitrite-Dipstick Negative (Negative); Occult Blood-Urine 250 /ul (Negative); Protein-Dipstick 100 mg/dl (Negative); Urine Bilirubin Dipstick Negative (Negative); Urine Clarity Cloudy (Clear); Urine Urobilinogen 1 mg/dl (Normal)
[2022-03-10 22:29] LABS: White Blood Cells >100 SEEN /hpf (0-5)
--- NOTE | 2022-03-10 22:57 | NURSING ---
contacted via telephone, notified of urinalysis results. Reviewed allergy list. New order received: Keflex 500mg three times daily x7 days give first dose now. Urine culture pending per order.
[2022-03-10] MEDS: Cephalexin 500 MG Capsule PO (23:33)
[2022-03-11] MEDS: Cephalexin 500 MG Capsule PO ×3 (05:20→22:51)
[2022-03-11] MEDS: Sodium Chloride 1 GM Tablet PO ×2 (05:21→17:01)
[2022-03-11] MEDS: Menthol/Lanolin/Calamine/Znox 113 GM Tube 1 APPLIC TOPICAL ×2 (05:23→22:51)
[2022-03-11 06:15] LABS: Anion Gap 14 (5-15); BUN 64 mg/dL (7-18); BUN/Creat Ratio 28.4 RATIO (10-20); Calcium,Total 8.1 mg/dL (8.5-10.1); Chloride 88 mmol/L (98-107); Creatinine, Serum 2.25 mg/dL (0.55-1.02); EST Glomerular Filtration Rate 23 mL/min (>60); Est Glom Filt Rate - Afr Amer 28 mL/min (>60); Estimated Creatinine Clearance 18.62 ml/min; Glucose 101 mg/dL (74-106); Potassium 5.4 mmol/L (3.5-5.1); Sodium Level 119 mmol/L (136-145)
[2022-03-11] MEDS: 0.9% Normal Saline 1,000 ML 60 ML IV ×2 (06:22→22:48)
[2022-03-11] MEDS: Iron Polysaccharide Complex 150 MG CAPSULE PO (07:23)
--- NOTE | 2022-03-11 08:51 | NURSING ---
Kayexalate enema ordered to hyperkalemia. Pharmacist was called to inquire about administration procedure for enema. Pharmacist updated this nurse that to administer the enema the pt must have a cleansing enema prior to the Kayexalate enema. After the cleansing enema, use a 16 cook islander tubing and insert 20cm into the tip of the sigmoid colon and tape in place, administer kayexalate at full strength then flush with 50-100cc of water. After administration of Kayexalate enema, perform another non-sodium containing cleansing enema. Dr. Rockwell updated and N.O. to d/c kayexalate enema and switch to kayexalate 30gm PO x 1 dose.
[2022-03-11 09:52] VITALS: PULSE 92; RESP 18
[2022-03-11] MEDS: Sodium Polystyrene Sulfonate 15 GM/60 ML UDC 30 GM PO (10:30)
--- NOTE | 2022-03-11 10:31 | CASEMGMT ---
Addendum entered by Anastasiia Menjivar 03/11/22 15:51: Spoke with [facility] and they can accept any time. Contacted son to update. Son is meeting with [facility] 03/12 at 1:30 pm and would like to transfer pt 03/15 as that is last day private pay. [facility] agreeable to that. Son requesting cot transport. Son to bring in advance directives. Son expressed appreciation for this worker's support and assistance. Scheduled cot transport through [facility] at 1230 pm per son request. Plan: DC to [facility] 03/15, [facility] Addendum entered by Anastasiia Menjivar 03/11/22 10:55: Met with patient, son and father in room. Recapped pt's wishes and DC plan. Pt chose [facility]. Family agreeable. Pt confirmed no more therapy during stay. Pt will DC to [facility], if accepted, with [facility]. Pt is paid through 03/15. Son will provide additional payment if needed. Son requesting call from Dr. Rockwell to get information discussed this morning with pt and father. Pt agreeable to that conversation. Communication left for Dr. Rockwell. Pt and family expressed appreciation for SW assistance. Referral made to [facility]. Original Note: Social Work Notified by nursing that Dr. Rockwell spoke with pt and her father about discharging pt from TCU with hospice services. Pt is declining medically and is in pain. Received voicemail from son that pt is wishing to pay privately another week and requested referral to [facility]. Spoke with pt in room. Pt reiterated her conversation with Dr. Rockwell. She stated she wants to go to [facility], but may not be ready for hospice right. She just wants to be left alone. Validated feelings and provided supportive listening. Explained hospice does not mean she is dying right now or tomorrow; pts can be on hospice for years. The goal for hospice is comfort focused, not to be 'poked or prodded', not returning to the hospital and getting support to make remaining life quality of life. Pt agreed and stated, yes that is what I want, I'm done getting poked and prodded. Pt was emotional. Validated feelings, acknowledged pt has fought, was determined to get better and now her body is not able to keep going. Pt agreed and wants to be left alone and pain free. Pt requested SW call son and father to update on hospice decision. SW agreed. SW offered pt does not have to continue working with therapy if she does not wish to. Pt agreed that is her wish. Pt appreciative of this worker. SW contacted son and updated on receiving voicemail, SW to make referral to SNF and updated on pts wishes for hospice. Son replied, well I don't even know if she's going to be around for another week. Explained per Dr. Rockwell, he is not anticipating pt dying within that timeframe, and pt can be on hospice for months. Hospice aligns with her wishes. Son relieved. He stated he and grandfather were under the impression they needed to come in to speak with this worker. SW apologized, they do not need to come in, can speak over the phone or happy to meet in person. Son stated they already planned on coming in, and will proceed with that. SW agreed and will meet in person when they arrive. Updated IDT and therapy. Referral made to [facility]. SW to continue to follow. Anastasiia Menjivar, MERLYN SALES REPRESENTATIVE [employer]
[2022-03-11] MEDS: oxyCODONE 5 MG Tablet PO (12:17)
[2022-03-11] MEDS: Bisacodyl 5 MG Tablet 10 MG PO (13:49)
[2022-03-11 14:40] VITALS: BP 106/41; PULSE 89; RESP 14; TEMP 36.3; O2SAT 97
[2022-03-11 16:26] VITALS: BP 101/57; PULSE 90
[2022-03-11] MEDS: Senna/Docusate Sodium 1 Tablet 2 TABLET PO (17:00)
--- NOTE | 2022-03-11 18:08 | NURSING ---
Pt was no void until approx 1730 then was incontinent of small amount of urine, bladderscanned for 652, Dr. Rockwell updated N.O. indwelling catheter for retention and palliative care. Lawrence catheter inserted and pt tolerated well. Pt refused simethicone and stated I am done, I do not want anymore medications, I do not want and more vital signs, no more wraps, nothing. This nurse helped position patient until she was comfortable and left call light in reach. Pt thanked this nurse for helping her today.
--- NOTE | 2022-03-12 02:24 | PCA ---
This PLASTICS BENCH MECHANIC went in to ask if pt would like to get washed up and put her pjs on for the night.Pt refused and said she didnt want to do anything. Reported this to the nurse.
--- NOTE | 2022-03-12 03:14 | PCA ---
patient refused all care and stated she is just giving up shes tired of living this way.
--- NOTE | 2022-03-12 03:45 | NURSING ---
Addendum entered by Joselyn Esquivel 03/15/22 03:42: Date entered incorrectly. Date of voicemail left was 03/13/22. Original Note: Left kushal w/ Anastasiia HOBBS, to update pt's son, Beni, wishes to further discuss dc plans per previous note.
[2022-03-12] MEDS: Cephalexin 500 MG Capsule PO ×2 (05:19→13:49)
[2022-03-12] MEDS: Sodium Chloride 1 GM Tablet PO (05:19)
[2022-03-12] MEDS: Menthol/Lanolin/Calamine/Znox 113 GM Tube 1 APPLIC TOPICAL ×2 (05:31→21:47)
--- NOTE | 2022-03-12 08:16 | NURSING ---
PT REFUSED MORNING MEDS AND JANE WRAPS. PT STATED I DONT WANT ANY THING ANY MORE,I JUST WANT TO LAY HERE AND SLEEP. OFFERED WATER TO PT AND SHE DID DRINK SOME. WILL CONTINUE TO MONITOR.
[2022-03-12] MEDS: oxyCODONE 5 MG Tablet PO (11:40)
--- NOTE | 2022-03-12 13:34 | NURSING ---
SON AND HOSPICE HERE TO TALK WITH PT.
--- NOTE | 2022-03-12 14:33 | CASEMGMT ---
Social Work Met with welfare investigator and son after they met. Confirmed DC plan. Son provided AD. Copies placed on chart and to welfare investigator. PASRR completed. Faxed PASRR and DC paperwork to [facility]. Anastasiia Menjivar MSW [employer]
--- NOTE | 2022-03-12 15:04 | TREXTCAR_ITS ---
Diet 02/16/22 17:20 Diet: Regular - General Food consistency:: Regular Liquid Consistency:: Regular/Thin Dietary Modifications:: No Added Salt Type of Dietary Supplement:: Ensure Clear Fluid restriction:: 1500 mL Diet Comments: 4 oz ensure clear w/ breakfast and dinner; SMALL portions Routine Orders/Code Status Code Status: DNRCC-A (No intubation.) Wound(s) Rt foot: Wound Type: blister Dressing Change: Dry Sterile Dressing Lt couch: Wound Type: Abrasion Rt arm: Wound Type: Skin Tear Dressing Change: Adaptic Lt elbow skin tear: Wound Type: Skin Tear Left foot: Intact Water Blister: Wound Type: Water blister Dressing Change: adaptic w/dsd Dorsal aspect of b/l feet: Wound Type: blisters Dressing Change: Dry Sterile Dressing TOP LEFT FOOT: Wound Type: open blister Dressing Change: adaptic, dsd Therapies Weight Bearing: Weight bearing as tolerated Problem/Diagnosis (1) Compression fracture of T12 vertebra: Status: Acute (2) Acute mid back pain: Status: Acute (3) History of bilateral mastectomy: Status: Acute (4) Debility: Status: Acute Allergies/Procedures Done in Hospital Allergies carvedilol Adverse Reaction (Verified 02/11/22 12:56) dizziness, can't function Procedures: None Type of Care/Length of Stay Estimated LOS: More Than 30 Days Type of Care Needed: Intermediate Rehab Potential: Poor Prognosis: Poor Additional Orders/Day of Discharge Additional Orders: [facility] Day of Discharge: 03/15/22 Dietary and Speech Recommendations Dietitian Recommendations/Changes: Continue Regular No Added Salt diet w/ FR/day as ordered by MD, but with small portions. Continue 4 oz ensure clear w/ breakfast and dinner per res request Discharge Plan Admission Admit Date/Time: 02/16/22 16:51 Primary Reason for Your Visit: Debility. Attending Provider: Adams Rockwell Chi Primary Care Provider: Nacho Quintero Instructions Additional Instructions / Restrictions: Discharge [facility] 03/15/2022 with [facility] Discharge Orders/Prescriptions Prescriptions: New furosemide 40 mg Tablet 40 mg PO DAILY 30 Days Qty: 30 RF: 0 tramadol 50 mg Tablet 50 mg PO Q6H PRN PRN (Reason: Pain Score 4-5) 7 Days Qty: 28 RF: 0 spironolactone 50 mg Tablet 50 mg PO DAILY 30 Days Qty: 30 RF: 0 oxycodone 5 mg Tablet 5 mg PO Q4H PRN PRN (Reason: Pain Score 6-10) 7 Days Qty: 28 RF: 0 Continued metoprolol tartrate 25 MG tablet 25 mg PO BID RF: 0 fulvestrant 250 mg/5 mL Syringe 500 mg IM QMONTH RF: 0 polysaccharide iron complex [Ferrex 150] 150 MG capsule 150 mg PO DAILYCM RF: 0 lidocaine 5 % adhesive patch,medicated 1 patch topical DAILY 30 Days Qty: 30 RF: 0 Discontinued furosemide 20 MG tablet 20 mg PO DAILY RF: 0 oxycodone 5 mg Tablet 5 mg PO Q6H PRN (Reason: pain) 3 Days Qty: 12 RF: 0 spironolactone 25 mg tablet 25 mg PO DAILY RF: 0 Ensure Enlive 0.08 gram-1.5 kcal/mL liquid 120 ml PO 4X/DAY RF: 0 Remove Patch 1 patch topical DAILY@2200 RF: 0 Referrals / Follow Up: Nacho Quintero DO [Primary Care Provider] - Disposition Disposition (needs filled in before D/C Order can be placed): NonSkilled NH/Intermed Care
[2022-03-12] MEDS: 0.9% Normal Saline 1,000 ML 60 ML IV (15:34)
--- NOTE | 2022-03-12 17:58 | NURSING ---
PT REFUSED 1800 MEDS AND SUPPER.
[2022-03-12 22:14] VITALS: PULSE 95; RESP 16; O2SAT 98
[2022-03-13] MEDS: Menthol/Lanolin/Calamine/Znox 113 GM Tube 1 APPLIC TOPICAL ×2 (05:29→20:30)
--- NOTE | 2022-03-13 08:29 | NURSING ---
Addendum entered by Lorena Garcia 03/13/22 19:34: pt continued to request for iv to be removed, and was d/c Original Note: pt refused morning meds and next dose of N/S , pt stated she just wants to rest and doesn't want anything.
[2022-03-13 14:30] VITALS: BP 113/67; PULSE 104; RESP 14; TEMP 36.3; O2SAT 96
[2022-03-13 20:20] VITALS: O2SAT 95
[2022-03-13] MEDS: Cephalexin 500 MG Capsule PO (20:34)
[2022-03-14] MEDS: Bisacodyl 5 MG Tablet 10 MG PO (04:56)
[2022-03-14] MEDS: Cephalexin 500 MG Capsule PO (04:56)
[2022-03-14] MEDS: Sodium Chloride 1 GM Tablet PO (04:56)
[2022-03-14] MEDS: Menthol/Lanolin/Calamine/Znox 113 GM Tube 1 APPLIC TOPICAL (04:57)
[2022-03-14 05:53] VITALS: BP 89/56; PULSE 95
--- NOTE | 2022-03-14 08:53 | NURSING ---
Patient refused to take morning medications. States I just don't want to do this anymore. Patient did take simethicone.
[2022-03-14 15:05] VITALS: BP 86/51; RESP 16; TEMP 35.9
[2022-03-14] MEDS: oxyCODONE 5 MG Tablet PO (17:00)
--- NOTE | 2022-03-14 17:54 | NURSING ---
Patient decline in health. Son called in due to unable to palpate bilateral pulses. Pt requested pain medication. Overhead conversation with her when no one was room. Stating I am ready to just go.
--- NOTE | 2022-03-14 20:50 | NURSING ---
Spoke w/ son, Beni, outside pt's room answering questions re: disease progression and status of dc. Informed Beni this nurse unsure when pt will pass. Time frame most likely hours to days given changes in skin color- dusky, mottled feet; pt is minimally responsive; po intake is decreased; and urine output is significantly decreased. He is accepting of pt's condition. Does not anticipate he will stay along w/ his 95 year old grandfather, who is the pt's father. Informed Beni he may stay or may choose to leave and will be contacted w/ any change in condition. Phone# for Beni confirmed and is in demographic screen. He verbalizes concerns re: dc to [facility] given her current condition. Discussed burden of transfer as a significant amount of energy will be expended and pt may not survive the transfer. Beni would like to keep pt on TCU through end of life. He would like Anastasiia HOBBS, updated and plans to discuss the situation w/ her tomorrow am. Emotional support and active listening provided throughout conversation. He expresses appreciation for support of staff.
--- NOTE | 2022-03-14 22:45 | NURSING ---
Left vm for Anastasiia HOBSB, to update pt's son, Beni, wishes to discuss pt's condition and status of dc plans.
[2022-03-15 00:30] VITALS: BP 96/53; PULSE 100; TEMP 36
[2022-03-15] MEDS: oxyCODONE 5 MG Tablet PO ×2 (03:26→12:42)
[2022-03-15 05:15] VITALS: BP 83/32; PULSE 97
[2022-03-15] MEDS: Menthol/Lanolin/Calamine/Znox 113 GM Tube 1 APPLIC TOPICAL ×2 (05:18→21:47)
--- NOTE | 2022-03-15 05:31 | NURSING ---
Son, Beni, calls for an update. Informed him pt has remained about the same. Medicated w/ Oxycodone around 0330. BP remains low. His plan remains the same to keep pt at TCU given her current condition. Updated Beni that this nurse left a vm for Anastasiia re: dc planning. Expresses appreciation for update. He may try to call Anastasiia at 0830.
--- NOTE | 2022-03-15 09:30 | CASEMGMT ---
Social Work Received information from nightshift nurse of pt decline. Spoke with dayshift nurse about concern with pt surviving transport today. Called Dr. Rockwell to speak with him about IPU, cancel DC, estimated timeframe and remaining in TCU. Dr. Rockwell stated pt has no symptoms to manage to qualify for IPU, but agreeable to not completing DC and pt remain. Spoke with son and he is 100% agreeable and wishes for pt to remain in TCU. Son to contact supervisor food checkers and cashiers's office with payment once patient passes to pay the correct amount of days. Visited with pt and confirmed wishes. Provided emotional support. Updated IDT and Director. Director agreeable to payment plan. Canceled transport through [facility]. Spoke with Lani at [facility] to cancel DC. MERLYN ParrishW
--- NOTE | 2022-03-15 13:19 | NURSING ---
Agricultural Sales Representative Note: One on one visiting with resident. Wakes periodically. Able to take small sips from water. Son arrived with her cat, Pumpkin and resident awake, smiling. Drifts to sleep. Provided hand massage, prayer blanket and soft music for sensory calming.
[2022-03-15 15:55] VITALS: BP 90/50; PULSE 99; RESP 16; TEMP 36.2; O2SAT 92
--- NOTE | 2022-03-15 17:00 | NURSING ---
Pt offered water and mouth care completed at this time. Pt refused Breakfast and Lunch this shift. Urine output 25cc this shift urine Guadalupe with no odor. No bowel movement since 03/10/22 pt refusing to take any medications. Pain has been managed with PRN Oxycodone. Pt resting in bed with father at bedside at this time. Call light within reach.
[2022-03-15] MEDS: morphine (oral solution) 10MG/0.5ML Syringe 10 MG SL/PO ×3 (19:42→23:13)
[2022-03-15 19:59] VITALS: BP 70/25; PULSE 85; RESP 12; O2SAT 89
--- NOTE | 2022-03-15 20:00 | PN.TCU_ITS ---
Subjective Subjective Resident unresponsive, she is actively dying. I met her 95 year old father Fernando, who was very appreciative. Resident was planning discharge to [facility] with hospice, but because she is actively dying, elected to stay on TCU thru her passing. Objective Data Objective Data Vital Signs: Vital Signs Temp Pulse Resp BP Pulse Ox 97.1 F L 85 12 70/25 L 89 03/15/22 15:55 03/15/22 19:59 03/15/22 19:59 03/15/22 19:59 03/15/22 19:59 Oxygen Delivery Method Room Air Weight: 49.98 kg Body Mass Index (BMI) 23.1 Intake & Output: Intake and Output for Last 24 Hours 03/13/22 03/14/22 03/15/22 23:59 23:59 23:59 Intake Total 240 / 240 50 / 50 Output Total 425 / 425 75 / 75 100 / 100 Balance -185 / -185 -75 / -75 -50 / -50 Medical Nutrition Assessment Dietitian: Malnutrition Criteria Met Start: 02/17/22 12:57 Freq: Status: Active Protocol: Document 03/10/22 11:10 [facility] (Rec: 03/10/22 11:10 [facility] [id number]) Nutrition Malnutrition Evidence of Malnutrition Exists Yes Malnutrition (moderate): Acute Illness/Injury Evidenced By Suboptimal Energy Intake ( Moderate),Weight Loss (Severe) Clinical Problem Acute Disease or Injury Related Malnutrition Etiology related to increased pain and issues w/ constipation making it difficult to consume adequate nutrition to meet est nutritional needs Signs/Symptoms as evidenced by ~50% po intake of most meals and 3.7% wt loss x 3 wks. Status Active Problem Recommendation Dietitian Recommendations/Changes Continue Regular No Added Salt diet w/ FR/day as ordered by , but with small portions. Continue 4 oz ensure clear w/ breakfast and dinner per res request Lab / Micro Data Result Diagrams: 03/10/22 05:10 03/11/22 05:18 Micro: Microbiology 03/10/22 21:15 Urine, Clean Catch Urine Culture - Final Presumptive E. coli 02/21/22 12:45 Nasal Secretion SARS-CoV-2 Antigen (Rapid) - Final Physical Exam Const alert General Appearance: cooperative HEENT normocephalic Eyes PERRL and EOMs intact bilaterally Neck supple, no JVD and no carotid bruits Resp normal respiratory effort, normal air movement and clear to auscultation bilaterally Cardio regular rate and regular rhythm GI normal to inspection, nondistended, normoactive bowel sounds, non-tender and non-distended GI Narrative: Distended. Extremity normal capillary refill General Extremity: Negative for edema Skin no rashes or lesions noted General Skin Exam: no breakdown Psych affect normal Appearance: appropriate Assessment & Plan Assessment/Plan (1) Compression fracture of T12 vertebra: QUALIFIERS: Encounter type: subsequent encounter (2) Acute mid back pain: (3) History of bilateral mastectomy: (4) Debility: PLAN: 71 year old female with below past medical history hospitalized for fall, intractable back pain, complicated by chronic T12 compression fracture, acute kidney injury, hyponatremia, pancytopenia, admitted to TCU with debility, here for rehabilitation, strengthening, prior to discharge home alone. Resident actively dying, she has days to live. * Pain - Tylenol 1000mg q6h prn pain (1-3), Morphine 10mg sl/po q1h prn pain (6- 10). * Congestion - Atropine 4gtt q3h prn. * Anxiety - Lorazepam 1mg po q4h prn. * Nausea - Zofran 4mg q8h prn. * Skin irritation - Calmoseptine topical bid. Capacity Capacity Assessment Tool Can the patient make a choice & communicate that choice?: Yes Can the patient understand benefits, risks and alternatives?: Yes Can the patient make a logical, rational choice?: Yes Is the choice the patient makes consistent w/ their values?: Yes Is there an impending, emergent risk to the patient?: Yes Does the patient have an Advance Directive?: Yes Is there a Surrogate Available?: Yes i.e. HCPOA: Yes i.e. close relative (spouse, child, parent, sibling)?: Yes
--- NOTE | 2022-03-15 23:05 | NURSING ---
Pt has progressed further along, BP now 64/27 HR 99 and respirations at 10 with periods of apnea, and mottling of the skin. Son called and updated. He is sitting with pt now.
[2022-03-16] MEDS: morphine (oral solution) 10MG/0.5ML Syringe 10 MG SL/PO ×9 (00:18→08:46)
[2022-03-16] MEDS: LORazepam 2 MG/ML Bottle 1 MG PO ×2 (01:23→05:37)
[2022-03-16] MEDS: Menthol/Lanolin/Calamine/Znox 113 GM Tube 1 APPLIC TOPICAL (05:42)
[2022-03-16] MEDS: Atropine Sulfate 1% 2 ml Bottle 4 DRP PO ×2 (06:47→07:58)
--- NOTE | 2022-03-16 07:17 | NURSING ---
03/16- Pt declined throughout the night. Son was called around 2300 on 03/15/2022 and he came in and sat with her until 0400 this morning. BP at 0530 was 52/17 and respirations were 7. PRN morphine and lorazepam given as ordered. Terminal secretions noted around 0630 and PRN atropine given as ordered. Pt is mottling on bilateral lower extremities, back, buttocks, and chest. Pt sometimes responds to verbal stimuli but speech is incoherent.
--- NOTE | 2022-03-16 07:59 | NURSING ---
spoke with pt's son on phone for update and encouraged to come in this am d/t transitioning to active dying. atropine gtt given for audible congestion. unable to get bp this am and resp up to 12. pt's father at bedside now with felipe kilpatrick
--- NOTE | 2022-03-16 09:30 | NURSING ---
0830-pt's son in and updated on condition. atropine gtts effective and family declines turning of pt at this time.
--- NOTE | 2022-03-16 09:32 | NURSING ---
family called out and pt with cessation of life. verified with tran gama lpn. dr. ferrer office notifed and time of 924. sw aware and family aware that could stay as long as needed to say goodbyes.
--- NOTE | 2022-03-16 10:11 | NURSING ---
family left after belongings list completed by staff.
--- NOTE | 2022-03-16 10:55 | NURSING ---
1005 [facility] called and notified. body to be released to [facility] when family leaves. belongings list filled out and family left and ok for transfer. nursing food service supervisor up to floor and pt made ready for poss cornea/eye donation per [employer]. body released off floor via bed and ice to eyes
== END 2022-03-16 11:03 | DRG 560 ==
PROVIDERS: Admitting Provider Family Medicine Geriatric Medicine; PCP Student in an Organized Health Care Education/Training Program; Visit Provider Family Medicine Geriatric Medicine
DX: S22.080D Wedge compression fracture of T11-T12 vertebra, subsequent encounter for fracture with routine healing (principal); D61.818 Other pancytopenia; J90 Pleural effusion, not elsewhere classified; E87.1 Hypo-osmolality and hyponatremia; N17.9 Acute kidney failure, unspecified; K70.31 Alcoholic cirrhosis of liver with ascites; I48.91 Unspecified atrial fibrillation; C44.501 Unspecified malignant neoplasm of skin of breast; D50.9 Iron deficiency anemia, unspecified; K80.20 Calculus of gallbladder without cholecystitis without obstruction; W19.XXXD Unspecified fall, subsequent encounter; F41.9 Anxiety disorder, unspecified; Z86.718 Personal history of other venous thrombosis and embolism; Z79.899 Other long term (current) drug therapy; G89.29 Other chronic pain; Z23 Encounter for immunization
CPT/HCPCS: 0064A; 36415; 80048; 81001; 82962; 83930; 83935; 84300; 85025; 87086; 87088; 87186; 87426; 91306; 97110; 97116; 97162; 97166; 97530; 97535; 97802; J7030

== ENCOUNTER 2022-02-17 15:38 | Outpatient (CLI) | payer MEDICARE, SELFPAY ==
--- NOTE | 2022-02-17 16:05 | CT_ITS ---
HISTORY: ABD DISTENSTION EXAMINATION: CT Abdomen And Pelvis W/O Contrast Injection TECHNIQUE: Multiple axial images were obtained of the abdomen and pelvis without oral or IV contrast. A radiation dose optimization technique was used for this scan. IV Contrast dosage and agent: None. Oral contrast: None. COMPARISON: None FINDINGS: LOWER CHEST: Bibasilar dependent changes. No cardiomegaly or pericardial effusion. LIVER: Stable cirrhotic appearance. GALLBLADDER AND BILIARY TREE: Calcified gallstones. No gallbladder distension or wall edema. No intra- or extrahepatic biliary ductal dilation. PANCREAS: No focal cystic or solid mass. SPLEEN: Normal size without focal cystic or solid mass. ADRENAL GLANDS: No nodules. KIDNEYS AND URETERS: Left kidney absent. No right hydronephrosis or nephrolithiasis. PERITONEUM: No free air. Decreasing ascites. BOWEL: No evidence of acute appendicitis. No stomach or small bowel distension. Gaseous colonic distention. LYMPH NODES: No enlarged mesenteric or retroperitoneal lymph nodes. VESSELS: Aorta is non-dilated. URINARY BLADDER: Unremarkable. REPRODUCTIVE ORGANS: No pelvic masses. ABDOMINAL WALL: Persistent body wall anasarca. BONES: No acute or aggressive abnormality. Stable right femoral fixator. CT/Abdomen/Pelvis without Cont IMPRESSION: Gaseous colonic distention. No small bowel obstruction. Decreasing ascites. Cholelithiasis. Individualized dose optimization techniques were used for this CT. at 1917 Reported and signed by: Dustin Ivory MD Electronically Signed: Dustin Ivory MD at 19:16 EDT ,
== END 2022-02-17 23:59 | disposition home or self-care (01) ==
PROVIDERS: PCP Student in an Organized Health Care Education/Training Program; Referring Provider Family Medicine Geriatric Medicine; Visit Provider Family Medicine Geriatric Medicine
DX: R14.0 Abdominal distension (gaseous) (principal); K80.20 Calculus of gallbladder without cholecystitis without obstruction
CPT/HCPCS: 74176; 74177

== ENCOUNTER 2022-02-19 08:43 | Outpatient (CLI) | payer MEDICARE, SELFPAY ==
[2022-02-19 10:49] VITALS: BP 104/50; BP 106/57; PULSE 88; PULSE 89; RESP 12; RESP 16; TEMP 36.6; O2SAT 100; O2SAT 98
[2022-02-19] MEDS: Lidocaine 2% (20 ml mdv) 20 ML Vial INFILT (12:40)
--- NOTE | 2022-02-19 14:00 | US_ITS ---
PROCEDURE: Ultrasound guided paracentesis. DATE OF EXAMINATION: 02/19/2022. INDICATION: Female, 71 years old. Ascites. PHYSICIAN: Navid Portillo M.D. TECHNIQUE: The risks, benefits, and alternatives to the procedure were explained to the patient. The specific risks of bleeding, infection, and damage to bowel were detailed and accepted. Witnessed informed consent was obtained. The abdomen was ultrasonographically surveyed. An appropriate pocket of fluid was identified at the left lower quadrant. The skin were cleaned and prepped in the usual sterile fashion. Using ultrasound guidance, the peritoneal cavity was accessed with a 5-Uzbek paracentesis needle/catheter system. The trocar was removed. A total of 1700 ml of eva-colored fluid were removed from the peritoneal cavity. The catheter was removed and a sterile dressing was applied. The procedure was well tolerated. US/Paracentesis with US IMPRESSION: Ultrasound guided paracentesis. Electronically Signed: Navid Portillo MD at 12:05 EDT ,
== END 2022-02-19 23:59 | disposition home or self-care (01) ==
PROVIDERS: PCP Student in an Organized Health Care Education/Training Program; Referring Provider Family Medicine Geriatric Medicine; Visit Provider Family Medicine Geriatric Medicine
DX: R18.8 Other ascites (principal)
CPT/HCPCS: 49083

== ENCOUNTER 2022-02-25 08:32 | Outpatient (CLI) | payer MEDICARE, SELFPAY ==
--- NOTE | 2022-02-25 13:17 | US_ITS ---
PROCEDURE: Ultrasound guided paracentesis. DATE OF EXAMINATION: 02/25/2022. INDICATION: Female, 71 years old. Ascites. PHYSICIAN: Navid Portillo M.D. TECHNIQUE: The risks, benefits, and alternatives to the procedure were explained to the patient. The specific risks of bleeding, infection, and damage to bowel were detailed and accepted. Witnessed informed consent was obtained. The abdomen was ultrasonographically surveyed. An appropriate pocket of fluid was identified at the left lower quadrant. The skin were cleaned and prepped in the usual sterile fashion. Using ultrasound guidance, the peritoneal cavity was accessed with a 5-Nepali paracentesis needle/catheter system. The trocar was removed. A total of 2400 ml of eva-colored fluid were removed from the peritoneal cavity. The catheter was removed and a sterile dressing was applied. The procedure was well tolerated. US/Paracentesis with US IMPRESSION: Ultrasound guided paracentesis. Electronically Signed: Navid Portillo MD at 14:09 EDT ,
[2022-02-25 13:38] VITALS: BP 135/69; BP 137/89; BP 147/77; PULSE 108; PULSE 109; PULSE 116; RESP 16; O2SAT 95; O2SAT 96; O2SAT 97
[2022-02-25] MEDS: Lidocaine 2% (20 ml mdv) 20 ML Vial INFILT (13:38)
== END 2022-02-25 23:59 | disposition home or self-care (01) ==
PROVIDERS: PCP Student in an Organized Health Care Education/Training Program; Referring Provider Family Medicine Geriatric Medicine; Visit Provider Family Medicine Geriatric Medicine
DX: K74.60 Unspecified cirrhosis of liver (principal)
CPT/HCPCS: 49083